=== PATIENT | male | born 1940 | race Caucasian/White ===

== ENCOUNTER → 2016-09-25 | Outpatient (CLI) | payer OTHER ==
[~2016-09-25] MED LIST: ASPI81TA28 PO; ATEN-173 PO; DICL-201 PO; MULT-506 PO; OMEG10007 PO; POME250C2 PO
[2016-09-25 09:46] LABS: HEMATOCRIT 47.7 % (42-52); MEAN CELL VOLUME 83.1 fL (80-100); MEAN CORPUSCULAR HEMOGLOBIN 29.6 pg (25-34); MEAN CORPUSCULAR HGB CONC 35.6 g/dl (32-36); MEAN PLATELET VOLUME 10.9 fL (7.4-10.4); PLATELET COUNT 153 K/uL (130-400); RED BLOOD COUNT 5.74 M/uL (4.7-6.1); WHITE BLOOD COUNT 6.24 K/uL (4.8-10.8)
[2016-09-25 10:20] LABS: ESTIMATED AVERAGE GLUCOSE 154 mg/dl; HA1C FLAG Normal (Normal)
[2016-09-25 10:24] LABS: ALT/SGPT 33 U/L (12-78); AST/SGOT 19 U/L (15-37); BLOOD UREA NITROGEN 26 mg/dl (7-18); CALCIUM 9.2 mg/dl (8.5-10.1); CARBON DIOXIDE 28 mmol/L (21-32); CHLORIDE 103 mmol/L (98-107); CHOLESTEROL 194 mg/dl (0-200); GLUCOSE 133 mg/dl (70-99); POTASSIUM 4.1 mmol/L (3.5-5.1); SODIUM 140 mmol/L (136-145); TRIGLYCERIDES 418 mg/dl (0-150)
[2016-09-25 10:26] LABS: ALB/GLOB RATIO 1.1 (0.9-2); ALKALINE PHOSPHATASE 95 U/L (45-117); CHOLESTEROL/HDL RATIO 6.1; HDL CHOLESTEROL 32 mg/dl
== END | disposition home or self-care (01) ==
LOC: C.LAB 07:39
PROVIDERS: ATTEND Internal Medicine
DX: E11.9 Type 2 diabetes mellitus without complications (principal); E78.5 Hyperlipidemia, unspecified

== ENCOUNTER → 2016-09-27 | Outpatient (CLI) | payer OTHER | END | disposition home or self-care (01) | LOC: C.LABBFT 09:03 | PROVIDERS: ATTEND Urology | DX: R97.20 Elevated prostate specific antigen [PSA] (principal); N52.9 Male erectile dysfunction, unspecified ==

== ENCOUNTER → 2016-09-30 | Day surgery (SDC) | payer OTHER ==
[2016-09-18 15:38] VITALS: Ht 175.3 cm; Wt 63.6 kg
[~2016-09-30] VITALS: Ht 175.3 cm; Wt 63.6 kg
[~2016-09-30] MED LIST changes: +ATROPINE SULFATE 0.1 MG/ML 5ML SYR IV PRN; +EpHEDrine SULFATE INJ 50 MG/ML AMP IV PRN; +EpHEDrine SULFATE INJ 50 MG/ML AMP ONE; +LIDOCAINE HCL 2% 2 ML VIAL (20MG/ML) ONE; +PROPOFOL IV EMULSION 10 MG/ML 20 ML VIAL IV ONE
--- NOTE | 2016-09-30 14:06 | Endo History and Physical ---
History & Physical Date of Service: Sep 30, 2016. Chief Complaint: Screening Referring Physician: Vicetne Loving History of Present Illness 76 yo CM who presents for screening colonoscopy. Past Surgical History Hx Cardiac Surgery: No Hx Internal Defibrillator: No Hx Pacemaker: No Hx Abdominal Surgery: No Hx of Implantable Prosthesis: No Hx Post-Op Nausea and Vomiting: No Hx Cancer Surgery: Yes (LUNG LESION REMOVAL, LOWER RIGHT LOBECTOMY) Hx Thoracic Surgery: No Hx Orthopedic: Yes (LT SHOULDER SURGERY X2) Hx Urinary Tract Surgery: Yes (PROSTATE BIOPSY (NEGATIVE)) Family History None Social History Smoking Status: Never Smoker Hx Substance Use: No Hx Alcohol Use: No Allergies Coded Allergies: No Known Allergies (Unverified , 09/18/16) Current Medications Reported Home Medications Medications Dose Route/Sig Max Daily Dose Days Date Category Dose Instructions Pomegranate (Pomegranate (Punica Granatum)) 250 Mg Cap 1 Tab PO BID 09/18/16 Reported Aspirin Ec (Aspirin) 81 Mg Tab 81 Mg PO QAM 09/18/16 Reported Multivitamin (Multivitamins) Tab 1 Tab PO QAM 09/18/16 Reported Page-3 (Fish Oil) 1 Ea Cap 1 Cap PO QAM 09/18/16 Reported Tenormin (Atenolol) 25 Mg Tab 25 Mg PO QAM 09/18/16 Reported Voltaren (Diclofenac Sodium) 75 Mg Tabcr 75 Mg PO QAM 09/18/16 Reported WITH FOOD Vital Signs Weight (Kilograms): 63.64 Height (Feet): 5 Height (Inches): 9 Date Time Temp Pulse Resp B/P Pulse Ox O2 Delivery O2 Flow Rate FiO2 09/30/16 13:50 36.8 57 18 214/89 98 Room Air Physical Exam General Appearance: WD/WN, no apparent distress Respiratory/Chest: Auscultation: breath sounds normal Cardiovascular: Heart Auscultation: RRR Abdomen: Bowel Sounds: normal Inspection & Palpation: soft, non-distended, no tenderness, guarding & rebound Assessment and Plan Assessment: 76 yo CM who presents for screening colonoscopy. Plan: Proceed with colonoscopy.
--- NOTE | 2016-09-30 14:32 | Discharge Instructions ---
Endoscopy Patient Instructions Date / Procedure(s) Performed Sep 30, 2016. Colonoscopy Allergy Information Coded Allergies: No Known Allergies (Unverified , 09/18/16) Discharge Date / Findings Sep 30, 2016. Colon polyp Diverticulosis Internal hemorrhoids Medication Instructions Stopped Medication(s): ASA, Voltaren OK to resume all medications today as prescribed. Reported Home Medications Medications Dose Route/Sig Max Daily Dose Days Date Category Dose Instructions Pomegranate (Pomegranate (Punica Granatum)) 250 Mg Cap 1 Tab PO BID 09/18/16 Reported Aspirin Ec (Aspirin) 81 Mg Tab 81 Mg PO QAM 09/18/16 Reported Multivitamin (Multivitamins) Tab 1 Tab PO QAM 09/18/16 Reported [place]-3 (Fish Oil) 1 Ea Cap 1 Cap PO QAM 09/18/16 Reported Tenormin (Atenolol) 25 Mg Tab 25 Mg PO QAM 09/18/16 Reported Voltaren (Diclofenac Sodium) 75 Mg Tabcr 75 Mg PO QAM 09/18/16 Reported WITH FOOD Provider Instructions Activity Restrictions - No exercising or heavy lifting for 24 hours. - Do not drink alcohol the day of the procedure. - Do not drive a car or operate machinery until the day after the procedure. - Do not make any important decisions or sign important papers in 24 hours after the procedure. Following Day: - Return to full activity which may include returning to work/school. Diet Start your diet with liquids and light foods (jello, soup, juice, toast). Then eat your usual diet if not nauseated. Treatment For Common After Affects For mild abdominal pain, bloating, or excessive gas: - Rest - Eat lightly - Lie on right side Follow-Up Information Follow-up with Vicente Loving as scheduled Anesthesia Information What You Should Know You have had a procedure that required some medicine to reduce anxiety and discomfort. This treatment is called moderate sedation. After receiving the treatment, you may be sleepy, but you will be able to breathe on your own. The effects of the treatment may last for several hours. Follow these instructions along with Activity/Diet recommendations noted above: * Do NOT do anything where dizziness or clumsiness would be dangerous. * Rest quietly at home today, then you can be up and about tomorrow. * Have a responsible person stay with you the rest of today. * You may have had an I.V. today. If so, you may take the dressing off later today. Recommendations Call your doctor if: * Trouble breathing * Continuous vomiting for more than 24 hours * Temperature above 101 degrees * Severe abdominal pain or bloating * Pain not relieved by pain medicine ordered * There is increased drainage or redness from any incision * A large amount of rectal bleeding greater than 2-3 tablespoons. (If you had a polyp/s removed or have hemorrhoids, a small amount of blood - from the rectum is to be expected.) * You have any unanswered questions or concerns. IN THE EVENT OF A SERIOUS EMERGENCY, GO TO THE NEAREST EMERGENCY ROOM Your discharge instructions were prepared by provider Yuri Khanna. Patient Instructions Signature Page Rafi Williamson Patient (or Guardian) Signature/Date: I have read and understand the instructions given to me by my caregivers. Caregiver/RN/Doctor Signature/Date: The above-named patient and/or guardian has received patient instructions on this date. + Original Patient Signature Page (only) stays with chart. Please make copy for patient.
--- NOTE | 2016-09-30 14:32 | GI REPORT ---
Procedure Date: 09/30/2016 1:56 PM Procedure: Colonoscopy Indications: Screening for colorectal malignant neoplasm Medicines: Monitored Anesthesia Care Complications: No immediate complications. Estimated Blood Loss: Estimated blood loss: none. Procedure: Pre-Anesthesia Assessment: - Prior to the procedure, a History and Physical was performed, and patient medications and allergies were reviewed. The patient's tolerance of previous anesthesia was also reviewed. The risks and benefits of the procedure and the sedation options and risks were discussed with the patient. All questions were answered, and informed consent was obtained. Prior Anticoagulants: The patient has taken aspirin, last dose was 2 days prior to procedure. ASA Grade Assessment: III - A patient with severe systemic disease. After reviewing the risks and benefits, the patient was deemed in satisfactory condition to undergo the procedure. After I obtained informed consent, the scope was passed under direct vision. Throughout the procedure, the patient's blood pressure, pulse, and oxygen saturations were monitored continuously. The scope was introduced through the anus and advanced to the terminal ileum. The colonoscopy was performed without difficulty. The patient tolerated the procedure well. The quality of the bowel preparation was good. The terminal ileum, ileocecal valve, appendiceal orifice, and rectum were photographed. Findings: A 6 mm polyp was found in the ascending colon. The polyp was sessile. The polyp was removed with a hot snare. Resection and retrieval were complete. Multiple small-mouthed diverticula were found in the sigmoid colon. Non-bleeding internal hemorrhoids were found during retroflexion. The hemorrhoids were small. Impression: - One 6 mm polyp in the ascending colon, removed with a hot snare. Resected and retrieved. - Diverticulosis in the sigmoid colon. - Non-bleeding internal hemorrhoids. Recommendation: - Resume previous diet. - Continue present medications. - Repeat colonoscopy for surveillance based on pathology results. - Return to primary care physician as previously scheduled. Yuri Khanna DO 09/30/2016 2:31:46 PM This report has been signed electronically. Note Initiated On: 09/30/2016 1:56 PM
--- NOTE | 2016-09-30 14:59 | Anesthesiology Progress Note ---
Anesthesia Post Op Note Date & Time Sep 30, 2016 at 14:59 Vital Signs Pain Intensity: 0 Vital Signs Past 12 Hours Date Time Temp Pulse Resp B/P Pulse Ox O2 Delivery O2 Flow Rate FiO2 09/30/16 14:45 75 20 146/64 97 Room Air 09/30/16 14:30 68 20 110/42 98 Room Air 09/30/16 13:50 36.8 57 18 214/89 98 Room Air Notes Mental Status: alert / awake / arousable, participated in evaluation Pt Amnestic to Procedure: Yes Nausea / Vomiting: adequately controlled Pain: adequately controlled Airway Patency, RR, SpO2: stable & adequate BP & HR: stable & adequate Hydration State: stable & adequate Anesthetic Complications: no major complications apparent
[2016-09-30 15:00] VITALS: BP 169/75; PULSE 60; O2SAT 99
== END | disposition home or self-care (01) ==
LOC: C.GI 13:25
PROVIDERS: ATTEND Internal Medicine
DX: Z12.11 Encounter for screening for malignant neoplasm of colon (principal); Z85.118 Personal history of other malignant neoplasm of bronchus and lung; D12.2 Benign neoplasm of ascending colon; K57.30 Diverticulosis of large intestine without perforation or abscess without bleeding; K64.8 Other hemorrhoids; Z98.890 Other specified postprocedural states; I10 Essential (primary) hypertension

== ENCOUNTER → 2017-01-30 | Outpatient (CLI) | payer OTHER ==
[~2017-01-30] MED LIST changes: -ATROPINE SULFATE 0.1 MG/ML 5ML SYR IV PRN; -EpHEDrine SULFATE INJ 50 MG/ML AMP IV PRN; -EpHEDrine SULFATE INJ 50 MG/ML AMP ONE; -LIDOCAINE HCL 2% 2 ML VIAL (20MG/ML) ONE; -PROPOFOL IV EMULSION 10 MG/ML 20 ML VIAL IV ONE
[2017-01-30 12:32] LABS: URINE APPEARANCE CLEAR (CLEAR); URINE BILIRUBIN NEG (NEG); URINE COLOR YELLOW; URINE NITRITE NEG (NEG); URINE PH 7.5 (4.5-7.5); URINE SPECIFIC GRAVITY 1.016 (1.000-1.030); UROBILINOGEN NEG (NEG)
[2017-01-30 12:51] LABS: MANUAL MICROSCOPIC REQUIRED? NO; REVIEW REQ? NO
== END | disposition home or self-care (01) ==
LOC: C.LAB 09:28
PROVIDERS: ATTEND Nurse Practitioner Adult Health
DX: R36.1 Hematospermia (principal); R97.20 Elevated prostate specific antigen [PSA]

== ENCOUNTER → 2017-04-14 | Outpatient (CLI) | payer OTHER ==
[2017-04-14 12:36] LABS: HEMATOCRIT 46.8 % (42-52); MEAN CELL VOLUME 84.8 fL (80-100); MEAN CORPUSCULAR HEMOGLOBIN 28.8 pg (25-34); MEAN PLATELET VOLUME 10.3 fL (7.4-10.4); PLATELET COUNT 143 K/uL (130-400); RED BLOOD COUNT 5.52 M/uL (4.7-6.1); WHITE BLOOD COUNT 5.14 K/uL (4.8-10.8)
[2017-04-14 12:41] LABS: ESTIMATED AVERAGE GLUCOSE 146 mg/dl; HA1C FLAG Normal (Normal)
[2017-04-14 12:57] LABS: BLOOD UREA NITROGEN 22 mg/dl (7-18); GLUCOSE 103 mg/dl (70-99)
[2017-04-14 12:58] LABS: ALT/SGPT 34 U/L (12-78); AST/SGOT 20 U/L (15-37); BUN/CREATININE RATIO 19.5 (10-20); CALCIUM 8.8 mg/dl (8.5-10.1); CARBON DIOXIDE 30 mmol/L (21-32); CHLORIDE 105 mmol/L (98-107); CHOLESTEROL 167 mg/dl (0-200); POTASSIUM 4.2 mmol/L (3.5-5.1); SODIUM 138 mmol/L (136-145); TRIGLYCERIDES 284 mg/dl (0-150); VERY LOW DENSITY LIPOPROT CALC 57 mg/dl
[2017-04-14 13:08] LABS: ALKALINE PHOSPHATASE 82 U/L (45-117); CHOLESTEROL/HDL RATIO 4.8; HDL CHOLESTEROL 35 mg/dl; LDL CHOLESTEROL CALCULATED 75 mg/dl
[2017-04-14 13:10] LABS: RATIO 30.2 mcg/mg (0-30.0)
== END | disposition home or self-care (01) ==
LOC: C.LAB 09:27
PROVIDERS: ATTEND Internal Medicine
DX: E78.5 Hyperlipidemia, unspecified (principal); E11.9 Type 2 diabetes mellitus without complications

== ENCOUNTER → 2017-08-07 | Outpatient (CLI) | payer OTHER | END | disposition home or self-care (01) | LOC: C.LAB 09:49 | PROVIDERS: ATTEND Urology | DX: C34.90 Malignant neoplasm of unspecified part of unspecified bronchus or lung (principal); F41.9 Anxiety disorder, unspecified; K63.5 Polyp of colon; E11.9 Type 2 diabetes mellitus without complications; M19.90 Unspecified osteoarthritis, unspecified site; M25.50 Pain in unspecified joint; N52.9 Male erectile dysfunction, unspecified; R05 Cough ==

== ENCOUNTER → 2017-09-04 | Outpatient (CLI) | payer OTHER | END | disposition home or self-care (01) | LOC: C.LAB 15:09 | PROVIDERS: ATTEND Urology | DX: R97.20 Elevated prostate specific antigen [PSA] (principal) ==

== ENCOUNTER → 2017-09-26 | Outpatient (CLI) | payer OTHER | END | disposition home or self-care (01) | LOC: C.LAB 12:04 | PROVIDERS: ATTEND Urology | DX: R97.20 Elevated prostate specific antigen [PSA] (principal) ==

== ENCOUNTER → 2018-04-16 | Outpatient (CLI) | payer OTHER ==
[2018-04-16 12:15] LABS: HEMATOCRIT 46.5 % (42-52); HEMOGLOBIN 16.4 g/dL (14.0-18.0); MEAN CORPUSCULAR HEMOGLOBIN 29.3 pg (25-34); MEAN CORPUSCULAR HGB CONC 35.3 g/dl (32-36); MEAN PLATELET VOLUME 10.9 fL (7.4-10.4); PLATELET COUNT 163 K/uL (130-400); RED CELL DISTRIBUTION WIDTH CV 14.5 % (11.5-14.5); RED CELL DISTRIBUTION WIDTH SD 43.8 fL (36.4-46.3); WHITE BLOOD COUNT 6.57 K/uL (4.8-10.8)
[2018-04-16 12:27] LABS: HEMOGLOBIN A1C 7.2 % (4.5-5.6)
[2018-04-16 12:36] LABS: ALBUMIN 3.7 gm/dl (3.4-5.0); ALKALINE PHOSPHATASE 93 U/L (45-117); ALT/SGPT 33 U/L (12-78); AST/SGOT 21 U/L (15-37); BLOOD UREA NITROGEN 20 mg/dl (7-18); CALCIUM 8.8 mg/dl (8.5-10.1); CARBON DIOXIDE 27 mmol/L (21-32); CHOLESTEROL 163 mg/dl (0-200); CREATININE 1.21 mg/dl (0.60-1.40); GLUCOSE 134 mg/dl (70-99); POTASSIUM 4.4 mmol/L (3.5-5.1); SODIUM 135 mmol/L (136-145); TOTAL PROTEIN 7.4 gm/dl (6.4-8.2)
== END | disposition home or self-care (01) ==
LOC: C.LAB 10:21
PROVIDERS: ATTEND Internal Medicine
DX: E11.9 Type 2 diabetes mellitus without complications (principal)

== ENCOUNTER 2019-09-16 08:05 | Inpatient (IN) ==
[2019-09-16] MEDS ORDERED: OXYCODONE HCL IR 5 MG TAB (IMMEDIATE RELEASE) PO STA (08:23)
[2019-09-16 08:44] LABS: Basophils # (auto) 0.01 K/uL (0-0.2); Basophils % (auto) 0.1 %; Eosinophils # (auto) 0.01 K/uL (0-0.5); Eosinophils % (auto) 0.1 %; Hematocrit (blood only) 45.3 % (42-52); Hemoglobin 15.2 g/dL (14.0-18.0); Immature Granulocytes # (auto) 0.02 K/uL (0.00-0.02); Immature Granulocytes % (auto) 0.2 %; Lymphocytes # (auto) 1.82 K/uL (1.2-3.4); Lymphocytes % (auto) 16.9 %; Mean Corpuscular Hemoglobin 28.1 pg (25-34); Mean Corpuscular Hgb Conc 33.6 g/dL (32-36); Mean Corpuscular Volume 83.9 fL (80-100); Mean Platelet Volume 10.3 fL (7.4-10.4); Monocytes # (auto) 0.41 K/uL (0.11-0.59); Monocytes % (auto) 3.8 %; Neutrophils # (auto) 8.51 K/uL (1.4-6.5); Neutrophils % (auto) 78.9 %; Platelet Count 191 K/uL (130-400); RDW Standard Deviation 42.7 fL (36.4-46.3); White Blood Count 10.78 K/uL (4.8-10.8)
--- NOTE | 2019-09-16 08:48 | XRay Report ---
SINGLE VIEW CHEST CLINICAL HISTORY: Atypical chest pain. FINDINGS: An AP, portable, upright chest radiograph is compared to study dated 09/09/2018. The examinat ion is mildly degraded by portable technique and patient rotation. The heart is enlarged noting ather osclerotic calcification of the thoracic aorta. The pulmonary vasculature is noncongested. There is m ild elevation of right hemidiaphragm. There is mild bibasilar scarring/atelectasis. Scattered calcifi ed granulomas are observed. No airspace consolidation, large pleural effusion, or pneumothorax is see n. The skeletal structures are osteopenic. There is a healed right posterior rib fracture. IMPRESSION: Cardiomegaly with no acute cardiopulmonary abnormality. ACT 112: Negative or not required by law. Electronically signed by: Phani Castro M.D. 09/16/2019 8:46 AM
--- NOTE | 2019-09-16 08:49 | Emergency Department Note ---
History of Present Illness General Chief complaint: Shoulder Pain Stated complaint: LEFT SHOULDER PAIN Time Seen by Provider: 09/16/19 08:12 History of Present Illness Maximum Pain Intensity: 9 This 79-year-old male presents the ER with chief complaint of left shoulder pain. The patient states that he has had the pain intermittently since July. He states the pain started this morning approximately 3 hours ago in the back of his shoulder and now radiates through to the front of his shoulder. He states that these pains have been getting progressively worse. He is under the care of Dr. Ferrari for his shoulder pain. He states he had an MRI of the shoulder performed in July which did not reveal any acute problems therefore he had an MRI of the his cervical spine this morning but does not have the results. The patient does admit that he gets a little short of breath with the pain but he thinks it is because it is so painful he gets very anxious. He denies any chest pain, headache or dizziness. The patient denies any personal history of CAD. He does chew tobacco but has never smoked. Both his parents of acute VT but they were in their 90s. The patient states that he is mainly here for pain control of his shoulder. He was seen by Dr. Ferrari yesterday and was placed on steroids. He states this is not helping. He is also taking tramadol which is not helping in addition to his Tylenol. Home Medications Home Medications Medication Instructions Recorded Confirmed Type aspirin 81 mg tablet,delayed 81 mg PO DAILY 10/28/18 09/16/19 History release multivitamin 1 tab PO DAILY 10/28/18 09/16/19 History diclofenac sodium 75 mg 75 mg PO BID #180 tab 04/21/19 09/16/19 Rx tablet,delayed release flaxseed oil 1,000 mg capsule 1,000 mg PO BID 05/04/19 09/16/19 History gabapentin 300 mg capsule 300 mg PO BID #180 cap 05/04/19 09/16/19 Rx metformin 500 mg tablet 500 mg PO BID #180 tab 06/07/19 09/16/19 Rx lisinopril 10 mg tablet 10 mg PO DAILY #90 tab 06/14/19 09/16/19 Rx methylprednisolone 4 mg tablets in 4 mg PO UD #21 ea 09/15/19 09/16/19 Rx a dose pack atenolol 25 mg PO DAILY 09/16/19 09/16/19 History clonazepam 0 mg PO BID 09/16/19 09/16/19 History Allergies Allergy/AdvReac Type Severity Reaction Status Date / Time No Known Allergies Allergy Verified 09/16/19 08:54 Past Med/Surg History Medical History HTN (hypertension), benign (Chronic) Lung cancer (Resolved) Osteoarthritis (Chronic) Surgical History History of arthroscopy of shoulder (Resolved) left S/P partial lobectomy of lung (Resolved) Family History Father Myocardial infarction Social History Preferred Language: Mohawk Communication Ability: Effective Visual Impairment: No Limitations Hearing Ability: Normal Vehicle Upholsterer Required: No Beliefs That Will Affect Care: None marital status: Current Living Situation: Spouse current occupational status: employed current occupation: [employer] Fe[employer] Safe at Home: Yes Smoking Status: Never smoker Hx Alcohol Use: No Hx Substance Use: No Review of Systems A total of 10 systems reviewed and were otherwise negative Physical Exam Vital Signs Vital Signs - 24 hr 09/16/19 08:07 09/16/19 08:26 09/16/19 09:30 Temperature 36.5 C Temperature Source Oral Pulse Rate 65 Pulse Rate [Left] 59 L Pulse Rhythm [Left] Regular Respiratory Rate 18 18 Respiratory Effort / Characteristics Non-Labored Spontaneous Respiratory Depth Normal Blood Pressure 220/100 H Blood Pressure [Left Arm] 200/90 H Blood Pressure Mean 140 Blood Pressure Mean [Left Arm] 126 Blood Pressure Position Sitting Blood Pressure Position [Left Arm] Sitting Pulse Oximetry 99 99 97 Oxygen Delivery Method Room Air Room Air Room Air Oxygen Flow Rate 0 Sepsis Recent Fever Within 48 Hours No Sepsis New/Unexplained Change in Mental Status No Sepsis Action Taken by Nursing No Action Required 09/16/19 11:00 Temperature Temperature Source Pulse Rate Pulse Rate [Left] 88 Pulse Rhythm [Left] Respiratory Rate 18 Respiratory Effort / Characteristics Respiratory Depth Blood Pressure Blood Pressure [Left Arm] 150/76 H Blood Pressure Mean Blood Pressure Mean [Left Arm] 100 Blood Pressure Position Blood Pressure Position [Left Arm] Pulse Oximetry 96 Oxygen Delivery Method Room Air Oxygen Flow Rate Sepsis Recent Fever Within 48 Hours Sepsis New/Unexplained Change in Mental Status Sepsis Action Taken by Nursing GENERAL: 79-year-old white male appears in no acute distress. MENTAL Status: Alert and oriented x3. The patient is very anxious. EYES: PERRLA. EOMs intact. NECK: Supple, no lymphadenopathy noted. No carotid bruits noted. LUNGS: Clear auscultation without wheezes rales or rhonchi. CARDIAC: Regular rate and rhythm without murmur. Pulses is full and equal throughout. ABDOMEN: Positive bowel sounds all 4 quadrants. Soft, nontender to palpation without organomegaly or masses. LOWER EXTREMITIES: No erythema or edema noted. Calves are nontender. LEFT SHOULDER: The patient has point tenderness to palpation over the anterior aspect of the shoulder. Airfield Manager strength is 5 out of 5 as compared to the right. The patient has limited range of motion with abduction at 90 degrees. Course Administered Medications Discontinued Medications Aspirin (Aspirin) 243 mg PO NOW STA Stop: 09/16/19 11:22 Last Admin: 09/16/19 11:55 Dose: 243 mg Documented by: [id number] Hydralazine HCl (Hydralazine Hcl) 10 mg IV NOW STA Stop: 09/16/19 09:53 Last Admin: 09/16/19 10:06 Dose: 10 mg Documented by: [id number] Oxycodone HCl (Roxicodone Immediate Rel) 10 mg PO NOW STA Stop: 09/16/19 08:24 Last Admin: 09/16/19 08:29 Dose: 10 mg Documented by: [id number] Medical Decision Making Differential Diagnosis Acute VT, CAD, cervical radiculopathy, osteoarthritis of the shoulder Medical Records Attestation: I reviewed the patient's medical records. Home Medications Current Medication List: was personally reviewed by me Laboratory Data Attestation: I reviewed the patient's lab results. Result diagrams: 09/16/19 08:35 09/16/19 08:35 Lab Results 09/16/19 09/16/19 09/16/19 Range/Units 08:35 08:35 10:15 WBC 10.78 (4.8-10.8) K/uL RBC 5.40 (4.7-6.1) M/uL Hgb 15.2 (14.0-18.0) g/dL Hct 45.3 (42-52) % MCV 83.9 (80-100) fL MCH 28.1 (25-34) pg MCHC 33.6 (32-36) g/dL RDW Std Deviation 42.7 (36.4-46.3) fL RDW Coeff of [place] 14.0 (11.5-14.5) % Plt Count 191 (130-400) K/uL MPV 10.3 (7.4-10.4) fL Immature Gran % (Auto) 0.2 % Neut % (Auto) 78.9 % Lymph % (Auto) 16.9 % [place] % (Auto) 3.8 % Eos % (Auto) 0.1 % Baso % (Auto) 0.1 % Immature Gran # (Auto) 0.02 (0.00-0.02) K/uL Neut # (Auto) 8.51 H (1.4-6.5) K/uL Lymph # (Auto) 1.82 (1.2-3.4) K/uL [place] # (Auto) 0.41 (0.11-0.59) K/uL Eos # (Auto) 0.01 (0-0.5) K/uL Baso # (Auto) 0.01 (0-0.2) K/uL Sodium 135 L (136-145) mmol/L Potassium 4.8 (3.5-5.1) mmol/L Chloride 103 (98-107) mmol/L Carbon Dioxide 26 (21-32) mmol/L Anion Gap 6.0 (3-11) BUN 29 H (7-18) mg/dl Creatinine 1.26 (0.6-1.4) mg/dl Est Cr Clr Drug Dosing 46.3 ml/min Est GFR ( Amer) 63.3 Est GFR (Non-Af Amer) 54.7 BUN/Creatinine Ratio 23.0 H (10-20) Glucose 257 H (70-99) mg/dl Calcium 9.1 (8.5-10.1) mg/dl Total Bilirubin 0.4 (0.2-1) mg/dl AST 17 (15-37) U/L ALT 34 (12-78) U/L Alkaline Phosphatase 96 (45-117) U/L Total Creatine Kinase 79 (39-308) U/L CK-MB (CK-2) 2.8 (0.5-3.6) ng/ml CK/CKMB % Calc 3.5 H (0-3.0) Troponin I 0.038 0.074 H* (0-0.045) ng/ml Total Protein 7.2 (6.4-8.2) gm/dl Albumin 3.7 (3.4-5.0) gm/dl Globulin 3.5 (2.5-4.0) gm/dl Albumin/Globulin Ratio 1.1 (0.9-2) Lipase 150 (73-393) U/L Specimen Hemolysis Imaging Data Attestation: I personally reviewed and interpreted this imaging study as follows: My Impression: No acute cardiopulmonary finding. Mild cardiomegaly Radiologist's Impression: SINGLE VIEW CHEST CLINICAL HISTORY: Atypical chest pain. FINDINGS: An AP, portable, upright chest radiograph is compared to study dated 09/09/2018. The examination is mildly degraded by portable technique and patient rotation. The heart is enlarged noting atherosclerotic calcification of the thoracic aorta. The pulmonary vasculature is noncongested. There is mild elevation of right hemidiaphragm. There is mild bibasilar scarring/atelectasis. Scattered calcified granulomas are observed. No airspace consolidation, large pleural effusion, or pneumothorax is seen. The skeletal structures are osteopenic. There is a healed right posterior rib fracture. IMPRESSION: Cardiomegaly with no acute cardiopulmonary abnormality. ACT 112: Negative or not required by law. Electronically signed by: Phani Castro M.D. 09/16/2019 8:46 AM Dictated: 09/16/1945 Transcribed: 09/16/1945 ECG Data Indication: + other Rate (beats per minute): 62 Rhythm: + sinus with SA ECG ST segments: + Nonspecific ST abnormalities Comparison ECG Date: no prior available Blood Pressure Blood Pressure Findings: Elevated blood pressure Blood Pressure Disposition: Referred to patients primary care provider MDM Narrative The patient was evaluated. The patient was placed on a electronic device monitor and continuous pulse ox. EKG was ordered interpreted as above with nonspecific ST changes.. Chest x-ray was ordered interpreted as above by the radiologist and myself without any acute findings cardiomegaly was noted.. CBC and differential, renal profile, LFTs and lipase levels were ordered. Coags were ordered, CK-MB, troponin was ordered. The patient was given OxyIR 10 mg p.o. for pain. The patient's blood pressure remained elevated therefore he was given hydralazine 10 mg IV. His blood pressure came down to 150/76 after receiving the hydralazine. CBC and differential was unremarkable. Renal profile revealed elevated BUN at 29. Creatinine was normal at 1.26. The patient's initial troponin was 0.038 90-minute repeat it was 0.074. The patient had already taken 1 baby aspirin this morning therefore he was given 243 mg of chewable aspirin. the patient was independently evaluated by Dr. Bonilla who agrees with treatment plan. The hospitalist was consulted for admission. I also spoke with about the patient although Dr. Coughlin said that she would speak with cardiology. Impression & Plan Elevated troponin I level, Hypertension Discharge Plan Visit Data Chief Complaint: Shoulder Pain Stated Complaint: LEFT SHOULDER PAIN ED Provider: Eleni Bonilla ED Midlevel Provider: Anna Candelario Discharge Problem: Elevated troponin I level, Hypertension Patient Disposition: Being Evaluated by Hospitalist Condition: Good Forms Stand Alone Forms: My [facility] Prescriptions Prescriptions: No Action aspirin [Adult Aspirin Regimen] 81 mg tablet,delayed release (DR/EC) 81 mg PO DAILY RF: 0 multivitamin tablet 1 tab PO DAILY RF: 0 flaxseed oil 1,000 mg capsule 1,000 mg PO BID RF: 0 gabapentin 300 mg capsule 300 mg PO BID Qty: 180 RF: 0 metformin 500 mg tablet 500 mg PO BID Qty: 180 RF: 3 lisinopril 10 mg tablet 10 mg PO DAILY Qty: 90 RF: 3 methylprednisolone [Medrol (Chuck)] 4 mg tablets,dose pack 4 mg PO UD Qty: 21 RF: 0 diclofenac sodium 75 mg tablet,delayed release (DR/EC) 75 mg PO BID Qty: 180 RF: 3 atenolol 25 mg tablet 25 mg PO DAILY RF: 0 clonazepam 0.5 mg Tablet 0 mg PO BID RF: 0 Referrals Referrals: Vicente Loving III, MD [Primary Care Provider] - Discharge Problem: Hypertension Qualifiers: Hypertension type: unspecified Qualified Code(s): I10 - Essential (primary) hypertension
[2019-09-16 09:05] LABS: Albumin Level 3.7 gm/dl (3.4-5.0); Calcium 9.1 mg/dl (8.5-10.1); Creatinine Clr Calc Pharmacy 46.3 ml/min; Est GFR (African American) 63.3; Est GFR (Non-African American) 54.7; Potassium 4.8 mmol/L (3.5-5.1)
[2019-09-16 09:21] LABS: Albumin Globulin Ratio 1.1 (0.9-2); Bilirubin,Total 0.4 mg/dl (0.2-1); Creatine Kinase MB 2.8 ng/ml (0.5-3.6); Globulin 3.5 gm/dl (2.5-4.0); Total Protein 7.2 gm/dl (6.4-8.2); Troponin I 0.038 ng/ml (0-0.045)
[2019-09-16] MEDS ORDERED: HydrALAZINE HCL 20 MG/ML VIAL IV STA (09:52)
[2019-09-16] MEDS ORDERED: ASPIRIN CHEW 324 MG PO STA (11:21)
--- NOTE | 2019-09-16 12:06 | History & Physical Report ---
Date of Service September 16, 2019 Assessment & Plan (1) Elevated troponin I level: r/o ACS 0.038 on presentation, repeat 0.074 EKG and CXR neg for acute Pt is very active and unloaded 1000 lbs of feed yesterday by himself, possibly trop is elevated due to strenuous exercise in a 79 y/o M CK WNL ECHO pending Cardiology c/s pending Takes daily aspirin 81mg for prevention only (2) Hypertension: Labile in the ED in the setting of pain Hydalazine in the ED and improved Monitor continue home meds (3) Left shoulder pain: Imaging noted for multiple levels of bulging discs and pain is relieved with positional changes, worse with certain positions Pt does have a point tender biceps tendon, which is the focus of his pain generally Hx of surgery to L biceps, ?? scar tissue Imaging for shoulder was neg Has f/u with ortho next week Steroid dose pack started yesterday, will continue (4) Type 2 diabetes mellitus: A1c 7.1 04/2019 Elevated BS in the setting of steroids and did not take DM meds this AM A1c pending Lipids pending (5) Lung cancer: s/p RLL lobectomy in 1990 No hx of chemo or radiation Denies hx of intervention or mass in the L lung (6) DVT prophylaxis: Ambulation History of Present Illness Chief Complaint: 79 y/o M c/o L shoulder and neck pain. Pt states that this started in June. It was initially in the AM only and would resolve if he put his head down and to the R. He was seen by Dr. Ferrari for this in July and had a L shoulder MRI that was neg. His pain continued and has much increased over the last week. He is now having pain at night as well when at rest, worse with lying flat. He does not really get much pain during the day. At no point has he had pain in his chest. Pain has always been L shoulder. Now in the L neck as well. Sometimes it moves from the shoulder to his L thumb, but not always. Tylenol helps at times. Sometimes the pain occurs when he is reaching overhead. Pt was seen by Dr. Ferrari yesterday and an MRI c-spine was ordered for today. He was put on a steroid dose pack yesterday, but has only taken one dose thus far and no difference. Pt takes gabapentin for LE neuropathy and states that this does not help his L shoulder pain. He has been SOB at times when the pain is most intense, but not generally. Pt denies fever, abd pain, n/v/c/d, LE pain or swelling. Pt is very active at baseline. 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 Pt notes that yesterday he unloaded 1000 lbs of feed yesterday himself. 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 He has no pain in the L shoulder with these activities. Pt notes remote hx of stress testing, but he is unsure why. He has no hx of chest pain or cardiac issues. When suggested that testing may have been related to pre-op screening prior to lung surgery, he states this is possible. He does take aspirin 81mg daily, but this is for prevention only. Primary Care Provider: Vicente Loving MD Allergies Allergy/AdvReac Type Severity Reaction Status Date / Time No Known Allergies Allergy Verified 09/16/19 08:54 Home Medications Home Medications Medication Instructions Recorded Confirmed Type aspirin 81 mg tablet,delayed 81 mg PO DAILY 10/28/18 09/16/19 History release multivitamin 1 tab PO DAILY 10/28/18 09/16/19 History diclofenac sodium 75 mg 75 mg PO BID #180 tab 04/21/19 09/16/19 Rx tablet,delayed release flaxseed oil 1,000 mg capsule 1,000 mg PO BID 05/04/19 09/16/19 History gabapentin 300 mg capsule 300 mg PO BID #180 cap 05/04/19 09/16/19 Rx metformin 500 mg tablet 500 mg PO BID #180 tab 06/07/19 09/16/19 Rx lisinopril 10 mg tablet 10 mg PO DAILY #90 tab 06/14/19 09/16/19 Rx methylprednisolone 4 mg tablets in 4 mg PO UD #21 ea 09/15/19 09/16/19 Rx a dose pack atenolol 25 mg PO DAILY 09/16/19 09/16/19 History clonazepam 0 mg PO BID 09/16/19 09/16/19 History Past Med/Surg History Medical History HTN (hypertension), benign (Chronic) Lung cancer (Resolved) Osteoarthritis (Chronic) Surgical History History of arthroscopy of shoulder (Resolved) left S/P partial lobectomy of lung (Resolved) Family History Father Myocardial infarction Social History Preferred Language: Lao Communication Ability: Effective Visual Impairment: No Limitations Hearing Ability: Normal Take Away Man Required: No Beliefs That Will Affect Care: None marital status: Current Living Situation: Spouse current occupational status: employed current occupation: [employer] Feels Safe at Home: Yes Smoking Status: Never smoker Hx Alcohol Use: No Hx Substance Use: No Review of Systems Review of Systems: Pertinent positives and negatives reviewed in HPI--all others negative Physical Exam Constitutional: WD/WN, vitals as above Eyes: normal visual garcia by confrontation and + anicteric sclerae Neck: normal visual inspection and trachea midline Respiratory: normal respiratory effort, lungs clear to auscultation Cardiovascular: Rate/Rhythm: regular rate and regular rhythm Gastrointestinal (Abdomen): Inspection/Auscultation: abdomen not distended Percussion/Palpation: abdomen soft; abdomen nontender Musculoskeletal: Head/Neck/Chest: normocephalic and head atraumatic negative for edema, peripheral pulses intact L biceps tendon with point TTP Good ROM in L UE Skin: no rashes, warm and dry Neurologic: awake; not confused Speech / Cognition: normal speech Psychiatric: A+Ox3, euthymic affect Results & Data Vital Signs (Past 12 Hours) Vital Signs Temp Pulse Pulse Resp BP BP Pulse Ox 09/16/19 11:00 88 18 150/76 H 96 09/16/19 09:30 59 L 18 200/90 H 97 09/16/19 08:26 99 09/16/19 08:07 36.5 C 65 18 220/100 H 99 Diagnostic Findings CXR: neg for acute C-spine MRI: neg for stenosis. Has multi-level disc bulging without herniation L shoulder MRI (07/2019): neg for acute Code Status & VTE Plan Code Status Full code VTE Prophylaxis Plan VTE Prophylaxis will be ordered: Yes PG Care Time/CCT Total # of Minutes Spent Total Time Spent with Patient: Total time spent is greater than 50% in coordination of care (as documented) at patient's floor/unit and/or counseling patient: (1) Hypertension Hypertension type: unspecified Qualified Code(s): I10 - Essential (primary) hypertension
[2019-09-16] MEDS ORDERED: CARBOHYDRATES FOR HYPOGLYCEMIA PO PRN (13:02)
[2019-09-16] MEDS ORDERED: METHYLPREDNISOLONE 4 MG PO SCH (13:02)
[2019-09-16] MEDS ORDERED: MAGNESIUM HYDROXIDE SUSP 30 ML UDC PO PRN (13:02)
[2019-09-16] MEDS ORDERED: ONDANSETRON INJ 2 MG/ML 2 ML VIAL IV PRN (13:02)
[2019-09-16] MEDS ORDERED: ACETAMINOPHEN 325 MG TAB PO PRN (13:02)
[2019-09-16] MEDS ORDERED: GLUCAGON FOR INJ 1 MG VIAL SQ PRN (13:02)
[2019-09-16] MEDS ORDERED: GLUCOSE 10 TABS/TUBE PO PRN (13:02)
[2019-09-16] MEDS ORDERED: DEXTROSE 50% 50 ML SYRINGE IV PRN (13:02)
[2019-09-16] MEDS ORDERED: GLUCOSE 40% GEL 15 GM TUBE PO PRN (13:02)
[2019-09-16] MEDS ORDERED: methylPREDNISolone 4 MG TAB PO STA (13:52)
[2019-09-16] MEDS: INSULIN ASPART 100 UNITS/ML 3 ML PEN SC SCH ×3 (14:22→20:59)
--- NOTE | 2019-09-16 14:29 | Cardiology Consultation ---
Date of Consultation September 16, 2019 Assessment & Plan (1) Left shoulder pain: He has left shoulder and arm discomfort which by his description does sound musculoskeletal but there is been no obvious cause identified. It also seems to be progressive and based primarily on his 's description is associated with shortness of breath and lightheadedness. I think his discomfort may well be due to myocardial ischemia based on his initial evaluation here. I would approach it by evaluating his coronary arteries and if he needs treatment of that see whether the discomfort resolves. (2) Elevated troponin I level: His initial troponin emergency room was only slightly high, it was actually within the normal range, but then it doubled and now it is up to 0.19 on a subsequent measurement. This is highly suggestive of an ischemic event. His discomfort in his left shoulder and arm probably lasted 45 minutes to an hour this morning and would be consistent with this and with coronary disease. I think he will need a cardiac catheterization to define his anatomy. I discussed that with him and his family, his and several daughters were present. He is agreeable. I would also make sure that he is on antianginal medications and anticoagulated tonight. I will arrange for catheterization tomorrow. (3) Abnormal electrocardiogram: His electrocardiogram demonstrates inferior T wave inversion as well as anterolateral T wave inversions, he does not have an infarction pattern but this is very suggestive of ischemia. Since we do not have a comparison I cannot be sure how old this is. He would have had electrocardiograms years ago when he had his lung cancer and surgery, he does not recall being told he had abnormal electrocardiogram so I suspect it is relatively new but we do not seem to have interim records. History of Present Illness Reason for Consultation: L shoulder and arm pain Attending Physician: Janice Arshad DO History of Present Illness This is a 79-year-old hard-working [employer] who has a history of hypertension and diabetes mellitus as well as a strong family history of heart disease although it has occurred primarily in the elderly, both of his parents had significant heart disease as does a brother. He has been having a lot of difficulty with left shoulder and arm discomfort for about a month, he has a lot of studies related to his cervical spine and his left shoulder and no obvious source has been identified. The discomfort has been getting worse, he describes several different types of discomfort all located in his left arm, his left biceps or his left shoulder with radiation down his left arm. 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 His describes the episode somewhat different than he does. She tells me that when he has the episodes they are quite severe, he is gasping for breath when he has it and he will look like he is passing out when he has them. Apparently he had a fairly severe episode this morning which she tells me lasted 45 minutes and then resolved I believe before he came into the emergency room. He is not sure exactly when the pain resolved. Some of the discomfort will last 5 minutes or so, somewhat last longer when he gets it but has always been intermittent. Evaluation emergency room was notable for a slightly elevated troponin of 0.038, repeat was 0.074 1 hour and 45 minutes later but his electrocardiogram shows inferior and lateral T wave inversion. A subsequent troponin 4 hours and 45 minutes after his initial is elevated to 0.190. He does have a history of lung cancer perhaps 20 years ago and he had several surgeries and believes he had electrocardiograms then but I have not located any of them in our records or the hospital records. We therefore do not have a comparison. Since admission he has had no further chest or left shoulder discomfort or other cardiovascular symptoms. Allergies Allergy/AdvReac Type Severity Reaction Status Date / Time No Known Allergies Allergy Verified 09/16/19 08:54 Home Medications Home Medications Medication Instructions Recorded Confirmed Type aspirin 81 mg tablet,delayed 81 mg PO DAILY 10/28/18 09/16/19 History release multivitamin 1 tab PO DAILY 10/28/18 09/16/19 History diclofenac sodium 75 mg 75 mg PO BID #180 tab 04/21/19 09/16/19 Rx tablet,delayed release flaxseed oil 1,000 mg capsule 1,000 mg PO BID 05/04/19 09/16/19 History gabapentin 300 mg capsule 300 mg PO BID #180 cap 05/04/19 09/16/19 Rx metformin 500 mg tablet 500 mg PO BID #180 tab 06/07/19 09/16/19 Rx lisinopril 10 mg tablet 10 mg PO DAILY #90 tab 06/14/19 09/16/19 Rx methylprednisolone 4 mg tablets in 4 mg PO UD #21 ea 09/15/19 09/16/19 Rx a dose pack atenolol 25 mg PO DAILY 09/16/19 09/16/19 History clonazepam 0 mg PO BID 09/16/19 09/16/19 History Patient History Medical History HTN (hypertension), benign (Chronic) Lung cancer (Resolved) Osteoarthritis (Chronic) Surgical History History of arthroscopy of shoulder (Resolved) left S/P partial lobectomy of lung (Resolved) Family History Father Myocardial infarction Social History Preferred Language: Azeri Communication Ability: Effective Visual Impairment: No Limitations Hearing Ability: Normal 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 HEENT: Unremarkable Neck: No jugular venous distention, carotid pulses are normal and equal bilaterally without bruits. Pulmonary: Clear to auscultation bilaterally. Cardiac: Regular rhythm with no murmur, gallop or rub. Abdomen: Soft, nontender with normal bowel sounds. Extremities: No edema. Distal pulses intact. Neurologic: No focal findings. Gait is steady. Skin: No rash, ecchymoses or petechiae. Results & Data Vital Signs (Past 12 Hours) Vital Signs Temp Pulse Pulse Resp BP BP Pulse Ox 09/16/19 13:15 57 L 09/16/19 13:02 36.6 C 55 L 18 187/78 H 97 09/16/19 11:00 88 18 150/76 H 96 09/16/19 09:30 59 L 18 200/90 H 97 09/16/19 08:26 99 09/16/19 08:07 36.5 C 65 18 220/100 H 99 Laboratory Results Cardiac Enzymes 09/16/19 09/16/19 09/16/19 Range/Units 08:35 10:15 13:17 AST 17 (15-37) U/L CK-MB (CK-2) 2.8 (0.5-3.6) ng/ml Troponin I 0.038 0.074 H* 0.190 H* (0-0.045) ng/ml CBC 09/16/19 Range/Units 08:35 WBC 10.78 (4.8-10.8) K/uL RBC 5.40 (4.7-6.1) M/uL Hgb 15.2 (14.0-18.0) g/dL Hct 45.3 (42-52) % Plt Count 191 (130-400) K/uL Neut # (Auto) 8.51 H (1.4-6.5) K/uL Lymph # (Auto) 1.82 (1.2-3.4) K/uL [place] # (Auto) 0.41 (0.11-0.59) K/uL Eos # (Auto) 0.01 (0-0.5) K/uL Baso # (Auto) 0.01 (0-0.2) K/uL Comprehensive Metabolic Panel 09/16/19 Range/Units 08:35 Sodium 135 L (136-145) mmol/L Potassium 4.8 (3.5-5.1) mmol/L Chloride 103 (98-107) mmol/L Carbon Dioxide 26 (21-32) mmol/L BUN 29 H (7-18) mg/dl Creatinine 1.26 (0.6-1.4) mg/dl Glucose 257 H (70-99) mg/dl Calcium 9.1 (8.5-10.1) mg/dl AST 17 (15-37) U/L ALT 34 (12-78) U/L Alkaline Phosphatase 96 (45-117) U/L Total Protein 7.2 (6.4-8.2) gm/dl Albumin 3.7 (3.4-5.0) gm/dl Intake and Output 09/15/19 09/16/19 09/16/19 22:59 06:59 14:59 Other: Weight 66.7 kg Patient Weight 09/17/19 06:59 Weight 66.7 kg Diagnostic Findings His electrocardiogram in the emergency room on September 16, 2019 at 8:30 AM shows sinus rhythm at 62 bpm with inferior T wave inversion and anterolateral T wave inversion. No prior tracings. An echocardiogram reviewed briefly at the bedside shows normal left ventricular size and overall function with left ventricular hypertrophy. There is a localized area of inferobasal hypokinesis. Telemetry: Sinus rhythm, no significant abnormality. PG Care Time/CCT Total # of Minutes Spent Total Time Spent with Patient: Total time spent is greater than 50% in coordination of care (as documented) at patient's floor/unit and/or counseling patient:
[2019-09-16] MEDS ORDERED: METOPROLOL TARTRATE 25 MG TAB PO STA (16:10)
[2019-09-16] MEDS ORDERED: HEPARIN SODIUM/DEXTROSE 25,000 UNITS/500 ML BAG IV SCH (16:15)
[2019-09-16] MEDS ORDERED: HEPARIN IV BOLUS 5,000 UNITS in SYRINGE 0 ML IV STA (16:45)
[2019-09-16] MEDS: NITROGLYCERIN 2% OINTMENT 30GM TUBE EXT SCH ×2 (17:12→20:50)
[2019-09-16 17:18] LABS: Partial Thromboplastin Ratio 0.9; Partial Thromboplastin Time 24.8 Seconds (21.0-31.0); Prothrombin Time 10.1 Seconds (9.0-12.0)
--- NOTE | 2019-09-16 17:27 | Electrocardiogram Report ---
Test Reason : Blood Pressure : / mmHG Vent. Rate : 062 BPM Atrial Rate : 062 BPM P-R Int : 156 ms QRS Dur : 086 ms QT Int : 392 ms P-R-T Axes : 010 -29 -49 degrees QTc Int : 397 ms Normal sinus rhythm with sinus arrhythmia Minimal voltage criteria for LVH, may be normal variant Abnormal ECG No previous ECGs available Confirmed by Adrien Adair [id number]) on 09/16/2019 5:26:59 PM Referred By: REFERRED SELF Confirmed By:Adrien Adair
[2019-09-16] MEDS: methylPREDNISolone 4 MG TAB PO SCH ×2 (18:20→20:51)
[2019-09-16] MEDS: INSULIN HUMAN NPH SC SCH (18:20)
[2019-09-16] MEDS: DICLOFENAC SODIUM 75 MG TABCR PO SCH (20:50)
[2019-09-16] MEDS: GABAPENTIN 300 MG CAP PO SCH (20:51)
[2019-09-16] MEDS: METOPROLOL TARTRATE 50 MG TAB PO SCH (20:51)
[2019-09-16] MEDS: METFORMIN HCL 500 MG TAB PO SCH (20:51)
[2019-09-16] MEDS ORDERED: NON-FORMULARY MEDICATION (Flaxseed Oil 1,000 MG) PO SCH (21:00)
[2019-09-17] MEDS ORDERED: SODIUM CHLORIDE 0.9% 1000ML 1,000 ML IV SCH
[2019-09-17 01:56] LABS: Partial Thromboplastin Ratio 2.7
[2019-09-17 01:57] LABS: Partial Thromboplastin Time 74.2 Seconds (21.0-31.0)
[2019-09-17] MEDS: NITROGLYCERIN 2% OINTMENT 30GM TUBE EXT SCH ×2 (05:42→11:22)
[2019-09-17] MEDS: methylPREDNISolone 4 MG TAB PO SCH ×2 (05:42→14:40)
[2019-09-17 06:57] LABS: Estimated Average Glucose 160 mg/dl; Hemoglobin A1C 7.2 % (4.5-5.6)
[2019-09-17 07:03] LABS: Chol HDL Ratio 5; Cholesterol 189 mg/dl (0-200); HDL Cholesterol 40 mg/dl; LDL Cholesterol Calculated 88 mg/dl; Triglycerides 303 mg/dl (0-150); VLDL Cholesterol 61 mg/dl
[2019-09-17] MEDS: METFORMIN HCL 500 MG TAB PO SCH (07:58)
[2019-09-17] MEDS: INSULIN HUMAN NPH SC SCH (07:58)
[2019-09-17 08:19] LABS: Partial Thromboplastin Time 54.1 Seconds (21.0-31.0)
[2019-09-17] MEDS: GABAPENTIN 300 MG CAP PO SCH (08:37)
[2019-09-17] MEDS: METOPROLOL TARTRATE 50 MG TAB PO SCH (08:38)
[2019-09-17] MEDS: DICLOFENAC SODIUM 75 MG TABCR PO SCH (08:43)
[2019-09-17] MEDS: INSULIN ASPART 100 UNITS/ML 3 ML PEN SC SCH ×2 (08:43→12:29)
[2019-09-17] MEDS ORDERED: MULTIVITAMIN TAB PO SCH (09:00)
[2019-09-17] MEDS ORDERED: ATENOLOL 25 MG TABLET PO SCH (09:00)
[2019-09-17] MEDS ORDERED: ASPIRIN 81 MG ECTAB PO SCH (09:00)
[2019-09-17] MEDS ORDERED: lisinopriL 10 MG TAB PO SCH (09:00)
--- NOTE | 2019-09-17 10:39 | Cardiology Progress Note ---
Date of Service September 17, 2019 Assessment & Plan (1) NSTEMI (non-ST elevated myocardial infarction): 2. Hypertension 3. Type 2 diabetes 4. History of lung cancer post lobectomy Patient admitted with left shoulder pain. High suspicion his symptoms are secondary to coronary disease given elevated troponin, inferior wall motion abnormality and abnormal electrocardiogram. Currently chest pain free and hemodynamically and electrically stable. Plan for cardiac catheterization later today with Dr. Martino. He is bradycardic at times on tele with a 3.1 sec pause overnight. Continue to monitor. May need to reduce dose of beta venkat. Subjective Patient is currently comfortable without any significant shoulder pain today. No shortness of breat. Bradycardic at times on tele, 3,1 sec pause overnight. No lightheadedness, near syncope or syncop. Troponin peaked at 0.248. Echo yesterday with inferior wall motion abnormality. Review of Systems Review of Systems: All systems reviewed & are unremarkable except as noted in HPI & below Physical Exam Physical Exam: General: No acute distress, comfortable. HEENT: Sclerae anicteric. Neck: Normal carotid upstrokes, no bruits. No appreciable JVD. Lungs: Clear to auscultation bilaterally without rales, rhonchi or wheezes. Cardiac: Regular rate and rhythm. S1-S2 normal. No appreciable murmur, gallop or rub. Abdomen: Soft and nontender. Bowel sounds normal. No mass or organomegaly. No abdominal bruit. Extremities/vascular: --Well perfused. No peripheral edema. --Radial 2+ bilaterally --Right DP/PT 2+, Left DP/PT 1+ Neurologic: Nonfocal Psychiatric: Affect appropriate. Alert and oriented. Results & Data Vital Signs (Past 12 Hours) Vital Signs Temp Pulse Resp BP BP Pulse Ox 09/17/19 07:30 36.3 C L 56 L 20 167/79 H 96 09/17/19 04:24 36.6 C 58 L 18 149/72 H 96 09/17/19 00:34 36.7 C 63 18 143/54 H 97 Laboratory Results Laboratory Results - last 24 hr 09/16/19 09/16/19 09/16/19 10:15 13:12 13:17 PT INR APTT PTT Ratio POC Glucose 148 H Estimat Average Glucose Hemoglobin A1c Troponin I 0.074 H* 0.190 H* Triglycerides Cholesterol LDL Cholesterol, Calc VLDL Cholesterol, Calc HDL Cholesterol Cholesterol/HDL Ratio 09/16/19 09/16/19 09/16/19 16:28 16:41 18:53 PT 10.1 INR 1.0 APTT 24.8 PTT Ratio 0.9 POC Glucose 144 H Estimat Average Glucose Hemoglobin A1c Troponin I 0.248 H* Triglycerides Cholesterol LDL Cholesterol, Calc VLDL Cholesterol, Calc HDL Cholesterol Cholesterol/HDL Ratio 09/16/19 09/17/19 09/17/19 20:13 01:20 06:06 PT INR APTT 74.2 H* PTT Ratio 2.7 POC Glucose 247 H Estimat Average Glucose 160 Hemoglobin A1c 7.2 H Troponin I Triglycerides Cholesterol LDL Cholesterol, Calc VLDL Cholesterol, Calc HDL Cholesterol Cholesterol/HDL Ratio 09/17/19 09/17/19 09/17/19 06:06 07:24 07:47 PT INR APTT 54.1 H* PTT Ratio 2.0 POC Glucose 171 H Estimat Average Glucose Hemoglobin A1c Troponin I Triglycerides 303 H Cholesterol 189 LDL Cholesterol, Calc 88 VLDL Cholesterol, Calc 61 HDL Cholesterol 40 Cholesterol/HDL Ratio 5 09/17/19 08:12 PT INR APTT PTT Ratio POC Glucose Estimat Average Glucose Hemoglobin A1c Troponin I 0.172 H* Triglycerides Cholesterol LDL Cholesterol, Calc VLDL Cholesterol, Calc HDL Cholesterol Cholesterol/HDL Ratio PG Care Time/CCT Total # of Minutes Spent Total Time Spent with Patient: Total time spent is greater than 50% in coordination of care (as documented) at patient's floor/unit and/or counseling patient:
[2019-09-17] MEDS ORDERED: HEPARIN (PORCINE) 1000 UNIT/ML 10 ML (CATH LAB USE ONLY) ONE (13:41)
[2019-09-17] MEDS ORDERED: NiCARDipine HCL INJ 2.5 MG/ML 10 ML AMP ONE (13:41)
[2019-09-17] MEDS ORDERED: MIDAZOLAM HCL 1 MG/ML 2ML VIAL ONE (13:41)
[2019-09-17] MEDS ORDERED: fentaNYL citrate 100 MCG/2 ML VIAL ONE (13:41)
[2019-09-17] MEDS ORDERED: NITROGLYCERIN/D5W 100MCG/ML 20ML SYR ONE (13:42)
--- NOTE | 2019-09-17 14:44 | Post Anesthesia Assessment ---
Date of Service September 17, 2019 Post Sedation Assessment Vital Signs Temp Pulse Pulse Resp BP BP Pulse Ox 09/17/19 14:37 53 L 17 172/82 H 98 09/17/19 11:46 97.9 F 51 L 18 169/74 H 97 09/17/19 07:30 97.3 F L 56 L 20 167/79 H 96 09/17/19 04:24 97.9 F 58 L 18 149/72 H 96 09/17/19 00:34 98.1 F 63 18 143/54 H 97 09/16/19 19:10 98.6 F 62 18 160/68 H 96 09/16/19 16:00 57 L 09/16/19 15:06 97.9 F 60 17 190/78 H 99 Recovery Score Activity: Moves 4 extremities Respiration: Deep Breath/Cough Circulation: +/-20% PreAnes Value Consciousness: Fully Awake Oxygen Saturation: > 92% On Room Air Post Anesthesia Score: 10 Discharge Sedation Level of Care: Fast Track Phase II Post Sedation Plan On clinical assessment, the patient appears to have tolerated the sedation without complications. Patient is recovering as anticipated. Patient will continue to be monitored by nursing and may be discharged when sedation discharge criteria are met per below protocol. Upon Completions of procedure up to 15 minutes continue every 5 minute vital signs and the P.A.R. score; then discharge to a Phase I or Fast Track to Phase II per the following guidelines: * Discharge Patient to appropriate Phase II area if PAR is 8 or greater or return to pre- procedure baseline. The post - procedure orders will be as directed. * If PAR score is less than 8 or not return to pre-procedure baseline then patient will follow Phase I monitoring till PAR is reached for Phase II. The Phase I may be done in procedure room or may call to secure a Phase I area. * If naloxone or flumazenil are used for reversal, hold in Phase I for continued monitoring from when last reversal dose was given for a minimum of 60 minutes or longer pending the nurse and/or physician discretion of patient condition before discharge to Phase II. Please call the Sedation Physician to re-evaluate and complete post-note for discharge to Phase II area. Do NOT discharge from procedure sedation or Phase 1 until post- sedation evaluation note is complete by procedure /sedation MD Sedation Discharge Instructions to be given to the patient at discharge to home.
--- NOTE | 2019-09-17 14:54 | Cardiac Catheterization ---
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 Cardiac Status Clinical evaluation leading to the procedure CAD Presenation: Non STEMI Anginal Classification: CCS III Heart Failure: No Cardiogenic Shock within 24 Hours: No Cardiac Arrest within 24 Hours: No Imaging Studies Past 6 Months: Yes Stress Studies Past 6 Months: No Diagnostic Physicians Name: John Martino MD Status: Elective Closure Device Percutaneous Entry Location: Radial Closure Device: Radial Band Recommendations: CABG Intraprocedure Events Significant Disection: No Perforation: No Cardiac Cath Procedure Full Procedure Date September 17, 2019 Pre-Procedure Diagnosis Pre-Procedure Diagnosis: Non STEMI AUC Score AUC Score: 7 Post-Procedure Diagnosis Post-Procedure Diagnosis: Severe CAD and Elevated Intracardiac Pressures Procedure(s) Performed Procedure(s) Performed: Coronary Angiography and Left Heart Cath Seat Coverer John Martino MD Capacity Management Specialist(s) Aubree Estimated Blood Loss Estimated Blood Loss: 10 Medication(s) Medication(s): Fentanyl, Heparin, Lidocaine 1%, Nicardipine, Nitroglycerin and Versed Summary of Findings Indication: Atypical chest symptoms, mildly elevated troponin, small regional wall motion abnormality Access: 6 Fr slender right radial artery Catheters: [place], JL 3.5 Findings: LM -medium caliber calcified, 20% diffuse disease LAD -calcified, 100% chronic proximal occlusion at takeoff of first diagonal. 70% ostial stenosis in first diagonal. Small second diagonal partially fills via left to left collaterals. Very distal LAD fills via left to left collaterals. Circumflex -50% proximal to mid diffuse circumflex disease. 20 to 30% proximal disease in large OM 2. RCA -dominant, severe diffuse disease extending from proximal segment throughout whole mid segment up to 95% at takeoff of acute marginal. 80 to 90% distal disease extending into ostial PDA, ostial PLB. Remainder PDA with largely without disease. RCA provides right to left collaterals to LAD LVEDP -23 Arterial Closure: TR band Summary: 1. Severe multivessel coronary artery disease -100% proximal LAD chronic total occlusion. Fills via right to left and distally via left to left collaterals. Diffuse proximal to mid RCA disease up to 95%, 80 to 90% distal RCA disease extending into ostial PDA and ostial PLB 50% diffuse proximal mid circumflex disease 2. Elevated intracardiac filling pressure Recommendations: Further evaluation at tertiary center for CABG Hemodynamics Rest Ao:: 145/64/97 Final Ao: 176/71/107 LV: 155/23 Recommendations Recommendations: CABG Specimens Specimens: None Radiation Exposure (mGy) 551 Contrast (mls) 60 Fluids (cc crystalloids) Fluids (cc crystalloids): 50 Drains Drains: none Anesthesia moderate Procedural Complication(s) None Disposition PCU I attest to the content of the Intraoperative Record and any orders documented therein. Any exceptions are noted below. [facility] Card Cath Procedure Codes Cardiac Catheterization Procedure 1: Cardiovascular Cath Procedures: 28414 Coronaries and LHC (+/-LV) Moderate Sedation Procedure 1: Sedation/Anesthesia: 07138 Mod Sedation by the same physician;Init15 Min Child Age 5 & Up Procedure 2: Sedation/Anesthesia: 42817 Mod Sedation by the same physician; Ea [id number] Minutes PG Care Time/CCT Total # of Minutes Spent Total Time Spent with Patient: Total time spent is greater than 50% in coordination of care (as documented) at patient's floor/unit and/or counseling patient:
--- NOTE | 2019-09-17 19:03 | Discharge Summary ---
Date of Service September 17, 2019 Admission HPI Per Admitting Provider This 79-year-old male presents the ER with chief complaint of left shoulder pain. The patient states that he has had the pain intermittently since July. He states the pain started this morning approximately 3 hours ago in the back of his shoulder and now radiates through to the front of his shoulder. He states that these pains have been getting progressively worse. He is under the care of Dr. Ferrari for his shoulder pain. He states he had an MRI of the shoulder performed in July which did not reveal any acute problems therefore he had an MRI of the his cervical spine this morning but does not have the results. The patient does admit that he gets a little short of breath with the pain but he thinks it is because it is so painful he gets very anxious. He denies any chest pain, headache or dizziness. The patient denies any personal history of CAD. He does chew tobacco but has never smoked. Both his parents of acute [place] but they were in their 90s. The patient states that he is mainly here for pain control of his shoulder. He was seen by Dr. Ferrari yesterday and was placed on steroids. He states this is not helping. He is also taking tramadol which is not helping in addition to his Tylenol. Principal Diagnosis Severe Multi-Vessel Cardiac Disease Discharge Exam Constitutional WD/WN, vitals as above Eyes + anicteric sclerae ENMT Ears: no hearing impairment Neck trachea midline Respiratory normal respiratory effort, lungs clear to auscultation Cardiovascular RRR, no murmur, no edema Gastrointestinal (Abdomen) Inspection/Auscultation: normal bowel sounds Percussion/Palpation: abdomen soft; abdomen nontender Musculoskeletal Head/Neck/Chest: normocephalic and head atraumatic Skin no rashes, warm and dry Neurologic moves all extremities Psychiatric A+Ox3, euthymic affect Discharge Data Allergies Allergy/AdvReac Type Severity Reaction Status Date / Time No Known Allergies Allergy Verified 09/16/19 08:54 Consultations 09/16/19 11:22 ED Decision to Admit Stat 09/16/19 13:02 Consult Cardiology Routine Procedures Performed Operation Date: 09/17/19 12:00 Actual Procedures p Cath, Left with Cors and Vent - Brian Martino MD s Cineradiography w/Routine Exam - Brian Martino MD Ordered Studies 09/17/19 06:39 CL Cath Imgs for PACS use only Routine 09/17/19 11:23 CL Cath Imgs for PACS use only Routine Hospital Course (1) NSTEMI (non-ST elevated myocardial infarction): - Patient presented with intermittent L shoulder/neck pain that has ultimately started in July. He has been following with orthopedics but no etiology found for his pain. Typically NSAIDs has helped with his pain. H/O arthroscopy and possibly some scar tissue in this area. Some may have been MS- related pain - However pain has been intermittently debilitating. He is extremely active and fit and would intermittently get pain with movement but typically not stopping him from doing the work he needed to do. 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 - Family also noted he had a moment of looking pale and slightly cyanotic day of admission - He was found to have a trop of 0.038 on admission which peaked at 0.248 and trending down - Has been on ASA 81 mg daily for a long time - Was started on heparin gtt on admission prior to heart catheterization - Echo - EF 50-55% with small focal area of moderate to severe hypokinesis at junction of inferior base and mid-ventricle - Heart catheterization findings as follows: LM -medium caliber calcified, 20% diffuse disease LAD -calcified, 100% chronic proximal occlusion at takeoff of first diagonal. 70% ostial stenosis in first diagonal. Small second diagonal partially fills via left to left collaterals. Very distal LAD fills via left to left collaterals. Circumflex -50% proximal to mid diffuse circumflex disease. 20 to 30% proximal disease in large OM 2. RCA -dominant, severe diffuse disease extending from proximal segment throughout whole mid segment up to 95% at takeoff of acute marginal. 80 to 90% distal disease extending into ostial PDA, ostial PLB. Remainder PDA with largely without disease. RCA provides right to left collaterals to LAD Arterial Closure: TR band Summary: 1. Severe multivessel coronary artery disease -100% proximal LAD chronic total occlusion. Fills via right to left and distally via left to left collaterals. Diffuse proximal to mid RCA disease up to 95%, 80 to 90% distal RCA disease extending into ostial PDA and ostial PLB 50% diffuse proximal mid circumflex disease 2. Elevated intracardiac filling pressure Patient was accepted in transfer to [facility] for CABG and further evaluation/treatment. Disposition/Medications pending evaluation at tertiary care center. (2) Hypertension: - Having elevated pressures. Responding to hydralazine on admission - He normally is on Atenolol but this was stopped in favor of Metoprolol ---- PATIENT WAS NOTED TO HAVE A 3.1 SECOND SINUS PAUSE ON MONITOR BUT NO FURTHER PAUSES EVEN WITH DOSING OF METOPROLOL TODAY. MAY NEED A LOWER DOSE AND SHOULD BE MONITORED --- Is chronically sinus apolinar - Also on Lisinopril 10 mg daily (3) Left shoulder pain: - Maybe some component of musculoskeletal issues - given multiple bulging discs and sometimes pain improved with position changes/NSAIDs - Noted to have point tenderness of biceps tendon - Can continue to F/U with orthopedics - recommending holding injections initially - ultimately if any surgical procedure would need down will need to wait until cardiac condition stabilized - Was placed on steroid pack prior to admission for this discomfort (4) Type 2 diabetes mellitus: - A1c 7.8 (May 2019) - Also placed on steroid taper due to shoulder issues so risk for higher glucose readings - which now appear more cardiac and can consider stopping as possibly contributing to BP as well (5) Lung cancer: - S/P RLL Lobectomy 1990 - no current treatment or H/O chemo/radiation Total Time Total Time Spent Total Time Spent (In Minutes): Greater than 30 minutes Discharge Plan Discharge Items Patient Disposition: Transfer Acute Care Hospital Reason For Visit: EVEVATED TROP Discharge Diagnosis: Severe Multi-vessel Cardiac Disease Condition on Discharge: Good Activity: Resume your previous activity Non-emergency contact: Primary Care Provider Call non-emergency contact if: you have any medication questions, your symptoms worsen and you have a fever Follow-up/Referrals: Vicente Loving III, MD [Primary Care Provider] - Diet: Heart Healthy Addtl Attending Provider Instructions: Severe Multi-Vessel Cardiac Disease - Patient presented with intermittent L shoulder/neck pain that has ultimately started in July. He has been following with orthopedics but no etiology found for his pain. Typically NSAIDs has helped with his pain. H/O arthroscopy and possibly some scar tissue in this area. Some may have been MS-related pain - However pain has been intermittently debilitating. He is extremely active and fit and would intermittently get pain with movement but typically not stopping him from doing the work he needed to do. 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 - Family also noted he had a moment of looking pale and slightly cyanotic y - He was found to have a trop of 0.038 on admission but peaked at 0.248 and trending down - Has been on ASA 81 mg daily for a long time - Was started on heparin gtt on admission prior to heart catheterization - Heart catheterization findings as follows: LM -medium caliber calcified, 20% diffuse disease LAD -calcified, 100% chronic proximal occlusion at takeoff of first diagonal. 70% ostial stenosis in first diagonal. Small second diagonal partially fills via left to left collaterals. Very distal LAD fills via left to left collaterals. Circumflex -50% proximal to mid diffuse circumflex disease. 20 to 30% proximal disease in large OM 2. RCA -dominant, severe diffuse disease extending from proximal segment throughout whole mid segment up to 95% at takeoff of acute marginal. 80 to 90% distal disease extending into ostial PDA, ostial PLB. Remainder PDA with largely without disease. RCA provides right to left collaterals to LAD Arterial Closure: TR band Summary: 1. Severe multivessel coronary artery disease -100% proximal LAD chronic total occlusion. Fills via right to left and distally via left to left collaterals. Diffuse proximal to mid RCA disease up to 95%, 80 to 90% distal RCA disease extending into ostial PDA and ostial PLB 50% diffuse proximal mid circumflex disease 2. Elevated intracardiac filling pressure Recommendations: Further evaluation at tertiary center for CABG Hypertension: - Having elevated pressures. Responding to hydralazine on admission - He normally is on Atenolol but this was stopped in favor of Metoprolol ---- PATIENT WAS NOTED TO HAVE A 3.1 SECOND SINUS PAUSE ON MONITOR BUT NOT FURTHER PAUSES EVEN WITH DOSING OF METOPROLOL TODAY. MAY NEED A LOWER DOSE AND SHOULD BE MONITORED --- Is chronically sinus apolinar - Also on Lisinopril 10 mg daily Type 2 Diabetes: - A1c 7.8 (May 2019) - Also placed on steroid taper due to shoulder issues which now appear more cardiac and can consider stopping as possibly contributing to BP as well H/O Lung Cancer: - S/P RLL Lobectomy 1990 - no current treatment or H/O chemo/radiation Pending Studies at Discharge: No Stand-Alone Forms: My [facility] Skilled Items Patient informed of condition?: Yes DNR: No Discharge Level of Care: Other Communicable Disease: No Discharge Prognosis: Stable Lines: Peripheral IV Urinary Catheter: No Medications and DC Order Prescriptions: New metoprolol tartrate 50 mg Tablet 50 mg PO BID Qty: 0 RF: 0 Continued aspirin [Adult Aspirin Regimen] 81 mg tablet,delayed release (DR/EC) 81 mg PO DAILY RF: 0 multivitamin tablet 1 tab PO DAILY RF: 0 flaxseed oil 1,000 mg capsule 1,000 mg PO BID RF: 0 gabapentin 300 mg capsule 300 mg PO BID Qty: 180 RF: 0 metformin 500 mg tablet 500 mg PO BID Qty: 180 RF: 3 lisinopril 10 mg tablet 10 mg PO DAILY Qty: 90 RF: 3 methylprednisolone [Medrol (Chuck)] 4 mg tablets,dose pack 4 mg PO UD Qty: 21 RF: 0 diclofenac sodium 75 mg tablet,delayed release (DR/EC) 75 mg PO BID Qty: 180 RF: 3 clonazepam 0.5 mg Tablet 0 mg PO BID RF: 0 Discontinued atenolol 25 mg tablet 25 mg PO DAILY RF: 0 Discharge Orders: Discharge Order (Routine); Ordered 09/17/19 Ordered By: Cat Lo Admission Data Admit Date/Time: 09/16/19 11:33 Attending Provider: Shayne Hillman Admit Provider: Janice Arshad Primary Care Provider: Vicente Loving III Other Providers: Janice Arshad ; Juan Ramon Lemus Other Interventions: Discharge Summary Assessment (RN) Last Done: 09/17/19 16:41 DC Date/Time DO NOT enter until pt leaves facility: 09/17/19 17:10
[2019-09-18] MEDS ORDERED: methylPREDNISolone 4 MG TAB PO SCH (07:00)
[2019-09-19] MEDS ORDERED: methylPREDNISolone 4 MG TAB PO SCH (07:00)
[2019-09-20] MEDS ORDERED: methylPREDNISolone 4 MG TAB PO SCH (07:00)
== END 2019-09-17 17:10 | disposition short-term general hospital (02) | DRG 282 ==
LOC: ED 08:05 → 2S 11:33 → SUATTDRO 11:33 → 2S 12:11

== ENCOUNTER 2020-01-28 21:30 | Observation (INO) ==
--- NOTE | 2020-01-28 21:43 | Emergency Department Note ---
History of Present Illness General Chief complaint: Arrhythmia/Palpitations Time Seen by Provider: 01/28/20 21:32 History of Present Illness Provider complaint: Palpitations Onset (ago): hour(s) 3 Location: chest Radiation: extremity (Left arm) Severity: moderate Pain Consistency: + now resolved Quality: + other (Pressure) Relieved By: + other (Nitroglycerin) Associated symptoms: + chest pain; no shortness of breath 79-year-old male with history of coronary artery disease came to the emergency department for chest pain and palpitations. Patient was transported here via EMS. Patient reports at 6:30 PM while he was watching TV he started developing palpitations. He also noted some chest discomfort in the center of his chest. He states the discomfort radiated to his left arm. He stated it felt similar to when he needed to have a coronary artery bypass in the past. He called EMS. EMS gave him 3 sublingual nitro sprays which improved his discomfort and resolved palpitations. Currently pertinent is not requiring any chest pain or palpitations or pain in his left upper extremity. No recent surgery, no recent trauma, no loss of smell or taste, Home Medications Home Medications Medication Instructions Recorded Confirmed Type aspirin 81 mg tablet,delayed 81 mg PO DAILY 10/28/18 01/28/20 History release multivitamin 1 tab PO DAILY 10/28/18 01/28/20 History docusate sodium 100 mg capsule 100 mg PO DAILY #30 cap 10/04/19 01/28/20 Rx cholecalciferol (vitamin D3) 50 2,000 units PO DAILY 10/25/19 01/28/20 History mcg (2,000 unit) capsule metoprolol tartrate 50 mg tablet 50 mg PO QPM tab 10/25/19 01/28/20 History acetaminophen 500 - 1,000 mg PO Q8H PRN 01/28/20 01/28/20 History atorvastatin 10 mg PO DAILY 01/28/20 01/28/20 History clopidogrel 75 mg PO QPM 01/28/20 01/28/20 History diclofenac sodium 2 gm TOP QID PRN 01/28/20 01/28/20 History gabapentin 300 mg PO QPM 01/28/20 01/28/20 History metformin 500 mg PO BIDM 01/28/20 01/28/20 History omeprazole 40 mg PO DAILY PRN 01/28/20 01/28/20 History Allergies Allergy/AdvReac Type Severity Reaction Status Date / Time No Known Allergies Allergy Verified 01/28/20 22:14 Past Med/Surg History Medical History HTN (hypertension), benign (Chronic) Lung cancer (Resolved) Osteoarthritis (Chronic) Stroke (Acute) POST-PO HEMIANOPSIA 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 Surgical History History of arthroscopy of shoulder (Resolved) left S/P CABG x 3 09/20/2019: @ [place]; BARR TO LAD; SVG TO OM AND SVG TO PDA S/P partial lobectomy of lung (Resolved) Family History Father Myocardial infarction Denies family history of Ovarian cancer Prostate cancer Breast cancer Colorectal cancer Social History Preferred Language: Chadian Communication Ability: Effective Visual Impairment: No Limitations Hearing Ability: Normal Bank Vault Attendant Required: No Beliefs That Will Affect Care: Mosque Mosque Beliefs: Orthodox marital status: Current Living Situation: Spouse 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 Safe at Home: Yes Smoking Status: Never smoker Second Hand Exposure: No ; Hx Alcohol Use: No Hx Substance Use: No Dental Care, Regularly: Yes Physical Activity Frequency: Does not Exercise Seatbelt Use: always Sunscreen Use: No Review of Systems A total of 10 systems reviewed and were otherwise negative Physical Exam Vital Signs Vital Signs - 24 hr 01/28/20 21:37 01/28/20 22:00 01/28/20 22:30 Temperature 37.2 C Temperature Source Oral Pulse Rate 104 H 98 H 89 Pulse Rate from SpO2 Sensor 98 H 90 Respiratory Rate 20 22 22 Respiratory Depth Normal Blood Pressure 163/92 H 130/86 125/84 Blood Pressure Mean 115 97 107 Pulse Oximetry 95 95 98 Oxygen Delivery Method Room Air Room Air Room Air Sepsis Recent Fever Within 48 Hours No Sepsis New/Unexplained Change in Mental Status No Sepsis Action Taken by Nursing No Action Required 01/28/20 23:00 Temperature Temperature Source Pulse Rate 83 Pulse Rate from SpO2 Sensor 82 Respiratory Rate 15 Respiratory Depth Blood Pressure 147/74 H Blood Pressure Mean 98 Pulse Oximetry 96 Oxygen Delivery Method Room Air Sepsis Recent Fever Within 48 Hours Sepsis New/Unexplained Change in Mental Status Sepsis Action Taken by Nursing Physical Exam GENERAL: He is oriented to person, place, and time. He appears well-developed and well-nourished. He does not appear distressed. HENT: Exam performed. - Head: Normocephalic and atraumatic. - Right Ear: External ear normal. No mastoid tenderness. - Left Ear: External ear normal. No mastoid tenderness. - Mouth/Throat: The oropharynx is clear and moist. No trismus in the jaw. No dental abscesses or uvula swelling. No oropharyngeal exudate or tonsillar abscesses. EYES: Conjunctivae and EOM are normal. Pupils are equal, round, and reactive to light. Right eye exhibits no discharge. Left eye exhibits no discharge. No scleral icterus. NECK: Normal range of motion. Neck supple. No JVD present. No spinous process tenderness present. No carotid bruit present. No rigidity. No tracheal deviation and normal range of motion present. No Brudzinski's sign and no Kernig's sign noted. CV: Tachycardic rate, regular rhythm, normal heart sounds and intact distal pulses. There is no peripheral edema. Palpable radial pulses bue. PULM/CHEST: Diminished breath sounds bilaterally. - Chest Wall: He exhibits no tenderness. ABD: The abdomen is soft. Bowel sounds are normal. He has no distension. No mass is present. There is no tenderness. There is no rebound, no guarding, no Zhou's sign and no tenderness at McBurney's point. Rovsig negative. MUSC/SKEL: Normal range of motion. There is no peripheral edema, tenderness or deformity. LYMPH: No cervical adenopathy. NEURO: He is alert and oriented to person, place, and time. He has normal strength. No cranial nerve deficit or sensory deficit. Coordination and gait normal. GCS eye subscore is 4. GCS verbal subscore is 5. GCS motor subscore is 6. Cerebellar tests wnl. SKIN: Skin is warm and dry. He is not diaphoretic. PSYCH: He has a normal mood and affect. Behavior is normal. Judgment and thought content normal. Course Course 2134: The patient was evaluated in room A3. A complete history and physical exam was performed. 2314: Vital signs stable. Labs and imaging within normal limits. Given the patient's age, moderate to high heart score, and symptoms similar to last time having a CABG, the patient will be admitted for chest pain rule out ACS. I discussed this with the patient who is in agreement. I did notify the patient's family members were in their car in the parking lot via phone number that the nurse provided and they are in agreement that the patient should be admitted to the hospital. Discussed the case with Dr. Wahl [facility] hospitalist who agreed to the admission. Administered Medications Ioversol (Optiray 320 125ml) 119 ml IV ONCE PRN PRN Reason: Interaction Checking Stop: 02/01/20 22:51 Last Admin: 01/28/20 22:53 Dose: 119 ml Documented by: [id number] Medical Decision Making Laboratory Data Result diagrams: 01/28/20 21:50 01/28/20 21:50 Lab Results 01/28/20 01/28/20 01/28/20 Range/Units 21:50 21:50 21:50 WBC 5.91 (4.8-10.8) K/uL RBC 4.79 (4.7-6.1) M/uL Hgb 13.0 L (14.0-18.0) g/dL Hct 38.3 L (42-52) % MCV 80.0 (80-100) fL MCH 27.1 (25-34) pg MCHC 33.9 (32-36) g/dL RDW Std Deviation 42.6 (36.4-46.3) fL RDW Coeff of [place] 14.6 H (11.5-14.5) % Plt Count 221 (130-400) K/uL MPV 9.3 (7.4-10.4) fL Immature Gran % (Auto) 0.3 % Neut % (Auto) 58.4 % Lymph % (Auto) 28.4 % [place] % (Auto) 8.8 % Eos % (Auto) 3.6 % Baso % (Auto) 0.5 % Immature Gran # (Auto) 0.02 (0.00-0.02) K/uL Neut # (Auto) 3.45 (1.4-6.5) K/uL Lymph # (Auto) 1.68 (1.2-3.4) K/uL [place] # (Auto) 0.52 (0.11-0.59) K/uL Eos # (Auto) 0.21 (0-0.5) K/uL Baso # (Auto) 0.03 (0-0.2) K/uL PT 10.8 (9.0-12.0) Seconds INR 1.0 (0.9-1.1) APTT 26.5 (21.0-31.0) Seconds PTT Ratio 0.9 D-Dimer 1900 H* (0-500) ug/L FEU Sodium 137 (136-145) mmol/L Potassium 3.7 (3.5-5.1) mmol/L Chloride 106 (98-107) mmol/L Carbon Dioxide 25 (21-32) mmol/L Anion Gap 7.0 (3-11) BUN 20 H (7-18) mg/dl Creatinine 1.12 (0.6-1.4) mg/dl Est Cr Clr Drug Dosing 48.2 ml/min Est GFR ( Amer) 73.0 Est GFR (Non-Af Amer) 63.0 BUN/Creatinine Ratio 18.2 (10-20) Glucose 274 H (70-99) mg/dl Calcium 9.0 (8.5-10.1) mg/dl Troponin I 0.039 (0-0.045) ng/ml Lipase 162 (73-393) U/L Specimen Hemolysis Imaging Data My Impression: Chest x-ray viewed by me: Chest x-ray negative. Airway clear. No pneumothorax. No consolidation. No cardiomegaly or cephalization.. No free air under the diaphragm. No fractures of the skeletal structures. Radiologist's Impression: CTACHEST: Comparison is made to CT chest on 09/09/2018. No pulmonaryembolus identified. No aortic aneurysmor dissection. Trace right pleural effusion. Dependent atelectasis bilaterally. Calcified granulomas bilaterally. Emphysematous changes in the left lower lobe. Heterogeneous thyroid could be further evaluated with nonemergent dedicated ultrasound if clinically indicated. Nonspecific mildlyprominent mediastinal and hilar lymph nodeswhich maybe reactive. Hyperdensityin the gallbladder likelyrepresents stones/sludge. Diverticulosis. Median sternotomyand CABG changes. Borderline size of the heart. Radiologist: Brandon Castillo M.D. Study ready at 22:58 and initial results transmitted at 23:02 ECG Data Indication: + chest pain Rate (beats per minute): 107 Rhythm: + sinus tachycardia ECG Intervals/blocks: + Normal QRS, + Normal ND and + Normal QT-c ECG ST segments: + Normal ST segments MDM Narrative Vital signs stable. Labs and imaging within normal limits. Given the patient's age, moderate to high heart score, and symptoms similar to last time having a CABG, the patient will be admitted for chest pain rule out ACS. I discussed this with the patient who is in agreement. I did notify the patient's family members were in their car in the parking lot via phone number that the nurse provided and they are in agreement that the patient should be admitted to the hospital. Discussed the case with Dr. Maryuri CORONEL hospitalist who agreed to the admission. Impression & Plan Heart palpitations, Chest pain Discharge Plan Visit Data Chief Complaint: Arrhythmia/Palpitations ED Provider: Trent Guzman Discharge Problem: Heart palpitations, Chest pain Patient Disposition: Being Evaluated by Hospitalist Forms Stand Alone Forms: My [facility] Prescriptions Prescriptions: No Action aspirin [Adult Aspirin Regimen] 81 mg tablet,delayed release (DR/EC) 81 mg PO DAILY RF: 0 multivitamin tablet 1 tab PO DAILY RF: 0 docusate sodium 100 mg capsule 100 mg PO DAILY Qty: 30 RF: 0 cholecalciferol (vitamin D3) 50 mcg (2,000 unit) capsule 2,000 units PO DAILY RF: 0 metoprolol tartrate 50 mg tablet 50 mg PO QPM RF: 0 metformin 500 mg tablet 500 mg PO BIDM RF: 0 atorvastatin 10 mg tablet 10 mg PO DAILY RF: 0 clopidogrel 75 mg tablet 75 mg PO QPM RF: 0 omeprazole 40 mg capsule,delayed release(DR/EC) 40 mg PO DAILY PRN (Reason: Acid Reflux) RF: 0 acetaminophen 500 mg tablet 500 - 1,000 mg PO Q8H PRN (Reason: Pain) RF: 0 gabapentin 300 mg capsule 300 mg PO QPM RF: 0 diclofenac sodium 1 % gel 2 gm TOP QID PRN (Reason: Pain) RF: 0 Referrals Referrals: Eduard Lora DO [Primary Care Provider] - Discharge Problem: Chest pain Qualifiers: Chest pain type: unspecified Qualified Code(s): R07.9 - Chest pain, unspecified
[2020-01-28 22:05] LABS: Basophils # (auto) 0.03 K/uL (0-0.2); Basophils % (auto) 0.5 %; Eosinophils # (auto) 0.21 K/uL (0-0.5); Eosinophils % (auto) 3.6 %; Hematocrit (blood only) 38.3 % (42-52); Immature Granulocytes # (auto) 0.02 K/uL (0.00-0.02); Immature Granulocytes % (auto) 0.3 %; Lymphocytes # (auto) 1.68 K/uL (1.2-3.4); Lymphocytes % (auto) 28.4 %; Mean Corpuscular Hemoglobin 27.1 pg (25-34); Mean Corpuscular Hgb Conc 33.9 g/dL (32-36); Mean Platelet Volume 9.3 fL (7.4-10.4); Monocytes # (auto) 0.52 K/uL (0.11-0.59); Monocytes % (auto) 8.8 %; Neutrophils # (auto) 3.45 K/uL (1.4-6.5); Neutrophils % (auto) 58.4 %; Platelet Count 221 K/uL (130-400); RDW Coefficient of Variation 14.6 % (11.5-14.5); RDW Standard Deviation 42.6 fL (36.4-46.3); Red Blood Count 4.79 M/uL (4.7-6.1); White Blood Count 5.91 K/uL (4.8-10.8)
[2020-01-28 22:18] LABS: Partial Thromboplastin Ratio 0.9; Partial Thromboplastin Time 26.5 Seconds (21.0-31.0); Prothrombin Time 10.8 Seconds (9.0-12.0)
[2020-01-28 22:22] LABS: D Dimer 1900 ug/L FEU (0-500)
[2020-01-28 22:28] LABS: BUN Creatinine Ratio 18.2 (10-20); Creatinine Clr Calc Pharmacy 48.2 ml/min; Potassium 3.7 mmol/L (3.5-5.1)
[2020-01-28 22:41] LABS: Troponin I 0.039 ng/ml (0-0.045)
[2020-01-28] MEDS ORDERED: OPTIRAY 320 125ml IV PRN (22:52)
--- NOTE | 2020-01-28 23:59 | History & Physical Report ---
Date of Service January 28, 2020 Assessment & Plan (1) Heart palpitations: Mr. Williamson is a 79-year-old male with a past medical history of coronary artery disease s/p CABG x3 in September 2019, type 2 diabetes mellitus, hypertension, history of CVA, hyperlipidemia, lung cancer status post partial l obectomy, and GERD who presents to [facility] due to palpitations. Palpitations -Admit to telemetry -Patient reports a history of sustained palpitations for 1 hour, resolving prior to admission to ED -EKG obtained by paramedics and in additional EKG in ER shows sinus tachycardia -Electrolytes currently within normal limits -Check magnesium with a.m. labs -Continue to monitor on telemetry Elevated troponin -Patient denies any chest pain, however did report pain in his left bicep, which has resolved -CTA ordered in ER without evidence of PE -Troponin 0.039 on admission, continue to trend every 6 hours Coronary artery disease/hypertension/hyperlipidemia -s/p CABGx3 in September 2019 at [facility] -Per review of chart, patient did have postoperative atrial arrhythmias and PACs. He was briefly placed on amiodarone at this time -Postoperative echo showed a preserved left ventricular systolic function without wall motion abnormalities -Follows with Dr. Montero -Continue home aspirin, Plavix, atorvastatin and metoprolol Heterogeneous thyroid -Noted incidentally on CTA, ?related to palpitations -Check TSH, consider imaging w/US if abnormal Anemia -Patient's hemoglobin is currently 13, dropped from his prior level of 15.2 in September 2019 -Patient denies any signs or symptoms of bleeding, ?Related to blood loss from open heart surgery -Continue to monitor Incidental findings on CTA -CTA stat read shows calcified granulomas bilaterally, and prominent mediastinal and hilar lymph nodes, as well as gallstones/sludge -Patient denies any GI or respiratory symptoms currently, and is saturating well on room air -Recommend outpatient follow-up for the above findings Type 2 diabetes mellitus -Hold home metformin -Placed on insulin sliding scale -Hemoglobin A1c 7.2% in 09/20 GERD -Change home omeprazole to pantoprazole History of right ORTHOTIC/PROSTHETIC CLINICIAN stroke -occurred post-operatively, with resultant hemianopsia Lumbar radiculopathy -Continue home gabapentin Skin lesions -Patient states that he is seeing dermatology (Dr. Gusman) for numerous skin lesions on his scalp, and is currently undergoing treatment for them CODE STATUS: Full DVT prophylaxis: Heparin 5000 units SQ every 12 hours Disposition: Admit to telemetry (2) Lumbar radiculopathy: (3) Type 2 diabetes mellitus: (4) Elevated troponin I level: (5) Hypertension: (6) CAD (coronary artery disease): (7) BPH (benign prostatic hyperplasia): (8) Depression: (9) GERD (gastroesophageal reflux disease): (10) Hyperlipidemia: (11) History of right ORTHOTIC/PROSTHETIC CLINICIAN stroke: (12) S/P CABG x 3: (13) HTN (hypertension), benign: History of Present Illness . Chief Complaint: Palpitations Primary Care Provider: Eduard Lora DO Mr. Williamson is a 79-year-old male with a past medical history of coronary artery disease s/p CABG x3 in September 2019, type 2 diabetes mellitus, hypertension, history of CVA, hyperlipidemia, lung cancer status post partial lobectomy, and GERD who presents to [facility] due to palpitations. He notes the palpitations began at 6:30 PM earlier this evening, while he was watching TV. He states that his heart rate felt fast, and irregular. He burped several times, which he states improved his palpitations. He denies any chest pain at this time, but reported pain in his left bicep. He took his blood pressure at that time and found it to be 210/122, and his heart rate to be 120. He took half a tablet of his 's clonazepam, which also helped his symptoms. He states his symptoms resolved entirely with the administration of nitroglycerin and aspirin by the paramedics. He estimates that his symptoms lasted 1 hour in total. He denies any associated shortness of breath, diaphoresis, lightheadedness, nausea or vomiting. He states he had previously been feeling well and denies any fever, chills, abdominal pain or diarrhea. He states that he has had multiple episodes of palpitations in the past, lasting 10-15 minutes. He states this is most notable after caffeine. He has never been diagnosed with an arrhythmia. Mr. Williamson underwent a triple bypass in September 2019 at [facility]. He states that he has been feeling well after his surgery, and has been exercising regularly at home, without any chest pain or palpitations. He denies any alcohol or recreational drug use. He formally used to chew tobacco, for 50 years. He stopped after his heart surgery in September. Allergies Allergy/AdvReac Type Severity Reaction Status Date / Time No Known Allergies Allergy Verified 01/28/20 22:14 Home Medications Home Medications Medication Instructions Recorded Confirmed Type aspirin 81 mg tablet,delayed 81 mg PO DAILY 10/28/18 01/28/20 History release multivitamin 1 tab PO DAILY 10/28/18 01/28/20 History docusate sodium 100 mg capsule 100 mg PO DAILY #30 cap 10/04/19 01/28/20 Rx cholecalciferol (vitamin D3) 50 2,000 units PO DAILY 10/25/19 01/28/20 History mcg (2,000 unit) capsule metoprolol tartrate 50 mg tablet 50 mg PO QPM tab 10/25/19 01/28/20 History acetaminophen 500 - 1,000 mg PO Q8H PRN 01/28/20 01/28/20 History atorvastatin 10 mg PO DAILY 01/28/20 01/28/20 History clopidogrel 75 mg PO QPM 01/28/20 01/28/20 History diclofenac sodium 2 gm TOP QID PRN 01/28/20 01/28/20 History gabapentin 300 mg PO QPM 01/28/20 01/28/20 History metformin 500 mg PO BIDM 01/28/20 01/28/20 History omeprazole 40 mg PO DAILY PRN 01/28/20 01/28/20 History lisinopril 10 mg PO HS #30 tab 01/29/20 Rx Past Med/Surg History Medical History HTN (hypertension), benign (Chronic) Lung cancer (Resolved) Osteoarthritis (Chronic) Stroke (Acute) POST-PO HEMIANOPSIA SRCONDARY TO A ORTHOTIC/PROSTHETIC CLINICIAN CVA WITH A FIELD CUT INVOLVOQUORUM HEALTH SUPERIOR QUADRANT Surgical History History of arthroscopy of shoulder (Resolved) left S/P CABG x 3 09/20/2019[place] [facility] [place]; SVG TO OM AND SVG TO PDA S/P partial lobectomy of lung (Resolved) Family History Father Myocardial infarction Denies family history of Ovarian cancer Prostate cancer Breast cancer Colorectal cancer Social History Preferred Language: South African Communication Ability: Effective Visual Impairment: No Limitations Hearing Ability: Normal Member Service Specialist Required: No Beliefs That Will Affect Care: None marital status: Current Living Situation: Spouse 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 Safe at Home: Yes Safety Concerns: Feels Safe At This Time Smoking Status: Never smoker Second Hand Exposure: No ; Hx Alcohol Use: No Hx Substance Use: No Dental Care, Regularly: Yes Physical Activity Frequency: Does not Exercise Seatbelt Use: always Sunscreen Use: No Review of Systems Constitutional: no fever, no chills and no fatigue Eyes: + loss of peripheral vision (Secondary to prior CVA) Ear, Nose, Mouth, Throat: no dizziness Respiratory: no cough, no dyspnea and no wheezing Cardiovascular: + palpitations; no chest pain, no dyspnea at rest, no edema and no calf pain Gastrointestinal: no abdominal pain, no nausea, no vomiting and no change in bowel habits Physical Exam Constitutional: WD/WN, vitals as above Left side of scalp with blisters in various stages of healing Eyes: PERRL, conjunctivae normal, anicteric sclerae ENMT: external ear and nose normal, oropharynx normal Respiratory: normal respiratory effort, lungs clear to auscultation Cardiovascular: RRR, no murmur, no edema Scar from midline sternotomy healing well Gastrointestinal (Abdomen): normal bowel sounds, soft, nontender, no hepatosplenomegaly Musculoskeletal: no cyanosis or clubbing, extremities motor strength 5/5 Neurologic: moves all extremities; no focal motor deficits Psychiatric: A+Ox3, euthymic affect Results & Data Results & Data ([facility]) Vital Signs (Past 12 Hours) Vital Signs Temp Pulse Resp BP Pulse Ox 01/28/20 23:00 83 15 147/74 H 96 01/28/20 22:30 89 22 125/84 98 01/28/20 22:00 98 H 22 130/86 95 01/28/20 21:37 37.2 C 104 H 20 163/92 H 95 Code Status & VTE Plan VTE Prophylaxis Plan VTE Prophylaxis will be ordered: Yes Supervising Physician Co-Signing Physician Notes Attending addendum: I have physically seen this patient, have supervised the medical residents activities, and agree with the H&P unless as otherwise noted. Assessment and Plan: Non-STEMI/palpitations/recent CABG in September 2019/CAD/hypertension- Telemetry admission Start heparin drip Continue aspirin, clopidogrel and metoprolol. Consult cardiology Hyperlipidemia- Continue atorvastatin. Heterogeneous thyroid- Noted on CTA Add TSH to present labs. Determine if hyperthyroidism is a contributing factor to his current symptoms. Remaining orders and notations as noted. Resident Activity Tracking Resident Involvement: Resident Care Provided Care Provided: Adult Hospital Medicine (1) Hypertension Hypertension type: unspecified Qualified Code(s): I10 - Essential (primary) hypertension
[2020-01-29] MEDS ORDERED: ACETAMINOPHEN 325 MG TAB PO PRN (00:44)
[2020-01-29] MEDS ORDERED: DICLOFENAC SOD 1% GEL 100 GM TUBE EXT PRN (00:44)
[2020-01-29] MEDS ORDERED: DEXTROSE 50% 50 ML SYRINGE IV PRN (00:44)
[2020-01-29] MEDS ORDERED: GLUCOSE 40% GEL 15 GM TUBE PO PRN (00:44)
[2020-01-29] MEDS ORDERED: GLUCAGON FOR INJ 1 MG VIAL SQ PRN (00:44)
[2020-01-29] MEDS ORDERED: POLYETHYLENE (MIRALAX) 17 GM PACK PO PRN (00:44)
[2020-01-29] MEDS ORDERED: GLUCOSE 10 TABS/TUBE PO PRN (00:44)
[2020-01-29] MEDS ORDERED: CARBOHYDRATES FOR HYPOGLYCEMIA PO PRN (00:44)
[2020-01-29 03:35] LABS: Basophils # (auto) 0.02 K/uL (0-0.2); Basophils % (auto) 0.3 %; Eosinophils # (auto) 0.24 K/uL (0-0.5); Eosinophils % (auto) 3.9 %; Hematocrit (blood only) 40.1 % (42-52); Hemoglobin 13.1 g/dL (14.0-18.0); Immature Granulocytes # (auto) 0.02 K/uL (0.00-0.02); Immature Granulocytes % (auto) 0.3 %; Lymphocytes # (auto) 2.04 K/uL (1.2-3.4); Lymphocytes % (auto) 33.3 %; Mean Corpuscular Hemoglobin 26.4 pg (25-34); Mean Corpuscular Hgb Conc 32.7 g/dL (32-36); Mean Corpuscular Volume 80.7 fL (80-100); Mean Platelet Volume 9.4 fL (7.4-10.4); Monocytes # (auto) 0.55 K/uL (0.11-0.59); Neutrophils # (auto) 3.25 K/uL (1.4-6.5); Neutrophils % (auto) 53.2 %; Platelet Count 208 K/uL (130-400); RDW Coefficient of Variation 14.8 % (11.5-14.5); RDW Standard Deviation 43.4 fL (36.4-46.3); Red Blood Count 4.97 M/uL (4.7-6.1); White Blood Count 6.12 K/uL (4.8-10.8)
[2020-01-29 04:12] LABS: BUN Creatinine Ratio 18.1 (10-20); Calcium 8.9 mg/dl (8.5-10.1); Creatinine Clr Calc Pharmacy 46.9 ml/min; Est GFR (African American) 70.7; Magnesium 1.9 mg/dl (1.8-2.4); Potassium 4.1 mmol/L (3.5-5.1)
[2020-01-29 04:26] LABS: Thyroid Stimulating Hormone 3.11 uIu/ml (0.300-4.500); Troponin I 0.765 ng/ml (0-0.045)
[2020-01-29] MEDS ORDERED: Heparin IV Standard *NO* Bolus IV SCH (04:35)
[2020-01-29] MEDS ORDERED: HEPARIN SODIUM/DEXTROSE 25,000 UNITS/500 ML BAG IV SCH (04:45)
[2020-01-29 06:03] LABS: Partial Thromboplastin Time 27.5 Seconds (21.0-31.0)
--- NOTE | 2020-01-29 06:52 | XRay Report ---
XR chest 1V portable CLINICAL HISTORY: Chest Pain dyspnea COMPARISON STUDY: 09/16/2019 FINDINGS: Prior median sternotomy. Diaphragms are smooth. Lungs are clear. Several old right-sided ri b fractures considered healed. IMPRESSION: Negative chest. ACT 112: Negative or not required by law. The above report was generated using voice recognition software. It may contain grammatical, syntax or spelling errors. Electronically signed by: Ramu Candelario M.D. 01/29/2020 6:51 AM
--- NOTE | 2020-01-29 07:15 | CT Scan Report ---
CT angio chest PE protocol CT DOSE: 281.69 mGy.cm HISTORY: Chest pain. Dyspnea. ro PE TECHNIQUE: Multiaxial CT images of the chest were performed following the intravenous administration of contrast to evaluate the pulmonary arteries. Maximal intensity projection images were also obtaine d. A dose lowering technique was utilized adhering to the principles of ALARA. COMPARISON STUDY: 09/09/2018 FINDINGS: Pulmonary vasculature enhances appropriately. No filling defects. Prior median sternotomy. Emphysematous change with bibasilar interstitial prominence. Components of t his are chronic. Several small gallstones. IMPRESSION: 1. No evidence for pulmonary embolus. 2. Slight bibasilar interstitial and emphysematous prominence. 3. Several small gallstones. ACT 112: Negative or not required by law. The above report was generated using voice recognition software. It may contain grammatical, syntax or spelling errors. Electronically signed by: Ramu Candelario M.D. 01/29/2020 7:14 AM
[2020-01-29] MEDS: INSULIN ASPART 100 UNITS/ML 3 ML PEN SC SCH ×2 (08:20→12:02)
[2020-01-29] MEDS ORDERED: DOCUSATE SODIUM 100 MG CAP PO SCH (09:00)
[2020-01-29] MEDS ORDERED: CHOLECALCIFEROL 1,000 UNITS 25 MCG TAB PO SCH (09:00)
[2020-01-29] MEDS ORDERED: HEPARIN SOD 5,000 UNIT/0.5 ML VIAL SQ SCH (09:00)
[2020-01-29] MEDS ORDERED: MULTIVITAMIN TAB PO SCH (09:00)
[2020-01-29] MEDS ORDERED: ATORVASTATIN 10 MG TAB PO SCH (09:00)
[2020-01-29] MEDS ORDERED: PANTOprazole 40 MG TAB PO SCH (09:00)
[2020-01-29] MEDS ORDERED: CLOPIDOGREL BISULFATE 75 MG TAB PO SCH ×2 (09:00→21:00)
[2020-01-29] MEDS ORDERED: ASPIRIN 81 MG ECTAB PO SCH (09:00)
--- NOTE | 2020-01-29 11:01 | Cardiology Consultation ---
Date of Consultation January 29, 2020 Assessment & Plan (1) Chest pain: He presented with chest discomfort although he also describes palpitations and I am not sure if he is using the same terminology that we use, his symptoms were somewhat atypical last time he came in and they are this time but he tells me that they are different. When asked how they are different he tells me that when he came in before he was in his left shoulder now it is in his left biceps, which is not terribly different. In any case the discomfort may have been related to his very high blood pressure which he recorded at home and that has resolved. This would be consistent with demand ischemia due to a high pressure rate product. (2) CAD (coronary artery disease): He has coronary disease and has had a bypass surgery about 4 months ago. He has been very active without recurrent angina. This episode of chest discomfort could be angina or demand ischemia related to his high blood pressure. The enzyme pattern would suggest this. (3) Hypertension: He describes having a very high blood pressure at home, here his blood pressure has been well controlled. He was requesting an explanation for why his blood pressure was elevated at home, I told him I do not have a specific reason why he had that high blood pressure. History of Present Illness Reason for Consultation: Chest pain, elevated troponin Attending Physician: Jakob Lora MD History of Present Illness This is a 79-year-old hard-working gonzales who has a history of hypertension and diabetes mellitus as well as a strong family history of heart disease although it has occurred primarily in the elderly, both of his parents had significant heart disease as does a brother. He presented in mid September 2019 with chest, shoulder and neck discomfort which was somewhat atypical and had been present for a month or 2 prior to that visit. His initial evaluation was relatively unremarkable, evaluation emergency room was notable for a slightly elevated troponin of 0.038, repeat was 0.074 1 hour and 45 minutes later but his electrocardiogram shows inferior and lateral T wave inversion. A subsequent troponin 4 hours and 45 minutes after his initial is elevated to 0.190. He went on to have cardiac catheterization on September 17, 2019, he was found to have severe disease and he was sent to [place] for bypass surgery. This was done in September 2019. He was then referred to Dr. Barron in for follow-up. He presents now with palpitations and chest discomfort located in his chest with radiation to his left arm with moderate severity and the pain consistency was then relieved by nitroglycerin his initial troponin. He was admitted, was 0.039, a second troponin was 0.76, a third at 0.43. His electrocardiogram on arrival shows sinus tachycardia 107 bpm with no acute changes. He tells me that he was worried because his blood pressure was over 200 when he took it at home and that is why he called the ambulance. At the time of my evaluation he is feeling very well, once his symptoms were relieved they have not recurred. He would like to go home but is willing to wait until we feel it is safe. 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 and is not been having difficulty with that and has not been having chest discomfort with those activities. He feels that he does not quite as strong as he was in the past, but that is coming back. Allergies Allergy/AdvReac Type Severity Reaction Status Date / Time No Known Allergies Allergy Verified 01/28/20 22:14 Home Medications Home Medications Medication Instructions Recorded Confirmed Type aspirin 81 mg tablet,delayed 81 mg PO DAILY 10/28/18 01/28/20 History release multivitamin 1 tab PO DAILY 10/28/18 01/28/20 History docusate sodium 100 mg capsule 100 mg PO DAILY #30 cap 10/04/19 01/28/20 Rx cholecalciferol (vitamin D3) 50 2,000 units PO DAILY 10/25/19 01/28/20 History mcg (2,000 unit) capsule metoprolol tartrate 50 mg tablet 50 mg PO QPM tab 10/25/19 01/28/20 History acetaminophen 500 - 1,000 mg PO Q8H PRN 01/28/20 01/28/20 History atorvastatin 10 mg PO DAILY 01/28/20 01/28/20 History clopidogrel 75 mg PO QPM 01/28/20 01/28/20 History diclofenac sodium 2 gm TOP QID PRN 01/28/20 01/28/20 History gabapentin 300 mg PO QPM 01/28/20 01/28/20 History metformin 500 mg PO BIDM 01/28/20 01/28/20 History omeprazole 40 mg PO DAILY PRN 01/28/20 01/28/20 History lisinopril 10 mg PO HS #30 tab 01/29/20 Rx Patient History Medical History HTN (hypertension), benign (Chronic) Lung cancer (Resolved) Osteoarthritis (Chronic) Stroke (Acute) POST-PO HEMIANOPSIA SRCONDARY TO A HOURLY CAREGIVER 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 Surgical History History of arthroscopy of shoulder (Resolved) left S/P CABG x 3 09/20/2019[place] [facility] [place]; SVG TO OM AND SVG TO PDA S/P partial lobectomy of lung (Resolved) Family History Father Myocardial infarction Denies family history of Ovarian cancer Prostate cancer Breast cancer Colorectal cancer Social History Preferred Language: [place] Communication Ability: Effective Visual Impairment: No Limitations 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 HEENT: Unremarkable Neck: No jugular venous distention, carotid pulses are normal and equal bilat erally without bruits. Pulmonary: Clear to auscultation bilaterally. Cardiac: Regular rhythm with no murmur, gallop or rub. Abdomen: Soft, nontender with normal bowel sounds. Extremities: No edema. Distal pulses intact. Neurologic: No focal findings. Gait is steady. Skin: No rash, ecchymoses or petechiae. Results & Data ([facility]) Vital Signs (Past 12 Hours) Vital Signs Temp Pulse Pulse Resp BP BP Pulse Ox 01/29/20 08:07 37.1 C 67 18 129/60 97 01/29/20 08:00 68 01/29/20 04:02 36.6 C 65 18 146/74 H 18 L 01/29/20 00:53 36.5 C 73 18 156/80 H 98 01/29/20 00:49 66 01/29/20 00:21 73 18 155/81 H 98 01/29/20 00:03 75 20 145/79 H 98 Pulse Ox 01/29/20 08:07 01/29/20 08:00 97 01/29/20 04:02 01/29/20 00:53 01/29/20 00:49 01/29/20 00:21 01/29/20 00:03 Laboratory Results Cardiac Enzymes 01/28/20 01/29/20 Range/Units 21:50 03:23 Troponin I 0.039 0.765 H* (0-0.045) ng/ml Coagulation 01/28/20 01/29/20 Range/Units 21:50 05:25 PT 10.8 (9.0-12.0) Seconds APTT 26.5 27.5 (21.0-31.0) Seconds CBC 01/28/20 01/29/20 Range/Units 21:50 03:23 WBC 5.91 6.12 (4.8-10.8) K/uL RBC 4.79 4.97 (4.7-6.1) M/uL Hgb 13.0 L 13.1 L (14.0-18.0) g/dL Hct 38.3 L 40.1 L (42-52) % Plt Count 221 208 (130-400) K/uL Neut # (Auto) 3.45 3.25 (1.4-6.5) K/uL Lymph # (Auto) 1.68 2.04 (1.2-3.4) K/uL Sanders # (Auto) 0.52 0.55 (0.11-0.59) K/uL Eos # (Auto) 0.21 0.24 (0-0.5) K/uL Baso # (Auto) 0.03 0.02 (0-0.2) K/uL Comprehensive Metabolic Panel 01/28/20 01/29/20 Range/Units 21:50 03:23 Sodium 137 141 (136-145) mmol/L Potassium 3.7 4.1 (3.5-5.1) mmol/L Chloride 106 108 H (98-107) mmol/L Carbon Dioxide 25 27 (21-32) mmol/L BUN 20 H 21 H (7-18) mg/dl Creatinine 1.12 1.15 (0.6-1.4) mg/dl Glucose 274 H 186 H (70-99) mg/dl Calcium 9.0 8.9 (8.5-10.1) mg/dl Intake and Output 01/28/20 01/29/20 01/29/20 22:59 06:59 14:59 Intake Total 320 / 320 34.833 / 34.833 Balance 320 / 320 34.833 / 34.833 Intake: IV 34.833 / 34.833 HEPARIN SODIUM/DEXTROSE 25,000 34.833 / 34.833 units In 500 ml @ 1,100 UNITS/ HR 22 mls/hr IV .[id number] [facility] Rx #:[id number] Oral 320 / 320 Other: # Unmeasured Voids 2 Weight 61.7 kg Diagnostic Findings Telemetry: Sinus rhythm in the 60s, no significant arrhythmia PG Care Time/CCT Total # of Minutes Spent Total Time Spent with Patient: Total time spent is greater than 50% in coordination of care (as documented) at patient's floor/unit and/or counseling patient: Coding Level of Care Code 74649 Initial Inpt Care Lvl 3 Diagnoses Chest pain R07.9 Chest pain type: unspecified CAD (coronary artery disease) I25.10 Hypertension I10 Hypertension type: unspecified (1) Chest pain Chest pain type: unspecified Qualified Code(s): R07.9 - Chest pain, unspecified (2) Hypertension Hypertension type: unspecified Qualified Code(s): I10 - Essential (primary) hypertension
[2020-01-29 11:57] LABS: Partial Thromboplastin Ratio 1.6
[2020-01-29 12:10] LABS: Partial Thromboplastin Time 45.8 Seconds (21.0-31.0)
[2020-01-29] MEDS ORDERED: lisinopriL 10 MG TAB PO STA (12:14)
--- NOTE | 2020-01-29 15:54 | Discharge Summary ---
Date of Service January 29, 2020 Admission HPI Per Admitting Provider Mr. Williamson is a 79-year-old male with a past medical history of coronary artery disease s/p CABG x3 in September 2019, type 2 diabetes mellitus, hypertension, history of CVA, hyperlipidemia, lung cancer status post partial lobectomy, and GERD who presents to [facility] due to palpitations. He notes the palpitations began at 6:30 PM earlier this evening, while he was watching TV. He states that his heart rate felt fast, and irregular. He burped several times, which he states improved his palpitations. He denies any chest pain at this time, but reported pain in his left bicep. He took his blood pressure at that time and found it to be 210/122, and his heart rate to be 120. He took half a tablet of his 's clonazepam, which also helped his symptoms. He states his symptoms resolved entirely with the administration of nitroglycerin and aspirin by the paramedics. He estimates that his symptoms lasted 1 hour in total. He denies any associated shortness of breath, diaphoresis, lightheade dness, nausea or vomiting. He states he had previously been feeling well and denies any fever, chills, abdominal pain or diarrhea. He states that he has had multiple episodes of palpitations in the past, lasting 10-15 minutes. He states this is most notable after caffeine. He has never been diagnosed with an arrhythmia. Mr. Williamson underwent a triple bypass in September 2019 at [place]. He states that he has been feeling well after his surgery, and has been exercising regularly at home, without any chest pain or palpitations. He denies any alcohol or recreational drug use. He formally used to chew tobacco, for 50 years. He stopped after his heart surgery in September. Principal Diagnosis Palpitations & chest pain - Possible arrythmia Discharge Exam Constitutional WD/WN, vitals as above Eyes EOM intact bilaterally; no conjunctival abnormality ENMT external ear and nose normal, oropharynx normal Neck trachea midline, no thyromegaly normal visual inspection Respiratory normal respiratory effort, lungs clear to auscultation no respiratory distress Cardiovascular RRR, no murmur, no edema Gastrointestinal (Abdomen) Inspection/Auscultation: abdomen normal to inspection; abdomen not distended Musculoskeletal no cyanosis or clubbing, extremities motor strength 5/5 Skin no rashes, warm and dry Neurologic moves all extremities and awake Psychiatric Orientation: alert, oriented to person and cooperative Discharge Data Allergies Allergy/AdvReac Type Severity Reaction Status Date / Time No Known Allergies Allergy Verified 01/28/20 22:14 Consultations 01/28/20 23:09 ED Decision to Admit Stat 01/29/20 04:35 Consult Cardiology Routine Ordered Studies 01/28/20 22:26 CT angio chest PE protocol Urgent Hospital Course (1) Chest pain: Troponin peaked at 0.75. - Possibly demand ischemia from high BP vs. maybe an arrhythmia. NOT a Type II HI. - Went back down to 0.35. Patient wanted to go home, and was discharged. If this recurs, consider event monitor. - Started lisinopril for better BP control. (2) CAD (coronary artery disease): He has coronary disease and has had a bypass surgery about 4 months ago. He has been very active without recurrent angina. This episode of chest discomfort could be angina or demand ischemia related to his high blood pressure. The enzyme pattern would suggest this. (3) Hypertension: High BP in the hospital. - Started lisinopril 10mg QHS. Can be titrated as outpatient. Total Time Total Time Spent Total Time Spent (In Minutes): 35 Discharge Plan Discharge Items Patient Disposition: Home - Self-Care Reason For Visit: PALPATIONS, ELEV TROP Discharge Diagnosis: Palpitations Activity: Resume your previous activity Non-emergency contact: Primary Care Provider and Lotteries Agent Call non-emergency contact if: your symptoms worsen, your pain is not controlled and your pain is worsening Follow-up/Referrals: Eduard Lora, [Primary Care Provider] - Diet: Heart Healthy Addtl Attending Provider Instructions: You were admitted for palpitations and an elevated troponin. Luckily your troponin did not go very high (topped out at 0.8), and Dr. Martino felt that your heart grafts were not having any issues. We monitored your heart on our telemetry system, and we did not see any concerning rhythms. If the palpitations continue, please speak with your heart doctors about a home monitor that could monitor your heart rhythm for 30 days or more to be sure you are not having infrequent arrhythmias that we didn't catch here in the hospital. Your blood pressure was high at home and has run higher here in the hospital. We are starting a medication that helps keep your blood pressure lower. We sent the script to your pharmacy and gave you a dose here in the hospital as well. Please see your PCP or heart doctor to adjust this medication. We are starting you on a low dose, and it could be adjusted as needed. Pending Studies at Discharge: No Stand-Alone Forms: [facility], Smoking Cessation Medications and DC Order Prescriptions: New lisinopril 10 mg tablet 10 mg PO HS Qty: 30 RF: 0 Continued aspirin [Adult Aspirin Regimen] 81 mg tablet,delayed release (DR/EC) 81 mg PO DAILY RF: 0 multivitamin tablet 1 tab PO DAILY RF: 0 docusate sodium 100 mg capsule 100 mg PO DAILY Qty: 30 RF: 0 cholecalciferol (vitamin D3) 50 mcg (2,000 unit) capsule 2,000 units PO DAILY RF: 0 metoprolol tartrate 50 mg tablet 50 mg PO QPM RF: 0 metformin 500 mg tablet 500 mg PO BIDM RF: 0 atorvastatin 10 mg tablet 10 mg PO DAILY RF: 0 clopidogrel 75 mg tablet 75 mg PO QPM RF: 0 omeprazole 40 mg capsule,delayed release(DR/EC) 40 mg PO DAILY PRN (Reason: Acid Reflux) RF: 0 acetaminophen 500 mg tablet 500 - 1,000 mg PO Q8H PRN (Reason: Pain) RF: 0 gabapentin 300 mg capsule 300 mg PO QPM RF: 0 diclofenac sodium 1 % gel 2 gm TOP QID PRN (Reason: Pain) RF: 0 Discharge Orders: Discharge Order (Routine); Ordered 01/29/20 Ordered By: Jakob Lora Admission Data Admit Date/Time: 01/28/20 23:58 Attending Provider: Jakob Lora Admit Provider: Yovanny Parrish Primary Care Provider: Eduard Lora Other Providers: Brian Martino ; Jakob Lora Other Interventions: Discharge Summary Assessment (RN) Last Done: 01/29/20 12:16 DC Date/Time DO NOT enter until pt leaves facility: 01/29/20 13:22 Coding Level of Care Code 77434 OBS Care - Discharge Diagnoses Chest pain R07.9 Chest pain type: unspecified CAD (coronary artery disease) I25.10 Hypertension I10 Hypertension type: unspecified
--- NOTE | 2020-01-29 20:26 | Billing Data ---
Date of Service January 29, 2020 Coding Level of Care Code 57690 OBS Care - Level 3
[2020-01-29] MEDS ORDERED: GABAPENTIN 300 MG CAP PO SCH (21:00)
[2020-01-29] MEDS ORDERED: METOPROLOL TARTRATE 50 MG TAB PO SCH (21:00)
--- NOTE | 2020-01-30 07:24 | Electrocardiogram Report ---
Test Reason : Blood Pressure : / mmHG Vent. Rate : 107 BPM Atrial Rate : 107 BPM P-R Int : 154 ms QRS Dur : 082 ms QT Int : 352 ms P-R-T Axes : 045 -61 041 degrees QTc Int : 469 ms Sinus tachycardia Left axis deviation Abnormal ECG When compared with ECG of 16-SEP-2019 08:30, Vent. rate has increased BY 45 BPM T wave inversion no longer evident in Inferior leads T wave inversion no longer evident in Anterolateral leads QT has lengthened Confirmed by Adrien Adair ([id number]) on 01/30/2020 7:24:14 AM Referred By: REFERRED SELF Confirmed By:Adrien Adair
== END 2020-01-29 13:22 | disposition home or self-care (01) ==
LOC: 2S 21:30 → ED 21:30 → SUATTDRO 23:58 → 2S 01-29 00:21

== ENCOUNTER 2020-03-13 09:20 | Inpatient (IN) ==
--- NOTE | 2020-03-13 09:31 | Emergency Department Note ---
Impression & Plan Stroke-like symptoms ED Provider Note NAME: OCHOA MAGUIRE AGE: 79 SEX: M ARRIVES VIA: Ambulance INFORMANT: [Patient] EMS ED PROVIDER(S): Eulalio Alberts MD CHIEF COMPLAINT: Strokelike symptoms PLAN: Disposition: Admitted Condition: [Good] MEDICAL DECISION MAKING: Patient presented as a stroke alert. He did have right-sided weakness and slurred speech. CT imaging including angiography revealed no acute stroke however there was occlusion of the P1 segment and right internal carotid artery. Family states this was seen prior. The patient had a stroke alert consultation with Dr. Morales of [facility]. The patient is already on Plavix and aspirin. He recommended continued hydration and permissive hypertension. The family was updated. [facility]ation [facility] with [facility]. Patient was evaluated in the ER by Dr. Arshad for further management. Triage Nursing notes reviewed and agree them. [Additional history obtained from] daughter and EMS Vital Signs: reviewed and remarkable for hypertension Differential diagnosis: CVA, TIA, infection, dehydration, metabolic abnormality, hypo/hyperglycemia, electrolyte disturbance, anemia, hypoxia, cardiac sources, intracerebral event, toxicologic, neurologic, as well as other pathologies. ER treatment provided: Saline hydration Diagnostics interpreted by me: ECG: Rate: 61 Rhythm:Normal sinus [place]:Normal QRS:Normal ST segements:No elevation or depression Other:No PACs or PVCs. Left axis deviation Cardiac Monitoring:Cardiac monitoring ordered by me: The patient was placed on continuous cardiac monitoring and observed. It revealed a normal sinus rhythm at 63 beats per minute without ectopy or evidence of dysrhythmia. Laboratory studies: [See below] unremarkable CBC and chemistry panel Imaging studies: CT angiography of the head and neck performed. Chest x-ray performed. No acute process noted. Occlusion of the right internal carotid and P1 segment noted. I refer to the EMR for further details. Consultation(s): [none] HPI: The patient is a 79 year old male with hx of coronary artery disease s/p CABG x3 in September 2019, type 2 diabetes mellitus, hypertension, history of CVA, hyperlipidemia, lung cancer status post resection, who presents to the Emergency Room with complaints of expressive aphasia. This started yesterday and is persisting. The patient also notes the following associated symptoms, right arm and leg weakness. The patient has found no relieving factors. Current pain is rated as 0/10. Hx of TIA after CABG. Pt denies LOC, headache, fevers, chills, diaphoresis, visual changes, neck pain, chest pain, breathing difficulties, nausea, vomiting, abdominal pain, back pain, melena, hematochezia, urinary symptoms, lymphadenopathy, rash, or other complaints. ROS: See above HPI for pertinent positives & negatives. A total of [10] systems reviewed and were otherwise negative. PAST MEDICAL HISTORY:[See Below] CAD, TIA PAST SURGICAL HISTORY:[See Below]CABG FAMILY HISTORY:[See Below] SOCIAL HISTORY:[See Below] HOME MEDICATIONS:[See Below] ALLERGIES:[See Below] VITALS:[See Below] PHYSICAL EXAMINATION: GENERAL: Awake, alert, well-appearing, in no distress HENT: Normocephalic, atraumatic. Oropharynx unremarkable. EYES: Normal conjunctiva. Sclera non-icteric. NECK: Inspection normal. Non-tender. Supple. No nuchal rigidity. FROM. No masses. RESPIRATORY: Clear to auscultation. No wheezes. No rales. Normal respiratory effort. CARDIAC: Normal rate. Normal rhythm. No murmurs. No rubs. Extremities warm and well perfused. Pulses equal. No JVD. GI: Soft, non-distended. No tenderness to palpation. No rebound or guarding. No masses. RECTAL: Deferred. MUSCULOSKELETAL: Atraumatic. Chest examination reveals no tenderness. The back is symmetrical on inspection without obvious abnormality. There is no CVA tenderness to palpation. No joint edema. LOWER EXTREMITIES: Calves are equal size bilaterally and non-tender. No edema. No discoloration. NEURO: Normal sensorium. No sensory deficits noted. expressive aphasia. RUE and RLE drift. CN2-12 intact otherwise. SKIN: No rash or jaundice noted. 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 INVOLVONG ELE SUPERIOR QUADRANT Surgical History History of arthroscopy of shoulder (Resolved) left S/P CABG x 3 09[place]20/2019[place] [facility] [place]AD; SVG TO OM AND SVG TO PDA S/P partial lobectomy of lung (Resolved) Family History Father Myocardial infarction Denies family history of Ovarian cancer Prostate cancer Breast cancer Colorectal cancer Social History (Updated 03/13/20 @ 11:29 by Janice Arshad DO) Preferred Language: Chinese Communication Ability: Effective Visual Impairment: No Limitations Hearing Ability: Normal Silo Worker Required: No Beliefs That Will Affect Care: None marital status: Current Living Situation: Spouse 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 Other Information That Helps Us Care for You: No Feels Safe at Home: Yes Safety Concerns: Feels Safe At This Time Smoking Status: Never smoker Tobacco Type: smokeless tobacco ; Do You Dip or Chew Tobacco: No (quit 09/20 after 50 yrs of use) ; Second Hand Exposure: No ; Hx Alcohol Use: No Hx Substance Use: No Dental Care, Regularly: Yes Physical Activity Frequency: Does not Exercise Seatbelt Use: always Sunscreen Use: No Allergies Allergies Allergy/AdvReac Type Severity Reaction Status Date / Time No Known Allergies Allergy Verified 03/13/20 10:49 Home Meds Home Medications Medication Instructions Recorded Confirmed aspirin 81 mg tablet,delayed 81 mg PO HS 10/28/18 03/13/20 release multivitamin 1 tab PO QAM 10/28/18 03/13/20 cholecalciferol (vitamin D3) 50 2,000 units PO HS 10/25/19 03/13/20 mcg (2,000 unit) capsule metoprolol tartrate 50 mg tablet 50 mg PO HS tab 10/25/19 03/13/20 clopidogrel 75 mg PO QAM 01/28/20 03/13/20 diclofenac sodium 2 gm TOP QID PRN 01/28/20 03/13/20 gabapentin 300 mg PO HS 01/28/20 03/13/20 metformin 500 mg PO BIDM 01/28/20 03/13/20 gabapentin 100 mg capsule 100 mg PO QAM cap 02/21/20 03/13/20 docusate sodium 100 mg PO HS 03/13/20 03/13/20 olmesartan 20 mg PO QAM 03/13/20 03/13/20 pravastatin 10 mg PO HS 03/13/20 03/13/20 Previous Rx's Medication Instructions Recorded hydroxyzine HCl 25 mg tablet 25 mg PO Q6H PRN #120 tab 02/02/20 Results & Data (ED) Vital Signs Vital Signs - 24 hr 03/13/20 09:40 03/13/20 09:42 03/13/20 09:45 Temperature Temperature Source Pulse Rate 60 69 60 Pulse Rate from SpO2 Sensor 60 Respiratory Rate Respiratory Effort / Characteristics Respiratory Depth Respiratory Pattern Blood Pressure 205/74 H 192/82 H Blood Pressure Mean 109 130 Blood Pressure Position Pulse Oximetry 96 Oxygen Delivery Method Room Air Sepsis Recent Fever Within 48 Hours Sepsis New/Unexplained Change in Mental Status Sepsis Action Taken by Nursing 03/13/20 09:50 03/13/20 10:00 03/13/20 10:01 Temperature Temperature Source Pulse Rate 57 L 66 59 L Pulse Rate from SpO2 Sensor 57 L 76 59 L Respiratory Rate Respiratory Effort / Characteristics Respiratory Depth Respiratory Pattern Blood Pressure 193/82 H Blood Pressure Mean 119 Blood Pressure Position Pulse Oximetry 97 95 96 Oxygen Delivery Method Room Air Room Air Room Air Sepsis Recent Fever Within 48 Hours Sepsis New/Unexplained Change in Mental Status Sepsis Action Taken by Nursing 03/13/20 10:05 03/13/20 10:06 03/13/20 10:09 Temperature 36.7 C Temperature Source Oral Pulse Rate 56 L 54 L Pulse Rate from SpO2 Sensor 57 L Respiratory Rate 20 20 Respiratory Effort / Characteristics Non-Labored Spontaneous Respiratory Depth Normal Respiratory Pattern Regular Blood Pressure 196/78 H 193/86 H Blood Pressure Mean 92 121 Blood Pressure Position Sitting Pulse Oximetry 97 96 96 Oxygen Delivery Method Room Air Room Air Room Air Sepsis Recent Fever Within 48 Hours No Sepsis New/Unexplained Change in Mental Status No Sepsis Action Taken by Nursing No Action Required 03/13/20 10:10 03/13/20 10:16 03/13/20 10:20 Temperature Temperature Source Pulse Rate 56 L 57 L 56 L Pulse Rate from SpO2 Sensor 56 L 57 L 56 L Respiratory Rate 19 18 Respiratory Effort / Characteristics Respiratory Depth Respiratory Pattern Blood Pressure 195/81 H Blood Pressure Mean 119 Blood Pressure Position Pulse Oximetry 97 97 97 Oxygen Delivery Method Room Air Room Air Room Air Sepsis Recent Fever Within 48 Hours Sepsis New/Unexplained Change in Mental Status Sepsis Action Taken by Nursing 03/13/20 10:30 03/13/20 10:32 03/13/20 10:40 Temperature Temperature Source Pulse Rate 56 L 54 L 56 L Pulse Rate from SpO2 Sensor 55 L 55 L Respiratory Rate 20 Respiratory Effort / Characteristics Respiratory Depth Respiratory Pattern Blood Pressure 200/76 H Blood Pressure Mean 103 Blood Pressure Position Pulse Oximetry 98 98 Oxygen Delivery Method Room Air Room Air Sepsis Recent Fever Within 48 Hours Sepsis New/Unexplained Change in Mental Status Sepsis Action Taken by Nursing 03/13/20 10:46 03/13/20 10:47 03/13/20 10:50 Temperature Temperature Source Pulse Rate 56 L 59 L 56 L Pulse Rate from SpO2 Sensor Respiratory Rate 18 Respiratory Effort / Characteristics Respiratory Depth Respiratory Pattern Blood Pressure 191/97 H Blood Pressure Mean 152 Blood Pressure Position Pulse Oximetry 95 Oxygen Delivery Method Room Air Sepsis Recent Fever Within 48 Hours Sepsis New/Unexplained Change in Mental Status Sepsis Action Taken by Nursing 03/13/20 11:00 03/13/20 11:01 03/13/20 11:10 Temperature Temperature Source Pulse Rate 54 L 52 L 57 L Pulse Rate from SpO2 Sensor Respiratory Rate 20 Respiratory Effort / Characteristics Respiratory Depth Respiratory Pattern Blood Pressure 194/77 H Blood Pressure Mean 116 Blood Pressure Position Pulse Oximetry 97 Oxygen Delivery Method Room Air Sepsis Recent Fever Within 48 Hours Sepsis New/Unexplained Change in Mental Status Sepsis Action Taken by Nursing 03/13/20 11:16 03/13/20 11:30 03/13/20 11:46 Temperature Temperature Source Pulse Rate 57 L 56 L 58 L Pulse Rate from SpO2 Sensor Respiratory Rate Respiratory Effort / Characteristics Respiratory Depth Respiratory Pattern Blood Pressure 175/62 H 184/81 H 163/74 H Blood Pressure Mean 78 101 99 Blood Pressure Position Pulse Oximetry Oxygen Delivery Method Sepsis Recent Fever Within 48 Hours Sepsis New/Unexplained Change in Mental Status Sepsis Action Taken by Nursing 03/13/20 12:00 03/13/20 12:10 03/13/20 12:15 Temperature Temperature Source Pulse Rate 57 L 58 L 57 L Pulse Rate from SpO2 Sensor Respiratory Rate 18 Respiratory Effort / Characteristics Respiratory Depth Respiratory Pattern Blood Pressure 182/74 H 165/72 H Blood Pressure Mean 96 97 Blood Pressure Position Pulse Oximetry 97 Oxygen Delivery Method Room Air Sepsis Recent Fever Within 48 Hours Sepsis New/Unexplained Change in Mental Status Sepsis Action Taken by Nursing 03/13/20 12:25 Temperature Temperature Source Pulse Rate Pulse Rate from SpO2 Sensor Respiratory Rate Respiratory Effort / Characteristics Respiratory Depth Respiratory Pattern Blood Pressure Blood Pressure Mean Blood Pressure Position Pulse Oximetry Oxygen Delivery Method Room Air Sepsis Recent Fever Within 48 Hours Sepsis New/Unexplained Change in Mental Status Sepsis Action Taken by Nursing Laboratory Data Result diagrams: 03/13/20 09:39 03/13/20 09:39 Lab Results 03/13/20 03/13/20 03/13/20 Range/Units 09:39 09:39 09:39 WBC 5.97 (4.8-10.8) K/uL RBC 4.85 (4.7-6.1) M/uL Hgb 13.2 L (14.0-18.0) g/dL Hct 39.8 L (42-52) % MCV 82.1 (80-100) fL MCH 27.2 (25-34) pg MCHC 33.2 (32-36) g/dL RDW Std Deviation 46.3 (36.4-46.3) fL RDW Coeff of [place] 15.5 H (11.5-14.5) % Plt Count 161 (130-400) K/uL MPV 10.0 (7.4-10.4) fL Immature Gran % (Auto) 0.3 % Neut % (Auto) 56.6 % Lymph % (Auto) 33.0 % [place] % (Auto) 6.7 % Eos % (Auto) 3.2 % Baso % (Auto) 0.2 % Neut # (Auto) 3.38 (1.4-6.5) K/uL Lymph # (Auto) 1.97 (1.2-3.4) K/uL [place] # (Auto) 0.40 (0.11-0.59) K/uL Eos # (Auto) 0.19 (0-0.5) K/uL Baso # (Auto) 0.01 (0-0.2) K/uL Immature Gran # (Auto) 0.02 (0.00-0.02) K/uL PT 11.1 (9.0-12.0) Seconds INR 1.1 (0.9-1.1) APTT 27.3 (21.0-31.0) Seconds PTT Ratio 1.0 Sodium (136-145) mmol/L Potassium (3.5-5.1) mmol/L Chloride (98-107) mmol/L Carbon Dioxide (21-32) mmol/L Anion Gap (3-11) BUN (7-18) mg/dl Creatinine (0.6-1.4) mg/dl Est Cr Clr Drug Dosing ml/min Est GFR ( Amer) Est GFR (Non-Af Amer) BUN/Creatinine Ratio (10-20) Glucose (70-99) mg/dl POC Glucose (70-99) mg/dl Calcium (8.5-10.1) mg/dl Magnesium (1.8-2.4) mg/dl Total Bilirubin (0.2-1) mg/dl AST (15-37) U/L ALT (12-78) U/L Alkaline Phosphatase (45-117) U/L Troponin I (0-0.045) ng/ml Total Protein (6.4-8.2) gm/dl Albumin (3.4-5.0) gm/dl Globulin (2.5-4.0) gm/dl Albumin/Globulin Ratio (0.9-2) Specimen Hemolysis Urine Color Urine Appearance (Clear) Urine pH (4.5-7.5) Ur Specific [place] (1.000-1.030) Urine Protein (Negative) Urine Glucose (UA) (Negative) Urine Ketones (Negative) Urine Blood (Negative) Urine Nitrite (Negative) Urine Bilirubin (Negative) Urine Urobilinogen (Negative) Ur Leukocyte Esterase (Negative) Blood Type O Positive Antibody Screen NEGATIVE 03/13/20 03/13/20 03/13/20 Range/Units 09:39 09:40 10:46 WBC (4.8-10.8) K/uL RBC (4.7-6.1) M/uL Hgb (14.0-18.0) g/dL Hct (42-52) % MCV (80-100) fL MCH (25-34) pg MCHC (32-36) g/dL RDW Std Deviation (36.4-46.3) fL RDW Coeff of [place] (11.5-14.5) % Plt Count (130-400) K/uL MPV (7.4-10.4) fL Immature Gran % (Auto) % Neut % (Auto) % Lymph % (Auto) % [place] % (Auto) % Eos % (Auto) % Baso % (Auto) % Neut # (Auto) (1.4-6.5) K/uL Lymph # (Auto) (1.2-3.4) K/uL [place] # (Auto) (0.11-0.59) K/uL Eos # (Auto) (0-0.5) K/uL Baso # (Auto) (0-0.2) K/uL Immature Gran # (Auto) (0.00-0.02) K/uL PT (9.0-12.0) Seconds INR (0.9-1.1) APTT (21.0-31.0) Seconds PTT Ratio Sodium 136 (136-145) mmol/L Potassium 4.3 (3.5-5.1) mmol/L Chloride 104 (98-107) mmol/L Carbon Dioxide 27 (21-32) mmol/L Anion Gap 6.0 (3-11) BUN 17 (7-18) mg/dl Creatinine 1.13 (0.6-1.4) mg/dl Est Cr Clr Drug Dosing 52.8 ml/min Est GFR ( Amer) 72.3 Est GFR (Non-Af Amer) 62.4 BUN/Creatinine Ratio 15.2 (10-20) Glucose 177 H (70-99) mg/dl POC Glucose 180 H (70-99) mg/dl Calcium 8.5 (8.5-10.1) mg/dl Magnesium 2.2 (1.8-2.4) mg/dl Total Bilirubin 0.5 (0.2-1) mg/dl AST 12 L (15-37) U/L ALT 21 (12-78) U/L Alkaline Phosphatase 90 (45-117) U/L Troponin I < 0.015 (0-0.045) ng/ml Total Protein 5.9 L (6.4-8.2) gm/dl Albumin 2.9 L (3.4-5.0) gm/dl Globulin 3.0 (2.5-4.0) gm/dl Albumin/Globulin Ratio 1.0 (0.9-2) Specimen Hemolysis Urine Color Yellow Urine Appearance Clear (Clear) Urine pH 8.0 H (4.5-7.5) Ur Specific [place] 1.044 H (1.000-1.030) Urine Protein Negative (Negative) Urine Glucose (UA) Trace H (Negative) Urine Ketones Negative (Negative) Urine Blood Negative (Negative) Urine Nitrite Negative (Negative) Urine Bilirubin Negative (Negative) Urine Urobilinogen Negative (Negative) Ur Leukocyte Esterase Negative (Negative) Blood Type Antibody Screen Administered Medications Sodium Chloride (Nss 1000ml) 1,000 mls @ 50 mls/hr IV .Q20H SO Stop: 04/12/20 09:29 Last Admin: 03/13/20 10:11 Dose: 50 mls/hr Documented by: [id number] Sodium Chloride (1/2 Nss) 1,000 mls @ 50 mls/hr IV .Q20H SO Stop: 04/12/20 13:14 Last Admin: 03/13/20 14:00 Dose: 50 mls/hr Documented by: [id number] Ioversol (Optiray 320 125ml) 120 ml IV ONCE PRN PRN Reason: Interaction Checking Stop: 03/17/20 09:37 Last Admin: 03/13/20 09:39 Dose: 120 ml Documented by: [id number] Discharge Plan Visit Data *Final* Discharge Date/Time: 03/13/20 12:25 Chief Complaint: Stroke Alert ED Provider: Eulalio Alberts Discharge Problem: Stroke-like symptoms Patient Disposition: Admitted As Inpatient Discharge Instructions Interventions: ED Discharge Assessment Last Done: 03/13/20 12:25
[2020-03-13] MEDS ORDERED: OPTIRAY 320 125ml IV PRN (09:38)
--- NOTE | 2020-03-13 09:46 | CT Scan Report ---
CT head/brain wo con CLINICAL HISTORY: Stroke evaluation STROKELIKE SYMPTOMS COMPARISON STUDY: No previous studies for comparison. TECHNIQUE: Axial CT of the brain is performed from the vertex to the skull base. IV contrast was not administered for this examination. A dose lowering technique was utilized adhering to the principles of ALARA. CT DOSE: FINDINGS: No intra or extra-axial mass lesions are visualized. There is no CT evidence of acute cortical infarc tion. There is no evidence of midline shift. There is no acute hemorrhage. No calvarial fractures ar e visualized. There are patchy white matter hypodensities likely on a small vessel basis. There is an old right occ ipital lobe infarct. There is slight increased attenuation of the right occipital lobe. This finding is of uncertain significance but could indicate mineralization secondary to a prior infarct. This is unlikely to represent acute hemorrhage. An MRI could be obtained in follow-up as deemed clinically ap propriate. There is no evidence of pathologic ventricular dilatation. There is chronic mucosal disease involving the right frontal sinus with associated wall thickening. T here is calcific debris within the thecal sac thickening raising the possibility of fungal etiology. IMPRESSION: 1. No evidence of acute infarction 2. Subtle increased density involving the right medial occipital lobe. This is of uncertain etiology but could represent mineralization secondary to a remote infarct. 3. Chronic inflammatory changes involving the right maxillary sinus possibly fungal ACT 112: Negative or not required by law. Electronically signed by: Jean Williamson M.D. 03/13/2020 9:45 AM
[2020-03-13 09:53] LABS: Basophils # (auto) 0.01 K/uL (0-0.2); Basophils % (auto) 0.2 %; Eosinophils # (auto) 0.19 K/uL (0-0.5); Eosinophils % (auto) 3.2 %; Hematocrit (blood only) 39.8 % (42-52); Hemoglobin 13.2 g/dL (14.0-18.0); Immature Granulocytes # (auto) 0.02 K/uL (0.00-0.02); Immature Granulocytes % (auto) 0.3 %; Lymphocytes # (auto) 1.97 K/uL (1.2-3.4); Mean Corpuscular Hemoglobin 27.2 pg (25-34); Mean Corpuscular Hgb Conc 33.2 g/dL (32-36); Mean Corpuscular Volume 82.1 fL (80-100); Monocytes % (auto) 6.7 %; Neutrophils # (auto) 3.38 K/uL (1.4-6.5); Neutrophils % (auto) 56.6 %; Platelet Count 161 K/uL (130-400); RDW Coefficient of Variation 15.5 % (11.5-14.5); RDW Standard Deviation 46.3 fL (36.4-46.3); Red Blood Count 4.85 M/uL (4.7-6.1); White Blood Count 5.97 K/uL (4.8-10.8)
--- NOTE | 2020-03-13 09:57 | CT Scan Report ---
CT angio neck with con CLINICAL HISTORY: Stroke evaluation COMPARISON STUDY: No previous studies for comparison. TECHNIQUE: CT angiography was performed from the aortic arch to the skull base. MIP imaging was perfo rmed. The patient was scanned in a dynamic helical fashion during intravenous administration of 120 c c of Optiray 320. A dose lowering technique was utilized adhering to the principles of ALARA. CT DOSE: Technique: CT angiogram of the carotid and vertebral arteries was obtained using intravenous contrast and 3-D reconstruction. NASCET criteria was utilized. Findings: There is a multinodular thyroid gland with nodules measuring up to 1 cm in diameter. Current recommen dations indicate no necessity of follow-up given the patient's age. There are moderate atheromatous changes at the level of the carotid bulb. There is a 30% diameter mai rowing of the distal common carotid artery. There is occlusion of the right internal carotid artery 2 cm distal to its origin. Given the tapered appearance, a thrombosed dissection cannot be excluded. The left carotid revealed no evidence of hemodynamic significant stenosis. There is no evidence of an eurysm. There is no evidence of dissection. There is no evidence of hemodynamically significant vertebral stenosis. There is no evidence of verte bral dissection. IMPRESSION: 1. Age indeterminant occlusion of the right internal carotid artery 2 cm distal to its origin. Given the tapered appearance, a thrombosed dissection cannot be excluded 2. No evidence of hemodynamically significant left internal carotid or vertebral artery stenosis. ACT 112: Negative or not required by law. Electronically signed by: Jean Williamson M.D. 03/13/2020 9:56 AM
--- NOTE | 2020-03-13 10:00 | CT Scan Report ---
HEAD CTA HISTORY: Stroke like symptoms. Stroke evaluation TECHNIQUE: Multiaxial CT images of the head were performed following the intravenous administration o f contrast to evaluate the major cerebral vessels. Maximum intensity projection images were also obta ined. A dose lowering technique was utilized adhering to the principles of ALARA. COMPARISON: Head CT 03/13/2020. FINDINGS: Redemonstration of the small focus of encephalomalacia within the right occipital lobe cons istent with an old infarct. The adjacent area of faint increased density is better appreciated on the noncontrast head CT performed the same day. Near-complete chronic opacification of the right maxilla ry sinus. No contrast identified within the visualized right internal carotid artery system with comp lete occlusion. Trace contrast seen within the right supraclinoid ICA which is likely secondary to re trograde flow. This perfuses the right ophthalmic artery. Focal area of mild stenosis within the dist al right vertebral artery. The visualized distal left vertebral artery and basilar artery are widely patent. Moderate calcified plaque within the left carotid siphon resulting in multifocal areas of mil d to moderate stenosis. This demonstrates up to 50% stenosis proximally. Multifocal stenosis within t he left P2 segment of up to 50%. Focal vascular cut off at the distal right P1 segment consistent wit h a site of occlusion. This could be chronic given the old right [place] territory infarct. No significan t stenosis, occlusion, or aneurysm seen within the bilateral MCAs or ACAs. The measured dural venous sinuses appear patent. IMPRESSION: 1. No contrast identified within the right internal carotid artery consistent with complete occlusion . This is better appreciated on the same day neck CTA. 2. Focal vascular cut off at the distal right P1 segment consistent with a site of occlusion. This i s age indeterminate but could be chronic given the old right [place] territory infarct. 3. Multifocal stenosis within the left P2 segment of up to 50%. 4. Mild to moderate multifocal stenosis within the left carotid siphon. ACT 112: Negative or not required by law. Electronically signed by: Jl Kunz M.D. 03/13/2020 9:59 AM
[2020-03-13 10:05] LABS: INR 1.1 (0.9-1.1); Partial Thromboplastin Time 27.3 Seconds (21.0-31.0); Prothrombin Time 11.1 Seconds (9.0-12.0)
[2020-03-13] MEDS: SODIUM CHLORIDE 0.9% 1000ML 1,000 ML IV SCH ×2 (10:11→21:53)
[2020-03-13 10:15] LABS: Alanine Aminotransferase 21 U/L (12-78); Albumin Level 2.9 gm/dl (3.4-5.0); Alkaline Phosphatase 90 U/L (45-117); Aspartate Aminotransferase 12 U/L (15-37); BUN Creatinine Ratio 15.2 (10-20); Bilirubin,Total 0.5 mg/dl (0.2-1); Blood Urea Nitrogen 17 mg/dl (7-18); Calcium 8.5 mg/dl (8.5-10.1); Carbon Dioxide 27 mmol/L (21-32); Chloride 104 mmol/L (98-107); Creatinine Clr Calc Pharmacy 52.8 ml/min; Est GFR (African American) 72.3; Est GFR (Non-African American) 62.4; Glucose 177 mg/dl (70-99); Magnesium 2.2 mg/dl (1.8-2.4); Potassium 4.3 mmol/L (3.5-5.1); Sodium 136 mmol/L (136-145); Total Protein 5.9 gm/dl (6.4-8.2); Troponin I < 0.015 ng/ml (0-0.045)
[2020-03-13 10:54] LABS: Appearance Urine Clear (Clear); Bilirubin Urine Negative (Negative); Blood Urine Negative (Negative); Color Urine Yellow; Glucose Urine UA Trace (Negative); Ketones Urine Negative (Negative); Leukocyte Esterase Urine Negative (Negative); Nitrite Urine Negative (Negative); Protein Urine Negative (Negative); Specific Gravity Urine 1.044 (1.000-1.030); Urobilinogen Urine Negative (Negative)
[2020-03-13] MEDS ORDERED: GLUCAGON FOR INJ 1 MG VIAL SQ PRN (11:22)
[2020-03-13] MEDS ORDERED: DEXTROSE 50% 50 ML SYRINGE IV PRN (11:22)
[2020-03-13] MEDS ORDERED: GLUCOSE 10 TABS/TUBE PO PRN (11:22)
[2020-03-13] MEDS ORDERED: CARBOHYDRATES FOR HYPOGLYCEMIA PO PRN (11:22)
[2020-03-13] MEDS ORDERED: GLUCOSE 40% GEL 15 GM TUBE PO PRN (11:22)
--- NOTE | 2020-03-13 11:40 | History & Physical Report ---
Date of Service March 13, 2020 Assessment & Plan (1) Stroke-like symptoms: Hx of prior CVA CT head: increased density of undetermined significance in R medial occipital region MRI pending ECHO pending CBC, PRP WNL Trop neg x1 Lipids, A1c, TSH pending PT/OT pending Holding HTN meds Neuro c/s pending CTA head/neck: complete R ICA occlusion, 50% L ICA occlusion Vasc surg c/s pending Pt was evaluated in the ED by telemed and with concern for CVA. Recs for permissive HTN. Pt is already on aspirin/plavix/statin at baseline. No further medication recs. (2) Type 2 diabetes mellitus: A1c 7.2 09/20 Repeat pending Holding metformin due to contrast given on 03/13 SSI PRN (3) Hypertension: Holding home meds for permissive HTN Pt is not to be put on lisinopril if further agents needed per primary weir fisher, Dr. Montero (4) GERD (gastroesophageal reflux disease): continue home meds (5) S/P CABG x 3: [place]STEM[place] 09[place]20[place] [facility] [place]irin/plavix continued Holding HTN meds Statin, continued Lipid panel pending Prior LDL 88, HDL 40, TG 303 (09/20) Family has politely requested that if cardiology c/s needed, it would be with pt's primary weir fisher Dr. Montero (6) S/P partial lobectomy of lung: hx of lung cancer (7) DVT prophylaxis: SCDs Aspirin/plavix at baseline History of Present Illness Primary Care Provider: Eduard Lora, DO 79 y/o M c/o R sided weakness and slurred speech. 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 He felt like it was more of a struggle, but he was able to do it. A bit of balance at times as well, but minimal. By the end of the day, he states that this had resolved completely. He ate without issue yesterday "like a champ" per his daughter. He states he slept well last night. He woke this AM and the R sided UE/LE weakness had returned, but was more intense. His balance was much more off and he was having difficulty walking. He was also noted to have a "thick tongue" per family. His daughter spoke with him on the phone and she felt he was slightly confused at times. Currently, pt is still with occasional slurred speech, but much better. Daughter states he has not seemed confused. Pt has not been OOB since arrival to the ED to assess his balance/strength yet. Pt noted that yesterday he had some mild SOB at rest, but he thinks he was feeling anxious because he would take a few deep breaths and it would go away. Pt denies fever, chest pain, abd pain, n/v/c/d, LE pain or swelling. Pt had a CVA in September and has had vision abnormalities since that time. He has noticed that his vision was worse the last few days. Pt is due for cataract surgery, but this was different than his usual baseline deficits. Pt was evaluated in the ED by telemed and with concern for CVA. Recs for permissive HTN. Pt is already on aspirin/plavix/statin at baseline. No further medication recs. Allergies Allergy/AdvReac Type Severity Reaction Status Date / Time No Known Allergies Allergy Verified 03/13/20 10:49 Home Medications Home Medications Medication Instructions Recorded Confirmed Type aspirin 81 mg tablet,delayed 81 mg PO HS 10/28/18 03/13/20 History release multivitamin 1 tab PO QAM 10/28/18 03/13/20 History cholecalciferol (vitamin D3) 50 2,000 units PO HS 10/25/19 03/13/20 History mcg (2,000 unit) capsule metoprolol tartrate 50 mg tablet 50 mg PO HS tab 10/25/19 03/13/20 History clopidogrel 75 mg PO QAM 01/28/20 03/13/20 History diclofenac sodium 2 gm TOP QID PRN 01/28/20 03/13/20 History gabapentin 300 mg PO HS 01/28/20 03/13/20 History metformin 500 mg PO BIDM 01/28/20 03/13/20 History hydroxyzine HCl 25 mg tablet 25 mg PO Q6H PRN #120 tab 02/02/20 03/13/20 Rx gabapentin 100 mg capsule 100 mg PO QAM cap 02/21/20 03/13/20 History docusate sodium 100 mg PO HS 03/13/20 03/13/20 History olmesartan 20 mg PO QAM 03/13/20 03/13/20 History pravastatin 10 mg PO HS 03/13/20 03/13/20 History Past Med/Surg History Medical History HTN (hypertension), benign (Chronic) Lung cancer (Resolved) Osteoarthritis (Chronic) Stroke (Acute) 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 Surgical History History of arthroscopy of shoulder (Resolved) left S/P CABG x 3 09[place]20[place]2019[place] [facility] [facility] [place]ARR [place]; SVG TO OM AND SVG TO PDA S/P partial lobectomy of lung (Resolved) Family History Father Myocardial infarction Denies family history of Ovarian cancer Prostate cancer Breast cancer Colorectal cancer Social History (Updated 03/13/20 @ 11:29 by Janice Arshad DO) Preferred Language: Moroccan Communication Ability: Effective Visual Impairment: No Limitations Hearing Ability: Normal 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 Beliefs That Will Affect Care: None marital status: Current Living Situation: Spouse 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 Other Information That Helps Us Care for You: No Feels Safe at Home: Yes Safety Concerns: Feels Safe At This Time Smoking Status: Never smoker Tobacco Type: smokeless tobacco ; Do You Dip or Chew Tobacco: No (quit 09/20 after 50 yrs of use) ; Second Hand Exposure: No ; Hx Alcohol Use: No Hx Substance Use: No Dental Care, Regularly: Yes Physical Activity Frequency: Does not Exercise Seatbelt Use: always Sunscreen Use: No Review of Systems Review of Systems: Pertinent positives and negatives reviewed in HPI--all others negative Physical Exam Constitutional: WD/WN, vitals as above Eyes: normal visual garcia by confrontation and + anicteric sclerae Neck: normal visual inspection and trachea midline Respiratory: normal respiratory effort, lungs clear to auscultation Cardiovascular: Rate/Rhythm: regular rate and regular rhythm Gastrointestinal (Abdomen): Inspection/Auscultation: abdomen not distended Percussion/Palpation: abdomen soft; abdomen nontender Musculoskeletal: Head/Neck/Chest: normocephalic and head atraumatic negative for edema, peripheral pulses intact Skin: no rashes, warm and dry Neurologic: CN's II-XI intact bilaterally and awake; not confused Speech / Cognition: normal speech occasional word slurring, but minimal 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 b/l, although very slightly less on R 5/5 strength against resistance in all planes, although very slightly less in R with strength against hip flexion Psychiatric: A+Ox3, euthymic affect Results & Data Results & Data ([facility]) Vital Signs (Past 12 Hours) Vital Signs Temp Pulse Resp BP Pulse Ox 03/13/20 11:10 57 L 03/13/20 11:01 52 L 20 194/77 H 97 03/13/20 11:00 54 L 03/13/20 10:50 56 L 18 95 03/13/20 10:47 59 L 03/13/20 10:46 56 L 191/97 H 03/13/20 10:40 56 L 03/13/20 10:32 54 L 200/76 H 98 03/13/20 10:30 56 L 20 98 03/13/20 10:20 56 L 18 97 03/13/20 10:16 57 L 195/81 H 97 03/13/20 10:10 56 L 19 97 03/13/20 10:09 96 03/13/20 10:06 36.7 C 54 L 20 193/86 H 96 03/13/20 10:05 56 L 20 196/78 H 97 03/13/20 10:01 59 L 193/82 H 96 03/13/20 10:00 66 95 03/13/20 09:50 57 L 97 03/13/20 09:45 60 192/82 H 96 03/13/20 09:42 69 03/13/20 09:40 60 205/[address] head: increased density of undetermined significance in R medial occipital region CTA head/neck: complete R ICA occlusion, 50% L ICA occlusion ECG Rhythm: normal sinus Code Status & VTE Plan Code Status Full code VTE Prophylaxis Plan VTE Prophylaxis will be ordered: Yes PG Care Time/CCT Total # of Minutes Spent Total Time Spent with Patient: Total time spent is greater than 50% in coordination of care (as documented) at patient's floor/unit and/or counseling patient: Coding Level of Care Code 99377 Initial In Care Lvl 3 Diagnoses Stroke-like symptoms R29.90 Type 2 diabetes mellitus E11.9 Hypertension I10 Hypertension type: unspecified GERD (gastroesophageal reflux disease) K21.9 S/P CABG x 3 Z95.1 S/P partial lobectomy of lung Z90.2 DVT prophylaxis Z29.9 (1) Hypertension Hypertension type: unspecified Qualified Code(s): I10 - Essential (primary) hypertension
--- NOTE | 2020-03-13 11:48 | XRay Report ---
XR chest 1V portable CLINICAL HISTORY: stroke COMPARISON STUDY: 01/28/2020 FINDINGS: There are postsurgical changes of a midline sternotomy. There is no failure. There is no fo sarah pulmonary consolidation. There is a calcified granuloma within the left midlung zone. There is a linear subsegmental atelectatic change at the right lung base. There is a chronic rib deformity on th e right. IMPRESSION: No active disease in the chest. ACT 112: Negative or not required by law. Electronically signed by: Jean Williamson M.D. 03/13/2020 11:47 AM
[2020-03-13] MEDS ORDERED: DICLOFENAC SOD 1% GEL 100 GM TUBE EXT PRN (13:05)
[2020-03-13] MEDS ORDERED: PHARMACIST DISCHARGE MED REC CONSULT PRN (13:05)
[2020-03-13] MEDS ORDERED: ONDANSETRON INJ 2 MG/ML 2 ML VIAL IV PRN (13:05)
[2020-03-13] MEDS ORDERED: ACETAMINOPHEN 325 MG TAB PO PRN (13:05)
[2020-03-13] MEDS ORDERED: MAGNESIUM HYDROXIDE SUSP 30 ML UDC PO PRN (13:05)
[2020-03-13] MEDS ORDERED: SODIUM CHLORIDE 0.45 % 1,000 ML IV SCH (13:15)
--- NOTE | 2020-03-13 14:23 | Electrocardiogram Report ---
Test Reason : Blood Pressure : / mmHG Vent. Rate : 061 BPM Atrial Rate : 061 BPM P-R Int : 146 ms QRS Dur : 088 ms QT Int : 418 ms P-R-T Axes : 015 -49 025 degrees QTc Int : 420 ms Normal sinus rhythm Left axis deviation Abnormal ECG When compared with ECG of 28-JAN-2020 21:37, Vent. rate has decreased BY 46 BPM Confirmed by John Clemente ([id number]) on 03/13/2020 2:23:13 PM Referred By: Confirmed By:Gary Clemente
--- NOTE | 2020-03-13 15:34 | XCELERA ---
[id number] \\[id number]
[2020-03-13] MEDS: INSULIN ASPART 100 UNITS/ML 3 ML PEN SC SCH ×2 (18:04→21:21)
--- NOTE | 2020-03-13 18:17 | Magnetic Resonance Report ---
MRI OF THE BRAIN WITHOUT IV CONTRAST CLINICAL HISTORY: Strokelike symptoms. Difficulty with ambulation. COMPARISON STUDY: CT an CT angiogram of the brain dated 03/13/2020. TECHNIQUE: MRI of the brain was performed utilizing various T1 and T2-weighted sequences in the axial , sagittal, and coronal planes. IV contrast was not administered for this examination. FINDINGS: Brain parenchyma: There is age-related involutional change noting mild subcortical and periventricula r microangiopathic disease. Right occipital encephalomalacia is consistent with a remote infarct. The re are tiny foci of restricted diffusion identified in the right occipital lobe adjacent to the encep halomalacia. Additionally, there is a 1.2 cm focus of restricted diffusion in the left gaye. No addit ional foci of restricted diffusion are identified. There is a small amount of subarachnoid hemorrhage identified along the right posterior parieto-occipital lobe sulci. This is best seen on coronal FLAI R image #24. No parenchymal hemorrhage is seen. There is no mass effect. No extra-axial fluid collec tion is seen. A chronic lacunar infarct is seen in the anterior limb of the left internal capsule. Th e cerebellar tonsils are normal in configuration. Ventricles, sulci, and cisterns: Prominent secondary to involutional change. Pituitary and sella: Unremarkable. Intracranial vasculature: There is loss of the right internal carotid artery flow-void at the skull b ase. The remaining flow voids are maintained. Orbits: The bony orbits are grossly intact. Orbital contents are normal in appearance. Sinuses and mastoids: There is moderate mucosal thickening in the right maxillary antrum. The remaini ng paranasal sinuses are clear. The mastoid air cells are well pneumatized. Calvarium: Unremarkable. Cervical cord: Partially visualized cervical spinal cord is normal in morphology and signal intensity . IMPRESSION: 1. There is an acute to subacute lacunar infarct in the left aspect of the gaye. 2. Right occipital encephalomalacia is consistent with a remote infarct. 3. There are small foci of restricted diffusion seen adjacent to the chronic right occipital infarct. This could represent small foci of acute on chronic ischemia versus T2 shine through. 4. There is a small amount of subarachnoid hemorrhage identified along the right posterior parieto-oc cipital sulci. 5. No parenchymal hemorrhage is seen. There is no mass effect. 6. There is loss of the right internal carotid artery flow-void at the skull base. This was shown to be occluded on today's CT angiogram. ACT 112: Negative or not required by law. Electronically signed by: Phani Castro M.D. 03/13/2020 6:15 PM
[2020-03-13] MEDS ORDERED: DOCUSATE SODIUM 100 MG CAP PO SCH (21:00)
[2020-03-13] MEDS ORDERED: ASPIRIN 81 MG ECTAB PO SCH (21:00)
[2020-03-13] MEDS: PRAVASTATIN SOD 10 MG TAB PO SCH (21:15)
[2020-03-13] MEDS: CHOLECALCIFEROL 1,000 UNITS 25 MCG TAB PO SCH (21:15)
[2020-03-13] MEDS: GABAPENTIN 300 MG CAP PO SCH (21:15)
[2020-03-14] MEDS: SODIUM CHLORIDE 0.9% 1000ML 1,000 ML IV SCH (05:21)
[2020-03-14] MEDS: MULTIVITAMIN TAB PO SCH (08:07)
[2020-03-14] MEDS: GABAPENTIN 100 MG CAP PO SCH (08:07)
[2020-03-14] MEDS: INSULIN ASPART 100 UNITS/ML 3 ML PEN SC SCH ×4 (08:08→22:03)
[2020-03-14 08:56] LABS: Thyroid Stimulating Hormone 3.03 uIu/ml (0.300-4.500)
[2020-03-14] MEDS ORDERED: CLOPIDOGREL BISULFATE 75 MG TAB PO SCH (09:00)
[2020-03-14 09:37] LABS: Estimated Average Glucose 177 mg/dl; Hemoglobin A1C 7.8 % (4.5-5.6)
--- NOTE | 2020-03-14 10:04 | Consultation ---
Date of Consultation March 14, 2020 Assessment & Plan (1) Right internal carotid occlusion: Pt appears to have no changes in his Bl ICA. R ICA remains occluded and L ICA remains less than 50% stenosed. No indications for vascular surgical intervention at this time. Will see in office in 1 year with carotid US for follow up. Please call if needed. Present on Admission?: Yes History of Present Illness Reason for Consultation: R ICA occlusion Attending Physician: Jenny Elmore MD History of Present Illness 79 yo m with multiple medical problems, including DMII, HTN, CAD s/[place] 3 [place] [facility] [place] G[place]D, NSTEMI, hyperlipidemia, lung ca s/p parical lobectomy, osteoarthritis, previous CVA in September after CABG, BPH, cervical radiculopathy, admitted with possible TIA, seen in consultation today for R ICA occlusion. Pt known to Dr Rodrigues's vascular practice for said R ICA occlusion and less than 50% L ICA stenosis and is followed with annual carotid US. 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 States it improved throughout the day, but when he woke up yesterday morning, it was worse and also had sx of slurred speech. States all sx have resolved at this time. Denies ISBELL, fever, chills, recent illness, chest pain, palpitations, abd pain, SOB, N/V, rest pain, claudication, other complaints. CTA neck redemonstrates R ICA occlusion and less than 50% stenosis L ICA. Allergies Allergy/AdvReac Type Severity Reaction Status Date / Time No Known Allergies Allergy Verified 03/13/20 10:49 Home Medications Home Medications Medication Instructions Recorded Confirmed Type aspirin 81 mg tablet,delayed 81 mg PO HS 10/28/18 03/13/20 History release multivitamin 1 tab PO QAM 10/28/18 03/13/20 History cholecalciferol (vitamin D3) 50 2,000 units PO HS 10/25/19 03/13/20 History mcg (2,000 unit) capsule metoprolol tartrate 50 mg tablet 50 mg PO HS tab 10/25/19 03/13/20 History clopidogrel 75 mg PO QAM 01/28/20 03/13/20 History diclofenac sodium 2 gm TOP QID PRN 01/28/20 03/13/20 History gabapentin 300 mg PO HS 01/28/20 03/13/20 History metformin 500 mg PO BIDM 01/28/20 03/13/20 History hydroxyzine HCl 25 mg tablet 25 mg PO Q6H PRN #120 tab 02/02/20 03/13/20 Rx gabapentin 100 mg capsule 100 mg PO QAM cap 02/21/20 03/13/20 History docusate sodium 100 mg PO HS 03/13/20 03/13/20 History olmesartan 20 mg PO QAM 03/13/20 03/13/20 History pravastatin 10 mg PO HS 03/13/20 03/13/20 History Patient History Medical History HTN (hypertension), benign (Chronic) Lung cancer (Resolved) Osteoarthritis (Chronic) Stroke (Acute) 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 CVA WITH A FIELD CUT [facility]VO[facility] ELE SUPERIOR QUADRANT Surgical History History of arthroscopy of shoulder (Resolved) left S/P CABG x 3 09[place]20/2019[place] [facility] [place] BARR TO [place]AD; SVG TO OM AND SVG TO PDA S/P partial lobectomy of lung (Resolved) Family History Father Myocardial infarction Denies family history of Ovarian cancer Prostate cancer Breast cancer Colorectal cancer Social History Preferred Language: South Korean Communication Ability: Effective Visual Impairment: No Limitations Hearing Ability: Normal Community Aide Required: No Beliefs That Will Affect Care: None marital status: Current Living Situation: Spouse 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 Other Information That Helps Us Care for You: No Feels Safe at Home: Yes Safety Concerns: Feels Safe At This Time Smoking Status: Never smoker Tobacco Type: smokeless tobacco ; Do You Dip or Chew Tobacco: No (quit 09/20 after 50 yrs of use) ; Second Hand Exposure: No ; Hx Alcohol Use: No Hx Substance Use: No Dental Care, Regularly: Yes Physical Activity Frequency: Does not Exercise Seatbelt Use: always Sunscreen Use: No Review of Systems Review of Systems: All systems reviewed & are unremarkable except as noted in HPI & below Physical Exam Constitutional: WD/WN, vitals as above healthy appearing, cooperative and comfortable; not in distress Eyes: PERRL, conjunctivae normal, anicteric sclerae ENMT: external ear and nose normal, oropharynx normal Ears: no hearing impairment Neck: normal visual inspection Respiratory: normal respiratory effort, lungs clear to auscultation Auscultation: + diminished lung sounds Cardiovascular: Rate/Rhythm: regular rate and regular rhythm Vessels: femoral pulses present, posterior tibial pulses present, dorsalis pedis pulses present, brachial pulses present and radial pulses present; + abnormal peripheral pulses Extremities: normal capillary refill; no edema Gastrointestinal (Abdomen): normal bowel sounds, soft, nontender, no hepatosplenomegaly Musculoskeletal: no cyanosis or clubbing, extremities motor strength 5/5 Skin: no rashes, warm and dry Neurologic: moves all extremities and awake; no focal motor deficits and not confused Psychiatric: A+Ox3, euthymic affect Results & Data Vital Signs (Past 12 Hours) Vital Signs Temp Pulse Pulse Resp BP BP Pulse Ox 03/14/20 08:00 36.6 C 55 L 70 21 166/82 H 96 03/14/20 03:23 36.7 C 62 18 141/63 H 96 03/13/20 23:59 36.8 C 54 L 17 145/73 H 97
--- NOTE | 2020-03-14 10:54 | Neurology Consultation ---
Date of Consultation March 14, 2020 Assessment & Plan (1) Left pontine stroke: Acute to subacute left pontine stroke presenting with dysarthria and mild right leg weakness. Stroke risk factors for this patient include hyperlipidemia, type 2 diabetes mellitus, hypertension, and chewing tobacco use. His acute pontine stroke occurs while taking dual antiplatelet therapy. He also has a small amount of subarachnoid hemorrhage along the right posterior parieto-occipital sulci. I would recommend discontinuing Plavix at this time. He may continue with daily low-dose aspirin although I would recommend checking a repeat CT of the head today to ensure stability of the small subarachnoid hem orrhage. He should continue with his statin and antihypertensive therapy. His triglycerides are notably elevated. His diabetes mellitus appears to be suboptimally controlled as well as his recent hemoglobin A1c is 7.8. Permissive hypertension appropriate for the time being, systolic blood pressure goal 140 to 160 mmHg. Cessation of chewing tobacco needs to be stressed as well. (2) SAH (subarachnoid hemorrhage): There is a small amount of subarachnoid hemorrhage along the right posterior parieto-occipital sulci. There is no parenchymal hemorrhage or mass- effect. He does admit to a moderate bump on the head that occurred about 4 weeks ago. He apparently struck his head on the edge of the garage door, walked into it, other than low-grade neck pain, no other symptoms. The significance of this reportedly minor injury is uncertain. As above, he has been taking dual antiplatelet therapy and I would suggest that he discontinue Plavix at this time. He should have a repeat CT of the head to reassess the small subarachnoid hemorrhage which at this point seems to be subacute and asymptomatic from a neurological standpoint. If this imaging finding appears progressive would discontinue aspirin as well and consider transfer to a tertiary center. As above, continue to monitor patient's blood pressure, systolic blood pressure goal as above. (3) Right internal carotid occlusion: Chronic occlusion of the right internal carotid artery. Surgical treatment is typically not recommended for a chronic occlusion. Patient should continue with his statin. Cessation of chewing tobacco needs to be stressed as above. He should continue with daily low-dose aspirin unless there is progression in what appears to be a subacute small subarachnoid hemorrhage as above. 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 He has a chronic left homonymous hemianopsia which has been evaluated locally with Dr. Peterson at [facility]. He has prisms which have apparently been helpful and also plans to proceed with a cataract removal in about 5 weeks. It is generally recommended to delay elective surgery 3 months after stroke. Patient will likely need to reschedule his pending cataract surgery. Patient has a follow-up appointment with Dr. Smith in neurology clinic on May 01. He may keep this appointment. History of Present Illness Reason for Consultation: Stroke Requesting Physician: Janice Arshad DO Attending Physician: Jenny Elmore MD History of Present Illness The patient is a 79-year-old male with a chief complaint of mild right leg weakness and an associated feeling of instability with standing and walking that began 2 days ago. He also complains of some mild associated slurred/slowed speech. His symptoms have been persistent. His past medical history is notable for a right posterior cerebral artery territory stroke that occurred this past September at [facility] after undergoing coronary artery bypass grafting. He has a chronic residual left visual field deficit. He also has a known chronic occlusion of the right internal carotid artery. He has had follow-up appointments with neurology and cardiology both locally and at [facility]. He has seen Dr. Smith in neurology clinic this past . Stroke risk factors for this patient include hyperlipidemia, hypertension, type 2 diabetes mellitus, and chewing tobacco use. He has been taking daily low-dose aspirin, clopidogrel, pravastatin and antihypertensives as an outpatient. There is been discussion in the medical record regarding transitioning him from dual antiplatelet therapy to monotherapy, with either Plavix or daily low-dose aspirin only. Dr. Montero had suggested discontinuing Plavix but was going to defer to [place] [facility] at a pending appointment this coming April. A brain MRI completed yesterday did reveal an acute to subacute appearing lacunar infarct within the left gaye. There is also a small amount of subarachnoid hemorrhage identified along the right posterior parieto-occipital sulci. Imaging described in further detail below. Allergies Allergy/AdvReac Type Severity Reaction Status Date / Time No Known Allergies Allergy Verified 03/13/20 10:49 Home Medications Home Medications Medication Instructions Recorded Confirmed Type aspirin 81 mg tablet,delayed 81 mg PO HS 10/28/18 03/13/20 History release multivitamin 1 tab PO QAM 10/28/18 03/13/20 History cholecalciferol (vitamin D3) 50 2,000 units PO HS 10/25/19 03/13/20 History mcg (2,000 unit) capsule metoprolol tartrate 50 mg tablet 50 mg PO HS tab 10/25/19 03/13/20 History clopidogrel 75 mg PO QAM 01/28/20 03/13/20 History diclofenac sodium 2 gm TOP QID PRN 01/28/20 03/13/20 History gabapentin 300 mg PO HS 01/28/20 03/13/20 History metformin 500 mg PO BIDM 01/28/20 03/13/20 History hydroxyzine HCl 25 mg tablet 25 mg PO Q6H PRN #120 tab 02/02/20 03/13/20 Rx gabapentin 100 mg capsule 100 mg PO QAM cap 02/21/20 03/13/20 History docusate sodium 100 mg PO HS 03/13/20 03/13/20 History olmesartan 20 mg PO QAM 03/13/20 03/13/20 History pravastatin 10 mg PO HS 03/13/20 03/13/20 History Patient History Medical History HTN (hypertension), benign (Chronic) Lung cancer (Resolved) Osteoarthritis (Chronic) Stroke (Acute) POST-PO 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 [facility] Surgical History History of arthroscopy of shoulder (Resolved) left S/P CABG x 3 09/20/2019: @ [facility]; BARR TO LAD; SVG TO OM AND SVG TO PDA S/P partial lobectomy of lung (Resolved) Family History Father Myocardial infarction Denies family history of Ovarian cancer Prostate cancer Breast cancer Colorectal cancer Social History Preferred Language: [place] Communication Ability: Effective Visual Impairment: No Limitations Hearing Ability: Normal Neurological Surgeon Required: No Beliefs That Will Affect Care: None marital status: Current Living Situation: Spouse 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 Other Information That Helps Us Care for You: No Feels Safe at Home: Yes Safety Concerns: Feels Safe At This Time Smoking Status: Never smoker Tobacco Type: smokeless tobacco ; Do You Dip or Chew Tobacco: No (quit 09/20 after 50 yrs of use) ; Second Hand Exposure: No ; Hx Alcohol Use: No Hx Substance Use: No Dental Care, Regularly: Yes Physical Activity Frequency: Does not Exercise Seatbelt Use: always Sunscreen Use: No Review of Systems Constitutional: no fever, no chills and no fatigue Eyes: no blind spots and no diplopia Ear, Nose, Mouth, Throat: no tinnitus and no hearing loss Respiratory: no cough and no dyspnea Cardiovascular: no chest pain and no palpitations Gastrointestinal: no nausea and no vomiting Genitourinary: no dysuria and no urinary incontinence Musculoskeletal: + neck pain; no myalgia Integumentary: no rash and no lesions Neurologic: as per Subjective / HPI, + unsteadiness and + abnormal speech; no headache(s), no confusion and no memory loss Psychiatric: no depression and no anxiety Hematologic / Lymphatic: no easy bleeding and no easy bruising Exam (Neuro) Constitutional: well developed and well nourished; no acute distress Eyes: normal visual garcia by confrontation, PERRL, normal accommodation and EOM intact bilaterally; no fundoscopic abnormality, no nystagmus and no papilledema Cardiovascular: Vessels: normal carotid upstroke; no carotid bruit Neurologic: Oriented to:: Person, Place and Time Memory: Short Term Intact and Remote Intact Attention: Span Intact and Concentration Intact Language: Naming Objects and Repeating Phrases Speech Fluency: Dysarthria (Mild dysarthria noted) Speech Aphasia: negative Aphasia Fund of Knowledge: Current Events, Past History and Vocabulary Cranial Nerves: Normal II (Visual garcia full to confrontation, visual acuity normal), III, IV, (Pupils equal round reactive to light and accommodation, eye movements normal), V (Facial sensation intact), VII (There is no facial droop or weakness), VIII (Hearing intact), IX, X (Palate elevates to midline), XI (Shoulder shrug intact) and XII (Tongue protrudes to midline) Motor Strength: Normal Lower Extremities and Normal Upper Extremities; negative Pronator Drift Motor Tone: Normal Lower Extremities and Normal Upper Extremities Muscle Bulk/Involuntary Movements: No Involuntary Movements; negative Muscle Atrophy Sensation: Light Touch Intact, Pain/Temperature Intact and Proprioception Intact; negative Vibration Intact (There is a slight decrement of vibratory sensation at the toes bilaterally) Coordination: Normal and Heel-Monique Abnormal Laterality: Right; negative Limited Balance, Dysdiadochokinesia and Finger-Nose Abnormal Deep Tendon Reflexes: Rt Triceps: 2+, Lt Triceps: 2+, Rt Biceps: 2+, Lt Biceps: 2+, Rt Brachioradialis: 2+, Lt Brachioradialis: 2+, Rt Patellar: 2+, Lt Patellar: 2+, Rt Ankle: 1+ and Lt Ankle: 1+ Special Tests: Babinski Present (Right plantar response equivocal, left plantar response downgoing) Gait: Normal Station and Gait Results & Data ([facility]) Vital Signs (Past 12 Hours) Vital Signs Temp Pulse Resp BP BP Pulse Ox 03/14/20 08:00 36.6 C 70 21 166/82 H 96 03/14/20 03:23 36.7 C 62 18 141/63 H 96 03/13/20 23:59 36.8 C 54 L 17 145/73 H 97 Laboratory Results WBC 5.97, hemoglobin 13.2, hematocrit 39.8, platelet count 161, sodium 136, potassium 4.3, BUN 17, creatinine 1.13, glucose 177, hemoglobin A1c 7.8, AST 12, ALT 21, troponin less than 0.015, triglycerides 718, cholesterol 176, HDL 28, TSH 3.[address] of the head revealed subtle increased density involving the right medial occipital lobe potentially related to mineralization secondary to remote infarct. Hemorrhage considered less likely. CT angiogram of the head revealed no contrast within the right internal carotid artery consistent with complete occlusion. There is a focal vascular cut off of the distal right P1 segment consistent with occlusion, probably old given evidence of chronic right MEDICAL CLAIMS ANALYST territory infarct. There are multifocal stenoses within the left P2 segment up to 50% as well as mild to moderate multifocal stenoses within the left carotid siphon. CT angiogram of the neck reveals age-indeterminate occlusion of the right internal carotid artery 2 cm distal to its origin. A thrombosed diss ection could not be excluded. No evidence of hemodynamically significant stenosis within the left internal carotid or vertebral arteries. Brain MRI reveals an acute to subacute lacunar infarct within the left aspect of the gaye measuring 1.2 cm in size. There is right occipital encephalomalacia consistent with a remote infarct. There is a small focus of restricted diffusion adjacent to the chronic right occipital infarct potentially consistent with T2 shine through versus acute on chronic ischemia. There is a small amount of subarachnoid hemorrhage identified along the right posterior parieto-occipital sulci. There is no parenchymal hemorrhage. No mass-effect. No flow void seen within the right internal carotid at the skull base. I reviewed the images as well as the radiologist's interpretation of these tests. 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
--- NOTE | 2020-03-14 15:02 | CT Scan Report ---
HEAD CT NONCONTRAST CT DOSE: 614.27 mGy.cm HISTORY: Follow-up subarachnoid hemorrhage. TECHNIQUE: Multiaxial CT images of the head were performed without the use of intravenous contrast. A utomated exposure control was utilized for this study. A dose lowering technique was utilized adheri ng to the principles of ALARA. Comparison: Head CT 03/13/2020. Findings: Stable chronic opacification of the right maxillary sinus. The mastoid air cells are clear. The calvarium and skull base are intact. No mass or midline shift. White matter hypodensity is nonsp ecific but suggestive of microvascular ischemic change. The ventricles and sulci demonstrate mild age -related involutional changes. Old lacunar infarct within the left basal ganglia. Subacute 1 cm ponti ne infarct remains unchanged. 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 Trace subarachnoid hemorrhage within t he right posterior parietal-occipital region remains stable. Impression: 1. No change in the trace subarachnoid hemorrhage within the right parieto-occipital region. 2. Subacute 1 cm pontine infarct remains unchanged. ACT 112: Negative or not required by law. Electronically signed by: Jl Kunz M.D. 03/14/2020 3:01 PM
--- NOTE | 2020-03-14 15:50 | Hospitalist Progress Note ---
Date of Service March 14, 2020 Assessment & Plan (1) Left pontine stroke: With a hx of prior CVA in the right occipital and posterior temporal lobes in the postoperative period from his CABG in 09/2019 CT head: increased density of undetermined significance in R medial occipital region MRI brain here confirms left subacute to acute lacunar infarct in the left gaye which explains the symptoms that he is having on presentation here Echocardiogram without intra-atrial shunt or source of cardiac emboli CTA head/neck with complete right ICA occlusion which is chronic with possible dissection which is also noted on records from [place] in 09/2019, 50% left ICA occlusion-appreciate vascular consultation-no intervention needed at this time, follow-up annually Most likely thrombotic stroke With hypertriglyceridemia preventing measurement of LDL, however LDL was low at 27 at recent outpatient cardiology visit and his atorvastatin was changed to pravastatin 10 mg A1c mildly uncontrolled at 7.8%, TSH normal No arrhythmias noted on telemetry here; he also had a recent 19-day cardiac event monitor which showed no atrial fibrillation just 2 weeks ago. -With small subarachnoid hemorrhage complicating the picture-unclear if related to head trauma several weeks ago, does not seem to be related to new stroke -DC Plavix due to SAH and continue aspirin only at this point -Continue pravastatin 10 mg daily given severely low LDL very recently and increased risk of bleeding with high intensity statins in that situation Appreciate neurology consultation PT/OT consults appreciated -Permissive hypertension but will restart home metoprolol tonight -Continue holding olmesartan -Continued observation for worsening of subarachnoid hemorrhage and for recurrent stroke overnight and for further telemetry monitoring -Continue neurochecks (2) SAH (subarachnoid hemorrhage): With subarachnoid hemorrhage found-a small amount was found along the right posterior parieto-occipital sulci on brain MRI 03/[address] on 03/14 with no change in the trace subarachnoid hemorrhage Possibly from head trauma several weeks ago in the setting of dual antiplatelet therapy and severely low LDL cholesterol on a statin? -Hold Plavix and okay to continue aspirin given new stroke as above -Repeat CT head again in the morning of 03/15 and then again in 1 week with close neurology follow-up -Gave warning signs of worsening intracranial hemorrhage to return to the hospital (3) Type 2 diabetes mellitus: A1c 7.2 09/20 and now up to 7.8% Needs improved control given multiple strokes Holding metformin due to contrast given on 03/13 SSI ordered (4) Hypertension: Continue holding home meds for permissive HTN, except will restart home metoprolol tonight -Holding ARB (5) S/P CABG x 3: NSTEMI 09/20, treated at [facility] -Continue aspirin but DC Plavix as above -Restart metoprolol -Continue low intensity pravastatin due to severely low LDL-changed from atorvastatin to pravastatin just last week Triglycerides high at 718, LDL not measured due to high triglycerides, and HDL is low (6) S/P partial lobectomy of lung: hx of lung cancer (7) Right internal carotid occlusion: As above, no intervention needed (8) DVT prophylaxis: SCDs Hold off on chemical anticoagulation given subarachnoid hemorrhage Disposition-remain on PCU overnight and hopeful for discharge tomorrow if repeat CT of the head without progression of SAH and doing well from a neurological standpoint Case discussed at length with patient, his , and his daughter all at the bedside Admission and Anticipated Discharge Date Admission Date: March 13, 2020 Subjective Patient feeling better today. His family reports his mental status is not quite back to baseline and his speech still sounds a little bit "thick" but overall much improved. He was ambulating the hallways with physical therapy. He is anxious for discharge. He denies any headache or lightheadedness. Denies chest pains or shortness of breath. Denies nausea or vomiting, no abdominal pains. He reports that he did hit his head pretty hard on a garage door a few weeks ago and had a laceration to the top of his head and felt like his head jammed down into his neck. Otherwise, no recent head trauma. I discussed the case at length with the neurologist. I also discussed his care with his primary composite technician on the phone. Telemetry with normal sinus rhythm with rates in the 50s to 60s Review of Systems Review of Systems: All systems reviewed & are unremarkable except as noted in HPI & below Physical Exam Constitutional: WD/WN, vitals as above Eyes: PERRL, conjunctivae normal, anicteric sclerae EOM intact bilaterally ENMT: external ear and nose normal, oropharynx normal Neck: trachea midline, no thyromegaly Respiratory: normal respiratory effort, lungs clear to auscultation Cardiovascular: RRR, no murmur, no edema Chest (Breasts): Chest: normal inspection of chest Gastrointestinal (Abdomen): normal bowel sounds, soft, nontender, no hepatosplenomegaly Musculoskeletal: Extremities: extremities normal to inspection; no cyanosis and no clubbing Skin: no rashes, warm and dry Neurologic: CN's II-XI intact bilaterally, deep tendon reflexes 2+ bilaterally, moves all extremities and awake; no focal motor deficits (5/5 strength in bilateral upper and lower extremities) and not confused Speech / Cognition: + abnormal speech (Mild dysarthria) Motor/Sensory: no tremor and no sensory deficit Psychiatric: A+Ox3, euthymic affect Cognition: recent memory grossly intact Lymphatic: no lymphedema Results & Data Results & Data ([facility]) Vital Signs (Past 12 Hours) Vital Signs Temp Pulse Pulse Resp BP Pulse Ox 03/14/20 12:07 36.6 C 65 19 160/75 H 97 03/14/20 08:00 36.6 C 55 L 70 21 166/82 H 96 Laboratory Results 03/14/20 03/14/20 03/14/20 Range/Units 16:39 11:38 07:50 POC Glucose 153 H 165 H (70-99) mg/dl Estimat Average Glucose mg/dl Hemoglobin A1c (4.5-5.6) % Triglycerides 718 H (0-150) mg/dl Cholesterol 176 (0-200) mg/dl LDL Cholesterol, Calc mg/dl VLDL Cholesterol, Calc mg/dl HDL Cholesterol 28 mg/dl Cholesterol/HDL Ratio 6 TSH 3.030 (0.300-4.500) uIu/ml 03/14/20 03/14/20 03/13/20 Range/Units 07:50 07:31 20:28 POC Glucose 148 H 161 H (70-99) mg/dl Estimat Average Glucose 177 mg/dl Hemoglobin A1c 7.8 H (4.5-5.6) % Triglycerides (0-150) mg/dl Cholesterol (0-200) mg/dl LDL Cholesterol, Calc mg/dl VLDL Cholesterol, Calc mg/dl HDL Cholesterol mg/dl Cholesterol/HDL Ratio TSH (0.300-4.500) uIu/ml Diagnostic Findings MRI brain: IMPRESSION: 1. There is an acute to subacute lacunar infarct in the left aspect of the gaye. 2. Right occipital encephalomalacia is consistent with a remote infarct. 3. There are small foci of restricted diffusion seen adjacent to the chronic right occipital infarct. This could represent small foci of acute on chronic ischemia versus T2 shine through. 4. There is a small amount of subarachnoid hemorrhage identified along the right posterior parieto-occipital sulci. 5. No parenchymal hemorrhage is seen. There is no mass effect. 6. There is loss of the right internal carotid artery flow-void at the skull base. This was shown to be occluded on today's CT angiogram. CT head noncontrast 03/14: HEAD CT NONCONTRAST CT DOSE: 614.27 mGy.cm HISTORY: Follow-up subarachnoid hemorrhage. TECHNIQUE: Multiaxial CT images of the head were performed without the use of intravenous contrast. Automated exposure control was utilized for this study. A dose lowering technique was utilized adhering to the principles of ALARA. Comparison: Head CT 03/13/2020. Findings: Stable chronic opacification of the right maxillary sinus. The mastoid air cells are clear. The calvarium and skull base are intact. No mass or midline shift. White matter hypodensity is nonspecific but suggestive of microvascular ischemic change. The ventricles and sulci demonstrate mild age-related involutional changes. Old lacunar infarct within the left basal ganglia. Subacute 1 cm pontine infarct remains unchanged. 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 Trace subarachnoid hemorrhage within the right posterior parietal- occipital region remains stable. Impression: 1. No change in the trace subarachnoid hemorrhage within the right parieto-occip ital region. 2. Subacute 1 cm pontine infarct remains unchanged. Echocardiogram with preserved EF, no wall motion abnormalities, no cardiac source of emboli noted, no interatrial shunt PG Care Time/CCT Total # of Minutes Spent Total Time Spent with Patient: Total time spent is greater than 50% in coordination of care (as documented) at patient's floor/unit and/or counseling patient: Coding Level of Care Code 62836 Subseq Hosp Care Lvl 3 Diagnoses Left pontine stroke I63.50 SAH (subarachnoid hemorrhage) I60.9 Type 2 diabetes mellitus E11.9 Hypertension I10 Hypertension type: unspecified S/P CABG x 3 Z95.1 S/P partial lobectomy of lung Z90.2 Right internal carotid occlusion I65.21 DVT prophylaxis Z29.9 (1) Hypertension Hypertension type: unspecified Qualified Code(s): I10 - Essential (primary) hypertension
[2020-03-14] MEDS ORDERED: METOPROLOL SUCC 50MG EXT REL TAB PO SCH (21:00)
[2020-03-14] MEDS: DOCUSATE SODIUM 100 MG CAP PO SCH (21:25)
[2020-03-14] MEDS: PRAVASTATIN SOD 10 MG TAB PO SCH (21:26)
[2020-03-14] MEDS: CHOLECALCIFEROL 1,000 UNITS 25 MCG TAB PO SCH (21:26)
[2020-03-14] MEDS: GABAPENTIN 300 MG CAP PO SCH (21:26)
--- NOTE | 2020-03-15 08:11 | CT Scan Report ---
HEAD CT NONCONTRAST CT DOSE: 729.78 mGycm HISTORY: Follow-up subarachnoid hemorrhage. TECHNIQUE: Multiaxial CT images of the head were performed without the use of intravenous contrast. A utomated exposure control was utilized for this study. A dose lowering technique was utilized adheri ng to the principles of ALARA. Comparison: Head CT 03/14/2020. Findings: Chronic opacification of the right maxillary sinus. The mastoid air cells are clear. The ca lvarium and skull base are intact. No significant change in the trace subarachnoid hemorrhage within the right parieto-occipital region. No new areas of acute intracranial hemorrhage identified. No mass or midline shift. Subacute pontine infarct remains unchanged. Mild atrophy and microvascular ischemi c changes are again noted. Impression: 1. No change in the trace right parieto-occipital subarachnoid hemorrhage. 2. Subacute pontine infarct is again noted. ACT 112: Negative or not required by law. Electronically signed by: Jl Kunz M.D. 03/15/2020 8:09 AM
[2020-03-15] MEDS: INSULIN ASPART 100 UNITS/ML 3 ML PEN SC SCH (08:23)
[2020-03-15] MEDS: MULTIVITAMIN TAB PO SCH (08:25)
[2020-03-15] MEDS: DOCUSATE SODIUM 100 MG CAP PO SCH (08:25)
[2020-03-15] MEDS: GABAPENTIN 100 MG CAP PO SCH (08:26)
[2020-03-15 08:50] LABS: Basophils # (auto) 0.01 K/uL (0-0.2); Basophils % (auto) 0.1 %; Eosinophils # (auto) 0.27 K/uL (0-0.5); Hematocrit (blood only) 44.2 % (42-52); Immature Granulocytes # (auto) 0.02 K/uL (0.00-0.02); Immature Granulocytes % (auto) 0.3 %; Lymphocytes % (auto) 25.5 %; Mean Corpuscular Hemoglobin 27.1 pg (25-34); Mean Corpuscular Hgb Conc 33.9 g/dL (32-36); Mean Corpuscular Volume 79.9 fL (80-100); Mean Platelet Volume 9.9 fL (7.4-10.4); Monocytes # (auto) 0.51 K/uL (0.11-0.59); Monocytes % (auto) 7.6 %; Neutrophils # (auto) 4.16 K/uL (1.4-6.5); Neutrophils % (auto) 62.5 %; Platelet Count 190 K/uL (130-400); RDW Coefficient of Variation 15.5 % (11.5-14.5); RDW Standard Deviation 45.1 fL (36.4-46.3); Red Blood Count 5.53 M/uL (4.7-6.1); White Blood Count 6.67 K/uL (4.8-10.8)
[2020-03-15] MEDS ORDERED: ASPIRIN 81 MG ECTAB PO SCH (09:00)
[2020-03-15 09:08] LABS: BUN Creatinine Ratio 12.6 (10-20); Calcium 9.5 mg/dl (8.5-10.1); Est GFR (African American) 61.6; Est GFR (Non-African American) 53.1; Potassium 4.3 mmol/L (3.5-5.1)
[2020-03-15] MEDS ORDERED: STROKE PATIENT DISCHARGE STA (10:41)
--- NOTE | 2020-03-15 10:42 | Discharge Summary ---
Date of Service March 15, 2020 Admission HPI Per Admitting Provider 79 y/o M c/o R sided weakness and slurred speech. 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 He felt like it was more of a struggle, but he was able to do it. A bit of balance at times as well, but minimal. By the end of the day, he states that this had resolved completely. He ate without issue yesterday "like a champ" per his daughter. He states he slept well last night. He woke this AM and the R sided UE/LE weakness had returned, but was more intense. His balance was much more off and he was having difficulty walking. He was also noted to have a "thick tongue" per family. His daughter spoke with him on the phone and she felt he was slightly confused at times. Currently, pt is still with occasional slurred speech, but much better. Daughter states he has not seemed confused. Pt has not been OOB since arrival to the ED to assess his balance/strength yet. Pt noted that yesterday he had some mild SOB at rest, but he thinks he was feeling anxious because he would take a few deep breaths and it would go away. Pt denies fever, chest pain, abd pain, n/v/c/d, LE pain or swelling. Pt had a CVA in September and has had vision abnormalities since that time. He has noticed that his vision was worse the last few days. Pt is due for cataract surgery, but this was different than his usual baseline deficits. Pt was evaluated in the ED by telemed and with concern for CVA. Recs for permissive HTN. Pt is already on aspirin/plavix/statin at baseline. No further medication recs. Principal Diagnosis Acute CVA, SAH Discharge Exam Constitutional WD/WN, vitals as above Eyes + anicteric sclerae and EOM intact bilaterally ENMT external ear and nose normal, oropharynx normal Neck trachea midline, no thyromegaly Respiratory normal respiratory effort, lungs clear to auscultation Cardiovascular RRR, no murmur, no edema Chest (Breasts) Chest: normal inspection of chest Gastrointestinal (Abdomen) normal bowel sounds, soft, nontender, no hepatosplenomegaly Musculoskeletal Extremities: extremities normal to inspection; no cyanosis and no clubbing Skin no rashes, warm and dry Neurologic CN's II-XI intact bilaterally, deep tendon reflexes 2+ bilaterally, moves all extremities and awake; no focal motor deficits (5/5 strength in bilateral upper and lower extremities) and not confused Motor/Sensory: no tremor and no sensory deficit Psychiatric A+Ox3, euthymic affect Cognition: recent memory grossly intact Lymphatic no lymphedema Discharge Data Allergies Allergy/AdvReac Type Severity Reaction Status Date / Time No Known Allergies Allergy Verified 03/13/20 10:49 Consultations 03/13/20 11:22 Consult Vascular Surgery Routine 03/13/20 11:26 ED Decision to Admit Stat 03/13/20 13:05 Consult Case Management - Discharge Planning Routine Consult Neurology Routine Ordered Studies 03/13/20 09:25 CT angio head w con Stat CT angio neck with con Stat CT head/brain wo con Stat 03/13/20 13:05 MR brain wo con Routine 03/14/20 15:00 CT head/brain wo con Routine 03/15/20 08:00 CT head/brain wo con Routine CXR ECHO Hospital Course (1) Left pontine stroke: With a hx of prior CVA in the right occipital and posterior temporal lobes in the postoperative period from his CABG in 09/2019 CT head: increased density of undetermined significance in R medial occipital region MRI brain here confirms left subacute to acute lacunar infarct in the left gaye which explains the symptoms that he is having on presentation here Echocardiogram without intra-atrial shunt or source of cardiac emboli CTA head/neck with complete right ICA occlusion which is chronic with possible dissection which is also noted on records from [place] in 09/2019, 50% left ICA occlusion-appreciate vascular consultation-no intervention needed at this time, follow-up annually Most likely thrombotic stroke With hypertriglyceridemia preventing measurement of LDL, however LDL was low at 27 at recent outpatient cardiology visit and his atorvastatin was changed to pravastatin 10 mg A1c mildly uncontrolled at 7.8%, TSH normal No arrhythmias noted on telemetry here; he also had a recent 19-day cardiac event monitor which showed no atrial fibrillation just 2 weeks ago. -With small subarachnoid hemorrhage complicating the picture-unclear if related to head trauma several weeks ago, does not seem to be related to new stroke -DCd Plavix due to SAH and continue aspirin only at this point -Continue pravastatin 10 mg daily given severely low LDL very recently and increased risk of bleeding with high intensity statins in that situation Appreciate neurology consultation PT/OT consults appreciated -Permissive hypertension but ok to continue home metoprolol and can restart home olmesartan as pressures in the 160s-170s here -no evidence of worsening of subarachnoid hemorrhage and no new focal deficits -stable for dc to home, gave warning signs of new stroke or if develops headache, to return immediately to hospital (2) SAH (subarachnoid hemorrhage): With subarachnoid hemorrhage found-a small amount was found along the right posterior parieto-occipital sulci on brain MRI 03/[address] on 03/14 and again on 03/15 with no change in the trace subarachnoid hemorrhage Possibly from head trauma several weeks ago in the setting of dual antiplatelet therapy and severely low LDL cholesterol on a statin? 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, treated at [facility] [place] -Continue aspirin but DC Plavix as above -continue metoprolol -Continue low intensity pravastatin due to severely low LDL-changed from atorvastatin to pravastatin just last week Triglycerides high at 718, LDL not measured due to high triglycerides, and HDL is low (6) S/P partial lobectomy of lung: hx of lung cancer (7) Right internal carotid occlusion: As above, no intervention needed, chronic (8) DVT prophylaxis: SCDs Hold off on chemical anticoagulation given subarachnoid hemorrhage Disposition-stable for dc to home Case discussed at length with patient, his , and his daughter all at the bedside Total Time Total Time Spent Total Time Spent (In Minutes): >30 min Total Time Includes: Examination of the Patient, Discharge Planning and Medication Reconciliation Discharge Plan Discharge Items Patient Disposition: Home - Self-Care Reason For Visit: STROKE ALERT Discharge Diagnosis: Acute ischemic CVA, Subarachnoid hemorrhage Condition on Discharge: Fair Activity: As commented below Lifting: No more than 10 pounds Exercise Comment: No heavy exertion Driving/Machine Use: No driving until seen by your PCP Non-emergency contact: Primary Care Provider, Conference Assistant and Neurologist Call non-emergency contact if: you have any medication questions, your symptoms worsen, your pain is not controlled, your pain is worsening, your pain is unusual for you and your pain is concerning for you Follow-up/Referrals: Eduard Lora DO [Primary Care Provider] - 03/17/20 9:20 am (Please follow up with your PCP within 1-2 weeks.) Flaquita Smith MD [Physician] - 05/01/20 2:00 pm (Please keep your follow up appointment as scheduled in April.) Nilay Montero DO [Physician] - 03/21/20 9:40 am (Please follow up within 1-2 weeks.) Diet: Carb Consistent or DM2 and Heart Healthy Addtl Attending Provider Instructions: You will need to have a repeat CT scan of your head in 1 week. Our Nurse Navigator will contact you with this appointment date and time once that is arranged. If you develop headache, worsening drowsiness, or any other stroke symptoms like numbness, tingling, weakness, slurred speech, please call 911 immediately. Your PLAVIX WAS STOPPED due to the slight bleeding in your brain, but all your other medications will continue as before. Please follow up with Sarah Dan, and Guido. Risk Factors for Stroke: You can reduce your chances of stroke by working with your medical provider to adopt a healthy lifestyle. Some specific ways to lower your chance of stroke are: * If you are a smoker, now is the time to stop smoking cigarettes * If you are diabetic, improve the control of your blood sugars * Avoid excessive amounts of alcohol * Control high blood pressure * Lose weight if you are overweight * Be sure to lead an active lifestyle * Eat a healthy diet low in salt, cholesterol and fat You should know about other risk factors for stroke that you are unable to control. These include: * Age 55 years or older * Male gender * Certain racial groups: , or / * Family History of Stroke, Mini stroke or Heart Attack * Sickle Cell Disease Follow Up: It is important for you to keep your follow up appointments with your medical provider. Who to Call and When: Medical Emergencies: Call 911 immediately if you experience any of the following warning signs and symptoms of Stroke: * Sudden numbness or weakness of the face, arm or leg, especially on one side of the body * Sudden confusion, trouble speaking or understanding * Sudden trouble seeing in one or both eyes * Sudden trouble walking, dizziness, loss of balance or coordination * Sudden severe headache with no cause Do not delay calling 911 if you experience any warning signs or symptoms of a stroke. Delay in seeking medical attention may affect what treatments can be given to you. . Pending Studies at Discharge: No Stand-Alone Forms: Medications to Prevent Stroke, [facility] Medications and DC Order Prescriptions: Continued aspirin [Adult Aspirin Regimen] 81 mg tablet,delayed release (DR/EC) 81 mg PO HS RF: 0 multivitamin tablet 1 tab PO QAM RF: 0 gabapentin 100 mg capsule 100 mg PO QAM RF: 0 cholecalciferol (vitamin D3) 50 mcg (2,000 unit) capsule 2,000 units PO HS RF: 0 hydroxyzine HCl 25 mg tablet 25 mg PO Q6H PRN (Reason: anxiety) Qty: 120 RF: 1 pravastatin 10 mg Tablet 10 mg PO HS RF: 0 olmesartan 20 mg tablet 20 mg PO QAM RF: 0 docusate sodium 100 mg capsule 100 mg PO HS RF: 0 metoprolol succinate 50 mg tablet extended release 24 hr 50 mg PO DAILY RF: 0 metformin 500 mg tablet 500 mg PO BIDM RF: 0 gabapentin 300 mg capsule 300 mg PO HS RF: 0 diclofenac sodium 1 % gel 2 gm TOP QID PRN (Reason: Pain) RF: 0 Discontinued clopidogrel 75 mg tablet 75 mg PO QAM RF: 0 Discharge Orders: Discharge Order (Routine); Ordered 03/15/20 Ordered By: Jenny Monroy/Other Patient Handouts: Hemorrhagic Stroke Subarachnoid Hemorrhage, Symptoms of Stroke, Aphasia: Improving Communication Admission Data Admit Date/Time: 03/13/20 12:49 Attending Provider: Jenny Elmore Admit Provider: Janice Arshad Primary Care Provider: Eduard Lora Other Providers: Nilay Montero ; Sudeep Rodrigues ; Janice Arshad ; Chuck Coffey Other Interventions: Discharge Summary Assessment (RN) Last Done: 03/15/20 10:50 DC Date/Time DO NOT enter until pt leaves facility: 03/15/20 11:34 Coding Level of Care Code D/C Day Management >30 mins Diagnoses Left pontine stroke I63.50 SAH (subarachnoid hemorrhage) I60.9 Type 2 diabetes mellitus E11.9 Hypertension I10 Hypertension type: unspecified S/P CABG x 3 Z95.1 S/P partial lobectomy of lung Z90.2 Right internal carotid occlusion I65.21 DVT prophylaxis Z29.9
--- NOTE | 2020-03-15 10:57 | Pharmacy Report ---
Pharmacist Stroke Counseling - Date of Service March 15, 2020 - Scope: Pharmacy has been consulted to provide medication discharge counseling for this patient admitted with ischemic stroke and subarachnoid hemorrhage as per the Pharmacist Discharge Counseling for Stroke Patients Protocol. - Medications on Discharge: Home Medications Medication Instructions Recorded Confirmed aspirin 81 mg tablet,delayed 81 mg PO HS 10/28/18 03/13/20 release multivitamin 1 tab PO QAM 10/28/18 03/13/20 cholecalciferol (vitamin D3) 50 2,000 units PO HS 10/25/19 03/13/20 mcg (2,000 unit) capsule diclofenac sodium 2 gm TOP QID PRN 01/28/20 03/13/20 gabapentin 300 mg PO HS 01/28/20 03/13/20 metformin 500 mg PO BIDM 01/28/20 03/13/20 gabapentin 100 mg capsule 100 mg PO QAM cap 02/21/20 03/13/20 docusate sodium 100 mg PO HS 03/13/20 03/13/20 olmesartan 20 mg PO QAM 03/13/20 03/13/20 pravastatin 10 mg PO HS 03/13/20 03/13/20 metoprolol succinate 50 mg PO DAILY 03/14/20 03/14/20 New Rx's Medication Instructions Recorded hydroxyzine HCl 25 mg tablet 25 mg PO Q6H PRN #120 tab 02/02/20 - Action: The above medications, specifically ones for stroke treatment/prophylaxis, have been reviewed in detail with the patient prior to discharge. This includes indication, common adverse reactions, drug interactions, and medication administration. Medication counseling has been employed using the teach-back method to ensure understanding. - Outcome: The patient has demonstrated understanding of the medications. Additional comments: - Counseling completed via telephone due to the COVID-19 pandemic - No new medications for this patient upon discharge - Clopidogrel was discontinued secondary to SAH - Patient had no questions Thank you for allowing pharmacy to be involved in the care of this patient. Please call [phone] with any additional questions
== END 2020-03-15 11:34 | disposition home or self-care (01) | DRG 64 ==
LOC: ED 09:20 → 2S 12:25 → SUATTDRO 12:49 → 2S 12:49

== ENCOUNTER 2020-03-16 11:44 | Inpatient (IN) ==
--- NOTE | 2020-03-16 12:22 | Emergency Department Note ---
History of Present Illness General Chief complaint: Weakness Stated complaint: weakness Time Seen by Provider: 03/16/20 11:46 Source: patient, family and EMS Mode of arrival: EMS Limitations: no limitations History of Present Illness Provider complaint: Right-sided weakness, slurred speech Onset (ago): day(s) Associated symptoms: + denies other symptoms Treatments prior to arrival: none Is a 79-year-old male who presents from home via EMS due to increased slurred speech and right-sided weakness. Patient discharged yesterday from this facility after an evaluation for stroke and subarachnoid hemorrhage. Patient st ates at time of discharge she was feeling well, had no persistent right-sided weakness which was his initial presenting symptom. Family was now at bedside states that they feel his speech is slowly gotten worse since his admission. Patient states with intermittent sneezing and coughing he has had headaches, however these do seem to resolve. Patient states at the time of discharge he was instructed to continue his aspirin but to discontinue his Plavix. Patient states he has not been checking his blood pressure at home. Patient states yesterday after discharge he did not feel any right-sided weakness, and then last evening and close to bedtime he developed right lower extremity weakness a gain and what he describes as a "altered sensation" in his right hand. Patient denies any accompanying pain, denies tingling. Patient states this morning he had persistent right lower extremity weakness and right hand weakness. At the time of arrival now patient states that the right hand is improved although not entirely normal, however he is persistent right leg weakness. NO trauma since has been home. Denies fevers, chest pain, SOB, trouble urinating, back pain, URI symptoms. Pt seen during a time of high acuity and national emergency pandemic while wearing PPE. Home Medications Home Medications Medication Instructions Recorded Confirmed Type aspirin 81 mg tablet,delayed 81 mg PO HS 10/28/18 03/16/20 History release multivitamin 1 tab PO QAM 10/28/18 03/16/20 History cholecalciferol (vitamin D3) 50 2,000 units PO QAM 10/25/19 03/16/20 History mcg (2,000 unit) capsule diclofenac sodium 2 gm TOP QID PRN 01/28/20 03/16/20 History gabapentin 300 mg PO HS 01/28/20 03/16/20 History metformin 500 mg PO BIDM 01/28/20 03/16/20 History hydroxyzine HCl 25 mg tablet 25 mg PO Q6H PRN #120 tab 02/02/20 03/16/20 Rx gabapentin 100 mg capsule 100 mg PO QAM cap 02/21/20 03/16/20 History docusate sodium 100 mg PO BID 03/13/20 03/16/20 History olmesartan 20 mg PO QAM 03/13/20 03/16/20 History pravastatin 10 mg PO HS 03/13/20 03/16/20 History metoprolol succinate 50 mg PO HS 03/14/20 03/16/20 History Allergies Allergy/AdvReac Type Severity Reaction Status Date / Time No Known Allergies Allergy Verified 03/16/20 13:53 Past Med/Surg History Medical History BPH (benign prostatic hyperplasia) CAD (coronary artery disease) Depression GERD (gastroesophageal reflux disease) 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 HTN (hypertension), benign (Chronic) Hyperlipidemia Hypertension (Acute) Left pontine stroke Lumbar radiculopathy (Chronic) Lung cancer (Resolved) Neuropathy Osteoarthritis (Chronic) Right internal carotid occlusion SAH (subarachnoid hemorrhage) Stroke (Acute) POST-PO HEMIANOPSIA 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 Type 2 diabetes mellitus (Chronic) Surgical History History of arthroscopy of shoulder (Resolved) left S[place] x 3 [place] [facility] [place]; SVG TO OM AND SVG TO PDA S/P partial lobectomy of lung (Resolved) Family History Father Myocardial infarction Denies family history of Ovarian cancer Prostate cancer Breast cancer Colorectal cancer Social History Preferred Language: Serbian Communication Ability: Effective Visual Impairment: No Limitations Hearing Ability: Normal Professional 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 and A total of 10 systems reviewed and were otherwise negative Physical Exam Vital Signs Vital Signs - 24 hr 03/16/20 12:01 03/16/20 12:05 03/16/20 12:24 Temperature 37.2 C Temperature Source Oral Pulse Rate 60 62 64 Pulse Rate from SpO2 Sensor 61 65 Respiratory Rate 20 Respiratory Effort / Characteristics Non-Labored Spontaneous Respiratory Depth Normal Respiratory Pattern Regular Blood Pressure 183/81 H 222/95 H Blood Pressure Mean 91 137 Pulse Oximetry 96 99 98 Oxygen Delivery Method Room Air Sepsis Recent Fever Within 48 Hours No Sepsis New/Unexplained Change in Mental Status No Sepsis Action Taken by Nursing No Action Required 03/16/20 12:30 03/16/20 12:31 03/16/20 13:00 Temperature Temperature Source Pulse Rate 66 60 60 Pulse Rate from SpO2 Sensor 60 61 Respiratory Rate 18 18 17 Respiratory Effort / Characteristics Respiratory Depth Respiratory Pattern Blood Pressure 191/95 H Blood Pressure Mean 131 Pulse Oximetry 97 97 Oxygen Delivery Method Sepsis Recent Fever Within 48 Hours Sepsis New/Unexplained Change in Mental Status Sepsis Action Taken by Nursing 03/16/20 13:01 03/16/20 13:02 03/16/20 13:30 Temperature Temperature Source Pulse Rate 60 60 65 Pulse Rate from SpO2 Sensor Respiratory Rate 17 24 19 Respiratory Effort / Characteristics Respiratory Depth Respiratory Pattern Blood Pressure 172/65 H 200/70 H Blood Pressure Mean 93 102 Pulse Oximetry 95 Oxygen Delivery Method Sepsis Recent Fever Within 48 Hours Sepsis New/Unexplained Change in Mental Status Sepsis Action Taken by Nursing 03/16/20 13:31 03/16/20 14:00 03/16/20 14:01 Temperature Temperature Source Pulse Rate 61 63 61 Pulse Rate from SpO2 Sensor 64 61 Respiratory Rate 20 20 21 Respiratory Effort / Characteristics Respiratory Depth Respiratory Pattern Blood Pressure 179/84 H Blood Pressure Mean 150 Pulse Oximetry 99 98 Oxygen Delivery Method Sepsis Recent Fever Within 48 Hours Sepsis New/Unexplained Change in Mental Status Sepsis Action Taken by Nursing GENERAL: alert, well appearing, well nourished, no distress, non-toxic EYE EXAM: normal conjunctiva, PERRL and EOM's grossly intact, no nystagmus OROPHARYNX: no exudate, no erythema, lips, buccal mucosa, and tongue normal and mucous membranes are moist NECK: supple, no nuchal rigidity, no adenopathy, non-tender LUNGS: Clear to auscultation. Normal chest wall mechanics, no w/r/r HEART: no murmurs, S1 normal and S2 normal ABDOMEN: abdomen soft, non-tender, normo-active bowel sounds, no masses, no rebound or guarding. BACK: Back is symmetrical on inspection and there is no deformity, no midline tenderness, no CVA tenderness. SKIN: no rashes and no bruising UPPER EXTREMITIES: upper extremities are grossly normal. FROM, nml pulses b/l. LOWER EXTREMITIES: No pitting edema. FROM, nml pulses b/l. NEURO EXAM: Normal sensorium, cranial nerves II-XII grossly intact, slightly slurred speech, no gross weakness of arms, weakness noted of the right lower extremity. Gross sensation intact. Course Course 1311: BP 172/65, pt updated on results. Pt states his right hand is almost back to normal, his RLE feels improved but still weak. Family states speech is unchanged 1445: Case discussed with Dr. Elmore who had seen the patient during his admission and discharged him yesterday. She will be down to evaluate. 1450: Updated patient and family at bedside. Administered Medications Acetaminophen (Tylenol) 650 mg PO Q4H PRN PRN Reason: Pain or Fever Stop: 04/15/20 18:22 Last Admin: 03/17/20 18:50 Dose: 650 mg Documented by: [id number] Acetaminophen (Ofirmev) 1,000 mg IV Q8H PRN PRN Reason: Pain Stop: 03/19/20 18:37 Last Admin: 03/17/20 04:00 Dose: 1,000 mg Documented by: [id number] Admin: 03/16/20 19:19 Dose: 1,000 mg Documented by: [id number] Docusate Sodium (Colace) 100 mg PO BID [facility] Stop: 04/15/20 20:59 Last Admin: 03/17/20 21:20 Dose: 100 mg Documented by: [id number] Admin: 03/17/20 08:07 Dose: Not Given Documented by: [id number] Admin: 03/16/20 20:10 Dose: Not Given Documented by: [id number] Gabapentin (Neurontin) 100 mg PO QAM [facility] Stop: 04/16/20 08:59 Last Admin: 03/17/20 08:07 Dose: Not Given Documented by: [id number] Gabapentin (Neurontin) 300 mg PO [facility] Stop: 04/15/20 20:59 Last Admin: 03/17/20 21:20 Dose: 300 mg Documented by: [id number] Admin: 03/16/20 20:10 Dose: Not Given Documented by: [id number] Insulin Aspart (Novolog Flexpen) 0 units SC [facility] Stop: 04/16/20 16:29 Last Admin: 03/17/20 21:18 Dose: 2 units Documented by: [id number] Cosigned by: [id number] Admin: 03/17/20 17:15 Dose: 2 units Documented by: [id number] Cosigned by: [id number] Admin: 03/17/20 13:04 Dose: 3 units Documented by: [id number] Cosigned by: [id number] Ioversol (Optiray 320 125ml) 119 ml IV ONCE PRN PRN Reason: Interaction Checking Stop: 03/20/20 12:29 Last Admin: 03/16/20 12:30 Dose: 119 ml Documented by: [id number] Metoprolol Succinate (Toprol Xl) 50 mg PO [facility] Stop: 04/15/20 20:59 Last Admin: 03/17/20 22:08 Dose: 50 mg Documented by: [id number] Multivitamins (Multivitamin Tab) 1 tab PO [facility] Stop: 04/16/20 08:59 Last Admin: 03/17/20 08:07 Dose: Not Given Documented by: [id number] Ondansetron HCl (Zofran) 4 mg IV Q6H PRN PRN Reason: Nausea Stop: 04/15/20 18:22 Last Admin: 03/17/20 08:36 Dose: 4 mg Documented by: [id number] Pravastatin Sodium (Pravachol) 10 mg PO [facility] Stop: 04/15/20 20:59 Last Admin: 03/17/20 21:20 Dose: 10 mg Documented by: [id number] Admin: 03/16/20 20:10 Dose: Not Given Documented by: [id number] Vitamin D (Vitamin D3) 2,000 units PO [facility] Stop: 04/16/20 08:59 Last Admin: 03/17/20 08:07 Dose: Not Given Documented by: [id number] Discontinued Medications Aspirin (Ecotrin Ectab) 81 mg PO HS [facility] Stop: 04/15/20 20:59 Last Admin: 03/16/20 20:10 Dose: Not Given Documented by: [id number] Hydralazine HCl (Hydralazine Hcl) 5 mg IV NOW ONE Stop: 03/16/20 12:27 Last Admin: 03/16/20 12:36 Dose: 5 mg Documented by: [id number] Hydralazine HCl (Hydralazine Hcl) 5 mg IV NOW ONE Stop: 03/16/20 17:28 Last Admin: 03/16/20 20:08 Dose: Not Given Documented by: [id number] Insulin Aspart (Novolog Flexpen) 0 units SC [facility] Stop: 04/15/20 18:22 Last Admin: 03/17/20 09:04 Dose: Not Given Documented by: [id number] Cosigned by: [id number] Insulin Aspart (Novolog Flexpen) 0 units SC Q6H [facility] Stop: 04/15/20 18:44 Last Admin: 03/17/20 06:04 Dose: Not Given Documented by: [id number] Cosigned by: [id number] Admin: 03/16/20 23:50 Dose: Not Given Documented by: [id number] Cosigned by: [id number] Admin: 03/16/20 19:51 Dose: Not Given Documented by: [id number] Cosigned by: [id number] Metoprolol Tartrate (Lopressor) 5 mg IV Q4 [facility] Stop: 04/15/20 19:59 Last Admin: 03/17/20 16:38 Dose: 5 mg Documented by: [id number] Admin: 03/17/20 12:13 Dose: Not Given Documented by: [id number] Admin: 03/17/20 08:35 Dose: Not Given Documented by: [id number] Admin: 03/17/20 04:00 Dose: Not Given Documented by: [id number] Admin: 03/16/20 23:50 Dose: Not Given Documented by: [id number] Admin: 03/16/20 20:09 Dose: 5 mg Documented by: [id number] Olmesartan (Benicar) 20 mg PO ONE ONE Stop: 03/17/20 17:43 Last Admin: 03/17/20 18:48 Dose: 20 mg Documented by: [id number] Medical Decision Making Differential Diagnosis Differential Diagnosis includes but is not limited to ischemic Stroke, hemorrhagic stroke, bells palsy, mass, neoplasm, migraine headache, seizure, subarachnoid hemorrhage, TIA, and transient global amnesia. Medical Records Attestation: I reviewed the patient's medical records. Home Medications Current Medication List: was personally reviewed by me Laboratory Data Attestation: I reviewed the patient's lab results. Result diagrams: 03/17/20 05:24 03/17/20 05:24 Lab Results 03/16/20 03/16/20 03/16/20 Range/Units 12:32 12:32 12:32 WBC 5.55 (4.8-10.8) K/uL RBC 5.09 (4.7-6.1) M/uL Hgb 13.8 L (14.0-18.0) g/dL Hct 40.9 L (42-52) % MCV 80.4 (80-100) fL MCH 27.1 (25-34) pg MCHC 33.7 (32-36) g/dL RDW Std Deviation 45.3 (36.4-46.3) fL RDW Coeff of Duane 15.5 H (11.5-14.5) % Plt Count 168 (130-400) K/uL MPV 9.8 (7.4-10.4) fL Immature Gran % (Auto) 0.2 % Neut % (Auto) 60.9 % Lymph % (Auto) 26.3 % Isabella % (Auto) 9.2 % Eos % (Auto) 3.2 % Baso % (Auto) 0.2 % Neut # (Auto) 3.38 (1.4-6.5) K/uL Lymph # (Auto) 1.46 (1.2-3.4) K/uL Isabella # (Auto) 0.51 (0.11-0.59) K/uL Eos # (Auto) 0.18 (0-0.5) K/uL Baso # (Auto) 0.01 (0-0.2) K/uL Immature Gran # (Auto) 0.01 (0.00-0.02) K/uL PT 10.9 (9.0-12.0) Seconds INR 1.0 (0.9-1.1) Sodium 135 L (136-145) mmol/L Potassium 4.3 (3.5-5.1) mmol/L Chloride 104 (98-107) mmol/L Carbon Dioxide 29 (21-32) mmol/L Anion Gap 2.0 L (3-11) BUN 17 (7-18) mg/dl Creatinine 1.19 (0.6-1.4) mg/dl Est Cr Clr Drug Dosing 49.6 ml/min Est GFR ( Amer) 67.9 Est GFR (Non-Af Amer) 58.6 BUN/Creatinine Ratio 14.4 (10-20) Glucose 171 H (70-99) mg/dl Calcium 8.2 L (8.5-10.1) mg/dl Magnesium 2.3 (1.8-2.4) mg/dl Total Bilirubin 0.6 (0.2-1) mg/dl AST 23 (15-37) U/L ALT 31 (12-78) U/L Alkaline Phosphatase 113 (45-117) U/L Troponin I < 0.015 (0-0.045) ng/ml Total Protein 6.6 (6.4-8.2) gm/dl Albumin 3.0 L (3.4-5.0) gm/dl Globulin 3.6 (2.5-4.0) gm/dl Albumin/Globulin Ratio 0.8 L (0.9-2) Imaging Data Radiologist's Impression: HEAD CT NONCONTRAST CT DOSE: 1186.26 mGy.cm HISTORY: recent subarachnoid hemorrhage, worsening symptoms/headache TECHNIQUE: Multiaxial CT images of the head were performed without the use of intravenous contrast. Automated exposure control was utilized for this study. A dose lowering technique was utilized adhering to the principles of ALARA. Comparison: Head CT 03/15/2020. Findings: Chronic opacification the right maxillary sinus is again noted. The mastoid air cells are clear. Stable to slight improvement in the trace subarachnoid hemorrhage within the right parieto-occipital region. Old right occipital infarct within the subacute pontine infarct are again noted. No new areas of intracranial hemorrhage identified. No mass or midline shift. Mild atrophy and microvascular ischemic changes are again noted. Old lacunar infarct within the left basal ganglia, unchanged. Impression: 1. Stable to slight improvement in the trace subarachnoid hemorrhage within the right parieto-occipital region. 2. 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 ACT 112: Negative or not required by law. Electronically signed by: Jl Kunz M.D. 03/16/2020 12:34 PM HEAD CTA HISTORY: recent subarachnoid hemorrhage, worsening sx/headache TECHNIQUE: Multiaxial CT images of the head were performed following the intravenous administration of contrast to evaluate the major cerebral vessels. Maximum intensity projection images were also obtained. A dose lowering technique was utilized adhering to the principles of ALARA. COMPARISON: Head CT 03/13/2020. FINDINGS: Redemonstration of the small focus of encephalomalacia within the right occipital lobe consistent with an old infarct. The adjacent area of faint increased density is better appreciated on the noncontrast head CT performed the same day. Near-complete chronic opacification of the right maxillary sinus. No contrast identified within the visualized right internal carotid artery system with complete occlusion. Trace contrast seen within the right supraclinoid ICA which is likely secondary to retrograde flow. This perfuses the right ophthalmic artery. Focal area of mild to moderate stenosis within the distal right vertebral artery. The visualized distal left vertebral artery and basilar artery are widely patent. Moderate calcified plaque within the left carotid siphon resulting in multifocal areas of mild to moderate stenosis. This demonstrates up to 50% stenosis proximally. Multifocal stenosis within the left P2 segment of up to 50%. Focal vascular cut off at the distal right P1 segment consistent with a site of occlusion. 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 No significant stenosis, occlusion, or aneurysm seen within the bilateral MCAs or ACAs. The visualized dural venous sinuses appear patent. IMPRESSION: 1. No significant change compared to the prior study. 2. No contrast identified within the right internal carotid artery consistent with complete occlusion. This is better appreciated on the same day neck CTA. 3. Focal vascular cut off at the distal right P1 segment consistent with a site of occlusion. 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 4. Multifocal stenosis within the left P2 segment of up to 50%. 5. Mild to moderate multifocal stenosis within the left carotid siphon. ACT 112: Negative or not required by law. Electronically signed by: Jl Kunz M.D. 03/16/2020 12:[address] angio neck with con CLINICAL HISTORY: recent SAH, worsening sx/headache COMPARISON STUDY: Neck CTA 03/13/2020. TECHNIQUE: CT angiography was performed from the aortic arch to the skull base. MIP imaging was performed. The patient was scanned in a dynamic helical fashion during intravenous administration of 120 cc of Optiray 320. A dose lowering technique was utilized adhering to the principles of ALARA. CT DOSE: Technique: CT angiogram of the carotid and vertebral arteries was obtained using intravenous contrast and 3-D reconstruction. NASCET criteria was utilized. Findings: There is a multinodular thyroid gland with nodules measuring up to 1 cm in diameter. Current recommendations indicate no necessity of follow-up given the patient's age. There are moderate atheromatous changes at the level of the right carotid bulb. There is a 30% diameter narrowing of the distal right common carotid artery. There is occlusion of the proximal right internal carotid artery 2 cm distal to its origin. Given the tapered appearance, a thrombosed dissection cannot be excluded. The left carotid arteries show no evidence of hemodynamic significant stenosis. There is no evidence of aneurysm. There is no evidence of dissection on the left. There is no evidence of hemodynamically significant vertebral stenosis. There is no evidence of vertebral dissection. Calcified granuloma seen within the lung apices. There are poststernotomy changes. IMPRESSION: 1. No significant change in the occlusion of the right internal carotid artery 2 cm distal to its origin. Given the tapered appearance, a thrombosed dissection cannot be excluded 2. No evidence of hemodynamically significant left internal carotid or vertebral artery stenosis. ACT 112: Negative or not required by law. Electronically signed by: Jl Kunz M.D. 03/16/2020 12:56 PM ECG Data Attestation: I personally reviewed and interpreted this ECG as follows: Rate (beats per minute): 61 Rhythm: + normal sinus ECG Intervals/blocks: + Normal QRS and + Normal QT Blood Pressure Blood Pressure Findings: Elevated blood pressure Blood Pressure Disposition: further management by hospitalist JAMES Narrative Pt recently admitted for stroke and SAH. Pt discharged yesterday and reports no RUE/RLE weakness. Family feels speech has been worsening since initial presentation to the hospital. Last night he began having weakness again that family felt was worse again today. Pt return to the ER. VS stable although pt hypertensive. Afebrile. Repeat CT and angio of the head/neck are reassuring. Case discussed with hospitalist and with Dr. Elmore who saw the patient yesterday at [place]. Concern given worsening symptoms and known CVA and SAH. They will evaluate. Family updated. Pt felt slightly improved here. Pt was given a dose of BP meds here in the ED as initial thought that perhaps elevated BP was c ontributing to worsening symptoms. No improvement. An order was placed for continuous cardiac monitoring. The monitor shows a rate of _60 with _normal sinus_ rhythm. Impression & Plan SAH (subarachnoid hemorrhage), Hypertension, Left pontine stroke, Dysarthria, Right sided weakness Discharge Plan Visit Data *Final* Discharge Date/Time: 03/16/20 17:03 Chief Complaint: Weakness Stated Complaint: weakness ED Provider: Sarah Navarro Discharge Problem: SAH (subarachnoid hemorrhage), Hypertension, Left pontine stroke, Dysarthria, Right sided weakness Patient Disposition: Admitted As Inpatient Discharge Instructions Interventions: ED Discharge Assessment Last Done: 03/16/20 17:03 Discharge Problem: Hypertension Qualifiers: Hypertension type: essential hypertension Qualified Code(s): I10 - Essential (primary) hypertension
[2020-03-16] MEDS ORDERED: HydrALAZINE HCL 20 MG/ML VIAL IV ONE ×2 (12:26→17:27)
[2020-03-16] MEDS ORDERED: OPTIRAY 320 125ml IV PRN (12:30)
--- NOTE | 2020-03-16 12:35 | CT Scan Report ---
HEAD CT NONCONTRAST CT DOSE: 1186.26 mGy.cm HISTORY: recent subarachnoid hemorrhage, worsening symptoms/headache TECHNIQUE: Multiaxial CT images of the head were performed without the use of intravenous contrast. A utomated exposure control was utilized for this study. A dose lowering technique was utilized adheri ng to the principles of ALARA. Comparison: Head CT 03/15/2020. Findings: Chronic opacification the right maxillary sinus is again noted. The mastoid air cells are c lear. Stable to slight improvement in the trace subarachnoid hemorrhage within the right parieto-occi pital region. Old right occipital infarct within the subacute pontine infarct are again noted. No new areas of intracranial hemorrhage identified. No mass or midline shift. Mild atrophy and microvascula r ischemic changes are again noted. Old lacunar infarct within the left basal ganglia, unchanged. Impression: 1. Stable to slight improvement in the trace subarachnoid hemorrhage within the right parieto-occipit al region. 2. 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 ACT 112: Negative or not required by law. Electronically signed by: Jl Kunz M.D. 03/16/2020 12:34 PM
--- NOTE | 2020-03-16 12:45 | CT Scan Report ---
HEAD CTA HISTORY: recent subarachnoid hemorrhage, worsening sx/headache TECHNIQUE: Multiaxial CT images of the head were performed following the intravenous administration o f contrast to evaluate the major cerebral vessels. Maximum intensity projection images were also obta ined. A dose lowering technique was utilized adhering to the principles of ALARA. COMPARISON: Head CT 03/13/2020. FINDINGS: Redemonstration of the small focus of encephalomalacia within the right occipital lobe cons istent with an old infarct. The adjacent area of faint increased density is better appreciated on the noncontrast head CT performed the same day. Near-complete chronic opacification of the right maxilla ry sinus. No contrast identified within the visualized right internal carotid artery system with comp lete occlusion. Trace contrast seen within the right supraclinoid ICA which is likely secondary to re trograde flow. This perfuses the right ophthalmic artery. Focal area of mild to moderate stenosis wit hin the distal right vertebral artery. The visualized distal left vertebral artery and basilar artery are widely patent. Moderate calcified plaque within the left carotid siphon resulting in multifocal areas of mild to moderate stenosis. This demonstrates up to 50% stenosis proximally. Multifocal steno sis within the left P2 segment of up to 50%. Focal vascular cut off at the distal right P1 segment co nsistent with a site of occlusion. This could be chronic given the old right FRONT OFFICE ATTENDANT territory infarct. N o significant stenosis, occlusion, or aneurysm seen within the bilateral MCAs or ACAs. The visualized dural venous sinuses appear patent. IMPRESSION: 1. No significant change compared to the prior study. 2. No contrast identified within the right internal carotid artery consistent with complete occlusion . This is better appreciated on the same day neck CTA. 3. Focal vascular cut off at the distal right P1 segment consistent with a site of occlusion. This i s age indeterminate but could be chronic given the old right FRONT OFFICE ATTENDANT territory infarct. 4. Multifocal stenosis within the left P2 segment of up to 50%. 5. Mild to moderate multifocal stenosis within the left carotid siphon. ACT 112: Negative or not required by law. Electronically signed by: Jl Kunz M.D. 03/16/2020 12:44 PM
[2020-03-16 12:50] LABS: Basophils # (auto) 0.01 K/uL (0-0.2); Basophils % (auto) 0.2 %; Eosinophils # (auto) 0.18 K/uL (0-0.5); Eosinophils % (auto) 3.2 %; Hematocrit (blood only) 40.9 % (42-52); Hemoglobin 13.8 g/dL (14.0-18.0); Immature Granulocytes # (auto) 0.01 K/uL (0.00-0.02); Immature Granulocytes % (auto) 0.2 %; Lymphocytes # (auto) 1.46 K/uL (1.2-3.4); Lymphocytes % (auto) 26.3 %; Mean Corpuscular Hemoglobin 27.1 pg (25-34); Mean Corpuscular Hgb Conc 33.7 g/dL (32-36); Mean Corpuscular Volume 80.4 fL (80-100); Mean Platelet Volume 9.8 fL (7.4-10.4); Monocytes # (auto) 0.51 K/uL (0.11-0.59); Monocytes % (auto) 9.2 %; Neutrophils # (auto) 3.38 K/uL (1.4-6.5); Neutrophils % (auto) 60.9 %; Platelet Count 168 K/uL (130-400); RDW Coefficient of Variation 15.5 % (11.5-14.5); RDW Standard Deviation 45.3 fL (36.4-46.3); Red Blood Count 5.09 M/uL (4.7-6.1); White Blood Count 5.55 K/uL (4.8-10.8)
[2020-03-16 12:56] LABS: Prothrombin Time 10.9 Seconds (9.0-12.0)
--- NOTE | 2020-03-16 12:58 | CT Scan Report ---
CT angio neck with con CLINICAL HISTORY: recent SAH, worsening sx/headache COMPARISON STUDY: Neck CTA 03/13/2020. TECHNIQUE: CT angiography was performed from the aortic arch to the skull base. MIP imaging was perfo rmed. The patient was scanned in a dynamic helical fashion during intravenous administration of 120 c c of Optiray 320. A dose lowering technique was utilized adhering to the principles of ALARA. CT DOSE: Technique: CT angiogram of the carotid and vertebral arteries was obtained using intravenous contrast and 3-D reconstruction. NASCET criteria was utilized. Findings: There is a multinodular thyroid gland with nodules measuring up to 1 cm in diameter. Current recommen dations indicate no necessity of follow-up given the patient's age. There are moderate atheromatous changes at the level of the right carotid bulb. There is a 30% diamet er narrowing of the distal right common carotid artery. There is occlusion of the proximal right inte rnal carotid artery 2 cm distal to its origin. Given the tapered appearance, a thrombosed dissection cannot be excluded. The left carotid arteries show no evidence of hemodynamic significant stenosis. There is no evidence of aneurysm. There is no evidence of dissection on the left. There is no evidence of hemodynamically significant vertebral stenosis. There is no evidence of verte bral dissection. Calcified granuloma seen within the lung apices. There are poststernotomy changes. IMPRESSION: 1. No significant change in the occlusion of the right internal carotid artery 2 cm distal to its sofiya gin. Given the tapered appearance, a thrombosed dissection cannot be excluded 2. No evidence of hemodynamically significant left internal carotid or vertebral artery stenosis. ACT 112: Negative or not required by law. Electronically signed by: lJ Kunz M.D. 03/16/2020 12:56 PM
--- NOTE | 2020-03-16 13:29 | XRay Report ---
XR chest 1V portable CLINICAL HISTORY: cva symptoms COMPARISON STUDY: 03/13/2020 FINDINGS: Prior median sternotomy. The lungs are clear. Diaphragms are smooth. IMPRESSION: No acute process. ACT 112: Negative or not required by law. The above report was generated using voice recognition software. It may contain grammatical, syntax or spelling errors. Electronically signed by: Ramu Candelario M.D. 03/16/2020 1:27 PM
[2020-03-16 13:37] LABS: Alanine Aminotransferase 31 U/L (12-78); Albumin Globulin Ratio 0.8 (0.9-2); Alkaline Phosphatase 113 U/L (45-117); BUN Creatinine Ratio 14.4 (10-20); Bilirubin,Total 0.6 mg/dl (0.2-1); Blood Urea Nitrogen 17 mg/dl (7-18); Calcium 8.2 mg/dl (8.5-10.1); Carbon Dioxide 29 mmol/L (21-32); Chloride 104 mmol/L (98-107); Creatinine Clr Calc Pharmacy 49.6 ml/min; Est GFR (African American) 67.9; Est GFR (Non-African American) 58.6; Globulin 3.6 gm/dl (2.5-4.0); Glucose 171 mg/dl (70-99); Potassium 4.3 mmol/L (3.5-5.1); Sodium 135 mmol/L (136-145); Total Protein 6.6 gm/dl (6.4-8.2); Troponin I < 0.015 ng/ml (0-0.045)
[2020-03-16 13:46] LABS: Aspartate Aminotransferase 23 U/L (15-37); Magnesium 2.3 mg/dl (1.8-2.4)
--- NOTE | 2020-03-16 16:00 | History & Physical Report ---
Date of Service March 16, 2020 Assessment & Plan (1) Left pontine stroke: With a hx of prior CVA in the right occipital and posterior temporal lobes in the postoperative period from his CABG in 09/2019 Then with confirmed acute left pontine lacunar infarct on MRI brain from last admission 3 days ago. He presented with similar symptoms at that time although this seems to be slightly worse as per family. CT angiogram head and neck with stable findings from previous of complete right ICA occlusion which is chronic with possible dissection which is also noted on records from [place] in 09/2019, 50% left ICA occlusion-vascular surgery saw him and did not think this warranted any intervention Echocardiogram last admission from 2 days ago without intra-atrial shunt or source of cardiac emboli His current symptoms are likely due to extension of the same stroke in the left gaye. The subarachnoid hemorrhage is slightly improved to stable from previous. As per last admission-this is most likely thrombotic stroke A1c mildly uncontrolled at 7.8%, TSH normal from last admission He had no atrial arrhythmias noted on telemetry during the last admission and he also had a recent 19-day cardiac event monitor which showed no atrial fibrillation just 2 weeks ago. With small subarachnoid hemorrhage complicating the picture-unclear if related to head trauma several weeks ago, does not seem to be related to new stroke During last admission, the Plavix was discontinued due to SAH and neurology recommended to continue aspirin only at this point -Admit on observation to PCU for stroke symptoms-he is not a candidate for TPA as his symptoms are improving since kbmbilfvg-[id number]-hwszu weakness is now resolved, but remains with dysarthria -Continue aspirin 81 mg daily -Continue pravastatin 10 mg daily given severely low LDL very recently and increased risk of bleeding with high intensity statins in that situation -Check repeat brain MRI now -Consult neurology -Neurochecks every 2 hours and daily NIH stroke stroke score -Consult PT/OT/speech therapy -N.p.o. as he failed dysphagia screen due to slurred speech and slight facial droop -Needs better blood pressure control, diabetes control-we will give IV blood pressure medicines until can take p.o. (2) SAH (subarachnoid hemorrhage): Slightly improved to stable on CT head noncontrast from 03/16 compared to 03/15 -Previously, neurology recommended repeating CT of the head in 1 week which is already been arranged as an outpatient for next week -Tylenol as needed for headache (3) Right internal carotid occlusion: As noted above No intervention needed (4) Type 2 diabetes mellitus: A1c 7.2 09/20 and now up to 7.8% Needs improved control given multiple strokes Holding metformin due to contrast -Accu-Cheks and sliding scale insulin before meals at bedtime (5) Hypertension: With hypertensive urgency here with blood pressures in the 220s on admission Was given 1 dose of hydralazine 5 mg IV x1 in the ER with some improvement -Will start Lopressor 5 mg IV every 4 hours and Vasotec 0.625 mg IV every 6 hours with hold parameters for SBP less than 140 to allow permissive hypertension Goal systolic blood pressure is 140-160 right now Give IV hydralazine for SBP greater than 200 -Holding home all losartan 20 mg daily and Toprol-XL 50 mg at bedtime due to be ing n.p.o. Follow blood pressures closely (6) CAD (coronary artery disease): NSTEMI 09/20, treated at [facility] and now status post 3V CABG -Continue aspirin but DCd Plavix during previous admission as above which is acceptable from a cardiology standpoint -continue metoprolol through IV for now and then convert back to p.o. when can take p.o. -Continue low intensity pravastatin due to severely low LDL-changed from atorvastatin to pravastatin just last week-however, he is unable to take p.o. 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 Lipid panel in the morning (9) Neuropathy: Takes gabapentin for this-will not be able to take while n.p.o. but restart if able to take p.o. tomorrow (10) DVT prophylaxis: SCDs, no Lovenox given recent subarachnoid hemorrhage Disposition-admit under observation to PCU for worsening stroke symptoms History of Present Illness Chief Complaint: Slurred speech and right-sided weakness Primary Care Provider: Eduadr Lora, DO This patient is a 79-year-old male well-known to me from a very recent hospitalization for left pontine stroke and small right-sided SAH. He has a history of CVA x 2, SAH, DM 2, HTN, CAD status post CABG, lung cancer status p ost lobectomy, chronic R ICA occlusion and moderate left ICA stenosis, who presents back to the ER today with slurred speech and right-sided weakness. He reports after discharge from the hospital yesterday, he noticed that his speech was slurred again when he got home. He did not alert his family members at that time and decided to go to bed. When he woke up this morning, his family and his son especially noticed that his speech was a lot more slurred than previously and the patient also noticed that his right arm and right leg felt like he could not use them. His reports that she had to help him walk across the room to get to the bathroom. This is a great difference from when he left the hospital yesterday when he was walking the halls independently and his speech was very fluent. He does have a mild headache, but reports that is because he did not take Tylenol today which she has been taking for mild posterior right-sided headache and neck pain since his head injury which likely caused his small SAH noted on previous admission. His blood pressure was significantly elevated in the ER at 222/95 and he was given hydralazine 5 mg IV x1. His other laboratory values were fairly unremarkable including a negative troponin. His ECG showed a normal sinus rhythm, left axis deviation, and was unchanged from previous. A CT Noncon of the head showed stable to slight improvement in the trace SAH in the right parieto-occipital region as well as the subacute pontine infarct and the old right SPECIAL EVENTS DRIVER territory infarct again noted. A repeat CT angiogram of the head neck were unchanged from previous with complete occlusion of the R ICA, focal vascular cut off at the distal right P1 segment with old right SPECIAL EVENTS DRIVER territory infarct, multifocal stenosis within the left P2 segment up to 50%, and mild to moderate multifocal stenosis within the left carotid. He will be admitted under observation for recurrent but similar stroke symptoms as before with hypertensive urgency. Allergies Allergy/AdvReac Type Severity Reaction Status Date / Time No Known Allergies Allergy Verified 03/16/20 13:53 Home Medications Home Medications Medication Instructions Recorded Confirmed Type aspirin 81 mg tablet,delayed 81 mg PO HS 10/28/18 03/16/20 History release multivitamin 1 tab PO QAM 10/28/18 03/16/20 History cholecalciferol (vitamin D3) 50 2,000 units PO QAM 10/25/19 03/16/20 History mcg (2,000 unit) capsule diclofenac sodium 2 gm TOP QID PRN 01/28/20 03/16/20 History gabapentin 300 mg PO HS 01/28/20 03/16/20 History metformin 500 mg PO BIDM 01/28/20 03/16/20 History hydroxyzine HCl 25 mg tablet 25 mg PO Q6H PRN #120 tab 02/02/20 03/16/20 Rx gabapentin 100 mg capsule 100 mg PO QAM cap 02/21/20 03/16/20 History docusate sodium 100 mg PO BID 03/13/20 03/16/20 History olmesartan 20 mg PO QAM 03/13/20 03/16/20 History pravastatin 10 mg PO HS 03/13/20 03/16/20 History metoprolol succinate 50 mg PO HS 03/14/20 03/16/20 History Past Med/Surg History Medical History BPH (benign prostatic hyperplasia) CAD (coronary artery disease) Depression GERD (gastroesophageal reflux disease) 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 of right 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 HTN (hypertension), benign (Chronic) Hyperlipidemia Hypertension (Acute) Left pontine stroke Lumbar radiculopathy (Chronic) Lung cancer (Resolved) Neuropathy Osteoarthritis (Chronic) Right internal carotid occlusion SAH (subarachnoid hemorrhage) Stroke (Acute) POST-PO HEMIANOPSIA SRCONDARY TO A SPECIAL EVENTS DRIVER CVA WITH A FIELD CUT INVOLVONG TH ELE SUPERIOR QUADRANT Type 2 diabetes mellitus (Chronic) Surgical History History of arthroscopy of shoulder (Resolved) left S/P CABG x 3 09/20/2019: @ [facility]; BARR TO LAD; SVG TO OM AND SVG TO PDA S/P partial lobectomy of lung (Resolved) Family History Father Myocardial infarction Denies family history of Ovarian cancer Prostate cancer Breast cancer Colorectal cancer Social History Preferred Language: Maltese Communication Ability: Effective Visual Impairment: No Limitations Hearing Ability: Normal 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: No Beliefs That Will Affect Care: None marital status: Current Living Situation: Spouse 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 Other Information That Helps Us Care for You: No Feels Safe at Home: Yes Safety Concerns: Feels Safe At This Time Smoking Status: Never smoker Tobacco Type: smokeless tobacco ; Do You Dip or Chew Tobacco: Yes ; Second Hand Exposure: No ; Hx Alcohol Use: No Hx Substance Use: No Dental Care, Regularly: Yes Physical Activity Frequency: Does not Exercise Seatbelt Use: always Sunscreen Use: No Review of Systems Review of Systems: All systems reviewed & are unremarkable except as noted in HPI & below Physical Exam Constitutional: WD/WN, vitals as above Eyes: PERRL, conjunctivae normal, anicteric sclerae ENMT: external ear and nose normal, oropharynx normal Neck: trachea midline, no thyromegaly Respiratory: normal respiratory effort, lungs clear to auscultation Cardiovascular: RRR, no murmur, no edema Chest (Breasts): Chest: normal inspection of chest Gastrointestinal (Abdomen): normal bowel sounds, soft, nontender, no hepatosplenomegaly Musculoskeletal: Extremities: extremities normal to inspection; no cyanosis and no clubbing Skin: no rashes, warm and dry Neurologic: CN's II-XI intact bilaterally, deep tendon reflexes 2+ bilaterally, moves all extremities and awake; no focal motor deficits (5 out of 5 strength in upper and lower extremities bilaterally) Speech / Cognition: + abnormal speech (With mild to moderate dysarthria worse than yesterday) Motor/Sensory: + pronator drift (Mild on the right upper extremity); no tremor and no sensory deficit (Sensation intact to light touch throughout except slightly decreased to light touch in the right leg) Coordination: + abnormal [id number] test (On the right); normal rapid alternating movements Psychiatric: A+Ox3, euthymic affect Lymphatic: no lymphedema Results & Data Results & Data ([facility]) Vital Signs (Past 12 Hours) Vital Signs Temp Pulse Resp BP Pulse Ox 03/16/20 15:01 73 21 183/172 H 99 03/16/20 15:00 73 21 97 03/16/20 14:31 61 13 98 03/16/20 14:30 62 16 162/68 H 99 03/16/20 14:01 61 21 98 03/16/20 14:00 63 20 179/84 H 99 03/16/20 13:31 61 20 03/16/20 13:30 65 19 200/70 H 03/16/20 13:02 60 24 03/16/20 13:01 60 17 172/65 H 95 03/16/20 13:00 60 17 03/16/20 12:31 60 18 97 03/16/20 12:30 66 18 191/95 H 97 03/16/20 12:24 64 98 03/16/20 12:05 37.2 C 62 20 222/95 H 99 03/16/20 12:01 60 183/81 H 96 Laboratory Results 03/16/20 03/16/20 03/16/20 Range/Units 19:21 12:32 12:32 WBC (4.8-10.8) K/uL RBC (4.7-6.1) M/uL Hgb (14.0-18.0) g/dL Hct (42-52) % MCV (80-100) fL MCH (25-34) pg MCHC (32-36) g/dL RDW Std Deviation (36.4-46.3) fL RDW Coeff of Duane (11.5-14.5) % Plt Count (130-400) K/uL MPV (7.4-10.4) fL Immature Gran % (Auto) % Neut % (Auto) % Lymph % (Auto) % [place] % (Auto) % Eos % (Auto) % Baso % (Auto) % Neut # (Auto) (1.4-6.5) K/uL Lymph # (Auto) (1.2-3.4) K/uL [place] # (Auto) (0.11-0.59) K/uL Eos # (Auto) (0-0.5) K/uL Baso # (Auto) (0-0.2) K/uL Immature Gran # (Auto) (0.00-0.02) K/uL PT 10.9 (9.0-12.0) Seconds INR 1.0 (0.9-1.1) Sodium 135 L (136-145) mmol/L Potassium 4.3 (3.5-5.1) mmol/L Chloride 104 (98-107) mmol/L Carbon Dioxide 29 (21-32) mmol/L Anion Gap 2.0 L (3-11) BUN 17 (7-18) mg/dl Creatinine 1.19 (0.6-1.4) mg/dl Est Cr Clr Drug Dosing 49.6 ml/min Est GFR ( Amer) 67.9 Est GFR (Non-Af Amer) 58.6 BUN/Creatinine Ratio 14.4 (10-20) Glucose 171 H (70-99) mg/dl POC Glucose 107 H (70-99) mg/dl Calcium 8.2 L (8.5-10.1) mg/dl Magnesium 2.3 (1.8-2.4) mg/dl Total Bilirubin 0.6 (0.2-1) mg/dl AST 23 (15-37) U/L ALT 31 (12-78) U/L Alkaline Phosphatase 113 (45-117) U/L Troponin I < 0.015 (0-0.045) ng/ml Total Protein 6.6 (6.4-8.2) gm/dl Albumin 3.0 L (3.4-5.0) gm/dl Globulin 3.6 (2.5-4.0) gm/dl Albumin/Globulin Ratio 0.8 L (0.9-2) /16/20 Range/Units 12:32 WBC 5.55 (4.8-10.8) K/uL RBC 5.09 (4.7-6.1) M/uL Hgb 13.8 L (14.0-18.0) g/dL Hct 40.9 L (42-52) % MCV 80.4 (80-100) fL MCH 27.1 (25-34) pg MCHC 33.7 (32-36) g/dL RDW Std Deviation 45.3 (36.4-46.3) fL RDW Coeff of Duane 15.5 H (11.5-14.5) % Plt Count 168 (130-400) K/uL MPV 9.8 (7.4-10.4) fL Immature Gran % (Auto) 0.2 % Neut % (Auto) 60.9 % Lymph % (Auto) 26.3 % [place] % (Auto) 9.2 % Eos % (Auto) 3.2 % Baso % (Auto) 0.2 % Neut # (Auto) 3.38 (1.4-6.5) K/uL Lymph # (Auto) 1.46 (1.2-3.4) K/uL [place] # (Auto) 0.51 (0.11-0.59) K/uL Eos # (Auto) 0.18 (0-0.5) K/uL Baso # (Auto) 0.01 (0-0.2) K/uL Immature Gran # (Auto) 0.01 (0.00-0.02) K/uL PT (9.0-12.0) Seconds INR (0.9-1.1) Sodium (136-145) mmol/L Potassium (3.5-5.1) mmol/L Chloride (98-107) mmol/L Carbon Dioxide (21-32) mmol/L Anion Gap (3-11) BUN (7-18) mg/dl Creatinine (0.6-1.4) mg/dl Est Cr Clr Drug Dosing ml/min Est GFR ( Amer) Est GFR (Non-Af Amer) BUN/Creatinine Ratio (10-20) Glucose (70-99) mg/dl POC Glucose (70-99) mg/dl Calcium (8.5-10.1) mg/dl Magnesium (1.8-2.4) mg/dl Total Bilirubin (0.2-1) mg/dl AST (15-37) U/L ALT (12-78) U/L Alkaline Phosphatase (45-117) U/L Troponin I (0-0.045) ng/ml Total Protein (6.4-8.2) gm/dl Albumin (3.4-5.0) gm/dl Globulin (2.5-4.0) gm/dl Albumin/Globulin Ratio (0.9-2) Diagnostic Findings CT angiogram head and neck as noted in HPI CT head Noncon as noted in HPI ECG Additional Comments: As noted in HPI Code Status & VTE Plan Code Status Full code VTE Prophylaxis Plan VTE Prophylaxis will be ordered: Yes PG Care Time/CCT Total # of Minutes Spent Total Time Spent with Patient: Total time spent is greater than 50% in coordination of care (as documented) at patient's floor/unit and/or counseling patient: Coding Level of Care Code 80445 OBS Care - Level 3 Diagnoses Left pontine stroke I63.50 SAH (subarachnoid hemorrhage) I60.9 Right internal carotid occlusion I65.21 Type 2 diabetes mellitus E11.9 Hypertension I10 Hypertension type: unspecified CAD (coronary artery disease) I25.10 BPH (benign prostatic hyperplasia) N40.0 Hyperlipidemia E78.5 Neuropathy G62.9 DVT prophylaxis Z29.9 (1) Hypertension Hypertension type: unspecified Qualified Code(s): I10 - Essential (primary) hypertension
--- NOTE | 2020-03-16 17:10 | Magnetic Resonance Report ---
MRI OF THE BRAIN WITHOUT CONTRAST CLINICAL HISTORY: Pontine stroke. Recurrent symptoms. Since slurred speech. History of lung carcinoma. COMPARISON STUDY: Noncontrast head CT dated 03/16/2020, MRI the brain dated 03/13/2020 FINDINGS: Sagittal T1, axial diffusion, proton density and T2 weighted axial, coronal FLAIR, and axial T1-weigh karin images were acquired. No intra or extra-axial mass lesions are visualized There is slight interval increase in the size of the focus of restricted water diffusion involving th e gaye consistent with an enlarging acute/subacute infarct. There is a stable focus of restricted carlos enrique er diffusion within the right posterior medial occipital lobe consistent with infarct. There is no evidence of ventricular dilatation. Proton density T2-weighted and FLAIR images reveal scattered foci of increased T2 signal within the w thomas matter, likely on a small vessel basis. There is evidence for right occipital encephalomalacia c onsistent with a prior infarct. There is increased T2 signal within the gaye corresponding to the hayden raul infarct. There is a small amount of subarachnoid hemorrhage within the right occipital lobe. The re is evidence for an old hemorrhagic focus within the right basal ganglia. There is an absent right ICA flow void consistent with the patient's known right carotid occlusion There is opacification of the right maxillary sinus. IMPRESSION: 1. Slight interval increase in the size of the acute/subacute left pontine infarct 2. Persistent small amount of subarachnoid hemorrhage in the right occipital lobe. 3. Old right occipital infarct with a stable small persistent focus of restricted water diffusion, bernadine kelly representing a tiny acute/subacute infarct. ACT 112: Negative or not required by law. Electronically signed by: Jean Williamson M.D. 03/16/2020 5:09 PM
[2020-03-16] MEDS ORDERED: GLUCOSE 40% GEL 15 GM TUBE PO PRN (18:23)
[2020-03-16] MEDS ORDERED: DICLOFENAC SOD 1% GEL 100 GM TUBE EXT PRN (18:23)
[2020-03-16] MEDS ORDERED: INSULIN ASPART 100 UNITS/ML 3 ML PEN SC SCH (18:23)
[2020-03-16] MEDS ORDERED: PHARMACIST DISCHARGE MED REC CONSULT PRN (18:23)
[2020-03-16] MEDS ORDERED: GLUCOSE 10 TABS/TUBE PO PRN (18:23)
[2020-03-16] MEDS ORDERED: CARBOHYDRATES FOR HYPOGLYCEMIA PO PRN (18:23)
[2020-03-16] MEDS ORDERED: ONDANSETRON INJ 2 MG/ML 2 ML VIAL IV PRN (18:23)
[2020-03-16] MEDS ORDERED: DEXTROSE 50% 50 ML SYRINGE IV PRN (18:23)
[2020-03-16] MEDS ORDERED: HydrALAZINE HCL 20 MG/ML VIAL IV PRN (18:23)
[2020-03-16] MEDS ORDERED: GLUCAGON FOR INJ 1 MG VIAL SQ PRN (18:23)
--- NOTE | 2020-03-16 19:09 | Electrocardiogram Report ---
Test Reason : Blood Pressure : / mmHG Vent. Rate : 061 BPM Atrial Rate : 061 BPM P-R Int : 156 ms QRS Dur : 082 ms QT Int : 408 ms P-R-T Axes : -03 -51 038 degrees QTc Int : 410 ms Normal sinus rhythm Left axis deviation Abnormal ECG When compared with ECG of 13-MAR-2020 09:37, No significant change was found Confirmed by John Clemente ([id number]) on 03/16/2020 7:08:48 PM Referred By: REFERRED SELF Confirmed By:Gary Clemente
[2020-03-16] MEDS: ACETAMINOPHEN 1000 MG/100 ML IV IV PRN (19:19)
[2020-03-16] MEDS: INSULIN ASPART 100 UNITS/ML 3 ML PEN SC SCH ×2 (19:51→23:50)
[2020-03-16] MEDS: METOPROLOL TARTRATE 1 MG/ML VIAL IV SCH ×2 (20:09→23:50)
[2020-03-16] MEDS: PRAVASTATIN SOD 10 MG TAB PO SCH (20:10)
[2020-03-16] MEDS: DOCUSATE SODIUM 100 MG CAP PO SCH (20:10)
[2020-03-16] MEDS: GABAPENTIN 300 MG CAP PO SCH (20:10)
[2020-03-16] MEDS ORDERED: ASPIRIN 81 MG ECTAB PO SCH (21:00)
[2020-03-17] MEDS: METOPROLOL TARTRATE 1 MG/ML VIAL IV SCH ×4 (04:00→16:38)
[2020-03-17] MEDS: ACETAMINOPHEN 1000 MG/100 ML IV IV PRN (04:00)
[2020-03-17] MEDS: INSULIN ASPART 100 UNITS/ML 3 ML PEN SC SCH ×4 (06:04→21:18)
[2020-03-17 06:12] LABS: Basophils # (auto) 0.02 K/uL (0-0.2); Basophils % (auto) 0.3 %; Eosinophils # (auto) 0.19 K/uL (0-0.5); Eosinophils % (auto) 2.9 %; Hemoglobin 14.1 g/dL (14.0-18.0); Immature Granulocytes # (auto) 0.01 K/uL (0.00-0.02); Immature Granulocytes % (auto) 0.2 %; Lymphocytes # (auto) 1.85 K/uL (1.2-3.4); Lymphocytes % (auto) 28.5 %; Mean Corpuscular Hemoglobin 26.6 pg (25-34); Mean Corpuscular Hgb Conc 33.6 g/dL (32-36); Mean Corpuscular Volume 79.2 fL (80-100); Mean Platelet Volume 10.3 fL (7.4-10.4); Monocytes # (auto) 0.52 K/uL (0.11-0.59); Neutrophils % (auto) 60.1 %; Platelet Count 184 K/uL (130-400); RDW Coefficient of Variation 15.7 % (11.5-14.5); RDW Standard Deviation 45.3 fL (36.4-46.3); White Blood Count 6.49 K/uL (4.8-10.8)
[2020-03-17 06:56] LABS: BUN Creatinine Ratio 14.8 (10-20); Calcium 8.9 mg/dl (8.5-10.1); Creatinine Clr Calc Pharmacy 54.6 ml/min; Est GFR (African American) 78.1; Est GFR (Non-African American) 67.4; Potassium 4.1 mmol/L (3.5-5.1)
[2020-03-17] MEDS: MULTIVITAMIN TAB PO SCH (08:07)
[2020-03-17] MEDS: GABAPENTIN 100 MG CAP PO SCH (08:07)
[2020-03-17] MEDS: DOCUSATE SODIUM 100 MG CAP PO SCH ×2 (08:07→21:20)
[2020-03-17] MEDS: CHOLECALCIFEROL 1,000 UNITS 25 MCG TAB PO SCH (08:07)
--- NOTE | 2020-03-17 11:31 | Neurology Consultation ---
Date of Consultation March 17, 2020 Assessment & Plan (1) Left pontine stroke: Mild interval extension of the previously identified ischemic left pontine infarct. Stroke risk factors for this patient have been identified previously and include hyperlipidemia, type 2 diabetes mellitus, hypertension, and chewing tobacco use. Patient's speech is moderately more dysarthric than it had been previously. He will need a speech and swallowing evaluation. I would recommend switching from daily low-dose aspirin to clopidogrel 75 mg/day. Again, he does have a stable/improving small subarachnoid hemorrhage and I had previously recommended discontinuing dual antiplatelet therapy in favor of aspirin monotherapy. He should continue with his statin. Maintain systolic blood pressure between 140 and 160 mmHg acutely. Target long-term systolic blood pressure goal closer to 140 mmHg. PT/OT/speech therapy evaluations. (2) SAH (subarachnoid hemorrhage): Small, stable to improved subarachnoid hemorrhage along the right posterior parieto-occipital sulci. His subarachnoid hemorrhage was identified previously and is improving. There is no parenchymal hemorrhage or mass-effect. Given the slight extension in the previously identified ischemic left pontine infarct, I have recommended switching from daily low-dose aspirin to clopidogrel as above. He should have a repeat CT of the head completed in 1 week to ensure ongoing stability and resolution of the small subarachnoid hemorrhage. 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 History of Present Illness Reason for Consultation: Recurrent stroke Requesting Physician: Jenny Elmore MD Attending Physician: Shayne Shelton MD History of Present Illness The patient is a 79-year-old male who presented to the emergency department yesterday complaining of worsening slurred speech and right-sided weakness since he was discharged from the hospital for the same symptoms, the day prior. I had evaluated this patient during his previous admission on March 14, 2020 for an acute to subacute left pontine stroke presenting with dysarthria and mild right leg weakness. A small subacute subarachnoid hemorrhage along the right posterior parieto-occipital sulci was also identified. He has a history of a chronic right occipital lobe infarct and left homonymous hemianopsia occurring immediately after undergoing coronary artery bypass grafting surgery at [facility] this past September. History also notable for a chronic occlusion of the right internal carotid artery. He had been taking both daily low-dose aspirin and clopidogrel at the time of his previous recent admission. However, in light of the small subarachnoid hemorrhage I recommended discontinuation of clopidogrel and continuation of aspirin. Please see my consultation from March 14, 2020 for additional details. The patient's dysarthria and right-sided weakness were mild and stable at the time of his discharge from the hospital on March 15. He had also undergone 2 additional follow-up head CTs to ensure stability of the small subarachnoid hemorrhage. As above, the patient presented to the emergency department yesterday complaining of worsening slurred speech and right-sided weakness. His speech is a bit more dysarthric sounding than it had been previously. His right arm and leg strength are nearly full at this time and appear similar to what they had been previously. He is able to freely stand up at bedside and appears to have good motor control of the right arm and leg. A repeat CT of the head completed yesterday revealed slight improvement in the previously identified trace subarachnoid hemorrhage within the right parieto-occipital region. The subacute pontine infarct was again identified. A follow-up brain MRI completed yesterday revealed slight interval increase in size of the previously identified acute/subacute left pontine infarct. Imaging described in further detail below. Please see my consultation note from March 14, 2020 for additional details Allergies Allergy/AdvReac Type Severity Reaction Status Date / Time No Known Allergies Allergy Verified 03/16/20 13:53 Home Medications Home Medications Medication Instructions Recorded Confirmed Type aspirin 81 mg tablet,delayed 81 mg PO HS 10/28/18 03/16/20 History release multivitamin 1 tab PO QAM 10/28/18 03/16/20 History cholecalciferol (vitamin D3) 50 2,000 units PO QAM 10/25/19 03/16/20 History mcg (2,000 unit) capsule diclofenac sodium 2 gm TOP QID PRN 01/28/20 03/16/20 History gabapentin 300 mg PO HS 01/28/20 03/16/20 History metformin 500 mg PO BIDM 01/28/20 03/16/20 History hydroxyzine HCl 25 mg tablet 25 mg PO Q6H PRN #120 tab 02/02/20 03/16/20 Rx gabapentin 100 mg capsule 100 mg PO QAM cap 02/21/20 03/16/20 History docusate sodium 100 mg PO BID 03/13/20 03/16/20 History olmesartan 20 mg PO QAM 03/13/20 03/16/20 History pravastatin 10 mg PO HS 03/13/20 03/16/20 History metoprolol succinate 50 mg PO HS 03/14/20 03/16/20 History Patient History Medical History BPH (benign prostatic hyperplasia) CAD (coronary artery disease) Depression GERD (gastroesophageal reflux disease) History of right MOLD SHIFTER stroke HTN (hypertension), benign (Chronic) Hyperlipidemia Hypertension (Acute) Left pontine stroke Lumbar radiculopathy (Chronic) Lung cancer (Resolved) Neuropathy Osteoarthritis (Chronic) Right internal carotid occlusion SAH (subarachnoid hemorrhage) Stroke (Acute) POST-PO HEMIANOPSIA SRCONDARY TO A MOLD SHIFTER 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 Type 2 diabetes mellitus (Chronic) Surgical History History of arthroscopy of shoulder (Resolved) left S/P CABG x 3 09/20/2019: @ [facility]; BARR TO LAD; SVG TO OM AND SVG TO PDA S/P partial lobectomy of lung (Resolved) Family History Father Myocardial infarction Denies family history of Ovarian cancer Prostate cancer Breast cancer Colorectal cancer Social History Preferred Language: Indonesian Communication Ability: Effective Visual Impairment: No Limitations Hearing Ability: Normal Product Accountant Required: No Beliefs That Will Affect Care: None marital status: Current Living Situation: Spouse 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 Safe at Home: Yes Smoking Status: Never smoker Tobacco Type: smokeless tobacco ; Second Hand Exposure: No ; Hx Alcohol Use: No Hx Substance Use: No Dental Care, Regularly: Yes Physical Activity Frequency: Does not Exercise Seatbelt Use: always Sunscreen Use: No Review of Systems Constitutional: no fever, no chills and no fatigue Eyes: as per Subjective / HPI and + blind spots Ear, Nose, Mouth, Throat: no hearing loss Respiratory: no cough and no dyspnea Cardiovascular: no chest pain and no palpitations Gastrointestinal: no nausea and no vomiting Genitourinary: no dysuria and no urinary incontinence Musculoskeletal: no myalgia Integumentary: no rash and no lesions Neurologic: as per Subjective / HPI, + localized weakness and + abnormal speech; no headache(s), no confusion and no memory loss Psychiatric: no depression and no anxiety Hematologic / Lymphatic: no easy bleeding and no easy bruising Exam (Neuro) Constitutional: well developed and well nourished; no acute distress Eyes: normal visual garcia by confrontation, PERRL, normal accommodation and EOM intact bilaterally; no fundoscopic abnormality, no nystagmus and no papilledema His visual garcia appear to be full with bedside confrontation testing. Cardiovascular: Vessels: normal carotid upstroke; no carotid bruit Neurologic: Oriented to:: Person, Place and Time Memory: Short Term Intact and Remote Intact Attention: Span Intact and Concentration Intact Language: Naming Objects and Repeating Phrases Speech Fluency: negative Dysarthria Speech Aphasia: negative Aphasia Fund of Knowledge: Current Events, Past History and Vocabulary Cranial Nerves: Normal II (Visual garcia appear to be full with bedside confrontation testing. Visual acuity normal.), III, IV, (Pupils equal round reactive to light and accommodation, eye movements normal), V (Facial sensation intact), VIII (Hearing intact), IX, X (Palate elevates to midline), XI (Shoulder shrug intact) and XII (Tongue protrudes to midline); Abnorm VII (There is a mild right lower facial droop) Motor Strength: Normal Lower Extremities, Normal Upper Extremities and Pronator Drift Laterality: Right Motor Tone: Normal Lower Extremities and Normal Upper Extremities Muscle Bulk/Involuntary Movements: No Involuntary Movements; negative Muscle Atrophy Sensation: Light Touch Intact, Pain/Temperature Intact, Vibration Intact and Proprioception Intact Coordination: Normal, Finger-Nose Abnormal Laterality: Right and Heel-Monique Abnormal Laterality: Right; negative Limited Balance and Dysdiadochokinesia Deep Tendon Reflexes: Rt Triceps: 2+, Lt Triceps: 2+, Rt Biceps: 2+, Lt Biceps: 2+, Rt Brachioradialis: 2+, Lt Brachioradialis: 2+, Rt Patellar: 2+, Lt Patellar: 1+, Rt Ankle: 1+ and Lt Ankle: 1+ Special Tests: Babinski Present (Right plantar response upgoing, left plantar response downgoing) Gait: Normal Station and Gait Results & Data ([facility]) Vital Signs (Past 12 Hours) Vital Signs Temp Pulse Pulse Resp BP BP Pulse Ox 03/17/20 08:48 36.6 C 58 L 18 151/62 H 98 03/17/20 08:35 55 L 03/17/20 04:00 54 L 03/17/20 03:47 36.7 C 54 L 16 159/65 H 96 03/16/20 23:50 54 L 137/68 03/16/20 23:35 36.7 C 54 L 16 137/68 96 Laboratory Results WBC 6.49, hemoglobin 14.1, hematocrit 42.0, platelet count 184, sodium 140, potassium 4.1, BUN 16, creatinine 1.06, glucose 136, calcium 8.9, triglycerides 498, cholesterol 150, HDL [address] of the head reveals stable to slight improvement in the previously identified trace subarachnoid hemorrhage within the right parieto-occipital region. The subacute left pontine infarct is again seen. There is a chronic right MOLD SHIFTER territory infarct. MRI of the brain reveals a slight interval increase in size of the previously identified subacute/acute left pontine infarct. There is a persistent small subarachnoid hemorrhage within the right parieto-occipital sulci. There is a chronic right occipital lobe infarct. I reviewed the images as well as the radiologist's interpretation of these tests. Electrocardiogram reveals a normal sinus rhythm, 61 bpm An echocardiogram completed March 13, 2020 was negative for cardioembolic source. Left and right atrial size normal. No interatrial shunt. Ejection fraction 55 to 60%. Coding Level of Care Code 68456 Initial Inpt Care Lvl 3 Diagnoses Left pontine stroke I63.50 SAH (subarachnoid hemorrhage) I60.9
[2020-03-17] MEDS ORDERED: Nursing to Pharmacy Communication SCH (12:15)
--- NOTE | 2020-03-17 17:41 | Hospitalist Progress Note ---
Date of Service March 17, 2020 Assessment & Plan (1) Left pontine stroke: Current symptoms due to extension of the same stroke in the left gaye. Subarachnoid hemorrhage is slightly improved to stable from previous. As per last admission-this is most likely thrombotic stroke A1c mildly uncontrolled at 7.8%, TSH normal from last admission He had no atrial arrhythmias noted on telemetry during the last admission and he also had a recent 19-day cardiac event monitor which showed no atrial f ibrillation just 2 weeks ago. With small subarachnoid hemorrhage complicating the picture-unclear if related to head trauma several weeks ago, does not seem to be related to new stroke During last admission, the Plavix was discontinued due to SAH and neurology recommended to continue aspirin only at this point -Admit on observation to PCU for stroke symptoms-he is not a candidate for TPA as his symptoms are improving since [id number] weakness is now resolved, but remains with dysarthria -Switch ASA for Plavix as per neurology recommendations -Continue pravastatin 10 mg daily given severely low LDL very recently and increased risk of bleeding with high intensity statins in that situation - will defer to neurology regarding addition fibrate treatment for hypertriglyceridemia however given his current weakness I would favor not addition this at the current time. -Consult PT/OT -Now eating and drinking after speech evaluation will restart his home BP meds -Appreciate neurology consult (2) SAH (subarachnoid hemorrhage): Slightly improved to stable on CT head noncontrast from 03/16 compared to 03/15 -Previously, neurology recommended repeating CT of the head in 1 week which is already been arranged as an outpatient for next week -Tylenol as needed for headache (3) Right internal carotid occlusion: As noted above No intervention needed (4) Type 2 diabetes mellitus: A1c 7.2 09/20 and now up to 7.8% Needs improved control given multiple strokes Holding metformin due to contrast -Accu-Cheks and sliding scale insulin before meals at bedtime (5) Hypertension: With hypertensive urgency here with blood pressures in the 220s on admission Was given 1 dose of hydralazine 5 mg IV x1 in the ER with some improvement Goal systolic blood pressure is 140-160 right now -IV hydralazine PRN SBP greater than 200 -Switch back to usual metoprolol dosing. -Restart olmesartan and d/c enalaprilat (6) CAD (coronary artery disease): NSTEMI 09/20, treated at [facility] and now status post 3V CABG -Continue aspirin but DCd Plavix during previous admission as above which is acceptable from a cardiology standpoint -continue metoprolol through IV for now and then convert back to p.o. when can take p.o. -Continue low intensity pravastatin due to severely low LDL-changed from atorvastatin to pravastatin just last week-however, he is unable to take p.o. at this point Triglycerides high at 718, LDL not measured due to high triglycerides, and HDL is low-repeat lipid panel again tomorrow morning -Discussed with Dr Montero (his cash application clerk) over the phone and will continue on pravastatin at current dose. (7) BPH (benign prostatic hyperplasia): Noted in history but not taking medications for this -monitor for urinary retention (8) Hyperlipidemia: Continue pravastatin PO daily (9) Neuropathy: Continue gabapentin (10) DVT prophylaxis: SCDs, no Lovenox given recent subarachnoid hemorrhage Disposition- continued inpatient stay for BP management with recent CVA and potential need for placement (patient is reluctant for this but family do not feel he can manage at home in his current state) Admission and Anticipated Discharge Date Admission Date: March 16, 2020 Subjective Patient reports worsening symptoms of difficulty with balance on ambulation and slurred speech since being discharged. He feels better today than yesterday although his family are very concerned with his ability to manage at home. He declines any inpatient rehabilitation, however his family feel he is too weak and is unsafe to go home. The patient is agreeable to stay in hospital for blood pressure optimization post stroke and to further discuss options regarding discharge home or to different rehabilitation other than [facility] where he has had a bad experience before in the past. Review of Systems Review of Systems: All systems reviewed & are unremarkable except as noted in HPI & below Physical Exam Constitutional: WD/WN, vitals as above Eyes: + anicteric sclerae; normal pupil size ENMT: external ear and nose normal, oropharynx normal Neck: normal visual inspection Respiratory: normal respiratory effort, lungs clear to auscultation Cardiovascular: RRR, no murmur, no edema Gastrointestinal (Abdomen): Inspection/Auscultation: normal bowel sounds Percussion/Palpation: abdomen soft; abdomen nontender, no guarding and abdomen not rigid Musculoskeletal: Extremities: extremities normal to inspection; no cyanosis and no clubbing Skin: no rashes, warm and dry Neurologic: CN's II-XI intact bilaterally, moves all extremities and awake; no focal motor deficits (grossly normal b/l extremity strength other than pronator drift as below) Speech / Cognition: + abnormal speech (mild dysarthria) Motor/Sensory: + pronator drift (Mild on the right upper extremity) Gait: + wide-based gait (unbalanced) Coordination: + abnormal [id number] test (right sided) Psychiatric: A+Ox3, euthymic affect Lymphatic: + lymphedema Results & Data Results & Data ([facility]) Vital Signs (Past 12 Hours) Vital Signs Temp Pulse Pulse Resp BP BP Pulse Ox 03/17/20 16:38 67 167/72 H 03/17/20 16:14 37.2 C 67 20 165/72 H 96 03/17/20 15:30 66 03/17/20 14:13 37.6 C H 65 158/68 H 95 03/17/20 12:13 58 L 03/17/20 12:12 58 L 03/17/20 12:03 36.6 C 64 18 151/73 H 99 03/17/20 12:00 58 L 03/17/20 08:48 36.6 C 58 L 18 151/62 H 98 03/17/20 08:35 55 L PG Care Time/CCT Total # of Minutes Spent Total Time Spent with Patient: Total time spent is greater than 50% in coordination of care (as documented) at patient's floor/unit and/or counseling patient: Coding Level of Care Code 65996 Subseq Obs Care Lvl 3 Diagnoses Left pontine stroke I63.50 SAH (subarachnoid hemorrhage) I60.9 Right internal carotid occlusion I65.21 Type 2 diabetes mellitus E11.9 Hypertension I10 Hypertension type: unspecified CAD (coronary artery disease) I25.10 BPH (benign prostatic hyperplasia) N40.0 Hyperlipidemia E78.5 Neuropathy G62.9 DVT prophylaxis Z29.9 (1) Hypertension Hypertension type: unspecified Qualified Code(s): I10 - Essential (primary) hypertension
[2020-03-17] MEDS ORDERED: OLMESARTAN MEDOXOMIL 20 MG TAB PO ONE (17:42)
[2020-03-17] MEDS: ACETAMINOPHEN 325 MG TAB PO PRN (18:50)
[2020-03-17] MEDS: PRAVASTATIN SOD 10 MG TAB PO SCH (21:20)
[2020-03-17] MEDS: GABAPENTIN 300 MG CAP PO SCH (21:20)
[2020-03-17] MEDS: METOPROLOL SUCC 50MG EXT REL TAB PO SCH (22:08)
[2020-03-18] MEDS ORDERED: ENALAPRILAT 0.625 MG in SYRINGE 9.5 ML IV SCH (06:00)
[2020-03-18] MEDS: MULTIVITAMIN TAB PO SCH (07:32)
[2020-03-18] MEDS: DOCUSATE SODIUM 100 MG CAP PO SCH ×2 (07:32→20:43)
[2020-03-18] MEDS: CHOLECALCIFEROL 1,000 UNITS 25 MCG TAB PO SCH (07:32)
[2020-03-18] MEDS: GABAPENTIN 100 MG CAP PO SCH (07:32)
[2020-03-18 07:57] LABS: Basophils # (auto) 0.01 K/uL (0-0.2); Basophils % (auto) 0.2 %; Eosinophils # (auto) 0.17 K/uL (0-0.5); Eosinophils % (auto) 2.9 %; Hematocrit (blood only) 45.8 % (42-52); Hemoglobin 15.3 g/dL (14.0-18.0); Immature Granulocytes # (auto) 0.01 K/uL (0.00-0.02); Immature Granulocytes % (auto) 0.2 %; Lymphocytes # (auto) 1.92 K/uL (1.2-3.4); Lymphocytes % (auto) 32.5 %; Mean Corpuscular Hemoglobin 26.9 pg (25-34); Mean Corpuscular Hgb Conc 33.4 g/dL (32-36); Mean Corpuscular Volume 80.6 fL (80-100); Mean Platelet Volume 9.6 fL (7.4-10.4); Monocytes # (auto) 0.51 K/uL (0.11-0.59); Monocytes % (auto) 8.6 %; Neutrophils # (auto) 3.29 K/uL (1.4-6.5); Neutrophils % (auto) 55.6 %; Platelet Count 195 K/uL (130-400); RDW Coefficient of Variation 15.9 % (11.5-14.5); RDW Standard Deviation 46.8 fL (36.4-46.3); Red Blood Count 5.68 M/uL (4.7-6.1); White Blood Count 5.91 K/uL (4.8-10.8)
[2020-03-18 08:01] LABS: BUN Creatinine Ratio 14.9 (10-20); Calcium 9.3 mg/dl (8.5-10.1); Est GFR (Non-African American) 60.4
[2020-03-18] MEDS: INSULIN ASPART 100 UNITS/ML 3 ML PEN SC SCH ×4 (08:31→20:44)
[2020-03-18] MEDS: OLMESARTAN MEDOXOMIL 20 MG TAB PO SCH (08:31)
[2020-03-18] MEDS: ACETAMINOPHEN 325 MG TAB PO PRN (08:33)
[2020-03-18] MEDS ORDERED: CLOPIDOGREL BISULFATE 75 MG TAB PO SCH (09:00)
--- NOTE | 2020-03-18 09:16 | Neurology Progress Note ---
Date of Service March 18, 2020 Assessment & Plan (1) Left pontine stroke: Rafi Williamson is a 79 yo man w/ PMH of HTN, HLD, DM, CAD s/p CABG, depression, h/o lung cancer s/p partial lobectomy, h/o NSTEMI and h/o prior stroke (R INSTRUCTOR NURSE/occipital lobe) with residual visual deficits who p/t [facility] after worsening of right-sided weakness post-discharge, found to have extension of his recent left pontine infarct. Symptom localization: left gaye Stroke mechanism: lacunar/lipohyalinosis Stroke WorkUp: - CT head: chronic infarcts in the left caudate head, left BG, right occipital lobes and developing hypodensity in the left gaye. There is no SAH (increased hyperdensity in the bed of the chronic right occipital lobe stroke, no corresponding lesion on MRI) - CTA head/neck: stable chronic R ICA occlusion, mild stenosis of L ICA, chronic R INSTRUCTOR NURSE P1 occlusion, mild to moderate stenosis of L INSTRUCTOR NURSE, no other LVO, high grade stenosis or aneurysm noted - MRI brain: subacute infarct in the left medial gaye, chronic infarcts in left caudate head/left BG/right occipital lobe without hemorrhagic conversion noted (no changes on T1/T2 FLAIR to suggest hemorrhage, possible remote hemorrhage on SWAN sequence likely area of hemorrhagic conversion) - TTE: EF 59.5%, no interatrial shunt - Telemetry: NSR - A1c: 7.8 - FLP: unable to calculate (TG 498) - Troponin, TSH: negative, WNL Stroke Management: - Acute treatment: ASA - Continuous cardiac monitoring - Vitals, Neurochecks, NIHSS per unit routine - BP parameters: SBP CAP 180 for 5-7 days from initial stroke symptoms onset given that basilar perforators are known to have a stuttering course that can have additional stroke symptoms over the course of several days (ok to change to goal normotension on 03/18-03/19), hold home anti-hypertensives for permissive HTN, IV Labetalol/PO captopril PRN - Consult speech, PT, OT for supportive management - Will certified rehabilitation counselor concerning stroke education, smoking cessation, healthy diet, physical activity, weight loss - Follow up with PCP for assistance with outpatient goals (BP <130/80, LDL <70, A1c <7) - Follow up in neurology clinic in 6-8 weeks (requesting a virtual check in, can be with myself or ASIA Tan) Secondary Stroke Prevention: - Antiplatelet: change to aspirin 81mg daily and start brillinta (load 180mg x1, then start 90mg bid) - Anticoagulation: Not indicated at this time - Statin: continue pravastatin 10mg daily and also starting fenofibrate or omega 3 fatty acid/Lovaza 4g daily or vascepa 2g daily HTN: - BP parameters, as above - Ok to restart home medications on today or tomorrow (03/18 or 03/19) with goal of lowering BP to normotension over next 3-4 days FEN/GI: - Diet: Beside dysphagia to clear patient for PO meds/Cardiac HH diet - Monitor lytes and replete PRN Glucose Control: - Sliding scale insulin and accuchecks per primary team to avoid hyperglycemia - Needs to work with PCP on better diabetes control (not at goal still for stroke prevention) Thank you for this interesting consult. Plan of care was discussed with primary team. Please call with any questions. (2) Right internal carotid occlusion: (3) Type 2 diabetes mellitus: (4) Hypertension: (5) CAD (coronary artery disease): (6) Hyperlipidemia: (7) Depression: (8) Neuropathy: Admission and Anticipated Discharge Date Admission Date: March 16, 2020 Subjective NAEs overnight. Continues to have R-sided weakness/FP. Review of Systems Review of Systems: 14 point review of systems completed and negative except as in HPI. Results & Data ([facility]) Vital Signs (Past 12 Hours) Vital Signs Temp Pulse Pulse Resp BP BP Pulse Ox 03/18/20 08:08 36.5 C 60 20 148/69 H 96 03/18/20 03:00 36.7 C 57 L 18 160/68 H 96 03/18/20 02:45 56 L 03/17/20 23:30 36.7 C 56 L 18 155/77 H 96 Exam (Neuro) Physical Exam: General Exam: GEN: NAD, sitting down in examination bed. HEENT: No conjunctival injection, no rhinorrhea CV: RRR on monitor, no significant edema. PULM: Nonlabored respirations on room air. Neuro Exam: MS: Awake and Alert. Oriented to person, place, and month/year. Speech fluent and appropriate with mild dysarthria and no paraphasic errors. Language intact including naming, comprehension, repetition. Cognition and memory grossly intact. Attention intact. No neglect. CN: Visual wong full, + blink to threat bilaterally. No extinction to double simultaneous stimuli. Normal fundoscopic exam. PERRLA OU. EOMI without nystagmus. Facial sensation intact to LT. Facial muscles full and symmetric. Hea ring intact to finger rub bilaterally. Uvula midline with symmetric palatal elevation. SCMs and shoulder shrug normal. Tongue midline. MOTOR: Normal bulk and tone. + pronator drift in RUE. LUE strength 5/5 at deltoids, biceps, triceps, wrist flexors and extensors, and finger flexors. RUE strength 5-/5 at deltoids, biceps, triceps, wrist flexors and extensors, and finger flexors. LLE strength 5/5 at iliopsoas, hamstrings, quadriceps, tibialis anterior, and gastrocnemius. RLE strength 5-/5 at iliopsoas, hamstrings, quadriceps, 4/5 tibialis anterior, and 5-/5 gastrocnemius. REFLEXES: 1+ at biceps, triceps, brachioradialis, 2+ R patella, trace L patella, and absent Achilles bilaterally. Flexor plantar responses bilaterally. SENSORY: Intact to LT throughout, no extinction to double simultaneous stimuli. Decreased vibration and pinprick in hands and feet. COORDINATION: No dysmetria or ataxia on [id number] in the LUE. Normal Domitila in left hand, decreased speed/dexterity in right hand 2/2 stroke. GAIT: Deferred due to physical status. NIH STROKE SCALE 1A. Level of Consciousness (0-3) = 0 1B. LOC Questions (0-2) = 0 1C. LOC Commands (0-2) = 0 2. Best Horizontal Gaze (0-2) = 0 3. Visual Wong (0-3) = 0 4. Facial Palsy (0-3) = 0 5. Motor Arm Right (0-4) = 1 Left (0-4) = 0 6. Motor Leg Right (0-4) = 0 Left (0-4) = 0 7. Limb Ataxia (0-2) = 0 8. Sensory (0-2) = 0 9. Best Language (0-3) = 0 10. Dysarthria (0-2) = 1 11. Extinction and Inattention (0-2) = 0 NIHSS TOTAL = 2 PG Care Time/CCT Total # of Minutes Spent Total Time Spent with Patient: Total time spent is greater than 50% in coordination of care (as documented) at patient's floor/unit and/or counseling patient: Coding Level of Care Code 30224 Subseq Hosp Care Lvl 3 Diagnoses Left pontine stroke I63.50 Right internal carotid occlusion I65.21 Type 2 diabetes mellitus E11.9 Hypertension I10 Hypertension type: essential hypertension CAD (coronary artery disease) I25.10 Hyperlipidemia E78.5 Depression F32.9 Neuropathy G62.9 (1) Hypertension Hypertension type: essential hypertension Qualified Code(s): I10 - Essential (primary) hypertension
[2020-03-18] MEDS: ASPIRIN 81 MG ECTAB PO SCH (12:08)
--- NOTE | 2020-03-18 15:11 | Hospitalist Progress Note ---
Date of Service March 18, 2020 Assessment & Plan (1) Left pontine stroke: Current symptoms due to extension of the same stroke in the left gaye. Subarachnoid hemorrhage has now been ruled out as per new neurology opinion on 03/18 As per last admission-this is most likely thrombotic stroke A1c mildly uncontrolled at 7.8%, TSH normal from last admission He had no atrial arrhythmias noted on telemetry during the last admission and he also had a recent 19-day cardiac event monitor which showed no atrial fibrillation just 2 weeks ago. During last admission, the Plavix was discontinued due to suspected SAH and neurology recommended to continue aspirin only Now that SAH is ruled out, neurology recommends switching from aspirin/Plavix to aspirin/Brilinta-here to receive Plavix today so we will load with Brilinta tomorrow and restart aspirin today -This is a stuttering course due to basilar perforators and likely has blood pressure was too low after he was discharged -Hold home metoprolol for this evening, okay to continue losartan in the morning with hold parameters for SBP less than 140 -We will give IV fluids as needed to keep blood pressure greater than 140 systolic and Systolic blood pressure of 180 -Continue pravastatin 10 mg daily given severely low LDL very recently and increased risk of bleeding with high intensity statins in that situation -Neurology recommends treatment of hypertriglyceridemia-we will try Lovaza as the Cipro was too expensive -Consult PT/OT appreciated-recommends rehab -Appreciate neurology consult (2) SAH (subarachnoid hemorrhage): Now ruled out No further follow-up needed (3) Right internal carotid occlusion: As noted above No intervention needed Continue antiplatelet therapy and statin (4) Type 2 diabetes mellitus: A1c 7.2 09/20 and now up to 7.8% Needs improved control given multiple strokes Holding metformin due to contrast -Accu-Cheks and sliding scale insulin before meals at bedtime (5) Hypertension: With hypertensive urgency here with blood pressures in the 220s on admission Was given 1 dose of hydralazine 5 mg IV x1 in the ER with some improvement Goal systolic blood pressure is 140-180 right now DC IV hydralazine as per neurology recommendation, can use captopril p.o. as needed -Holding home metoprolol and continue on losartan with hold parameters as above (6) CAD (coronary artery disease): NSTEMI 09/20, treated at [facility] and now status post 3V CABG -Continue aspirin but DCd Plavix during previous admission as above which is acceptable from a cardiology standpoint -continue metoprolol through IV for now and then convert back to p.o. when can take p.o. -Continue low intensity pravastatin due to severely low LDL-changed from atorvastatin to pravastatin just last week-however, he is unable to take p.o. at this point Triglycerides remain high, LDL not measured due to high triglycerides -Start Lovaza as an outpatient (7) BPH (benign prostatic hyperplasia): Noted in history but not taking medications for this -monitor for urinary retention (8) Hyperlipidemia: Continue pravastatin PO daily , Lovaza as above (9) Neuropathy: Continue gabapentin (10) DVT prophylaxis: SCDs, no Lovenox given due to suspected subarachnoid hemorrhage Disposition-plan for discharge to rehab on Friday once insurance authorization can be obtained Continue PT/OT daily and continue close observation of his blood pressure to make sure it does not get too low Admission and Anticipated Discharge Date Admission Date: March 18, 2020 Subjective Patient continues to have slurred speech and weakness especially in the right hand which is frustrating to him. He continues to have a mild headache requiring Tylenol intermittently. We discussed the need for him to go to rehab and he is agreeable to this. I discussed the case in depth with neurology who made multiple recommendations. I discussed the case with his family at the bedside as well. Telemetry with normal sinus rhythm and sinus bradycardia with rates in the 50s to 60s, no arrhythmias Review of Systems Review of Systems: All systems reviewed & are unremarkable except as noted in HPI & below Denies chest pains or shortness of breath, no abdominal pain or nausea, no new focal weakness Physical Exam Constitutional: WD/WN, vitals as above Eyes: PERRL, conjunctivae normal, anicteric sclerae Neck: trachea midline, no thyromegaly Respiratory: normal respiratory effort, lungs clear to auscultation Cardiovascular: RRR, no murmur, no edema Chest (Breasts): Chest: normal inspection of chest Gastrointestinal (Abdomen): normal bowel sounds, soft, nontender, no hepatosplenomegaly Musculoskeletal: Extremities: extremities normal to inspection; no cyanosis and no clubbing Skin: no rashes, warm and dry Neurologic: CN's II-XI intact bilaterally (Except with mild facial droop on the right), + focal motor deficit (Now with 4+/5 strength in the right upper extremity and 5-/5 strength in the right lower extremity, otherwise 5/5 throughout left side-note this is worsened since my exam from 03/16) and awake Speech / Cognition: + abnormal speech (With mild to moderate dysarthria ) Motor/Sensory: no tremor and no sensory deficit (Sensation intact to light touch throughout except slightly decreased to light touch in the right leg) Psychiatric: A+Ox3, euthymic affect Lymphatic: no lymphedema Results & Data Results & Data ([facility]) Vital Signs (Past 12 Hours) Vital Signs Temp Pulse Resp BP BP Pulse Ox 03/18/20 12:03 36.5 C 62 20 135/66 97 03/18/20 08:08 36.5 C 60 20 148/69 H 96 Laboratory Results 03/18/20 03/18/20 03/18/20 Range/Units 16:43 11:32 07:58 WBC (4.8-10.8) K/uL RBC (4.7-6.1) M/uL Hgb (14.0-18.0) g/dL Hct (42-52) % MCV (80-100) fL MCH (25-34) pg MCHC (32-36) g/dL RDW Std Deviation (36.4-46.3) fL RDW Coeff of Duane (11.5-14.5) % Plt Count (130-400) K/uL MPV (7.4-10.4) fL Immature Gran % (Auto) % Neut % (Auto) % Lymph % (Auto) % Dupage % (Auto) % Eos % (Auto) % Baso % (Auto) % Neut # (Auto) (1.4-6.5) K/uL Lymph # (Auto) (1.2-3.4) K/uL Dupage # (Auto) (0.11-0.59) K/uL Eos # (Auto) (0-0.5) K/uL Baso # (Auto) (0-0.2) K/uL Immature Gran # (Auto) (0.00-0.02) K/uL Sodium (136-145) mmol/L Potassium (3.5-5.1) mmol/L Chloride (98-107) mmol/L Carbon Dioxide (21-32) mmol/L Anion Gap (3-11) BUN (7-18) mg/dl Creatinine (0.6-1.4) mg/dl Est Cr Clr Drug Dosing ml/min Est GFR ( Amer) Est GFR (Non-Af Amer) BUN/Creatinine Ratio (10-20) Glucose (70-99) mg/dl POC Glucose 162 H 242 H 153 H (70-99) mg/dl Calcium (8.5-10.1) mg/dl 03/18/20 03/18/20 03/17/20 Range/Units 07:08 07:08 20:37 WBC 5.91 (4.8-10.8) K/uL RBC 5.68 (4.7-6.1) M/uL Hgb 15.3 (14.0-18.0) g/dL Hct 45.8 (42-52) % MCV 80.6 (80-100) fL MCH 26.9 (25-34) pg MCHC 33.4 (32-36) g/dL RDW Std Deviation 46.8 H (36.4-46.3) fL RDW Coeff of Duane 15.9 H (11.5-14.5) % Plt Count 195 (130-400) K/uL MPV 9.6 (7.4-10.4) fL Immature Gran % (Auto) 0.2 % Neut % (Auto) 55.6 % Lymph % (Auto) 32.5 % Dupage % (Auto) 8.6 % Eos % (Auto) 2.9 % Baso % (Auto) 0.2 % Neut # (Auto) 3.29 (1.4-6.5) K/uL Lymph # (Auto) 1.92 (1.2-3.4) K/uL Dupage # (Auto) 0.51 (0.11-0.59) K/uL Eos # (Auto) 0.17 (0-0.5) K/uL Baso # (Auto) 0.01 (0-0.2) K/uL Immature Gran # (Auto) 0.01 (0.00-0.02) K/uL Sodium 137 (136-145) mmol/L Potassium 4.0 (3.5-5.1) mmol/L Chloride 104 (98-107) mmol/L Carbon Dioxide 28 (21-32) mmol/L Anion Gap 5.0 (3-11) BUN 17 (7-18) mg/dl Creatinine 1.16 (0.6-1.4) mg/dl Est Cr Clr Drug Dosing 49.0 ml/min Est GFR ( Amer) 70.0 Est GFR (Non-Af Amer) 60.4 BUN/Creatinine Ratio 14.9 (10-20) Glucose 158 H (70-99) mg/dl POC Glucose 195 H (70-99) mg/dl Calcium 9.3 (8.5-10.1) mg/dl PG Care Time/CCT Total # of Minutes Spent Total Time Spent with Patient: Total time spent is greater than 50% in coordination of care (as documented) at patient's floor/unit and/or counseling patient: Coding Level of Care Code 91882 Subseq Hosp Care Lvl 3 Diagnoses Left pontine stroke I63.50 SAH (subarachnoid hemorrhage) I60.9 Right internal carotid occlusion I65.21 Type 2 diabetes mellitus E11.9 Hypertension I10 Hypertension type: essential hypertension CAD (coronary artery disease) I25.10 BPH (benign prostatic hyperplasia) N40.0 Hyperlipidemia E78.5 Neuropathy G62.9 DVT prophylaxis Z29.9 (1) Hypertension Hypertension type: essential hypertension Qualified Code(s): I10 - Essential (primary) hypertension
[2020-03-18] MEDS: ACETAMINOPHEN 500 MG TAB PO PRN (16:44)
[2020-03-18] MEDS ORDERED: SODIUM CHLORIDE 0.9% 1000ML 1,000 ML IV SCH (19:45)
[2020-03-18] MEDS: GABAPENTIN 300 MG CAP PO SCH (20:42)
[2020-03-18] MEDS: PRAVASTATIN SOD 10 MG TAB PO SCH (20:43)
[2020-03-19] MEDS: GABAPENTIN 100 MG CAP PO SCH (07:32)
[2020-03-19] MEDS: ASPIRIN 81 MG ECTAB PO SCH (07:32)
[2020-03-19] MEDS: ACETAMINOPHEN 500 MG TAB PO SCH (07:32)
[2020-03-19] MEDS: DOCUSATE SODIUM 100 MG CAP PO SCH ×2 (07:32→21:18)
[2020-03-19] MEDS: MULTIVITAMIN TAB PO SCH (07:33)
[2020-03-19] MEDS: CHOLECALCIFEROL 1,000 UNITS 25 MCG TAB PO SCH (07:33)
[2020-03-19] MEDS: OLMESARTAN MEDOXOMIL 20 MG TAB PO SCH (07:33)
[2020-03-19] MEDS: TICAGRELOR 90 MG TAB PO SCH (07:33)
[2020-03-19] MEDS: INSULIN GLARGINE SOLOSTAR 100 UNITS/ML 3 ML PEN SC SCH (08:11)
[2020-03-19] MEDS: INSULIN ASPART 100 UNITS/ML 3 ML PEN SC SCH ×4 (08:11→21:18)
[2020-03-19 08:23] LABS: Hematocrit (blood only) 43.2 % (42-52); Hemoglobin 14.2 g/dL (14.0-18.0); Mean Corpuscular Hemoglobin 26.6 pg (25-34); Mean Corpuscular Hgb Conc 32.9 g/dL (32-36); Mean Corpuscular Volume 80.9 fL (80-100); Mean Platelet Volume 10.3 fL (7.4-10.4); Platelet Count 185 K/uL (130-400); RDW Coefficient of Variation 15.9 % (11.5-14.5); RDW Standard Deviation 47.1 fL (36.4-46.3); Red Blood Count 5.34 M/uL (4.7-6.1); White Blood Count 7.32 K/uL (4.8-10.8)
[2020-03-19 08:32] LABS: BUN Creatinine Ratio 17.8 (10-20); Est GFR (Non-African American) 60.4; Potassium 4.6 mmol/L (3.5-5.1)
[2020-03-19 08:54] LABS: Basophils # (auto) 0.01 K/uL (0-0.2); Basophils % (auto) 0.1 %; Eosinophils # (auto) 0.22 K/uL (0-0.5); Immature Granulocytes # (auto) 0.02 K/uL (0.00-0.02); Immature Granulocytes % (auto) 0.3 %; Lymphocytes # (auto) 1.71 K/uL (1.2-3.4); Lymphocytes % (auto) 23.4 %; Monocytes % (auto) 9.6 %; Neutrophils # (auto) 4.66 K/uL (1.4-6.5); Neutrophils % (auto) 63.6 %
[2020-03-19] MEDS ORDERED: SODIUM CHLORIDE 0.9% 1000ML 1,000 ML IV SCH (17:00)
--- NOTE | 2020-03-19 17:03 | Hospitalist Progress Note ---
Date of Service March 19, 2020 Assessment & Plan (1) Left pontine stroke: Current symptoms due to extension of the same stroke in the left gaye from previous admission. Subarachnoid hemorrhage has now been ruled out as per new neurology opinion on 03/18 As per last admission-this is most likely thrombotic stroke A1c mildly uncontrolled at 7.8%, TSH normal from last admission He had no atrial arrhythmias noted on telemetry during the last admission and he also had a recent 19-day cardiac event monitor which showed no atrial fibrillation just 2 weeks ago. During last admission, the Plavix was discontinued due to suspected SAH and neurology recommended to continue aspirin only Now that SAH is ruled out, neurology recommends switching from aspirin/Plavix to aspirin/Brilinta instead -This is a stuttering course due to basilar perforators and likely has blood pressure was too low after he was discharged with stroke the first admission -Continue to hold home metoprolol for this evening, okay to continue olmesartan in the morning with hold parameters for SBP less than 140 -Will give IV fluids as needed to keep blood pressure greater than 140 systolic and Systolic blood pressure of 180-we will give another 1 L normal saline this afternoon -Can likely restart home metoprolol on 03/20 as he will then be 1 week out from the time of the original stroke -Placed in order to have patient lie flat in bed if blood pressure drops below 140 or has worsening of his current symptoms of dysarthria or right sided weakness -Continue pravastatin 10 mg daily given severely low LDL very recently and increased risk of bleeding with high intensity statins in that situation -Neurology recommends treatment of hypertriglyceridemia- will try Lovaza as the Vacepa was too expensive -Consult PT/OT appreciated-recommends rehab -Appreciate neurology consult (2) SAH (subarachnoid hemorrhage): Now ruled out as per neurology No further follow-up needed (3) Right internal carotid occlusion: As noted above, chronic No intervention needed Continue antiplatelet therapy and statin (4) Type 2 diabetes mellitus: A1c 7.2 09/20 and now up to 7.8% Needs improved control given multiple strokes Holding metformin due to contrast but with developing hyperglycemia here Add on Lantus 8 units once daily and tighten down NovoLog sliding scale -Plan to restart metformin on Friday morning as he will be 3 days out from his IV contrast (5) Hypertension: With hypertensive urgency here with blood pressures in the 220s on admission Was given 1 dose of hydralazine 5 mg IV x1 in the ER with some improvement Goal systolic blood pressure is 140-180 right now DC IV hydralazine as per neurology recommendation as is too potent and could cause worsening of his stroke symptoms if blood pressure drops too low; can use captopril p.o. as needed -Holding home metoprolol and continue on olmesartan with hold parameters as above (6) CAD (coronary artery disease): NSTEMI 09/20, treated at [facility] [place] and now status post 3V CABG -Continue aspirin but DCd Plavix during previous admission as above due to suspected SAH-now on Brilinta -Holding home metoprolol as above -Continue low intensity pravastatin due to severely low LDL-changed from atorvastatin to pravastatin just last week Triglycerides remain high, LDL not measured due to high triglycerides -Start Lovaza as an outpatient as not available in this formulary (7) BPH (benign prostatic hyperplasia): Noted in history but not taking medications for this -monitor for urinary retention (8) Hyperlipidemia: Continue pravastatin PO daily , Lovaza as above (9) Neuropathy: Continue gabapentin (10) DVT prophylaxis: SCDs, aspirin/Brilinta Disposition-plan for discharge to rehab on Friday once insurance authorization can be obtained Continue PT/OT daily and continue close observation of his blood pressure to make sure it does not get too low Admission and Anticipated Discharge Date Admission Date: March 18, 2020 Anticipated date of discharge: 03/20/20 Subjective Patient feels his slurred speech is improved today, but he is having more weakne ss in the right hand as the day goes on. He has been out of bed to the chair all day long. Blood pressure has remained greater than 140 systolic until later this afternoon. He is still having ongoing headache across the top of his head that is a 2 or 3 out of 10 in severity and is relieved with Tylenol. He is also starting to have some anxiety thinking about having a stay in the hospital longer and then go to rehab. He is requesting the hydroxyzine that he has at home, but states that the 25 mg dose completely knocks him out. No new focal neuro symptoms. He is feeling better that he was able to walk a little bit better today with physical therapy. Review of Systems Review of Systems: All systems reviewed & are unremarkable except as noted in HPI & below Physical Exam Constitutional: WD/WN, vitals as above Neck: trachea midline, no thyromegaly Respiratory: normal respiratory effort, lungs clear to auscultation Cardiovascular: RRR, no murmur, no edema Chest (Breasts): Chest: normal inspection of chest Gastrointestinal (Abdomen): normal bowel sounds, soft, nontender, no hepatosplenomegaly Musculoskeletal: Extremities: extremities normal to inspection; no cyanosis and no clubbing Skin: no rashes, warm and dry Neurologic: CN's II-XI intact bilaterally (Except with mild facial droop on the right), + focal motor deficit (Now with 4/5 strength in the right upper extremity and 5-/5 strength in the right lower extremity, otherwise 5/5 throughout left side) and awake Speech / Cognition: + abnormal speech (With mild dysarthria improved from yesterday) Motor/Sensory: no tremor and no sensory deficit (Sensation intact to light touch throughout except slightly decreased to light touch in the right leg) Coordination: + abnormal [id number] test (On the right); normal rapid alternating movements Psychiatric: A+Ox3, euthymic affect Lymphatic: no lymphedema Results & Data Results & Data ([facility]) Vital Signs (Past 12 Hours) Vital Signs Temp Pulse Pulse Resp BP Pulse Ox 03/19/20 16:04 36.5 C 69 18 139/61 98 03/19/20 15:44 81 03/19/20 12:08 35.9 C L 65 18 168/72 H 98 03/19/20 07:19 36.8 C 60 18 168/63 H 96 Laboratory Results 03/19/20 03/19/20 03/19/20 Range/Units 16:26 11:29 07:41 WBC (4.8-10.8) K/uL RBC (4.7-6.1) M/uL Hgb (14.0-18.0) g/dL Hct (42-52) % MCV (80-100) fL MCH (25-34) pg MCHC (32-36) g/dL RDW Std Deviation (36.4-46.3) fL RDW Coeff of [place] (11.5-14.5) % Plt Count (130-400) K/uL MPV (7.4-10.4) fL Immature Gran % (Auto) % Neut % (Auto) % Lymph % (Auto) % [place] % (Auto) % Eos % (Auto) % Baso % (Auto) % Neut # (Auto) (1.4-6.5) K/uL Lymph # (Auto) (1.2-3.4) K/uL [place] # (Auto) (0.11-0.59) K/uL Eos # (Auto) (0-0.5) K/uL Baso # (Auto) (0-0.2) K/uL Immature Gran # (Auto) (0.00-0.02) K/uL Sodium (136-145) mmol/L Potassium (3.5-5.1) mmol/L Chloride (98-107) mmol/L Carbon Dioxide (21-32) mmol/L Anion Gap (3-11) BUN (7-18) mg/dl Creatinine (0.6-1.4) mg/dl Est Cr Clr Drug Dosing ml/min Est GFR ( Amer) Est GFR (Non-Af Amer) BUN/Creatinine Ratio (10-20) Glucose (70-99) mg/dl POC Glucose 188 H 222 H 149 H (70-99) mg/dl Calcium (8.5-10.1) mg/dl 03/19/20 03/19/20 03/18/20 Range/Units 06:52 06:52 20:30 WBC 7.32 (4.8-10.8) K/uL RBC 5.34 (4.7-6.1) M/uL Hgb 14.2 (14.0-18.0) g/dL Hct 43.2 (42-52) % MCV 80.9 (80-100) fL MCH 26.6 (25-34) pg MCHC 32.9 (32-36) g/dL RDW Std Deviation 47.1 H (36.4-46.3) fL RDW Coeff of [place] 15.9 H (11.5-14.5) % Plt Count 185 (130-400) K/uL MPV 10.3 (7.4-10.4) fL Immature Gran % (Auto) 0.3 % Neut % (Auto) 63.6 % Lymph % (Auto) 23.4 % [place] % (Auto) 9.6 % Eos % (Auto) 3.0 % Baso % (Auto) 0.1 % Neut # (Auto) 4.66 (1.4-6.5) K/uL Lymph # (Auto) 1.71 (1.2-3.4) K/uL [place] # (Auto) 0.70 H (0.11-0.59) K/uL Eos # (Auto) 0.22 (0-0.5) K/uL Baso # (Auto) 0.01 (0-0.2) K/uL Immature Gran # (Auto) 0.02 (0.00-0.02) K/uL Sodium 139 (136-145) mmol/L Potassium 4.6 (3.5-5.1) mmol/L Chloride 108 H (98-107) mmol/L Carbon Dioxide 26 (21-32) mmol/L Anion Gap 6.0 (3-11) BUN 21 H (7-18) mg/dl Creatinine 1.16 (0.6-1.4) mg/dl Est Cr Clr Drug Dosing 50.0 ml/min Est GFR ( Amer) 70.0 Est GFR (Non-Af Amer) 60.4 BUN/Creatinine Ratio 17.8 (10-20) Glucose 152 H (70-99) mg/dl POC Glucose 248 H (70-99) mg/dl Calcium 9.0 (8.5-10.1) mg/dl PG Care Time/CCT Total # of Minutes Spent Total Time Spent with Patient: Total time spent is greater than 50% in coordi nation of care (as documented) at patient's floor/unit and/or counseling patient: Coding Level of Care Code 05751 Subseq Hosp Care Lvl 3 Diagnoses Left pontine stroke I63.50 SAH (subarachnoid hemorrhage) I60.9 Right internal carotid occlusion I65.21 Type 2 diabetes mellitus E11.9 Hypertension I10 Hypertension type: essential hypertension CAD (coronary artery disease) I25.10 BPH (benign prostatic hyperplasia) N40.0 Hyperlipidemia E78.5 Neuropathy G62.9 DVT prophylaxis Z29.9 (1) Hypertension Hypertension type: essential hypertension Qualified Code(s): I10 - Essential (primary) hypertension
[2020-03-19] MEDS: ACETAMINOPHEN 500 MG TAB PO PRN (17:32)
[2020-03-19] MEDS: METFORMIN HCL 500 MG TAB PO SCH (18:25)
[2020-03-19] MEDS: PRAVASTATIN SOD 10 MG TAB PO SCH (21:18)
[2020-03-19] MEDS: GABAPENTIN 300 MG CAP PO SCH (21:18)
[2020-03-20 07:04] LABS: BUN Creatinine Ratio 14.1 (10-20); Calcium 8.7 mg/dl (8.5-10.1); Creatinine Clr Calc Pharmacy 55.8 ml/min; Est GFR (African American) 79.9; Est GFR (Non-African American) 68.9; Potassium 3.8 mmol/L (3.5-5.1)
[2020-03-20] MEDS: GABAPENTIN 100 MG CAP PO SCH (07:24)
[2020-03-20] MEDS: ASPIRIN 81 MG ECTAB PO SCH (07:24)
[2020-03-20] MEDS: MULTIVITAMIN TAB PO SCH (07:24)
[2020-03-20] MEDS: DOCUSATE SODIUM 100 MG CAP PO SCH ×2 (07:24→21:10)
[2020-03-20] MEDS: TICAGRELOR 90 MG TAB PO SCH ×2 (07:24→07:25)
[2020-03-20] MEDS: ACETAMINOPHEN 500 MG TAB PO SCH (07:24)
[2020-03-20] MEDS: CHOLECALCIFEROL 1,000 UNITS 25 MCG TAB PO SCH (07:24)
[2020-03-20] MEDS: OLMESARTAN MEDOXOMIL 20 MG TAB PO SCH (07:25)
[2020-03-20] MEDS: METFORMIN HCL 500 MG TAB PO SCH ×2 (07:25→16:57)
[2020-03-20] MEDS: INSULIN ASPART 100 UNITS/ML 3 ML PEN SC SCH ×4 (08:32→20:38)
[2020-03-20] MEDS: INSULIN GLARGINE SOLOSTAR 100 UNITS/ML 3 ML PEN SC SCH (08:33)
[2020-03-20] MEDS ORDERED: HydrALAZINE HCL 20 MG/ML VIAL IV PRN (14:26)
[2020-03-20] MEDS ORDERED: POLYETHYLENE (MIRALAX) 17 GM PACK PO ONE (15:15)
--- NOTE | 2020-03-20 16:32 | Hospitalist Progress Note ---
Date of Service March 20, 2020 Assessment & Plan (1) Left pontine stroke: Current symptoms due to extension of the same stroke in the left gaye from previous admission. Subarachnoid hemorrhage has now been ruled out as per new neurology opinion on 03/18 As per last admission-this is most likely thrombotic stroke A1c mildly uncontrolled at 7.8%, TSH normal from last admission He had no atrial arrhythmias noted on telemetry during the last admission and he also had a recent 19-day cardiac event monitor which showed no atrial fibrillation just 2 weeks ago. During last admission, the Plavix was discontinued due to suspected SAH and neurology recommended to continue aspirin only Now that SAH is ruled out, neurology recommends switching from aspirin/Plavix to aspirin/Brilinta instead -This is a stuttering course due to basilar perforators and likely has blood pressure was too low after he was discharged with stroke the first admission -Continue to hold home metoprolol for this evening, okay to continue olmesartan in the morning with hold parameters for SBP less than 140 -resume Toprol this evening -Continue pravastatin 10 mg daily given severely low LDL very recently and increased risk of bleeding with high intensity statins in that situation -Neurology recommends treatment of hypertriglyceridemia- will try Lovaza as the Vacepa was too expensive -Consult PT/OT appreciated-recommends rehab -Appreciate neurology consult plan for d/c to rehab tomorrow, pending insurance authorization (2) SAH (subarachnoid hemorrhage): Now ruled out as per neurology No further follow-up needed (3) Right internal carotid occlusion: As noted above, chronic No intervention needed Continue antiplatelet therapy (aspirin and Brilinta) and statin (4) Type 2 diabetes mellitus: A1c 7.2 09/20 and now up to 7.8% Needs improved control given multiple strokes resumed Metformin today continue Lantus 8 units once daily, can continue this on discharge as it may improve his A1c (5) Hypertension: With hypertensive urgency here with blood pressures in the 220s on admission Was given 1 dose of hydralazine 5 mg IV x1 in the ER with some improvement Goal systolic blood pressure is 140-180 right now DC IV hydralazine as per neurology recommendation as is too potent and could cause worsening of his stroke symptoms if blood pressure drops too low; can use captopril p.o. as needed BP 170-190 systolic today, continue the olmesartan, resume Toprol this evening follow BP tomorrow morning (6) CAD (coronary artery disease): NSTEMI 09/20, treated at [facility] [place] and now status post 3V CABG -Continue aspirin but DCd Plavix during previous admission as above due to suspected SAH-now on Brilinta - resume Toprol -Continue low intensity pravastatin due to severely low LDL-changed from atorvastatin to pravastatin just last week Triglycerides remain high, LDL not measured due to high triglycerides -Start Lovaza as an outpatient as not available in this formulary (7) BPH (benign prostatic hyperplasia): Noted in history but not taking medications for this -monitor for urinary retention (8) Hyperlipidemia: Continue pravastatin PO daily , Lovaza as above (9) Neuropathy: Continue gabapentin (10) DVT prophylaxis: SCDs, aspirin/Brilinta Disposition-plan for discharge to rehab on Friday once insurance authorization can be obtained Continue PT/OT daily and continue close observation of his blood pressure to make sure it does not get too low add Miralax daily for constipation, do not want him straining Admission and Anticipated Discharge Date Admission Date: March 18, 2020 Subjective patient doing better, getting stronger with therapy he says that he is "eating like a horse, I never have that issue" however, he has not had a BM, ordered Miralax blood pressure running high today, plan to resume Toprol this evening discussed with his family, answered all their questions reviewed chart, reviewed neurology recommendations labs today show stable sodium and Cr d/w CM, hope for discharge to rehab tomorrow Review of Systems Review of Systems: All systems reviewed & are unremarkable except as noted in HPI & below Physical Exam Constitutional: WD/WN, vitals as above Eyes: PERRL, conjunctivae normal, anicteric sclerae ENMT: external ear and nose normal, oropharynx normal Neck: trachea midline, no thyromegaly Respiratory: normal respiratory effort, lungs clear to auscultation Cardiovascular: RRR, no murmur, no edema Gastrointestinal (Abdomen): normal bowel sounds, soft, nontender, no hepatosplenomegaly Musculoskeletal: Head/Neck/Chest: normocephalic, head atraumatic and neck supple Extremities: extremities normal to inspection and + abnormal strength (right sided weakness); no cyanosis, no clubbing and no petechiae Skin: no rashes, warm and dry Neurologic: normal touch/pain/proprioception, CN's II-XI intact bilaterally, deep tendon reflexes 2+ bilaterally, plantar reflexes intact bilaterally, normal sensation to monofilament and awake; no focal motor deficits Speech / Cognition: + abnormal speech (slightly slurred speech when talking a lot) Psychiatric: A+Ox3, euthymic affect Lymphatic: no cervical or axillary lymphadenopathy Results & Data Results & Data ([facility]) Vital Signs (Past 12 Hours) Vital Signs Temp Pulse Pulse Resp BP Pulse Ox 03/20/20 16:02 77 03/20/20 15:06 36.7 C 75 18 152/69 H 98 03/20/20 11:16 36.8 C 70 20 193/76 H 97 03/20/20 08:38 186/74 H 03/20/20 07:47 36.7 C 65 20 197/74 H 97 Laboratory Results Laboratory Results - last 24 hr 03/19/20 03/20/20 03/20/20 20:33 06:00 07:34 Sodium 140 Potassium 3.8 D Chloride 108 H Carbon Dioxide 24 Anion Gap 7.0 BUN 15 Creatinine 1.04 Est Cr Clr Drug Dosing 55.8 Est GFR ( Amer) 79.9 Est GFR (Non-Af Amer) 68.9 BUN/Creatinine Ratio 14.1 Glucose 140 H POC Glucose 172 H 138 H Calcium 8.7 03/20/20 03/20/20 11:27 16:29 Sodium Potassium Chloride Carbon Dioxide Anion Gap BUN Creatinine Est Cr Clr Drug Dosing Est GFR ( Amer) Est GFR (Non-Af Amer) BUN/Creatinine Ratio Glucose POC Glucose 143 H 117 H Calcium Medications Administered Current Inpatient Medications Acetaminophen (Tylenol) 1,000 mg PO [facility] Stop: 04/18/20 08:59 Last Admin: 03/20/20 07:24 Dose: 1,000 mg Documented by: Acetaminophen (Tylenol) 1,000 mg PO Q8 PRN PRN Reason: Pain Stop: 04/17/20 16:17 Last Admin: 03/19/20 17:32 Dose: 1,000 mg Documented by: Aspirin (Ecotrin Ectab) 81 mg PO QAM [facility] Stop: 04/17/20 10:29 Last Admin: 03/20/20 07:24 Dose: 81 mg Documented by: Dextrose (Dextrose 50%) 25 - 50 ml IV UD PRN; Protocol PRN Reason: Hypoglycemia Protocol Stop: 04/15/20 18:22 Diclofenac Sodium (Voltaren 1% Top) 2 gm EXT QID PRN PRN Reason: Pain Stop: 04/15/20 18:22 Docusate Sodium (Colace) 100 mg PO BID [facility] Stop: 04/15/20 20:59 Last Admin: 03/20/20 07:24 Dose: 100 mg Documented by: Gabapentin (Neurontin) 100 mg PO QAM [facility] Stop: 04/16/20 08:59 Last Admin: 03/20/20 07:24 Dose: 100 mg Documented by: Gabapentin (Neurontin) 300 mg PO HS [facility] Stop: 04/15/20 20:59 Last Admin: 03/19/20 21:18 Dose: 300 mg Documented by: Glucagon (Glucagen) 1 mg SQ UD PRN; Protocol PRN Reason: Hypoglycemia Protocol Stop: 04/15/20 18:22 Glucose (Dex4 Glucose) 4 - 8 tabs PO UD PRN; Protocol PRN Reason: Hypoglycemia Protocol Stop: 04/15/20 18:22 Glucose (Glucose 40%) 15 - 30 gm PO UD PRN; Protocol PRN Reason: Hypoglycemia Protocol Stop: 04/15/20 18:22 Hydroxyzine HCl (Vistaril) 25 mg PO Q6H PRN PRN Reason: anxiety Stop: 04/15/20 18:22 Last Admin: 03/20/20 10:59 Dose: 25 mg Documented by: Insulin Aspart (Novolog Flexpen) 0 units SC [facility] Stop: 04/16/20 16:29 Last Admin: 03/20/20 12:11 Dose: 5 units Documented by: Insulin Glargine (Lantus Solostar Pen) [facility] Stop: 04/18/20 08:59 Last Admin: 03/20/20 08:33 Dose: 8 units Documented by: Metformin HCl (Glucophage) 500 mg PO BIDM [facility] Stop: 04/18/20 17:14 Last Admin: 03/20/20 07:25 Dose: 500 mg Documented by: Metoprolol Succinate (Toprol Xl) 50 mg PO HS [facility] Stop: 04/15/20 20:59 Last Admin: 03/17/20 22:08 Dose: 50 mg Documented by: Miscellaneous (Carbohydrates For Hypoglycemia) 15 - 30 gm PO UD PRN PRN Reason: Hypoglycemia Protocol Stop: 04/15/20 18:22 Miscellaneous Information (Pharmacist Discharge Med Rec Consult) 1 ea N/A UD PRN PRN Reason: Consult Stop: 04/15/20 18:22 Multivitamins (Multivitamin Tab) 1 tab PO QAM [facility] Stop: 04/16/20 08:59 Last Admin: 03/20/20 07:24 Dose: 1 tab Documented by: Olmesartan (Benicar) 20 mg PO QAM [facility] Stop: 04/16/20 08:59 Last Admin: 03/20/20 07:25 Dose: 20 mg Documented by: Ondansetron HCl (Zofran) 4 mg IV Q6H PRN PRN Reason: Nausea Stop: 04/15/20 18:22 Last Admin: 03/17/20 08:36 Dose: 4 mg Documented by: Polyethylene Glycol (Miralax Powder Packet) 17 gm PO DAILY [facility] Stop: 04/20/20 08:59 Pravastatin Sodium (Pravachol) 10 mg PO HS [facility] Stop: 04/15/20 20:59 Last Admin: 03/19/20 21:18 Dose: 10 mg Documented by: Ticagrelor (Brilinta) 90 mg PO BID [facility] Stop: 04/19/20 08:59 Last Admin: 03/20/20 07:25 Dose: 90 mg Documented by: Vitamin D (Vitamin D3) 2,000 units PO QAM [facility] Stop: 04/16/20 08:59 Last Admin: 03/20/20 07:24 Dose: 2,000 units Documented by: PG Care Time/CCT Total # of Minutes Spent Total Time Spent with Patient: Total time spent is greater than 50% in coordination of care (as documented) at patient's floor/unit and/or counseling patient: Coding Level of Care Code 76209 Subseq Hosp Care Lvl 3 Diagnoses Left pontine stroke I63.50 SAH (subarachnoid hemorrhage) I60.9 Right internal carotid occlusion I65.21 Type 2 diabetes mellitus E11.9 Hypertension I10 Hypertension type: essential hypertension CAD (coronary artery disease) I25.10 BPH (benign prostatic hyperplasia) N40.0 Hyperlipidemia E78.5 Neuropathy G62.9 DVT prophylaxis Z29.9 (1) Hypertension Hypertension type: essential hypertension Qualified Code(s): I10 - Essential (primary) hypertension
[2020-03-20] MEDS: PRAVASTATIN SOD 10 MG TAB PO SCH (21:07)
[2020-03-20] MEDS: GABAPENTIN 300 MG CAP PO SCH (21:07)
[2020-03-20] MEDS: METOPROLOL SUCC 50MG EXT REL TAB PO SCH (21:24)
[2020-03-21] MEDS: ACETAMINOPHEN 500 MG TAB PO SCH (07:32)
[2020-03-21] MEDS: DOCUSATE SODIUM 100 MG CAP PO SCH (07:32)
[2020-03-21] MEDS: CHOLECALCIFEROL 1,000 UNITS 25 MCG TAB PO SCH (07:32)
[2020-03-21] MEDS: GABAPENTIN 100 MG CAP PO SCH (07:32)
[2020-03-21] MEDS: OLMESARTAN MEDOXOMIL 20 MG TAB PO SCH (07:33)
[2020-03-21] MEDS: ASPIRIN 81 MG ECTAB PO SCH (07:33)
[2020-03-21] MEDS: TICAGRELOR 90 MG TAB PO SCH (07:33)
[2020-03-21] MEDS: METFORMIN HCL 500 MG TAB PO SCH (07:33)
[2020-03-21] MEDS: MULTIVITAMIN TAB PO SCH (07:33)
[2020-03-21] MEDS: INSULIN ASPART 100 UNITS/ML 3 ML PEN SC SCH ×2 (08:33→12:08)
[2020-03-21] MEDS: INSULIN GLARGINE SOLOSTAR 100 UNITS/ML 3 ML PEN SC SCH (08:34)
[2020-03-21] MEDS ORDERED: POLYETHYLENE (MIRALAX) 17 GM PACK PO SCH (09:00)
[2020-03-21] MEDS ORDERED: OLMESARTAN MEDOXOMIL 20 MG TAB PO STA (09:42)
[2020-03-21] MEDS ORDERED: STROKE PATIENT DISCHARGE STA (12:16)
--- NOTE | 2020-03-21 12:23 | Discharge Summary ---
Date of Service March 21, 2020 Admission HPI Per Admitting Provider This patient is a 79-year-old male well-known to me from a very recent hospitalization for left pontine stroke and small right-sided SAH. He has a history of CVA x 2, SAH, DM 2, HTN, CAD status post CABG, lung cancer status post lobectomy, chronic R ICA occlusion and moderate left ICA stenosis, who presents back to the ER today with slurred speech and right-sided weakness. He reports after discharge from the hospital yesterday, he noticed that his speech was slurred again when he got home. He did not alert his family members at that time and decided to go to bed. When he woke up this morning, his family and his son especially noticed that his speech was a lot more slurred than previously and the patient also noticed that his right arm and right leg felt like he could not use them. His reports that she had to help him walk across the room to get to the bathroom. This is a great difference from when he left the hospital yesterday when he was walking the halls independently and his speech was very fluent. He does have a mild headache, but reports that is because he did not take Tylenol today which she has been taking for mild posterior right-sided headache and neck pain since his head injury which likely caused his small SAH noted on previous admission. His blood pressure was significantly elevated in the ER at 222/95 and he was given hydralazine 5 mg IV x1. His other laboratory values were fairly unremarkable including a negative troponin. His ECG showed a normal sinus rhythm, left axis deviation, and was unchanged from previous. A CT Noncon of the head showed stable to slight improvement in the trace SAH in the right parieto-occipital region as well as the subacute pontine infarct and the old right [employer] territory infarct again noted. A repeat CT angiogram of the head neck were unchanged from previous with complete occlusion of the R ICA, focal vascular cut off at the distal right P1 segment with old right [employer] territory infarct, multifocal stenosis within the left P2 segment up to 50%, and mild to moderate multifocal stenosis within the left carotid. He will be admitted under observation for recurrent but similar stroke symptoms as before with hypertensive urgency. Principal Diagnosis Left pontine ischemic stroke Discharge Exam Constitutional WD/WN, vitals as above Eyes PERRL, conjunctivae normal, anicteric sclerae ENMT external ear and nose normal, oropharynx normal Neck trachea midline, no thyromegaly Respiratory normal respiratory effort, lungs clear to auscultation Cardiovascular RRR, no murmur, no edema Gastrointestinal (Abdomen) normal bowel sounds, soft, nontender, no hepatosplenomegaly Musculoskeletal Head/Neck/Chest: normocephalic, head atraumatic and neck supple Extremities: extremities normal to inspection and + abnormal strength (right sided weakness); no cyanosis, no clubbing and no petechiae Skin no rashes, warm and dry Neurologic normal touch/pain/proprioception, CN's II-XI intact bilaterally, deep tendon reflexes 2+ bilaterally, plantar reflexes intact bilaterally, normal sensation to monofilament and awake; no focal motor deficits Speech / Cognition: + abnormal speech (slightly slurred speech when talking a lot) Psychiatric A+Ox3, euthymic affect Lymphatic no cervical or axillary lymphadenopathy Discharge Data Allergies Allergy/AdvReac Type Severity Reaction Status Date / Time No Known Allergies Allergy Verified 03/16/20 13:53 Consultations 03/16/20 14:52 ED Decision to Admit Stat 03/16/20 15:57 Consult Neurology Routine 03/16/20 18:23 Consult Case Management - Discharge Planning Routine Ordered Studies 03/16/20 12:05 CT angio head w con Stat CT angio neck with con Stat 03/16/20 12:06 CT head/brain wo con Stat 03/16/20 15:57 MR brain wo con Stat Hospital Course (1) Left pontine stroke: Current symptoms due to extension of the same stroke in the left gaye from previous admission. Subarachnoid hemorrhage has now been ruled out as per new neurology opinion on 03/18 As per last admission-this is most likely thrombotic stroke A1c mildly uncontrolled at 7.8%, TSH normal from last admission He had no atrial arrhythmias noted on telemetry during the last admission and he also had a recent 19-day cardiac event monitor which showed no atrial fibri llation just 2 weeks ago. During last admission, the Plavix was discontinued due to suspected SAH and neurology recommended to continue aspirin only Now that SAH is ruled out, neurology recommends switching from aspirin/Plavix to aspirin/Brilinta instead -This is a stuttering course due to basilar perforators and likely has blood pressure was too low after he was discharged with stroke the first admission -continue Toprol, continue olmesartan -Continue pravastatin 10 mg daily given severely low LDL very recently and increased risk of bleeding with high intensity statins in that situation -Neurology recommends treatment of hypertriglyceridemia- will try Lovaza as the Vacepa was too expensive -Consult PT/OT appreciated-recommends rehab -Appreciate neurology consult plan for d/c to rehab (2) Right internal carotid occlusion: As noted above, chronic No intervention needed Continue antiplatelet therapy (aspirin and Brilinta) and statin (3) Type 2 diabetes mellitus: A1c 7.2 09/20 and now up to 7.8% Needs improved control given multiple strokes continue Metformin continue Lantus 8 units once daily, can continue this on discharge patient is comfortable taking the Lantus, his already uses Lantus, she will help him (4) Hypertension: With hypertensive urgency here with blood pressures in the 220s on admission Was given 1 dose of hydralazine 5 mg IV x1 in the ER with some improvement Goal systolic blood pressure is 140-180 right now DC IV hydralazine as per neurology recommendation as is too potent and could cause worsening of his stroke symptoms if blood pressure drops too low; can use captopril p.o. as needed continue Olmesartan and Toprol for BP goal is 140 systolic for the next month (5) CAD (coronary artery disease): NSTEMI 09/20, treated at [facility] and now status post 3V CABG -Continue aspirin but DCd Plavix during previous admission as above due to suspected SAH-now on Brilinta - resume Toprol -Continue low intensity pravastatin due to severely low LDL-changed from atorvastatin to pravastatin just last week Triglycerides remain high, LDL not measured due to high triglycerides -Start Lovaza as an outpatient as not available in this formulary (6) BPH (benign prostatic hyperplasia): Noted in history but not taking medications for this -monitor for urinary retention (7) Hyperlipidemia: Continue pravastatin PO daily , Lovaza as above (8) Neuropathy: Continue gabapentin Total Time Total Time Spent Total Time Spent (In Minutes): 39 minutes Total Time Includes: Examination of the Patient, Discharge Planning, Medication Reconciliation, Communication With Other Providers (Dr. Smith) and Other (long discussion with patient's family) Discharge Plan Discharge Items Patient Disposition: Transfer Inpatient Rehab Fac Reason For Visit: CVA Discharge Diagnosis: Left pontine CVA Hypertension DM type II Condition on Discharge: Good Goals: improve mobility and strength blood pressure control with Olmesartan and Toprol improve diabetes control with addition of Lantus Activity: Resume your previous activity Non-emergency contact: Primary Care Provider and Neurologist Call non-emergency contact if: you have any medication questions and your symptoms worsen Follow-up/Referrals: [facility] [Other] - 03/24/20 11:30 am (Please, follow up at [facility] on FridayMarch 24 at 12:00 noon (arrive 11:30 am) for a CT of the head. You will register in the main lobby of the hospital. If you need to change this appointment, call central scheduling at .) Chuck Coffey MD [Physician] - (6-8 weeks) Eduard Lora DO [Primary Care Provider] - (one week after discharge from rehab) Diet: Carb Consistent or DM2 and Heart Healthy Addtl Attending Provider Instructions: Medications: - BRILINTA: 90mg twice a day, take in addition to aspirin - LANTUS: 8 units every morning, this is new medications, working really well to control sugars in addition to Metformin Left pontine stroke, likely extension of prior stroke or stuttering symptoms due to low blood pressure, very sensitive neurology recommends secondary stroke prevention plan for aspirin and Brilinta 90mg twice a day continue Pravastatin HbA1c is 7.8%, not at goal, continue Metformin BID and added Lantus 8 units every morning, working well blood pressure control with Olmesartan and Toprol caution to lower blood pressure more than 140 systolic, this is target for next month, can then be more aggressive if pressures are consistently in 160-180 systolic range despite Olmesartan 20mg and Toprol 50mg, then would increase Olmesartan to 40mg daily DM type II, HbA1c 7.8% added lantus 8 units to Metformin 500mg BID working very well, no episodes of hypoglycemia discussed plan with his family, his takes Lantus daily, they are very comfortable using the Lantus after discharge from rehab Risk Factors for Stroke: You can reduce your chances of stroke by working with your medical provider to adopt a healthy lifestyle. Some specific ways to lower your chance of stroke are: * If you are a smoker, now is the time to stop smoking cigarettes * If you are diabetic, improve the control of your blood sugars * Avoid excessive amounts of alcohol * Control high blood pressure * Lose weight if you are overweight * Be sure to lead an active lifestyle * Eat a healthy diet low in salt, cholesterol and fat You should know about other risk factors for stroke that you are unable to control. These include: * Age 55 years or older * Male gender * Certain racial groups: , or / * Family History of Stroke, Mini stroke or Heart Attack * Sickle Cell Disease Follow Up: It is important for you to keep your follow up appointments with your medical provider. Who to Call and When: Medical Emergencies: Call 911 immediately if you experience any of the following warning signs and symptoms of Stroke: * Sudden numbness or weakness of the face, arm or leg, especially on one side of the body * Sudden confusion, trouble speaking or understanding * Sudden trouble seeing in one or both eyes * Sudden trouble walking, dizziness, loss of balance or coordination * Sudden severe headache with no cause Do not delay calling 911 if you experience any warning signs or symptoms of a stroke. Delay in seeking medical attention may affect what treatments can be given to you. . Pending Studies at Discharge: No Stand-Alone Forms: My [facility] [employer] Skilled Items Patient informed of condition?: Yes DNR: No Discharge Level of Care: Acute rehab Communicable Disease: No Discharge Prognosis: Stable Lines: None Urinary Catheter: No Medications and DC Order Prescriptions: New Lantus Solostar U-100 Insulin 100 unit/mL (3 mL) Insulin Pen 8 unit SC QAM 30 Days Qty: 2.4 RF: 3 Brilinta 90 mg Tablet 90 mg PO BID 30 Days Qty: 60 RF: 3 Continued aspirin [Adult Aspirin Regimen] 81 mg tablet,delayed release (DR/EC) 81 mg PO HS RF: 0 multivitamin tablet 1 tab PO QAM RF: 0 gabapentin 100 mg capsule 100 mg PO QAM RF: 0 cholecalciferol (vitamin D3) 50 mcg (2,000 unit) capsule 2,000 units PO QAM RF: 0 hydroxyzine HCl 25 mg tablet 25 mg PO Q6H PRN (Reason: anxiety) Qty: 120 RF: 1 pravastatin 10 mg Tablet 10 mg PO HS RF: 0 olmesartan 20 mg tablet 20 mg PO QAM RF: 0 docusate sodium 100 mg capsule 100 mg PO BID RF: 0 metoprolol succinate 50 mg tablet extended release 24 hr 50 mg PO HS RF: 0 metformin 500 mg tablet 500 mg PO BIDM RF: 0 gabapentin 300 mg capsule 300 mg PO HS RF: 0 diclofenac sodium 1 % gel 2 gm TOP QID PRN (Reason: Pain) RF: 0 Discharge Orders: Discharge Order (Routine); Ordered 03/21/20 Ordered By: Fady Wheat Admission Data Admit Date/Time: 03/18/20 09:52 Attending Provider: Fady Wheat Admit Provider: Jenny Elmore Primary Care Provider: Eduard Lora Other Providers: Jenny Elmore ; Chuck Coffey ; [facility] ; [facility] ; [place] ; [facility] Other [place] Date/Time DO NOT enter until pt leaves facility: 03/21/20 14:05 Coding Level of Care Code D/C Day Management >30 mins Diagnoses Left pontine stroke I63.50 Right internal carotid occlusion I65.21 Type 2 diabetes mellitus E11.9 Hypertension I10 Hypertension type: essential hypertension CAD (coronary artery disease) I25.10 BPH (benign prostatic hyperplasia) N40.0 Hyperlipidemia E78.5 Neuropathy G62.9
[2020-03-21] MEDS ORDERED: METFORMIN HCL 500 MG TAB PO SCH (17:00)
[2020-03-22] MEDS ORDERED: OLMESARTAN MEDOXOMIL 40 MG TAB PO SCH (09:00)
== END 2020-03-21 14:05 | DRG 65 ==
LOC: ED 11:44 → 2S 11:44 → SUATTDRO 15:57 → 2S 17:03 → 2W 03-17 13:56 → SUATTDRO 03-18 09:52

== ENCOUNTER 2021-05-17 09:01 | Inpatient (IN) ==
[2021-05-17] MEDS ORDERED: SODIUM CHLORIDE 0.9% 1000ML 1,000 ML IV ONE (09:25)
[2021-05-17 10:25] LABS: Basophils # (auto) 0.01 K/uL (0-0.2); Basophils % (auto) 0.2 %; Hematocrit (blood only) 41.6 % (42-52); Immature Granulocytes # (auto) 0.02 K/uL (0.00-0.02); Immature Granulocytes % (auto) 0.3 %; Lymphocytes # (auto) 1.87 K/uL (1.2-3.4); Lymphocytes % (auto) 31.3 %; Mean Corpuscular Hemoglobin 26.9 pg (25-34); Mean Corpuscular Hgb Conc 33.7 g/dL (32-36); Mean Corpuscular Volume 79.8 fL (80-100); Mean Platelet Volume 10.3 fL (7.4-10.4); Monocytes # (auto) 0.54 K/uL (0.11-0.59); Neutrophils # (auto) 3.23 K/uL (1.4-6.5); Neutrophils % (auto) 54.2 %; Platelet Count 199 K/uL (130-400); RDW Coefficient of Variation 14.8 % (11.5-14.5); Red Blood Count 5.21 M/uL (4.7-6.1); White Blood Count 5.97 K/uL (4.8-10.8)
[2021-05-17 10:31] LABS: Appearance Urine Clear (Clear); Bilirubin Urine Negative (Negative); Blood Urine Negative (Negative); Color Urine Yellow; Glucose Urine UA Negative (Negative); Ketones Urine Negative (Negative); Leukocyte Esterase Urine Negative (Negative); Nitrite Urine Negative (Negative); Protein Urine Negative (Negative); Specific Gravity Urine 1.013 (1.000-1.030); Urobilinogen Urine Negative (Negative)
[2021-05-17 10:33] LABS: Alanine Aminotransferase 27 U/L (12-78); Albumin Level 3.7 gm/dl (3.4-5.0); Aspartate Aminotransferase 24 U/L (15-37); BUN Creatinine Ratio 15.4 (10-20); Blood Urea Nitrogen 21 mg/dl (7-18); Calcium 8.9 mg/dl (8.5-10.1); Carbon Dioxide 26 mmol/L (21-32); Chloride 108 mmol/L (98-107); Creatinine Clr Calc Pharmacy 38.9 ml/min; Est GFR (African American) 57.5 ml/min; Est GFR (Non-African American) 49.6 ml/min; Glucose 145 mg/dl (70-99); Lipase 195 U/L (73-393); Potassium 3.9 mmol/L (3.5-5.1); Sodium 139 mmol/L (136-145)
[2021-05-17] MEDS ORDERED: OPTIRAY 320 125ml IV ONE (10:43)
[2021-05-17 10:44] LABS: Alkaline Phosphatase 88 U/L (45-117); Bilirubin,Total 0.6 mg/dl (0.2-1); Globulin 3.6 gm/dl (2.5-4.0); Phosphorus 2.6 mg/dl (2.5-4.9); Total Protein 7.3 gm/dl (6.4-8.2); Troponin I < 0.015 ng/ml (0-0.045)
--- NOTE | 2021-05-17 11:26 | XRay Report ---
XR chest 1V portable INDICATION: MN ^Y ^Chest Pain . TECHNIQUE: Single frontal radiograph of the chest was obtained. Comparison: None available at the time of this dictation. FINDINGS: Postsurgical changes of median sternotomy wires and surgical clips about the heart. Calcified aortic knob is seen. The lungs are clear. No evidence of pleural effusion or pneumothorax. IMPRESSION: No acute chest disease. ACT 112: Negative or not required by law. Electronically signed by: Fady Gomes M.D. 05/17/2021 11:25 AM
[2021-05-17 11:29] LABS: Partial Thromboplastin Time 26.5 Seconds (21.0-31.0)
--- NOTE | 2021-05-17 11:30 | CT Scan Report ---
CT angio head w con, CT head/brain wo con, CT angio neck with con CLINICAL HISTORY: 81 years-old Male with right sided weakness. Acute strokelike symptoms with righ t-sided weakness COMPARISON STUDY: CT head, CTA head and neck 03/16/2020, brain MRI 03/16/2020. TECHNIQUE: Following the IV administration of Optiray, CT angiogram of the head and neck was performe d from the skull base to the vertex. Images are reviewed in the axial, sagittal, and coronal planes. 3-D MIPS images are created and assessed. IV contrast was administered without complication. All soren urements were obtained according to NASCET criteria. Noncontrast head CT was also obtained. A dose lo wering technique was utilized adhering to the principles of ALARA. CT DOSE: 1191.81 mGy.cm FINDINGS: CT BRAIN: There is no acute intracranial hemorrhage, midline shift, hydrocephalus, intracranial mass, territori al ischemia or abnormal extra-axial collections. No abnormal intra-axial or extra-axial enhancement. Age-related involutional changes. White matter hypodensities suggestive of chronic microvascular isch emic disease. Cerebral vascular calcifications. Chronic infarct of the right occipital lobe with ence phalomalacia. Chronic left pontine infarct. Mastoid air cells and middle ear cavities are clear. No c alvarial fracture. Chronic volume loss with opacification of the right maxillary sinus.. CTA HEAD AND NECK: Moderate atherosclerosis of the thoracic aortic arch without aneurysm or dissection. Patency of the i nnominate and imaged subclavian arteries. The common carotid arteries are patent. Chronic occlusion o f the right ICA which begins approximately 2 cm distal to the origin is redemonstrated with tapered n arrowing just proximal to the site of occlusion. There is atherosclerotic plaque of the right greater than left carotid bulbs. There is mild luminal narrowing of the proximal left external carotid arter y. Atherosclerotic plaque of the cavernous and supraclinoid segments. Reconstitution of flow within t he right carotid terminus via collateral vessels via the [place]. Unchanged moderate luminal narrowing of the cavernous segment left ICA on image 185 series 5. Mild multifocal luminal narrowing of the patent middle cerebral arteries. The anterior cerebral arteries are patent. The left vertebral artery originates directly from the aortic arch. Codominant and patent vertebral a rteries. Calcified plaque is noted within the V4 segments of the vertebral arteries with mild luminal narrowing on the right. Patent basilar artery. Chronic occlusion of the distal P1 segment of the rig ht posterior cerebral artery. Moderate multifocal luminal narrowing of the left posterior cerebral ar hemanth P2 segment is unchanged. Cerebral venous sinuses are patent. Chronic right occipital and left po ntine infarct. The apices are clear without pneumothorax thorax. Calcified granuloma of the right lung apex with 4 m m solid nodule of the right lung apex on image 58, unchanged. No pneumothorax. Prior median sternotom y. Thyroid nodules measure up to 8 mm on the right. IMPRESSION: 1. No acute intracranial abnormality. 2. 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 3. CTA of the head and neck is unchanged from 03/16/2020 with redemonstration of chronic complete occl usion of the right ICA beginning 2 cm distal to its origin. 4. Chronic occlusion of the right posterior cerebral artery P1 segment. 5. Moderate multifocal luminal narrowing of the left posterior cerebral artery. ACT 112: Negative or not required by law. The above report was generated using voice recognition software. It may contain grammatical, syntax o r spelling errors. Electronically signed by: Kev Gould M.D. 05/17/2021 11:29 AM
--- NOTE | 2021-05-17 12:08 | Emergency Department Note ---
Impression & Plan Right sided weakness, Dysarthria, History of CVA with residual deficit ED Provider Note NAME: OCHOA MAGUIRE AGE: 81 SEX: M ARRIVES VIA: Ambulance INFORMANT: Patient, ED PROVIDER(S): Alden Pugh MD CHIEF COMPLAINT: Acute on chronic right sided weakness and slurred speech. PLAN: Disposition: Admit MEDICAL DECISION MAKING: The patient is a pleasant 81-year-old gentleman with a past medical history of left pontine stroke and right-sided subarachnoid hemorrhage with chronic right- sided weakness, type 2 diabetes, hypertension, CAD status post CABG on aspirin and ticagrelor, history of lung cancer status post lobectomy, chronic right ICA occlusion and moderate left ICA stenosis who presents to the emergency department with worsening of chronic right-sided weakness and slurred speech from his baseline of these symptoms. He reports last night his symptoms were so severe that he could not put weight on his right leg which is not his baseline. He reports he normally walks outside with a cane but at home can walk without a cane. He reports he was hoping it would resolve this morning as today is his birthday but while it did improve somewhat it is still different from his recent baseline. The patient's daughter at the bedside acknowledges that his weakness is much different than it has been. Otherwise denies any recent fevers, chills, cough, congestion, GI or symptoms. On arrival the patient is no acute distress, afebrile stable vital signs. He appears clinically dry. He has 4/5 strength of the right upper and right lower extremity. There is subtle dysarthria without overt aphasia. EKG without overt acute ischemia. CXR negative for acute cardiopulmonary process. WBC, hemoglobin and platelets within normal limits. Chemistry without metabolic acidosis. BUN 21 consistent with the patient's clinically dry appearance. Electrolytes and LFTs unremarkable. Are negative/undetectable. Lipase within normal limits. Within normal UA without convincing evidence of infection. COVID-[address] of the head and CTA of the head neck were performed and do not demonstrate any acute findings. Prior cerebrovascular disease is noted. Given the patient's symptoms are persisting and that they are worse from his baseline right-sided weakness the patient was ultimately agreeable as well as his daughter at the bedside for admission for further evaluation. Triage Nursing notes reviewed and agree them. Prior medical records reviewed Vital Signs: reviewed and remarkable for no significant abnormalities Differential diagnosis: Infection, dehydration, metabolic abnormality, hypo/hyperglycemia, electrolyte disturbance, anemia, hypoxia, cardiac sources, intracerebral event, toxicologic, neurologic, as well as other pathologies. ER treatment provided: See below. Diagnostics interpreted by me: ECG: Sinus rhythm with occasional PVCs, 63 bpm, no overt ST elevation or depression, QTC 421, QRS 86. Cardiac Monitoring: An order for continuous cardiac monitoring was placed and demonstrated Sinus rhythm with occasional PVCs, 63 bpm. Laboratory studies: See below Imaging studies: See below Consultation(s): Case was discussed with Dr. Ruff, [facility] [place], who will evaluate the patient for admission. HPI: The patient is a pleasant 81-year-old gentleman with a past medical history of left pontine stroke and right-sided subarachnoid hemorrhage with chronic right-sided weakness, type 2 diabetes, hypertension, CAD status post CABG on aspirin and ticagrelor, history of lung cancer status post lobectomy, chronic right ICA occlusion and moderate left ICA stenosis who presents to the emergency department with worsening of chronic right-sided weakness and slurred speech from his baseline of these symptoms. He reports last night his symptoms were so severe that he could not put weight on his right leg which is not his baseline. He reports he normally walks outside with a cane but at home can walk without a cane. He reports he was hoping it would resolve this morning as today is his birthday but while it did improve somewhat it is still different from his recent baseline. The patient's daughter at the bedside acknowledges that his weakness is much different than it has been. Otherwise denies any recent fevers, chills, cough, congestion, GI or symptoms. ROS: See above HPI for pertinent positives & negatives. A total of 10 systems reviewed and were otherwise negative. PAST MEDICAL HISTORY:See Below PAST SURGICAL HISTORY:See Below FAMILY HISTORY:See Below SOCIAL HISTORY:See Below HOME MEDICATIONS:See Below ALLERGIES:See Below VITALS:See Below PHYSICAL EXAMINATION: GENERAL: Awake, alert, well-appearing, in no distress HENT: Normocephalic, atraumatic. Oropharynx with dry mucous membranes and otherwise unremarkable. EYES: Normal conjunctiva. Sclera non-icteric. NECK: Supple. No nuchal rigidity. FROM. No JVD. RESPIRATORY: Clear to auscultation. CARDIAC: Regular rate, normal rhythm. Extremities warm and well perfused. Pulses equal. ABDOMEN: Soft, non-distended. No tenderness to palpation. No rebound or guarding. No masses. RECTAL: Deferred. MUSCULOSKELETAL: Chest examination reveals no tenderness. The back is symmetrical on inspection without obvious abnormality. There is no CVA tenderness to palpation. No joint edema. LOWER EXTREMITIES: Calves are equal size bilaterally and non-tender. No edema. No discoloration. NEURO: 4/5 strength of the right upper and right lower extremity. Subtle dysarthria without overt aphasia. SKIN: No rash or jaundice noted. Alden Pugh MD Past Med/Surg History Medical History (Updated 05/17/21 @ 23:54 by Alden Pugh MD) BPH (benign prostatic hyperplasia) CAD (coronary artery disease) Depression GERD (gastroesophageal reflux disease) History of right [employer]IST stroke HTN (hypertension), benign Hyperlipidemia Hypertension Left pontine stroke Lumbar radiculopathy Lung cancer Neuropathy Osteoarthritis Right internal carotid occlusion Stroke POST-PO HEMIANOPSIA SRCONDARY TO A SEAFOOD SPECIALIST CVA WITH A FIELD CUT INVOLVONG TH EL EFT SUPERIOR QUADRANT Type 2 diabetes mellitus Surgical History History of arthroscopy of shoulder left S/P CABG x 3 09/20/2019: @ [facility] [place]; BARR TO LAD; SVG TO OM AND SVG TO PDA S/P partial lobectomy of lung Family History Father Myocardial infarction Denies family history of Ovarian cancer Prostate cancer Breast cancer Colorectal cancer Social History Smoking Status: Never smoker Tobacco Type: Smokeless Tobacco (Dip or Chew) Second Hand Exposure: No; Hx Alcohol Use: No Hx Substance Use: No Preferred Language: Albanian Communication Ability: Effective Visual Impairment: No Limitations Hearing Ability: Normal Document Improvement Specialist Required: No Beliefs That Will Affect Care: None marital status: Current Living Situation: Spouse 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 Safe at Home: Yes Dental Care, Regularly: Yes Physical Activity Frequency: Does not Exercise Seatbelt Use: always Sunscreen Use: No Assistive Devices: Cane and Glasses Allergies Allergies Allergy/AdvReac Type Severity Reaction Status Date / Time No Known Allergies Allergy Verified 05/17/21 10:12 Home Meds Home Medications Medication Instructions Recorded Confirmed aspirin 81 mg tablet,delayed 81 mg PO HS 10/28/18 05/17/21 release (Adult Aspirin Regimen) multivitamin 1 tab PO QAM 10/28/18 05/17/21 cholecalciferol (vitamin D3) 50 2,000 units PO QAM 10/25/19 05/17/21 mcg (2,000 unit) capsule docusate sodium 100 mg capsule 100 mg PO BID PRN 03/13/20 05/17/21 amlodipine 5 mg tablet 5 mg PO DAILY 05/17/21 05/17/21 hydroxyzine HCl 25 mg tablet 25 mg PO HS PRN 05/17/21 05/17/21 insulin glargine 100 unit/mL (3 12 unit SC HS 05/17/21 05/17/21 mL) subcutaneous pen (Lantus Solostar U-100 Insulin) olmesartan 40 mg tablet 40 mg PO DAILY 05/17/21 05/17/21 pravastatin 10 mg tablet 40 mg PO Q2D 05/17/21 05/17/21 Previous Rx's Medication Instructions Recorded blood-glucose meter (Tailored Gamesuch #1 ea 10/03/20 Verio Flex meter) insulin aspart U-100 100 unit/mL 1 sliding scale dose SUBCUT TID 01/08/21 subcutaneous solution (Novolog #10 ml U-100 Insulin aspart) ticagrelor 90 mg tablet (Brilinta) 90 mg PO BID 90 Days #180 tab 02/05/21 gabapentin 300 mg capsule 300 mg PO HS #90 cap 02/06/21 metformin 500 mg tablet 500 mg PO BID #180 tab 02/06/21 metoprolol succinate 50 mg 50 mg PO HS #90 tab 02/06/21 tablet,extended release 24 hr blood sugar diagnostic (RezzcardTouch #400 ea 02/23/21 Verio test strips) lancets 33 gauge (RezzcardTouch Delica #400 ea 02/23/21 Lancets) omega-3 acid ethyl esters 1 gram 1 cap PO DAILY #90 cap 03/19/21 capsule (Lovaza) omeprazole 20 mg capsule,delayed 20 mg PO DAILY #90 cap 03/27/21 release Results & Data (ED) Vital Signs Vital Signs - 24 hr 05/17/21 09:04 05/17/21 09:27 05/17/21 09:32 Temperature 36.8 C Temperature Source Oral Pulse Rate 63 67 Pulse Rate from SpO2 Sensor Respiratory Rate 19 18 Respiratory Effort / Characteristics Non-Labored Spontaneous Respiratory Depth Normal Blood Pressure 168/85 H 168/85 H Blood Pressure Mean 112 112 Blood Pressure Position Sitting Pulse Oximetry 98 Oxygen Delivery Method Room Air Room Air Sepsis Recent Fever Within 48 Hours No Sepsis New/Unexplained Change in Mental Status N/A Sepsis Action Taken by Nursing No Action Required 05/17/21 11:54 05/17/21 12:00 05/17/21 12:30 Temperature Temperature Source Pulse Rate 66 63 67 Pulse Rate from SpO2 Sensor 65 63 66 Respiratory Rate 24 25 H 18 Respiratory Effort / Characteristics Respiratory Depth Blood Pressure 161/75 H 171/73 H 174/84 H Blood Pressure Mean 103 105 114 Blood Pressure Position Pulse Oximetry 100 99 97 Oxygen Delivery Method Sepsis Recent Fever Within 48 Hours Sepsis New/Unexplained Change in Mental Status Sepsis Action Taken by Nursing Laboratory Data Attestation: I reviewed the patient's lab results. Result diagrams: 05/17/21 08:47 05/17/21 08:47 Lab Results 05/17/21 05/17/21 05/17/21 Range/Units 08:47 08:47 09:40 WBC 5.97 (4.8-10.8) K/uL RBC 5.21 (4.7-6.1) M/uL Hgb 14.0 (14.0-18.0) g/dL Hct 41.6 L (42-52) % MCV 79.8 L (80-100) fL MCH 26.9 (25-34) pg MCHC 33.7 (32-36) g/dL RDW Std Deviation 43.0 (36.4-46.3) fL RDW Coeff of [place] 14.8 H (11.5-14.5) % Plt Count 199 (130-400) K/uL MPV 10.3 (7.4-10.4) fL Immature Gran % (Auto) 0.3 % Neut % (Auto) 54.2 % Lymph % (Auto) 31.3 % [place] % (Auto) 9.0 % Eos % (Auto) 5.0 % Baso % (Auto) 0.2 % Neut # (Auto) 3.23 (1.4-6.5) K/uL Lymph # (Auto) 1.87 (1.2-3.4) K/uL [place] # (Auto) 0.54 (0.11-0.59) K/uL Eos # (Auto) 0.30 (0-0.5) K/uL Baso # (Auto) 0.01 (0-0.2) K/uL Immature Gran # (Auto) 0.02 (0.00-0.02) K/uL APTT (21.0-31.0) Seconds PTT Ratio Sodium 139 (136-145) mmol/L Potassium 3.9 (3.5-5.1) mmol/L Chloride 108 H (98-107) mmol/L Carbon Dioxide 26 (21-32) mmol/L Anion Gap 5.0 (3-11) BUN 21 H (7-18) mg/dl Creatinine 1.35 (0.6-1.4) mg/dl Est Cr Clr Drug Dosing 38.9 ml/min Est GFR ( Amer) 57.5 ml/min Est GFR (Non-Af Amer) 49.6 ml/min BUN/Creatinine Ratio 15.4 (10-20) Glucose 145 H (70-99) mg/dl Calcium 8.9 (8.5-10.1) mg/dl Phosphorus 2.6 (2.5-4.9) mg/dl Magnesium 2.0 (1.8-2.4) mg/dl Total Bilirubin 0.6 (0.2-1) mg/dl AST 24 (15-37) U/L ALT 27 (12-78) U/L Alkaline Phosphatase 88 (45-117) U/L Troponin I < 0.015 (0-0.045) ng/ml Total Protein 7.3 (6.4-8.2) gm/dl Albumin 3.7 (3.4-5.0) gm/dl Globulin 3.6 (2.5-4.0) gm/dl Albumin/Globulin Ratio 1.0 (0.9-2) Lipase 195 (73-393) U/L TSH 3.270 (0.300-4.500) uIu/ml Urine Color Urine Appearance (Clear) Urine pH (4.5-7.5) Ur Specific [place] (1.000-1.030) Urine Protein (Negative) Urine Glucose (UA) (Negative) Urine Ketones (Negative) Urine Blood (Negative) Urine Nitrite (Negative) Urine Bilirubin (Negative) Urine Urobilinogen (Negative) Ur Leukocyte Esterase (Negative) COVID-19 Eval Order Covid19 at [facility] SARS-CoV-2 (PCR) (Negative) 05/17/21 05/17/21 05/17/21 Range/Units 09:40 10:16 11:06 WBC (4.8-10.8) K/uL RBC (4.7-6.1) M/uL Hgb (14.0-18.0) g/dL Hct (42-52) % MCV (80-100) fL MCH (25-34) pg MCHC (32-36) g/dL RDW Std Deviation (36.4-46.3) fL RDW Coeff of [place] (11.5-14.5) % Plt Count (130-400) K/uL MPV (7.4-10.4) fL Immature Gran % (Auto) % Neut % (Auto) % Lymph % (Auto) % [place] % (Auto) % Eos % (Auto) % Baso % (Auto) % Neut # (Auto) (1.4-6.5) K/uL Lymph # (Auto) (1.2-3.4) K/uL [place] # (Auto) (0.11-0.59) K/uL Eos # (Auto) (0-0.5) K/uL Baso # (Auto) (0-0.2) K/uL Immature Gran # (Auto) (0.00-0.02) K/uL APTT 26.5 (21.0-31.0) Seconds PTT Ratio 1.0 Sodium (136-145) mmol/L Potassium (3.5-5.1) mmol/L Chloride (98-107) mmol/L Carbon Dioxide (21-32) mmol/L Anion Gap (3-11) BUN (7-18) mg/dl Creatinine (0.6-1.4) mg/dl Est Cr Clr Drug Dosing ml/min Est GFR ( Amer) ml/min Est GFR (Non-Af Amer) ml/min BUN/Creatinine Ratio (10-20) Glucose (70-99) mg/dl Calcium (8.5-10.1) mg/dl Phosphorus (2.5-4.9) mg/dl Magnesium (1.8-2.4) mg/dl Total Bilirubin (0.2-1) mg/dl AST (15-37) U/L ALT (12-78) U/L Alkaline Phosphatase (45-117) U/L Troponin I (0-0.045) ng/ml Total Protein (6.4-8.2) gm/dl Albumin (3.4-5.0) gm/dl Globulin (2.5-4.0) gm/dl Albumin/Globulin Ratio (0.9-2) Lipase (73-393) U/L TSH (0.300-4.500) uIu/ml Urine Color Yellow Urine Appearance Clear (Clear) Urine pH 7.0 (4.5-7.5) Ur Specific [place] 1.013 (1.000-1.030) Urine Protein Negative (Negative) Urine Glucose (UA) Negative (Negative) Urine Ketones Negative (Negative) Urine Blood Negative (Negative) Urine Nitrite Negative (Negative) Urine Bilirubin Negative (Negative) Urine Urobilinogen Negative (Negative) Ur Leukocyte Esterase Negative (Negative) COVID-19 Eval Order SARS-CoV-2 (PCR) NEGATIVE (Negative) Administered Medications Aspirin (Aspirin 81 Mg Ectab) 81 mg PO HS SO Stop: 06/16/21 20:59 Last Admin: 05/17/21 22:01 Dose: 81 mg Documented by: [id number] Gabapentin (Gabapentin 300 Mg Cap) 300 mg PO HS SO Stop: 06/16/21 20:59 Last Admin: 05/17/21 22:02 Dose: 300 mg Documented by: [id number] Insulin Aspart (Insulin Aspart 100 Units/Ml 3 Ml Pen) 0 units SC [facility] SO Stop: 06/16/21 18:18 Last Admin: 05/17/21 22:10 Dose: Not Given Documented by: [id number] Cosigned by: [id number] Admin: 05/17/21 21:58 Dose: 2 units Documented by: [id number] Cosigned by: [id number] Insulin Glargine (Insulin Glargine Solostar 100 Units/Ml 3 Ml Pen) 12 units SC HS SO Stop: 06/16/21 20:59 Last Admin: 05/17/21 21:59 Dose: 12 units Documented by: [id number] Cosigned by: [id number] Ticagrelor (Ticagrelor 90 Mg Tab) 90 mg PO BID SO Stop: 06/16/21 20:59 Last Admin: 05/17/21 22:12 Dose: 90 mg Documented by: [id number] Discontinued Medications Gadobutrol (Gadobutrol 65ml Vial) 6.5 ml IV ONCE ONE Stop: 05/17/21 20:59 Last Admin: 05/17/21 20:58 Dose: 6.5 ml Documented by: [id number] Sodium Chloride (Nss 1000ml) 1,000 mls @ 999 mls/hr IV .Q1H1M ONE Stop: 05/17/21 10:25 Last Infusion: 05/17/21 13:31 Dose: 0 mls/hr Documented by: [id number] Admin: 05/17/21 09:59 Dose: 999 mls/hr Documented by: [id number] Ioversol (Optiray 320 125ml) 120 ml IV ONCE ONE Stop: 05/17/21 10:44 Last Admin: 05/17/21 10:43 Dose: 120 ml Documented by: [id number] Imaging Data Radiologist's Impression: Chest X-Ray 05/17/21 09:24 XR chest 1V portable INDICATION: MN ^Y ^Chest Pain . TECHNIQUE: Single frontal radiograph of the chest was obtained. Comparison: None available at the time of this dictation. FINDINGS: Postsurgical changes of median sternotomy wires and surgical clips about the heart. Calcified aortic knob is seen. The lungs are clear. No evidence of pleural effusion or pneumothorax. IMPRESSION: No acute chest disease. ACT 112: Negative or not required by law. Electronically signed by: Fady Gomes M.D. 05/17/2021 11:[address] 05/17/21 09:24 CT angio head w con, CT head/brain wo con, CT angio neck with con CLINICAL HISTORY: 81 years-old Male with right sided weakness. Acute strokelike symptoms with right-sided weakness COMPARISON STUDY: CT head, CTA head and neck 03/16/2020, brain MRI 03/16/2020. TECHNIQUE: Following the IV administration of Optiray, CT angiogram of the head and neck was performed from the skull base to the vertex. Images are reviewed in the axial, sagittal, and coronal planes. 3-D MIPS images are created and assessed. IV contrast was administered without complication. All measurements were obtained according to NASCET criteria. Noncontrast head CT was also obtain ed. A dose lowering technique was utilized adhering to the principles of ALARA. CT DOSE: 1191.81 mGy.cm FINDINGS: CT BRAIN: There is no acute intracranial hemorrhage, midline shift, hydrocephalus, intracranial mass, territorial ischemia or abnormal extra-axial collections. No abnormal intra-axial or extra-axial enhancement. Age-related involutional changes. White matter hypodensities suggestive of chronic microvascular ischemic disease. Cerebral vascular calcifications. Chronic infarct of the right occip ital lobe with encephalomalacia. Chronic left pontine infarct. Mastoid air cells and middle ear cavities are clear. No calvarial fracture. Chronic volume loss with opacification of the right maxillary sinus.. CTA HEAD AND NECK: Moderate atherosclerosis of the thoracic aortic arch without aneurysm or dissection. Patency of the innominate and imaged subclavian arteries. The common carotid arteries are patent. Chronic occlusion of the right ICA which begins ap proximately 2 cm distal to the origin is redemonstrated with tapered narrowing just proximal to the site of occlusion. There is atherosclerotic plaque of the right greater than left carotid bulbs. There is mild luminal narrowing of the proximal left external carotid artery. Atherosclerotic plaque of the cavernous and supraclinoid segments. Reconstitution of flow within the right carotid terminus via collateral vessels via the [place]. Unchanged moderate luminal narrowing of the cavernous segment left ICA on image 185 series 5. Mild multifocal luminal narrowing of the patent middle cerebral arteries. The anterior cerebral arteries are patent. The left vertebral artery originates directly from the aortic arch. Codominant and patent vertebral arteries. Calcified plaque is noted within the V4 segments of the vertebral arteries with mild luminal narrowing on the right. Patent basilar artery. 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 Moderate multifocal luminal narrowing of the left posterior cerebral artery P2 segment is unchanged. Cerebral venous sinuses are patent. Chronic right occipital and left pontine infarct. The apices are clear without pneumothorax thorax. Calcified granuloma of the right lung apex with 4 mm solid nodule of the right lung apex on image 58, unchanged. No pneumothorax. Prior median sternotomy. Thyroid nodules measure up to 8 mm on the right. IMPRESSION: 1. No acute intracranial abnormality. 2. 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 3. 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 4. Chronic occlusion of the right posterior cerebral artery P1 segment. 5. Moderate multifocal luminal narrowing of the left posterior cerebral artery. ACT 112: Negative or not required by law. The above report was generated using voice recognition software. It may contain grammatical, syntax or spelling errors. Electronically signed by: Kev Gould M.D. 05/17/2021 11:29 AM Head CTA 05/17/21 09:24 CT angio head w con, CT head/brain wo con, CT angio neck with con CLINICAL HISTORY: 81 years-old Male with right sided weakness. Acute strokelike symptoms with right-sided weakness COMPARISON STUDY: CT head, CTA head and neck 03/16/2020, brain MRI 03/16/2020. TECHNIQUE: Following the IV administration of Optiray, CT angiogram of the head and neck was performed from the skull base to the vertex. Images are reviewed in the axial, sagittal, and coronal planes. 3-D MIPS images are created and assessed. IV contrast was administered without complication. All measurements were obtained according to NASCET criteria. Noncontrast head CT was also obtained. A dose lowering technique was utilized adhering to the principles of ALARA. CT DOSE: 1191.81 mGy.cm FINDINGS: CT BRAIN: There is no acute intracranial hemorrhage, midline shift, hydrocephalus, intracranial mass, territorial ischemia or abnormal extra-axial collections. No abnormal intra-axial or extra-axial enhancement. Age-related involutional changes. White matter hypodensities suggestive of chronic microvascular ischemic disease. Cerebral vascular calcifications. Chronic infarct of the right occipital lobe with encephalomalacia. Chronic left pontine infarct. Mastoid air cells and middle ear cavities are clear. No calvarial fracture. Chronic volume loss with opacification of the right maxillary sinus.. CTA HEAD AND NECK: Moderate atherosclerosis of the thoracic aortic arch without aneurysm or dissection. Patency of the innominate and imaged subclavian arteries. The common carotid arteries are patent. Chronic occlusion of the right ICA which begins approximately 2 cm distal to the origin is redemonstrated with tapered narrowing just proximal to the site of occlusion. There is atherosclerotic plaque of the right greater than left carotid bulbs. There is mild luminal narrowing of the proximal left external carotid artery. Atherosclerotic plaque of the cavernous and supraclinoid segments. Reconstitution of flow within the right carotid terminus via collateral vessels via the [place]. Unchanged moderate luminal narrowing of the cavernous segment left ICA on image 185 series 5. Mild multifocal luminal narrowing of the patent middle cerebral arteries. The anterior cerebral arteries are patent. The left vertebral artery originates directly from the aortic arch. Codominant and patent vertebral arteries. Calcified plaque is noted within the V4 segments of the vertebral arteries with mild luminal narrowing on the right. Patent basilar artery. 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 Moderate multifocal luminal narrowing of the left posterior cerebral artery P2 segment is unchanged. Cerebral venous sinuses are patent. Chronic right occipital and left pontine infarct. The apices are clear without pneumothorax thorax. Calcified granuloma of the right lung apex with 4 mm solid nodule of the right lung apex on image 58, unchanged. No pneumothorax. Prior median sternotomy. Thyroid nodules measure up to 8 mm on the right. IMPRESSION: 1. No acute intracranial abnormality. 2. 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 3. 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 4. Chronic occlusion of the right posterior cerebral artery P1 segment. 5. Moderate multifocal luminal narrowing of the left posterior cerebral artery. ACT 112: Negative or not required by law. The above report was generated using voice recognition software. It may contain grammatical, syntax or spelling errors. Electronically signed by: Kev Gould M.D. 05/17/2021 11:29 AM Neck CTA 05/17/21 09:24 CT angio head w con, CT head/brain wo con, CT angio neck with con CLINICAL HISTORY: 81 years-old Male with right sided weakness. Acute strokelike symptoms with right-sided weakness COMPARISON STUDY: CT head, CTA head and neck 03/16/2020, brain MRI 03/16/2020. TECHNIQUE: Following the IV administration of Optiray, CT angiogram of the head and neck was performed from the skull base to the vertex. Images are reviewed in the axial, sagittal, and coronal planes. 3-D MIPS images are created and assessed. IV contrast was administered without complication. All measurements were obtained according to NASCET criteria. Noncontrast head CT was also obtained. A dose lowering technique was utilized adhering to the principles of ALARA. CT DOSE: 1191.81 mGy.cm FINDINGS: CT BRAIN: There is no acute intracranial hemorrhage, midline shift, hydrocephalus, intracranial mass, territorial ischemia or abnormal extra-axial collections. No abnormal intra-axial or extra-axial enhancement. Age-related involutional changes. White matter hypodensities suggestive of chronic microvascular ischemic disease. Cerebral vascular calcifications. Chronic infarct of the right occipital lobe with encephalomalacia. Chronic left pontine infarct. Mastoid air cells and middle ear cavities are clear. No calvarial fracture. Chronic volume loss with opacification of the right maxillary sinus.. CTA HEAD AND NECK: Moderate atherosclerosis of the thoracic aortic arch without aneurysm or dissection. Patency of the innominate and imaged subclavian arteries. The common carotid arteries are patent. Chronic occlusion of the right ICA which begins approximately 2 cm distal to the origin is redemonstrated with tapered narrowing just proximal to the site of occlusion. There is atherosclerotic plaque of the right greater than left carotid bulbs. There is mild luminal narrowing of the proximal left external carotid artery. Atherosclerotic plaque of the cavernous and supraclinoid segments. Reconstitution of flow within the right carotid terminus via collateral vessels via the [place]. Unchanged moderate luminal narrowing of the cavernous segment left ICA on image 185 series 5. Mild multifocal luminal narrowing of the patent middle cerebral arteries. The anterior cerebral arteries are patent. The left vertebral artery originates directly from the aortic arch. Codominant and patent vertebral arteries. Calcified plaque is noted within the V4 segments of the vertebral arteries with mild luminal narrowing on the right. Patent basilar artery. 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 Moderate multifocal luminal narrowing of the left posterior cerebral artery P2 segment is unchanged. Cerebral venous sinuses are patent. Chronic right occipital and left pontine infarct. The apices are clear without pneumothorax thorax. Calcified granuloma of the right lung apex with 4 mm solid nodule of the right lung apex on image 58, unchanged. No pneumothorax. Prior median sternotomy. Thyroid nodules measure up to 8 mm on the right. IMPRESSION: 1. No acute intracranial abnormality. 2. 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 3. 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 4. Chronic occlusion of the right posterior cerebral artery P1 segment. 5. Moderate multifocal luminal narrowing of the left posterior cerebral artery. ACT 112: Negative or not required by law. The above report was generated using voice recognition software. It may contain grammatical, syntax or spelling errors. Electronically signed by: Kev Gould M.D. 05/17/2021 11:29 AM Discharge Plan Visit Data Chief Complaint: Stroke/CVA Symptoms Stated Complaint: cva symptoms ED Provider: Alden Pugh Discharge Problem: Right sided weakness, Dysarthria, History of CVA with residual deficit Patient Disposition: Admitted As Inpatient Discharge Instructions Interventions: ED Discharge Assessment Last Done: 05/17/21 17:16
--- NOTE | 2021-05-17 12:55 | History & Physical Report ---
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 Initially described as numbness and tingling of the right hand and right lower extremity with clumsiness and inability to ambulate without assistance. Patient states that the right lower extremity has improved but still has right hand symptoms. CT/CTA head and neck findings are stable. 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 Concerning findings of coordination deficits with [id number] and oqgh-[id number]. Differential to include new CVA, recrudescence of old deficits. Admit to medical with telemetry -Dysphagia screening now and as needed -Neurochecks, [facility] stroke call per protocol With possible new strokehold antihypertensives to allow for permissive hypertension Fall precautions and aspiration precautions Check MRI brain -Check 2D echo Check hemoglobin A1c and lipid panel Continue aspirin and Brilinta Continue pravastatin. Will increase dosing to daily. (Patient was on every other day pravastatin) PT/OT consultation Neurology consultation appreciated (2) History of right EARTH SCIENCE TECHNICIAN stroke: Plan: Patient with prior CVA. Has baseline right-sided deficit. Continue aspirin and Brilinta Continue pravastatinincrease to daily (3) Hyperlipidemia: Plan: Chronic. Last lipid panel 01/05/2021 with total cholesterol 119, LDL of 38, HDL of 33 and triglycerides of 239 Continue pravastatin 40 mg daily (4) GERD (gastroesophageal reflux disease): Plan: Chronic. Stable. Continue omeprazole 20 mg p.o. daily (5) BPH (benign prostatic hyperplasia): Plan: RecentChronic. Stable. Of note, patient with complaint of urinary frequency. Was previously on Myrbetriq. States that he was unable to afford this medication at home. Requesting that he be started on it again while inpatient Initiate Myrbetriq 25 mg p.o. daily (6) CAD (coronary artery disease): Plan: Chronic. Stable. Patient denies chest pain or potation's Continue aspirin, Brilinta, atorvastatin Holding metoprolol and olmesartan for now (7) Hypertension: Plan: Blood pressure = 154/79. Patient recently had amlodipine added to his regimen Hold antihypertensives for now to allow for permissive hypertension Continue to monitor blood pressure (8) Type 2 diabetes mellitus: Plan: Blood sugar = 145. Patient is on insulin at home. Last A1c on 01/05/2021 = 7.2 New Lantus 12 units nightly Insulin sliding scale Goal blood sugar 100-1 40 while inpatient (9) Right internal carotid occlusion: Plan: Chronic. Unchanged from prior imaging Plan: FEN- LR at 125 mL/h x 2 L, electrodes within normal limits, heart healthy/consistent carb diet as tolerated ProphylaxisSCDs [place] per discussion with patient Dispositionadmit to medical telemetry History of Present Illness Chief Complaint: right sided weakness Primary Care Provider: Eduard Lora DO Rafi Williamson is a pleasant 81 yo male with history of coronary artery disease status post CABG x3 vessel, hypertension, hyperlipidemia, diabetes, prior CVA with persistent right-sided deficit presenting with worsening of right-sided weakness. Patient states that last evening he was watching TV when he developed numbness in his right hand as well as right leg. He states he was unable to do his dexterity exercises with his right hand and when he got up to go to the bathroom, he was unable to walk. He required assistance from his family and a cane and was able to walk to bed. He states that he was "dragging his right leg". He states that he slept well. When he woke this morning he still had numbness and poor dexterity in his right hand however, he states that his leg felt improved. He was able to walk by himself with a cane and using furniture to help him balance. Patient denies fever, chills, chest pain, palpitations. Denies headache, visual changes. Denies cough, shortness of breath, abdominal pain, nausea, vomiting, diarrhea, constipation. States that he is eating well at home. He has had some urinary incontinence for the last few days and endorses stronger smelling urine. Family is on the phone during our encounter and states that patient speech is slightly slower and more garbled and they noticed a definite difference in his right-sided weakness. He had recent addition of amlodipine to his blood pressure regimen. Patient reports having a small perirectal bump yesterday, question of hemorrhoid? No additional complaints at this time Patient is fully vaccinated against Covid ER course: Normal saline Allergies Allergy/AdvReac Type Severity Reaction Status Date / Time No Known Allergies Allergy Verified 05/17/21 10:12 Home Medications Medication Instructions Recorded Confirmed Type aspirin 81 mg tablet,delayed 81 mg PO HS 10/28/18 05/17/21 History release (Adult Aspirin Regimen) multivitamin 1 tab PO QAM 10/28/18 05/17/21 History cholecalciferol (vitamin D3) 50 2,000 units PO QAM 10/25/19 05/17/21 History mcg (2,000 unit) capsule docusate sodium 100 mg capsule 100 mg PO BID PRN 03/13/20 05/17/21 History blood-glucose meter (OneTouch #1 ea 10/03/20 01/08/21 Rx Verio Flex meter) insulin aspart U-100 100 unit/mL 1 sliding scale dose SUBCUT TID 01/08/21 05/17/21 Rx subcutaneous solution (Novolog #10 ml U-100 Insulin aspart) ticagrelor 90 mg tablet (Brilinta) 90 mg PO BID 90 Days #180 tab 02/05/21 05/17/21 Rx gabapentin 300 mg capsule 300 mg PO HS #90 cap 02/06/21 05/17/21 Rx metformin 500 mg tablet 500 mg PO BID #180 tab 02/06/21 05/17/21 Rx metoprolol succinate 50 mg 50 mg PO HS #90 tab 02/06/21 05/17/21 Rx tablet,extended release 24 hr blood sugar diagnostic (OneTouch #400 ea 02/23/21 Rx Verio test strips) lancets 33 gauge (OneTouch [facility] #400 ea 02/23/21 Rx Lancets) omega-3 acid ethyl esters 1 gram 1 cap PO DAILY #90 cap 03/19/21 05/17/21 Rx capsule (Lovaza) omeprazole 20 mg capsule,delayed 20 mg PO DAILY #90 cap 03/27/21 05/17/21 Rx release amlodipine 5 mg tablet 5 mg PO DAILY 05/17/21 05/17/21 History hydroxyzine HCl 25 mg tablet 25 mg PO HS PRN 05/17/21 05/17/21 History insulin glargine 100 unit/mL (3 12 unit SC HS 05/17/21 05/17/21 History mL) subcutaneous pen (Lantus Solostar U-100 Insulin) olmesartan 40 mg tablet 40 mg PO DAILY 05/17/21 05/17/21 History pravastatin 10 mg tablet 40 mg PO Q2D 05/17/21 05/17/21 History Past Med/Surg History Medical History BPH (benign prostatic hyperplasia) CAD (coronary artery disease) Depression GERD (gastroesophageal reflux disease) History of right EARTH SCIENCE TECHNICIAN stroke HTN (hypertension), benign Hyperlipidemia Hypertension Left pontine stroke Lumbar radiculopathy Lung cancer Neuropathy Osteoarthritis Right internal carotid occlusion Stroke POST-PO HEMIANOPSIA SRCONDARY TO A EARTH SCIENCE TECHNICIAN 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 Type 2 diabetes mellitus Surgical History History of arthroscopy of shoulder left S/P CABG x 3 09/20/2019: @ [facility] [place]; BARR TO LAD; SVG TO OM AND SVG TO PDA S/P partial lobectomy of lung Family History Father Myocardial infarction Denies family history of Ovarian cancer Prostate cancer Breast cancer Colorectal cancer Social History Smoking Status: Never smoker Tobacco Type: Smokeless Tobacco (Dip or Chew) Second Hand Exposure: No; Hx Alcohol Use: No Hx Substance Use: No Preferred Language: Peruvian Communication Ability: Effective Visual Impairment: No Limitations Hearing Ability: Normal Forward Air Controller/Air Officer Required: No Beliefs That Will Affect Care: None marital status: Current Living Situation: Spouse 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 Safe at Home: Yes Dental Care, Regularly: Yes Physical Activity Frequency: Does not Exercise Seatbelt Use: always Sunscreen Use: No Assistive Devices: None Review of Systems Review of Systems: All systems reviewed & are unremarkable except as noted in HPI & below Physical Exam Physical Exam: General: patient resting comfortably, NAD, non-toxic in appearance, AA&O x 4 Skin: warm, dry, intact, no rashes or lesions HEENT: NC/AT, PERRL, EOMI, anicteric sclera, conjunctiva without injection, external ear normal to inspection and nontender, nares patent, moist mucus membranes, dentition intact, no oropharyngeal lesions, neck supple, trachea midline, no LAD, no thyromegaly, no JVD Heart: +S1/S2, regular, no m/r/g Lungs: equal air entry bilaterally, no rales/rhonchi/wheezes Abd: +BS, soft, NT/ND, no masses/organomegaly/ascites Ext: warm, 2+ pulses in UE/LE bilaterally, no clubbing/cyanosis or edema Rectal: small external hemorrhoids, no active bleeding or thrombosis, enlarged prostate, non-tender, no internal hemorrhoids appreciated, stool brown Neuro: Patient awake alert and oriented x4, speech is slow but clear and appropriate, cranial nerves II through XII grossly intact, sensation to light touch intact, muscle strength 4/5 right upper extremity 4+/5 right lower extremity, 5/5 left upper and lower extremity, poor coordination with right [id number] and right twkp-gk-itck, gait not assessed\\ Results & Data Results & Data ([facility]) Vital Signs (Past 12 Hours) Vital Signs Temp Pulse Resp BP Pulse Ox 05/17/21 12:00 63 25 H 171/73 H 99 05/17/21 11:54 66 24 161/75 H 100 05/17/21 09:27 36.8 C 67 18 168/85 H 98 05/17/21 09:04 63 19 168/85 H Laboratory Results Laboratory Results WBC 5.97 K/uL (4.8-10.8) 05/17/21 08:47 RBC 5.21 M/uL (4.7-6.1) 05/17/21 08:47 Hgb 14.0 g/dL (14.0-18.0) 05/17/21 08:47 Hct 41.6 % (42-52) L 05/17/21 08:47 MCV 79.8 fL (80-100) L 05/17/21 08:47 MCH 26.9 pg (25-34) 05/17/21 08:47 MCHC 33.7 g/dL (32-36) 05/17/21 08:47 RDW Std Deviation 43.0 fL (36.4-46.3) 05/17/21 08:47 RDW Coeff of [place] 14.8 % (11.5-14.5) H 05/17/21 08:47 Plt Count 199 K/uL (130-400) 05/17/21 08:47 MPV 10.3 fL (7.4-10.4) 05/17/21 08:47 Immature Gran % (Auto) 0.3 % 05/17/21 08:47 Neut % (Auto) 54.2 % 05/17/21 08:47 Lymph % (Auto) 31.3 % 05/17/21 08:47 [place] % (Auto) 9.0 % 05/17/21 08:47 Eos % (Auto) 5.0 % 05/17/21 08:47 Baso % (Auto) 0.2 % 05/17/21 08:47 Neut # (Auto) 3.23 K/uL (1.4-6.5) 05/17/21 08:47 Lymph # (Auto) 1.87 K/uL (1.2-3.4) 05/17/21 08:47 [place] # (Auto) 0.54 K/uL (0.11-0.59) 05/17/21 08:47 Eos # (Auto) 0.30 K/uL (0-0.5) 05/17/21 08:47 Baso # (Auto) 0.01 K/uL (0-0.2) 05/17/21 08:47 Immature Gran # (Auto) 0.02 K/uL (0.00-0.02) 05/17/21 08:47 APTT 26.5 Seconds (21.0-31.0) 05/17/21 11:06 PTT Ratio 1.0 05/17/21 11:06 Sodium 139 mmol/L (136-145) 05/17/21 08:47 Potassium 3.9 mmol/L (3.5-5.1) 05/17/21 08:47 Chloride 108 mmol/L (98-107) H 05/17/21 08:47 Carbon Dioxide 26 mmol/L (21-32) 05/17/21 08:47 Anion Gap 5.0 (3-11) 05/17/21 08:47 BUN 21 mg/dl (7-18) H 05/17/21 08:47 Creatinine 1.35 mg/dl (0.6-1.4) 05/17/21 08:47 Est Cr Clr Drug Dosing 38.9 ml/min 05/17/21 08:47 Est GFR ( Amer) 57.5 ml/min 05/17/21 08:47 Est GFR (Non-Af Amer) 49.6 ml/min 05/17/21 08:47 BUN/Creatinine Ratio 15.4 (10-20) 05/17/21 08:47 Glucose 145 mg/dl (70-99) H 05/17/21 08:47 Calcium 8.9 mg/dl (8.5-10.1) 05/17/21 08:47 Phosphorus 2.6 mg/dl (2.5-4.9) 05/17/21 08:47 Magnesium 2.0 mg/dl (1.8-2.4) 05/17/21 08:47 Total Bilirubin 0.6 mg/dl (0.2-1) 05/17/21 08:47 AST 24 U/L (15-37) 05/17/21 08:47 ALT 27 U/L (12-78) 05/17/21 08:47 Alkaline Phosphatase 88 U/L (45-117) 05/17/21 08:47 Troponin I < 0.015 ng/ml (0-0.045) 05/17/21 08:47 Total Protein 7.3 gm/dl (6.4-8.2) 05/17/21 08:47 Albumin 3.7 gm/dl (3.4-5.0) 05/17/21 08:47 Globulin 3.6 gm/dl (2.5-4.0) 05/17/21 08:47 Albumin/Globulin Ratio 1.0 (0.9-2) 05/17/21 08:47 Lipase 195 U/L (73-393) 05/17/21 08:47 TSH 3.270 uIu/ml (0.300-4.500) 05/17/21 08:47 Urine Color Yellow 05/17/21 10:16 Urine Appearance Clear (Clear) 05/17/21 10:16 Urine pH 7.0 (4.5-7.5) 05/17/21 10:16 Ur Specific [place] 1.013 (1.000-1.030) 05/17/21 10:16 Urine Protein Negative (Negative) 05/17/21 10:16 Urine Glucose (UA) Negative (Negative) 05/17/21 10:16 Urine Ketones Negative (Negative) 05/17/21 10:16 Urine Blood Negative (Negative) 05/17/21 10:16 Urine Nitrite Negative (Negative) 05/17/21 10:16 Urine Bilirubin Negative (Negative) 05/17/21 10:16 Urine Urobilinogen Negative (Negative) 05/17/21 10:16 Ur Leukocyte Esterase Negative (Negative) 05/17/21 10:16 COVID-19 Eval Order Covid19 at [facility] 05/17/21 09:40 SARS-CoV-2 (PCR) NEGATIVE (Negative) 05/17/21 09:40 Impressions Chest X-Ray 05/17/21 09:24 XR chest 1V portable INDICATION: MN ^Y ^Chest Pain . TECHNIQUE: Single frontal radiograph of the chest was obtained. Comparison: None available at the time of this dictation. FINDINGS: Postsurgical changes of median sternotomy wires and surgical clips about the heart. Calcified aortic knob is seen. The lungs are clear. No evidence of pleural effusion or pneumothorax. IMPRESSION: No acute chest disease. ACT 112: Negative or not required by law. Electronically signed by: Fady Gomes M.D. 05/17/2021 11:[address] 05/17/21 09:24 CT angio head w con, CT head/brain wo con, CT angio neck with con CLINICAL HISTORY: 81 years-old Male with right sided weakness. Acute strokelike symptoms with right-sided weakness COMPARISON STUDY: CT head, CTA head and neck 03/16/2020, brain MRI 03/16/2020. TECHNIQUE: Following the IV administration of Optiray, CT angiogram of the head and neck was performed from the skull base to the vertex. Images are reviewed in the axial, sagittal, and coronal planes. 3-D MIPS images are created and assessed. IV contrast was administered without complication. All measurements were obtained according to NASCET criteria. Noncontrast head CT was also obtained. A dose lowering technique was utilized adhering to the principles of ALARA. CT DOSE: 1191.81 mGy.cm FINDINGS: CT BRAIN: There is no acute intracranial hemorrhage, midline shift, hydrocephalus, intracranial mass, territorial ischemia or abnormal extra-axial collections. No abnormal intra-axial or extra-axial enhancement. Age-related involutional changes. White matter hypodensities suggestive of chronic microvascular ischemic disease. Cerebral vascular calcifications. Chronic infarct of the right occipital lobe with encephalomalacia. Chronic left pontine infarct. Mastoid air cells and middle ear cavities are clear. No calvarial fracture. Chronic volume loss with opacification of the right maxillary sinus.. CTA HEAD AND NECK: Moderate atherosclerosis of the thoracic aortic arch without aneurysm or dissection. Patency of the innominate and imaged subclavian arteries. The common carotid arteries are patent. Chronic occlusion of the right ICA which begins approximately 2 cm distal to the origin is redemonstrated with tapered narrowing just proximal to the site of occlusion. There is atherosclerotic plaque of the right greater than left carotid bulbs. There is mild luminal narrowing of the proximal left external carotid artery. Atherosclerotic plaque of the cavernous and supraclinoid segments. Reconstitution of flow within the right carotid terminus via collateral vessels via the [place]. Unchanged moderate luminal narrowing of the cavernous segment left ICA on image 185 series 5. Mild multifocal luminal narrowing of the patent middle cerebral arteries. The anterior cerebral arteries are patent. The left vertebral artery originates directly from the aortic arch. Codominant and patent vertebral arteries. Calcified plaque is noted within the V4 segments of the vertebral arteries with mild luminal narrowing on the right. Patent basilar artery. 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 Moderate multifocal luminal narrowing of the left posterior cerebral artery P2 segment is unchanged. Cerebral venous sinuses are patent. Chronic right occipital and left pontine infarct. The apices are clear without pneumothorax thorax. Calcified granuloma of the right lung apex with 4 mm solid nodule of the right lung apex on image 58, unchanged. No pneumothorax. Prior median sternotomy. Thyroid nodules measure up to 8 mm on the right. IMPRESSION: 1. No acute intracranial abnormality. 2. 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 3. 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 4. Chronic occlusion of the right posterior cerebral artery P1 segment. 5. Moderate multifocal luminal narrowing of the left posterior cerebral artery. ACT 112: Negative or not required by law. The above report was generated using voice recognition software. It may contain grammatical, syntax or spelling errors. Electronically signed by: Kev Gould M.D. 05/17/2021 11:29 AM Head CTA 05/17/21 09:24 CT angio head w con, CT head/brain wo con, CT angio neck with con CLINICAL HISTORY: 81 years-old Male with right sided weakness. Acute strokelike symptoms with right-sided weakness COMPARISON STUDY: CT head, CTA head and neck 03/16/2020, brain MRI 03/16/2020. TECHNIQUE: Following the IV administration of Optiray, CT angiogram of the head and neck was performed from the skull base to the vertex. Images are reviewed in the axial, sagittal, and coronal planes. 3-D MIPS images are created and assessed. IV contrast was administered without complication. All measurements were obtained according to NASCET criteria. Noncontrast head CT was also obtained. A dose lowering technique was utilized adhering to the principles of ALARA. CT DOSE: 1191.81 mGy.cm FINDINGS: CT BRAIN: There is no acute intracranial hemorrhage, midline shift, hydrocephalus, intracranial mass, territorial ischemia or abnormal extra-axial collections. No abnormal intra-axial or extra-axial enhancement. Age-related involutional changes. White matter hypodensities suggestive of chronic microvascular ischemic disease. Cerebral vascular calcifications. Chronic infarct of the right occipital lobe with encephalomalacia. Chronic left pontine infarct. Mastoid air cells and middle ear cavities are clear. No calvarial fracture. Chronic volume loss with opacification of the right maxillary sinus.. CTA HEAD AND NECK: Moderate atherosclerosis of the thoracic aortic arch without aneurysm or dissection. Patency of the innominate and imaged subclavian arteries. The common carotid arteries are patent. Chronic occlusion of the right ICA which begins approximately 2 cm distal to the origin is redemonstrated with tapered narrowing just proximal to the site of occlusion. There is atherosclerotic plaque of the right greater than left carotid bulbs. There is mild luminal narrowing of the proximal left external carotid artery. Atherosclerotic plaque of the cavernous and supraclinoid segments. Reconstitution of flow within the right carotid terminus via collateral vessels via the [place]. Unchanged moderate luminal narrowing of the cavernous segment left ICA on image 185 series 5. Mild multifocal luminal narrowing of the patent middle cerebral arteries. The anterior cerebral arteries are patent. The left vertebral artery originates directly from the aortic arch. Codominant and patent vertebral arteries. Calcified plaque is noted within the V4 segments of the vertebral arteries with mild luminal narrowing on the right. Patent basilar artery. 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 Moderate multifocal luminal narrowing of the left posterior cerebral artery P2 segment is unchanged. Cerebral venous sinuses are patent. Chronic right occipital and left pontine infarct. The apices are clear without pneumothorax thorax. Calcified granuloma of the right lung apex with 4 mm solid nodule of the right lung apex on image 58, unchanged. No pneumothorax. Prior median sternotomy. Thyroid nodules measure up to 8 mm on the right. IMPRESSION: 1. No acute intracranial abnormality. 2. 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 3. 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 4. Chronic occlusion of the right posterior cerebral artery P1 segment. 5. Moderate multifocal luminal narrowing of the left posterior cerebral artery. ACT 112: Negative or not required by law. The above report was generated using voice recognition software. It may contain grammatical, syntax or spelling errors. Electronically signed by: Kev Gould M.D. 05/17/2021 11:29 AM Neck CTA 05/17/21 09:24 CT angio head w con, CT head/brain wo con, CT angio neck with con CLINICAL HISTORY: 81 years-old Male with right sided weakness. Acute strokelike symptoms with right-sided weakness COMPARISON STUDY: CT head, CTA head and neck 03/16/2020, brain MRI 03/16/2020. TECHNIQUE: Following the IV administration of Optiray, CT angiogram of the head and neck was performed from the skull base to the vertex. Images are reviewed in the axial, sagittal, and coronal planes. 3-D MIPS images are created and assessed. IV contrast was administered without complication. All measurements were obtained according to NASCET criteria. Noncontrast head CT was also obtained. A dose lowering technique was utilized adhering to the principles of ALARA. CT DOSE: 1191.81 mGy.cm FINDINGS: CT BRAIN: There is no acute intracranial hemorrhage, midline shift, hydrocephalus, intracranial mass, territorial ischemia or abnormal extra-axial collections. No abnormal intra-axial or extra-axial enhancement. Age-related involutional changes. White matter hypodensities suggestive of chronic microvascular ischemic disease. Cerebral vascular calcifications. Chronic infarct of the right occipital lobe with encephalomalacia. Chronic left pontine infarct. Mastoid air cells and middle ear cavities are clear. No calvarial fracture. Chronic volume loss with opacification of the right maxillary sinus.. CTA HEAD AND NECK: Moderate atherosclerosis of the thoracic aortic arch without aneurysm or dissection. Patency of the innominate and imaged subclavian arteries. The common carotid arteries are patent. Chronic occlusion of the right ICA which begins approximately 2 cm distal to the origin is redemonstrated with tapered narrowing just proximal to the site of occlusion. There is atherosclerotic plaque of the right greater than left carotid bulbs. There is mild luminal narrowing of the proximal left external carotid artery. Atherosclerotic plaque of the cavernous and supraclinoid segments. Reconstitution of flow within the right carotid terminus via collateral vessels via the [place]. Unchanged moderate luminal narrowing of the cavernous segment left ICA on image 185 series 5. Mild multifocal luminal narrowing of the patent middle cerebral arteries. The anterior cerebral arteries are patent. The left vertebral artery originates directly from the aortic arch. Codominant and patent vertebral arteries. Calcified plaque is noted within the V4 segments of the vertebral arteries with mild luminal narrowing on the right. Patent basilar artery. 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 Moderate multifocal luminal narrowing of the left posterior cerebral artery P2 segment is unchanged. Cerebral venous sinuses are patent. Chronic right occipital and left pontine infarct. The apices are clear without pneumothorax thorax. Calcified granuloma of the right lung apex with 4 mm solid nodule of the right lung apex on image 58, unchanged. No pneumothorax. Prior median sternotomy. Thyroid nodules measure up to 8 mm on the right. IMPRESSION: 1. No acute intracranial abnormality. 2. 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 3. 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 4. Chronic occlusion of the right posterior cerebral artery P1 segment. 5. Moderate multifocal luminal narrowing of the left posterior cerebral artery. ACT 112: Negative or not required by law. The above report was generated using voice recognition software. It may contain grammatical, syntax or spelling errors. Electronically signed by: Kev Gould M.D. 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
[2021-05-17] MEDS ORDERED: GLUCOSE 40% GEL 15 GM TUBE PO PRN (18:19)
[2021-05-17] MEDS ORDERED: DOCUSATE SODIUM 100 MG CAP PO PRN (18:19)
[2021-05-17] MEDS ORDERED: GLUCOSE 10 TABS/TUBE PO PRN (18:19)
[2021-05-17] MEDS ORDERED: ACETAMINOPHEN 325 MG TAB PO PRN (18:19)
[2021-05-17] MEDS ORDERED: GLUCAGON FOR INJ 1 MG VIAL SQ PRN (18:19)
[2021-05-17] MEDS ORDERED: hydrOXYzine HCl 25 MG TAB PO PRN (18:19)
[2021-05-17] MEDS ORDERED: CARBOHYDRATES FOR HYPOGLYCEMIA PO PRN (18:19)
[2021-05-17] MEDS ORDERED: ONDANSETRON INJ 2 MG/ML 2 ML VIAL IV PRN (18:19)
[2021-05-17] MEDS ORDERED: DEXTROSE 50% 50 ML SYRINGE IV PRN (18:19)
[2021-05-17] MEDS ORDERED: GADOBUTROL 65ML VIAL IV ONE (20:58)
[2021-05-17] MEDS ORDERED: GABAPENTIN 300 MG CAP PO SCH (21:00)
[2021-05-17] MEDS ORDERED: INSULIN GLARGINE SOLOSTAR 100 UNITS/ML 3 ML PEN SC SCH (21:00)
[2021-05-17] MEDS ORDERED: ASPIRIN 81 MG ECTAB PO SCH (21:00)
[2021-05-17] MEDS: INSULIN ASPART 100 UNITS/ML 3 ML PEN SC SCH ×2 (21:58→22:10)
[2021-05-17] MEDS: TICAGRELOR 90 MG TAB PO SCH (22:12)
--- NOTE | 2021-05-18 06:20 | Electrocardiogram Report ---
Test Reason : Blood Pressure : / mmHG Vent. Rate : 063 BPM Atrial Rate : 063 BPM P-R Int : 154 ms QRS Dur : 086 ms QT Int : 412 ms P-R-T Axes : 008 -47 014 degrees QTc Int : 421 ms Sinus rhythm with occasional Premature ventricular complexes Left axis deviation Abnormal ECG When compared with ECG of 16-MAR-2020 11:49, Premature ventricular complexes are now Present Confirmed by Juan Ramon Lemus ([id number]) on 05/18/2021 6:20:18 AM Referred By: REFERRED SELF Confirmed By:Juan Ramon Lemus
[2021-05-18 06:55] LABS: Basophils # (auto) 0.02 K/uL (0-0.2); Basophils % (auto) 0.4 %; Eosinophils # (auto) 0.27 K/uL (0-0.5); Hematocrit (blood only) 38.6 % (42-52); Immature Granulocytes # (auto) 0.01 K/uL (0.00-0.02); Immature Granulocytes % (auto) 0.2 %; Lymphocytes # (auto) 1.93 K/uL (1.2-3.4); Lymphocytes % (auto) 36.1 %; Mean Corpuscular Hemoglobin 26.5 pg (25-34); Mean Corpuscular Hgb Conc 33.7 g/dL (32-36); Mean Corpuscular Volume 78.6 fL (80-100); Mean Platelet Volume 10.1 fL (7.4-10.4); Monocytes # (auto) 0.42 K/uL (0.11-0.59); Monocytes % (auto) 7.9 %; Neutrophils % (auto) 50.4 %; Platelet Count 174 K/uL (130-400); RDW Coefficient of Variation 14.9 % (11.5-14.5); RDW Standard Deviation 42.4 fL (36.4-46.3); Red Blood Count 4.91 M/uL (4.7-6.1); White Blood Count 5.35 K/uL (4.8-10.8)
[2021-05-18 07:26] LABS: BUN Creatinine Ratio 14.3 (10-20); Creatinine Clr Calc Pharmacy 43.8 ml/min; Est GFR (African American) 66.3 ml/min; Est GFR (Non-African American) 57.2 ml/min; Potassium 3.8 mmol/L (3.5-5.1)
[2021-05-18 07:56] LABS: Estimated Average Glucose 171 mg/dl; Hemoglobin A1C 7.6 % (4.5-5.6)
--- NOTE | 2021-05-18 08:41 | Magnetic Resonance Report ---
Brain MRI WITH AND WITHOUT CONTRAST HISTORY: Right-sided weakness. Assess for stroke. TECHNIQUE: Multiplanar multisequence MRI of the brain was performed both before and after the intrave nous administration of contrast. COMPARISON STUDY: Head CT 05/17/2021. Brain MRI 03/16/2020. FINDINGS: There is an old left pontine infarct. Lateral tibial infarct is a 7 mm focus of restricted diffusion consistent with an acute left pontine infarct. No additional areas of restricted diffusion within the brain. The remaining midline structures are intact. Atrophy and mild microvascular ischemi c changes are again noted. There is an old right occipital lobe infarct with associated gliosis and m ild cortical laminar necrosis. This is similar to the prior study. Moderate mucosal thickening within the right maxillary sinus. The mastoid air cells are clear. Chronic right ICA occlusion is again not ed. This remains unchanged. There is no mass, hematoma, or midline shift. No abnormal enhancement. IMPRESSION: 1. A 7 mm focus of restricted diffusion within the left hemipons adjacent to the old pontine infarct. This is consistent with an acute lacunar infarct. 2. No change in the old right occipital lobe infarct. 3. Atrophy and microvascular ischemic changes are again noted. 4. Chronic right ICA occlusion, unchanged. ACT 112: Negative or not required by law. Electronically signed by: Jl Kunz M.D. 05/18/2021 8:39 AM
[2021-05-18] MEDS ORDERED: PANTOprazole 40 MG TAB PO SCH (09:00)
[2021-05-18] MEDS ORDERED: PRAVASTATIN SOD 40 MG TAB PO SCH (09:00)
[2021-05-18] MEDS ORDERED: MIRABEGRON ER 25 MG TAB PO SCH (09:00)
[2021-05-18] MEDS: TICAGRELOR 90 MG TAB PO SCH (09:36)
--- NOTE | 2021-05-18 09:58 | Hospitalist Progress Note ---
Date of Service May 18, 2021 Assessment & Plan (1) Right sided weakness: Plan: Rafi is a 81-year-old male with a history of CAD s/p CABG x 3, prior LDR RN stroke with persistent RIGHT sided deficit, HTN, HLD, T2DM, PAD who presented with RUE/RLE weakness, subsequently found to have a LEFT-sided lacunar infarct with the left hemipons. He is hemodynamically stable LEFT Lacunar Infarct -- in setting of prior LDR RN CVA, chronic R sided deficits * Presented with worsening of RIGHT-sided weakness in both RUE/RLE * Work-up as follows: - BSG, BMP, CBC WNL - CT+A/Head, Neck: Chronic RIGHT LDR RN and LEFT pontine infarcts; unchanged complete occlusion of R ICA; chronic occlusion of the RIGHT LDR RN P1 segment, moderate luminal narrowing of L LDR RN - MRI demonstratinmm restricted diffusion within L hemipons, c/w acute infarct - A1c 7.6% / TG 275 / TC 130 / LDL 46 / HDL 29 * Neurology consulted, appreciate insight and recommendations * Await TTE * Permissive HTN up until 185 / 110 * Continue ASA, Brilinta * Pravastatin 40mg qod --> Atorvastatin 80mg / day * PT, OT Chronic Medical Problems GERD: Stable. Omeprazole daily. BPH: Stable. +urinary frequency. Initiate Myrbetriq 25mg daily CAD: Stable. Hold metoprolol, losartan in setting of permissive HTN T2DM: BSG goal 100-140. Lantus 12U qPM. SSI. Diet: HH/CC PPX: SCDs Dispo: MS/T Code: FULL CODE (2) Dysarthria: (3) History of CVA with residual deficit: (4) Enlarged prostate without lower urinary tract symptoms (luts): (5) PAD (peripheral artery disease): (6) Dysarthria: (7) Right sided weakness: (8) History of right LDR RN stroke: (9) Hyperlipidemia: (10) GERD (gastroesophageal reflux disease): (11) Depression: (12) BPH (benign prostatic hyperplasia): (13) CAD (coronary artery disease): (14) Hypertension: (15) Type 2 diabetes mellitus: (16) Lumbar radiculopathy: (17) Left pontine stroke: (18) Right internal carotid occlusion: (19) Stroke-like symptoms: (20) Neural foraminal stenosis, multilevel: (21) Lumbar spondylosis: (22) Left shoulder pain: (23) NSTEMI (non-ST elevated myocardial infarction): (24) Heart palpitations: (25) S/P CABG x 3: (26) Lung cancer: (27) Osteoarthritis: (28) HTN (hypertension), benign: (29) S/P partial lobectomy of lung: (30) History of arthroscopy of shoulder: (31) Chest pain: Admission and Anticipated Discharge Date Admission Date: May 17, 2021 Subjective NAEO. Patient seen at the bedside this morning, feeling good overall. Says at baseline, his right side is more weak than his left, and he does have appreciable issues with his right shoulder. 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 Opening and closing more slowly than what he's used to. Other than that, he says he's f eeling fine. No numbness or tingling at present. In the past week, denies f/c/NS/other symptoms of illness. Review of Systems Review of Systems: as per HPI Physical Exam Physical Exam: General: Overall, well-appearing 81-year-old gentleman who is lying back in his hospital bed, relaxed, upon my arrival. He converses freely and is in no acute distress. HEENT: NCAT. Eyes - Sclera are white, anicteric, and without injection. Mouth - MMM with no tonsillar edema or exudates. Cardiac: Normal rate and regular rhythm; S1 and S2 present with no murmurs, rubs, or gallops. Pulmonary: Good respiratory effort with symmetric expansion of the chest. No use of accessory muscles. Lungs were clear to auscultation bilaterally with no crackles or wheezes. Abdominal: Normoactive bowel sounds. Abdomen was soft, nondistended, and non- tender to palpation. No hepatomegaly or splenomegaly. Neuro: - Cranial Nerves: CN I, IX, and X - not assessed. II - PERRL. III/IV/ - EOMs WNL. No nystagmus. V - Facial sensation in tact in all three divisions; jaw opening WNL. VII - Patient is able to smile symmetrically and keep eyes close against resistance. VIII - Patient is able to hear finger snapping equally and appropriately. Patient is able to rotate head and shrug shoulders against re sistance. XI - Soft palate raises equally and appropriately while saying "ah." XII - patient is able to stick out tongue and deviate from [id number] appropriately. - Motor: UE - Finger, wrist, elbow, and shoulder strength is 4/5 in RUE and 5/5 in LUE; LE - Hip, knee, and ankle strength is 4/5 in RLE, 5/5 in LUE - Sensation: UE and LE sensation to light touch is grossly intact bilaterally. - Reflexes - Biceps 2+ b/l; brachioradialis 2+ b/l; triceps 2+ b/l; patellar 2+ b/l; Achilles 2+ b/l. No clonus. - [id number]: dysmetria vs. weakness in RUE Results & Data Results & Data ([facility]) Vital Signs (Past 12 Hours) Vital Signs Temp Pulse Pulse Resp BP Pulse Ox 05/18/21 08:23 36.7 C 67 15 164/74 H 96 05/18/21 08:11 36.7 C 59 L 20 159/70 H 96 05/18/21 03:08 36.9 C 66 16 138/69 95 05/17/21 22:49 36.5 C 61 17 146/73 H 96 05/17/21 22:19 67 Resident Activity Tracking Resident Involvement: Resident Care Provided Care Provided: Adult Hospital Medicine (1) Chest pain Chest pain type: unspecified Qualified Code(s): R07.9 - Chest pain, unspecified (2) Hypertension Hypertension type: essential hypertension Qualified Code(s): I10 - Essential (primary) hypertension
[2021-05-18] MEDS: INSULIN ASPART 100 UNITS/ML 3 ML PEN SC SCH ×2 (10:01→12:39)
--- NOTE | 2021-05-18 11:23 | Neurology Consultation ---
Date of Consultation May 18, 2021 Assessment & Plan (1) Left pontine stroke: Acute left pontine stroke, adjacent to prior left pontine stroke, presenting with transient worsening of his chronic right hemiparesis and dysarthria. Patient appears to be back at his neurologic baseline this morning. He has a chronic occlusion of the right internal carotid artery that is unchanged. The right carotid terminus is reconstituted via collateral vessels via the [place]. There is moderate stenosis within the cavernous segment of the left internal carotid artery. The vertebrals and basilar arteries are patent. He has a history of chronic right occipital lobe infarct as well with associated chronic occlusion of the right posterior cerebral artery that is unchanged. Stroke risk factors for this patient include diabetes mellitus, dyslipidemia, hypertension and chewing tobacco use. Would continue with aspirin and Brilinta. Agree with increasing dosing frequency of pravastatin. He will continue to need to work on control of his diabetes mellitus. Cessation of chewing tobacco should be stressed. Follow-up with results of echocardiogram. Consider obtaining 30-day mobile cardiac outpatient telemetry. Patient will need evaluations with PT/OT/speech therapy. History of Present Illness Reason for Consultation: Possible stroke Requesting Physician: Lili Ruff DO Attending Physician: Lili Ruff DO History of Present Illness The patient is a 81-year-old male with a history of a chronic infarct within the right occipital lobe and left gaye as well as a chronic occlusion of the right internal carotid artery. I had evaluated him last March during an admission to the [facility] for extension of his previously identified ischemic left pontine infarct he was also seen by Dr. Smith at that time as well and for a follow-up encounter the following month. He saw Sheree Khanna in neurology clinic this past October. He is noted to have residual left peripheral vision loss, right hand weakness, and mild cognitive deficits. His past medical history is also notable for hypertension, hyperlipidemia, diabetes mellitus, coronary artery disease, status post CABG, depression, history of lung cancer, status post partial lobectomy. History also notable for resolved subarachnoid hemorrhage. He is on aspirin, Brilinta, and statin therapy. The patient had presented to the emergency department yesterday complaining of worsening of his chronic right-sided weakness and slurred speech he had difficulty walking due to this weakness that was considerably worse compared with his baseline. Symptoms apparently began the evening prior to his assessment in the emergency department. His symptoms were worse upon awakening which prompted him to seek further assessment in the emergency department. A CT of the head including CT angiogram of the head and neck revealed chronic right posterior cerebral artery and left pontine infarcts as well as chronic occlusion of the right posterior cerebral artery and chronic complete occlusion of the right internal carotid artery. MRI of the brain reveals a 7 mm focus of restricted diffusion within the left hemipons adjacent to the old pontine infarct. This finding is consistent with an acute lacunar infarct. No change in the previously identified old right occipital lobe infarct. The chronic right ICA occlusion was again observed. I reviewed the images as well as the radiologist interpretation of these tests and agree. This morning, the patient reports considerable improvement in his right-sided weakness and slurred speech, he feels as if he he is back at his baseline. Allergies Allergy/AdvReac Type Severity Reaction Status Date / Time No Known Allergies Allergy Verified 05/17/21 10:12 Home Medications Medication Instructions Recorded Confirmed Type aspirin 81 mg tablet,delayed 81 mg PO HS 10/28/18 05/17/21 History release (Adult Aspirin Regimen) multivitamin 1 tab PO QAM 10/28/18 05/17/21 History cholecalciferol (vitamin D3) 50 2,000 units PO QAM 10/25/19 05/17/21 History mcg (2,000 unit) capsule docusate sodium 100 mg capsule 100 mg PO BID PRN 03/13/20 05/17/21 History blood-glucose meter (FanDuelTouch #1 ea 10/03/20 01/08/21 Rx Verio Flex meter) insulin aspart U-100 100 unit/mL 1 sliding scale dose SUBCUT TID 01/08/21 05/17/21 Rx subcutaneous solution (Novolog #10 ml U-100 Insulin aspart) ticagrelor 90 mg tablet (Brilinta) 90 mg PO BID 90 Days #180 tab 02/05/21 05/17/21 Rx gabapentin 300 mg capsule 300 mg PO HS #90 cap 02/06/21 05/17/21 Rx metformin 500 mg tablet 500 mg PO BID #180 tab 02/06/21 05/17/21 Rx metoprolol succinate 50 mg 50 mg PO HS #90 tab 02/06/21 05/17/21 Rx tablet,extended release 24 hr blood sugar diagnostic (OneTouch #400 ea 02/23/21 Rx Verio test strips) lancets 33 gauge (FanDuelTouch Delica #400 ea 02/23/21 Rx Lancets) omega-3 acid ethyl esters 1 gram 1 cap PO DAILY #90 cap 03/19/21 05/17/21 Rx capsule (Lovaza) omeprazole 20 mg capsule,delayed 20 mg PO DAILY #90 cap 03/27/21 05/17/21 Rx release amlodipine 5 mg tablet 5 mg PO DAILY 05/17/21 05/17/21 History hydroxyzine HCl 25 mg tablet 25 mg PO HS PRN 05/17/21 05/17/21 History insulin glargine 100 unit/mL (3 12 unit SC HS 05/17/21 05/17/21 History mL) subcutaneous pen (Lantus Solostar U-100 Insulin) olmesartan 40 mg tablet 40 mg PO DAILY 05/17/21 05/17/21 History pravastatin 10 mg tablet 40 mg PO Q2D 05/17/21 05/17/21 History Patient History Medical History (Updated 05/18/21 @ 11:12 by Chuck Coffey MD) BPH (benign prostatic hyperplasia) CAD (coronary artery disease) Depression GERD (gastroesophageal reflux disease) 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 HTN (hypertension), benign Hyperlipidemia Hypertension Left pontine stroke Lumbar radiculopathy Lung cancer Neuropathy Osteoarthritis Right internal carotid occlusion Stroke POST-PO HEMIANOPSIA SRCONDARY TO A FOOD SERVICE ASSISTANT 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 Type 2 diabetes mellitus Surgical History History of arthroscopy of shoulder left S/P CABG x 3 09/20/2019: @ [facility] [place]; BARR TO LAD; SVG TO OM AND SVG TO PDA S/P partial lobectomy of lung Family History Father Myocardial infarction Denies family history of Ovarian cancer Prostate cancer Breast cancer Colorectal cancer Social History Smoking Status: Never smoker Tobacco Type: Smokeless Tobacco (Dip or Chew) Second Hand Exposure: No; Hx Alcohol Use: No Hx Substance Use: No Preferred Language: Upper Sorbian Communication Ability: Effective Visual Impairment: No Limitations Hearing Ability: Normal 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 Beliefs That Will Affect Care: None marital status: Current Living Situation: Spouse 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 Safe at Home: Yes Dental Care, Regularly: Yes Physical Activity Frequency: Does not Exercise Seatbelt Use: always Sunscreen Use: No Assistive Devices: Cane and Glasses Review of Systems Constitutional: no fever and no chills Eyes: no blind spots and no diplopia Ear, Nose, Mouth, Throat: no ear pain and no hearing loss Respiratory: no cough and no dyspnea Cardiovascular: no chest pain and no palpitations Gastrointestinal: no constipation and no diarrhea/loose stools Genitourinary: no urinary incontinence or no urinary urgency Musculoskeletal: no muscle weakness and no muscle atrophy Integumentary: no rash and no lesions Neurologic: as per Subjective / HPI Psychiatric: no behavioral changes, no depression, no abnormal sleep pattern and no anxiety Hematologic / Lymphatic: no easy bruising and no lymphadenopathy Exam (Neuro) Constitutional: well developed and well nourished; no acute distress Eyes: PERRL, normal accommodation and EOM intact bilaterally; + abnormal visual field confrontation (Left field cut), no fundoscopic abnormality, no nystagmus and no papilledema Cardiovascular: Vessels: normal carotid upstroke; no carotid bruit Neurologic: Oriented to:: Person, Place and Time Memory: Short Term Intact and Remote Intact Attention: Span Intact and Concentration Intact Languag e: Naming Objects and Repeating Phrases Speech Fluency: Dysarthria (mild) Speech Aphasia: negative Aphasia Fund of Knowledge: Current Events, Past History and Vocabulary Cranial Nerves: Normal III, IV, (Pupils equal round reactive to light and accommodation, eye movements normal), V (Facial sensation intact), VII (No facial droop), VIII (Hearing intact), IX, X (Palate elevates to midline), XI (Shoulder shrug intact) and XII (Tongue protrudes to midline); Abnorm II (Left field cut) Motor Strength: negative Normal Lower Extremities (Mild weakness and slightly diminished movement initiation for the right lower extremity noted.), Normal Upper Extremities (Mild proximal weakness noted for the right upper extremity.) or Pronator Drift Motor Tone: negative Normal Lower Extremities (Mildly increased tone) or Normal Upper Extremities (Mildly increased tone) Muscle Bulk/Involuntary Movements: No Involuntary Movements; negative Muscle Atrophy Sensation: Light Touch Intact, Pain/Temperature Intact and Proprioception Intact; negative Vibration Intact Coordination: Normal, Limited Balance, Finger-Nose Abnormal Laterality: Right and Heel-Monique Abnormal Laterality: Right Deep Tendon Reflexes: Rt Triceps: 2+, Lt Triceps: 2+, Rt Biceps: 2+, Lt Biceps: 2+, Rt Brachioradialis: 2+, Lt Brachioradialis: 2+, Rt Patellar: 2+, Lt Patellar: 2+, Rt Ankle: 2+ and Lt Ankle: 2+ Special Tests: negative Babinski Present Gait: Hemiparetic Laterality: Right Results & Data ([facility]) Vital Signs (Past 12 Hours) Vital Signs Temp Pulse Resp BP Pulse Ox 05/18/21 08:23 36.7 C 67 15 164/74 H 96 05/18/21 08:11 36.7 C 59 L 20 159/70 H 96 05/18/21 03:08 36.9 C 66 16 138/69 95 05/17/21 22:49 36.5 C 61 17 146/73 H 96 Laboratory Results WBC 5.35, hemoglobin 13.0, hematocrit 38.6, platelet count 174, sodium 141, potassium 3.8, BUN 17, creatinine 1.20, glucose 111, hemoglobin A1c 7.6, AST 24, ALT 27, magnesium 2.0, calcium 8.9, troponin less than 0.015, triglycerides 275, cholesterol 130, LDL 46, VLDL 55, HDL 29, TSH 3.270, SARS-CoV-[address] Findings [address] of the head, CT angiography of the head and neck, and brain MRI are as described in the history of present illness. Electrocardiogram reveals sinus rhythm with occasional PVCs, 63 bpm. Coding Level of Care Code 55497 Initial Inpt Care Lvl 3 Diagnoses Left pontine stroke I63.9
--- NOTE | 2021-05-18 13:40 | XCELERA ---
[id number]
--- NOTE | 2021-05-18 13:43 | Discharge Summary ---
Date of Service May 18, 2021 Admission HPI Per Admitting Provider Rafi Williamson is a pleasant 81 yo male with history of coronary artery disease status post CABG x3 vessel, hypertension, hyperlipidemia, diabetes, prior CVA with persistent right-sided deficit presenting with worsening of right-sided weakness. Patient states that last evening he was watching TV when he developed numbness in his right hand as well as right leg. He states he was unable to do his dexterity exercises with his right hand and when he got up to go to the bathroom, he was unable to walk. He required assistance from his family and a cane and was able to walk to bed. He states that he was "dragging his right leg". He states that he slept well. When he woke this morning he still had numbness and poor dexterity in his right hand however, he states that his leg felt improved. He was able to walk by himself with a cane and using furniture to help him balance. Patient denies fever, chills, chest pain, palpitations. Denies headache, visual changes. Denies cough, shortness of breath, abdominal pain, nausea, vomiting, diarrhea, constipation. States that he is eating well at home. He has had some urinary incontinence for the last few days and endorses stronger smelling urine. Family is on the phone during our encounter and states that patient speech is slightly slower and more garbled and they noticed a definite difference in his right-sided weakness. He had recent addition of amlodipine to his blood pressure regimen. Patient reports having a small perirectal bump yesterday, question of hemorrhoid? No additional complaints at this time Patient is fully vaccinated against Covid ER course: Normal saline Admission Exam Per Admitting Provider General: patient resting comfortably, NAD, non-toxic in appearance, AA&O x 4 Skin: warm, dry, intact, no rashes or lesions HEENT: NC/AT, PERRL, EOMI, anicteric sclera, conjunctiva without injection, external ear normal to inspection and nontender, nares patent, moist mucus membranes, dentition intact, no oropharyngeal lesions, neck supple, trachea midline, no LAD, no thyromegaly, no JVD Heart: +S1/S2, regular, no m/r/g Lungs: equal air entry bilaterally, no rales/rhonchi/wheezes Abd: +BS, soft, NT/ND, no masses/organomegaly/ascites Ext: warm, 2+ pulses in UE/LE bilaterally, no clubbing/cyanosis or edema Rectal: small external hemorrhoids, no active bleeding or thrombosis, enlarged prostate, non-tender, no internal hemorrhoids appreciated, stool brown Neuro: Patient awake alert and oriented x4, speech is slow but clear and a ppropriate, cranial nerves II through XII grossly intact, sensation to light touch intact, muscle strength 4/5 right upper extremity 4+/5 right lower extremity, 5/5 left upper and lower extremity, poor coordination with right [id number]-[id number] and right cbxb-wr-vufm, gait not assessed\\ Principal Diagnosis LEFT pontine lacunar infarct Discharge Exam General: Overall, well-appearing 81-year-old gentleman who is lying back in his hospital bed, relaxed, upon my arrival. He converses freely and is in no acute distress. HEENT: NCAT. Eyes - Sclera are white, anicteric, and without injection. Mouth - MMM with no tonsillar edema or exudates. Cardiac: Normal rate and regular rhythm; S1 and S2 present with no murmurs, rubs, or gallops. Pulmonary: Good respiratory effort with symmetric expansion of the chest. No use of accessory muscles. Lungs were clear to auscultation bilaterally with no crackles or wheezes. Abdominal: Normoactive bowel sounds. Abdomen was soft, nondistended, and non- tender to palpation. No hepatomegaly or splenomegaly. Neuro: - Cranial Nerves: CN I, IX, and X - not assessed. II - PERRL. III/IV/ - EOMs WNL. No nystagmus. V - Facial sensation in tact in all three divisions; jaw opening WNL. VII - Patient is able to smile symmetrically and keep eyes close against resistance. VIII - Patient is able to hear finger snapping equally and appropriately. Patient is able to rotate head and shrug shoulders against resistance. XI - Soft palate raises equally and appropriately while saying "ah." XII - patient is able to stick out tongue and deviate from gytt-vj-pcct appropriately. - Motor: UE - Finger, wrist, elbow, and shoulder strength is 4/5 in RUE and 5/5 in LUE; LE - Hip, knee, and ankle strength is 4/5 in RLE, 5/5 in LUE - Sensation: UE and LE sensation to light touch is grossly intact bilaterally. - Reflexes - Biceps 2+ b/l; brachioradialis 2+ b/l; triceps 2+ b/l; patellar 2+ b/l; Achilles 2+ b/l. No clonus. - Ggwhur-rg-quvp: dysmetria vs. weakness in RUE Discharge Data Allergies Allergy/AdvReac Type Severity Reaction Status Date / Time No Known Allergies Allergy Verified 05/17/21 10:12 Consultations " Acute left pontine stroke, adjacent to prior left pontine stroke, presenting with transient worsening of his chronic right hemiparesis and dysarthria. Patient appears to be back at his neurologic baseline this morning. He has a chronic occlusion of the right internal carotid artery that is unchanged. The right carotid terminus is reconstituted via collateral vessels via the [place] of [place]. There is moderate stenosis within the cavernous segment of the left internal carotid artery. The vertebrals and basilar arteries are patent. He has a history of chronic right occipital lobe infarct as well with associated chronic occlusion of the right posterior cerebral artery that is unchanged. Stroke risk factors for this patient include diabetes mellitus, dyslipidemia, hypertension and chewing tobacco use. Would continue with aspirin and Brilinta. Agree with increasing dosing frequency of pravastatin. He will continue to need to work on control of his diabetes mellitus. Cessation of chewing tobacco should be stressed. Follow-up with results of echocardiogram. Consider obtaining 30-day mobile cardiac outpatient telemetry. Patient will need evaluations with PT/OT/speech therapy." - Chuck Coffey MD Ordered Studies CT angio head w con, CT head/brain wo con, CT angio neck with con (05/17) CLINICAL HISTORY: 81 years-old Male with right sided weakness. Acute strokelike symptoms with right-sided weakness COMPARISON STUDY: CT head, CTA head and neck 03/16/2020, brain MRI 03/16/2020. TECHNIQUE: Following the IV administration of Optiray, CT angiogram of the head and neck was performed from the skull base to the vertex. Images are reviewed in the axial, sagittal, and coronal planes. 3-D MIPS images are created and assessed. IV contrast was administered without complication. All measurements we re obtained according to NASCET criteria. Noncontrast head CT was also obtained. A dose lowering technique was utilized adhering to the principles of ALARA. CT DOSE: 1191.81 mGy.cm FINDINGS: CT BRAIN: There is no acute intracranial hemorrhage, midline shift, hydrocephalus, intracranial mass, territorial ischemia or abnormal extra-axial collections. No abnormal intra-axial or extra-axial enhancement. Age-related involutional changes. White matter hypodensities suggestive of chronic microvascular ischemic disease. Cerebral vascular calcifications. Chronic infarct of the right occipital lobe with encephalomalacia. Chronic left pontine infarct. Mastoid air cells and middle ear cavities are clear. No calvarial fracture. Chronic volume loss with opacification of the right maxillary sinus.. CTA HEAD AND NECK: Moderate atherosclerosis of the thoracic aortic arch without aneurysm or dissection. Patency of the innominate and imaged subclavian arteries. The common carotid arteries are patent. Chronic occlusion of the right ICA which begins approximately 2 cm distal to the origin is redemonstrated with tapered narrowing just proximal to the site of occlusion. There is atherosclerotic plaque of the right greater than left carotid bulbs. There is mild luminal narrowing of the proximal left external carotid artery. Atherosclerotic plaque of the cavernous and supraclinoid segments. Reconstitution of flow within the right carotid terminus via collateral vessels via the [place] of [place]. Unchanged moderate luminal narrowing of the cavernous segment left ICA on image 185 series 5. Mild multifocal luminal narrowing of the patent middle cerebral arteries. The anterior cerebral arteries are patent. The left vertebral artery originates directly from the aortic arch. Codominant and patent vertebral arteries. Calcified plaque is noted within the V4 segments of the vertebral arteries with mild luminal narrowing on the right. Patent basilar artery. 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 Moderate multifocal luminal narrowing of the left posterior cerebral artery P2 segment is unchanged. Cerebral venous sinuses are patent. Chronic right occipital and left pontine infarct. The apices are clear without pneumothorax thorax. Calcified granuloma of the right lung apex with 4 mm solid nodule of the right lung apex on image 58, unchanged. No pneumothorax. Prior median sternotomy. Thyroid nodules measure up to 8 mm on the right. IMPRESSION: 1. No acute intracranial abnormality. 2. 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 3. 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 4. Chronic occlusion of the right posterior cerebral artery P1 segment. 5. Moderate multifocal luminal narrowing of the left posterior cerebral artery. ---- Brain MRI WITH AND WITHOUT CONTRAST (05/17) HISTORY: Right-sided weakness. Assess for stroke. TECHNIQUE: Multiplanar multisequence MRI of the brain was performed both before and after the intravenous administration of contrast. COMPARISON STUDY: Head CT 05/17/2021. Brain MRI 03/16/2020. FINDINGS: There is an old left pontine infarct. Lateral tibial infarct is a 7 mm focus of restricted diffusion consistent with an acute left pontine infarct. No additional areas of restricted diffusion within the brain. The remaining midline structures are intact. Atrophy and mild microvascular ischemic changes are again noted. There is an old right occipital lobe infarct with associated gliosis and mild cortical laminar necrosis. This is similar to the prior study. Moderate mucosal thickening within the right maxillary sinus. The mastoid air cells are clear. Chronic right ICA occlusion is again noted. This remains unchanged. There is no mass, hematoma, or midline shift. No abnormal enhancement. IMPRESSION: 1. A 7 mm focus of restricted diffusion within the left hemipons adjacent to the old pontine infarct. This is consistent with an acute lacunar infarct. 2. No change in the old right occipital lobe infarct. 3. Atrophy and microvascular ischemic changes are again noted. 4. Chronic right ICA occlusion, unchanged. 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 He is hemodynamically stable LEFT Lacunar Infarct -- in setting of prior FOOD TECHNICIAN CVA, chronic R sided deficits * Presented with worsening of RIGHT-sided weakness in both RUE/RLE -- by time of discharge, was at neurologic baseline * Work-up as follows: - BSG, BMP, CBC WNL - CT+A/Head, Neck: Chronic RIGHT FOOD TECHNICIAN and LEFT pontine infarcts; unchanged complete occlusion of R ICA; chronic occlusion of the RIGHT FOOD TECHNICIAN P1 segment, moderate luminal narrowing of L FOOD TECHNICIAN - MRI demonstratinmm restricted diffusion within L hemipons, c/w acute infarct - A1c 7.6% / TG 275 / TC 130 / LDL 46 / HDL 29 * Neurology consulted, appreciate insight and recommendations -- Intensify statin (see below) -- Intensify DM control -- Cessation of chewing tobacco * TTE: No shunt. Normal biventricular function. LVEF 55-60%. * Continue ASA, Brilinta * Pravastatin 40mg qod --> Atorvastatin 80mg / day on discharge * Outpatient PT arranged -- patient was not amenable to home-health / PT at discharge but can be revisited as outpatient Chronic Medical Problems GERD: Stable. Omeprazole daily. BPH: Stable. +urinary frequency. Initiate Myrbetriq 25mg daily CAD: Stable. Metoprolol, losartan can be resumed on discharge. T2DM: BSG goal 100-140. Lantus 12U qPM. SSI. Code: FULL CODE (2) Dysarthria: (3) History of CVA with residual deficit: (4) Enlarged prostate without lower urinary tract symptoms (luts): (5) PAD (peripheral artery disease): (6) History of right FOOD TECHNICIAN stroke: (7) Hyperlipidemia: (8) GERD (gastroesophageal reflux disease): (9) Depression: (10) BPH (benign prostatic hyperplasia): (11) CAD (coronary artery disease): (12) Hypertension: (13) Type 2 diabetes mellitus: (14) Lumbar radiculopathy: (15) Left pontine stroke: (16) Right internal carotid occlusion: (17) Stroke-like symptoms: (18) Neural foraminal stenosis, multilevel: (19) Lumbar spondylosis: (20) Left shoulder pain: (21) NSTEMI (non-ST elevated myocardial infarction): (22) Heart palpitations: (23) S/P CABG x 3: (24) Lung cancer: (25) Osteoarthritis: (26) HTN (hypertension), benign: (27) S/P partial lobectomy of lung: (28) History of arthroscopy of shoulder: (29) Chest pain: Total Time Total Time Spent Total Time Spent (In Minutes): >30 Discharge Plan Discharge Items Patient Disposition: Home - Self-Care Reason For Visit: RIGHT SIDED WEAKNESS Discharge Diagnosis: ischemic stroke Condition on Discharge: Fair Activity: Per Instructions section Non-emergency contact: Primary Care Provider Call non-emergency contact if: you have any medication questions, your symptoms worsen and your temperature is above 101 Follow-up/Referrals: Eduard Lora, DO [Primary Care Provider] - Diet: Carb Consistent or DM2 Addtl Attending Provider Instructions: You were seen at [facility] for evaluation of right sided weakness. Upon your arrival here, you underwent several tests to determine the cause of these symptoms. You were found to have a new stroke in the LEFT area of your brain - near one of your old strokes. Thankfully, the stroke area was very small. It has caused some weakness in your hand and foot. It will be critical to work with physical therapy upon discharge to strengthen your RIGHT side (where the weakness is) to increase functionality, strength, and decrease the risk of fall. A prescription for outpatient physical therpay has been initiated for you on discharge. Upon discharge, make sure you are using your walker with any sort of ambulation / walking. Please follow-up with your primary care provider within 1 week to review this visit and your medications. At that time, you should discuss further control of your diabetes and blood pressure, to reduce risk of stroke in the future. Please note the following medication changes upon your discharge: * Begin atorvastatin 80mg, once daily (a prescription was sent locally to [facility] pharmacy while your mail order is prepared) * STOP pravistatin If you experience any worsening or new numbness, tingling, weakness, blurry vision, difficulty speaking, bad headache, nausea, vomiting, chest pain, or shortness of breath, please report to the ER immediately for evaluation. These could be signs of a new stroke or worsening stroke. It has been a pleasure for caring for you while you were here, and we wish you all the best in your recovery. Pending Studies at Discharge: No Stand-Alone Forms: My [facility], Smoking Cessation Medications and DC Order Prescriptions: New atorvastatin 40 mg Tablet 80 mg PO QAM 30 Days Qty: 60 RF: 2 atorvastatin 80 mg tablet 80 mg PO DAILY Qty: 30 RF: 1 Continued aspirin [Adult Aspirin Regimen] 81 mg tablet,delayed release (DR/EC) 81 mg PO HS RF: 0 multivitamin tablet 1 tab PO QAM RF: 0 (DME) blood-glucose meter [OneTouch Verio Flex meter] [facility] [place] See Rx Instructions .ROUTE .MEDSUPPLY Qty: 1 RF: 0 Brilinta 90 mg tablet 90 mg PO BID 90 Days Qty: 180 RF: 1 gabapentin 300 mg capsule 300 mg PO HS Qty: 90 RF: 1 metoprolol succinate 50 mg tablet extended release 24 hr 50 mg PO HS Qty: 90 RF: 1 metformin 500 mg tablet 500 mg PO BID Qty: 180 RF: 1 (DME) OneTouch Verio test strips Strip See Rx Instructions .ROUTE .MEDSUPPLY Qty: 400 RF: 1 (DME) lancets [OneTouch Delica Lancets] 33 gauge misc See Rx Instructions .ROUTE .MEDSUPPLY Qty: 400 RF: 1 omega-3 acid ethyl esters [Lovaza] 1 gram capsule 1 cap PO DAILY Qty: 90 RF: 1 omeprazole 20 mg capsule,delayed release(DR/EC) 20 mg PO DAILY Qty: 90 RF: 1 insulin aspart U-100 [Novolog U-100 Insulin aspart] 100 unit/mL solution 1 sliding scale dose subcut TID Qty: 10 RF: 2 cholecalciferol (vitamin D3) 50 mcg (2,000 unit) capsule 2,000 units PO QAM RF: 0 docusate sodium 100 mg capsule 100 mg PO BID PRN (Reason: CONSTIPATION) RF: 0 amlodipine 5 mg tablet 5 mg PO DAILY RF: 0 olmesartan 40 mg Tablet 40 mg PO DAILY RF: 0 hydroxyzine HCl 25 mg tablet 25 mg PO HS PRN (Reason: anxiety) RF: 0 Lantus Solostar U-100 Insulin 100 unit/mL (3 mL) insulin pen 12 unit SC HS RF: 0 Discontinued pravastatin 10 mg tablet 40 mg PO Q2D RF: 0 Discharge Orders: Discharge Order (Routine); Ordered 05/18/21 Ordered By: José Miguel Monroy/Other Patient Handouts: A1C, Managing Type 2 Diabetes, Symptoms of Stroke, Stroke Prevention Eating Healthy, Special Foot Care for Diabetes Admission Data Admit Date/Time: 05/17/21 12:54 Attending Provider: José Miguel Robles Admit Provider: Lili Ruff Primary Care Provider: Eduard Lora Other Providers: Lili Ruff ; Chuck Coffey Other Interventions: Discharge Summary Assessment (RN) Last Done: 05/18/21 14:55 Supervising Physician Co-Signing Physician Notes I personally examined the patient and verified all galan points of history and exam, discussed case, and agree with decision making with Dr Marx. Still has a bit of foot drop and arm weaknessbut notes that it is better than it was last night, very much feels up to going home. Is able to walk and feels safe, lives on 1 floor. Discussed his situation at length, in detail, and answered all of his questions to the best my ability. Vitals noted, in general he is awake and alert pleasant no distress. HEENT normocephalic atraumatic mucous membranes moist. Breathing unlabored no accessory muscle use good effort. Neuro shows a degree of right arm weakness and right foot drop, he is able to walk with a walker (he notes that is what he normally uses at home) with a slight foot drop, but he seems aware of his foot drop, and is able to correct for any instability by altering raising his right foot, standing on his left foot a little bit longer, or utilizing the walker for a bit more support. Mental status intact. Recurrent CVAsmall vessel disease. Has pre-existing rather extensive cerebrovascular disease, so unfortunately it is not surprising his had another event. Risks are largely mitigated, but we could hopefully confer a degree of plaque stabilization/reduced risk by changing his statin from pravastatin to atorvastatinwe discussed this in detail, and he expressed good understanding and a willingness to make the switch. Knows what to watch for. Otherwise continue current meds. Discussed with him PTs recommendation for rehab, he is very adamant about wanting to go home, and when we walked with him, while it does appear he would benefit from rehab, given his understanding/capacity to grasp the situation, his desire to go home, and his safety awareness, it does seem reasonable to have him go home and do PT as an outpatient. Otherwise as above.
--- NOTE | 2021-05-18 18:16 | Billing Data ---
Date of Service May 18, 2021 Coding Level of Care Code D/C DAY MANAGEMENT >30 MINS
[2021-05-19] MEDS ORDERED: ATORVASTATIN 40 MG TAB PO SCH (09:00)
== END 2021-05-18 17:00 | disposition home or self-care (01) | DRG 65 ==
LOC: ED 09:01 → 2N 12:54 → SUATTDRO 12:54 → 2N 17:16